=== PATIENT | female | born 1940 | race Caucasian/White ===

== ENCOUNTER 2022-04-27 11:59 | Emergency (ER) | payer MEDICARE, SELFPAY ==
[2022-04-27 12:11] VITALS: BP 216/73; PULSE 58; RESP 16; TEMP 36.3; O2SAT 94
--- NOTE | 2022-04-27 12:15 | XR_ITS ---
WS: [id number] XR chest 1V portable [id number] REASON FOR EXAM: kidney failure FINDINGS: No prior examinations for comparison. Cardiomegaly. Mild tortuosity and ectasia of the thoracic aorta with calcification in the aortic arch . Calcified granulomatous disease in both hemithoraces. Ill-defined hazy opacity in the right lower lung field laterally. Obscuration of the right hemidiaphr agm indicates consolidation/atelectasis in the right lower lung. Blunting of the right costophrenic angle. XR/XR chest 1V portable [id number] IMPRESSION: Atelectasis/consolidation in the right lower chest. Possible small right pleura l effusion.
--- NOTE | 2022-04-27 12:19 | ED_ITS ---
HPI - General Adult General: Chief complaint: General Medical Stated complaint: Kidney failure/N/V Time Seen by Provider: 04/27/22 12:10 History of Present Illness: Patient is an 82-year-old female with a history of CKD, hypertension who presents emergency room for concerns of worsening kidney function, nausea vomiting, chills and generalized weakness. She tells me 3 weeks ago she was diagnosed with chronic kidney injury and is trying to establish care with Dr. Toro in [facility]. Patient tells me that she has an ultrasound that is due but has not been obtained yet. In addition, patient tells me that she is still able to make urine. Since a week ago, patient has reports chills and generalized weakness. 3 days ago, patient reports ongoing cough and shortness of breath. Patient reports symptoms of nausea vomiting today. Denies chest pain, abdominal pain, dy suria/hematuria/polyuria, diarrhea/melena/hematochezia. Onset: 3 weeks ago of diagnosed kidney failure, 1 week of chill/generalized weakness, 3 days of nausea/vomiting Duration:ongoing Location:home Severity:moderate Associated symptoms: Reports dyspnea and vomiting; Deny chest pain, nausea, rash or palpitations Review of Systems Const: Reports: chills, fatigue and other (+generalized weakness); Denies: fever(s) Eyes: Denies: change in vision ENMT: Denies: mouth pain Card: Denies: chest pain or palpitations Resp: Reports: dyspnea and non-productive cough GI: Reports: vomiting; Denies: abdominal pain, nausea or diarrhea : Denies: dysuria Musc: Denies: extremity pain Skin/Breast: Denies: rash or new lesions Neuro: Denies: weakness in extremities Psych: Reports: other (Normal mood) Jimbo/Lymph: Denies: easy bruising PFSH ED PFSH: Medical History CKD (chronic kidney disease) Social History Smoking and tobacco status: never smoked Alcohol intake: never Substance/Drug Use: never Physical Exam Const: COMMON NORMALS: alert HENMT: COMMON NORMALS: atraumatic HEAD & SCALP: atraumatic MOUTH: moist mucous membranes not abnormal Eye: COMMON NORMALS: EOMs intact bilaterally and conjunctivae normal CONJUNCTIVA: Yes conjunctivae normal Neck/C-Spine: COMMON NORMALS: full ROM and supple Resp: COMMON NORMALS: normal respiratory effort and clear to auscultation bilaterally AUSCULTATION: clear to auscultation bilaterally Cardio: COMMON NORMALS: regular rate RATE: regular rate GI: COMMON NORMALS: Soft to palpation and non-tender PALPATION: Yes Soft to palpation OTHER: No focal TTP. NO guarding rebound, guarding, rigidity. No CVA tenderness to percussion. Neg Romano/Neg McBurney's point tenderness, no suprabupic tenderness to palpation. Extremity: COMMON NORMALS: full ROM OTHER: No lower extremity edema b/l Neuro: SENSORIUM/ORIENTATION: Yes alert MOTOR EXAM: No Abnormal motor strength present and Other motor observations present (no focal motor deficits) Psych: COMMON NORMALS: speech normal SPEECH: Yes normal speech MOOD & AFFECT: Yes euthymic mood Course Vital Signs: Vital signs: Vital Signs Temperature 97.3 F L 04/27/22 12:11 Pulse Rate 67 04/27/22 17:00 Respiratory Rate 16 04/27/22 12:11 Blood Pressure 210/70 04/27/22 18:33 Pulse Oximetry 92 04/27/22 17:00 Oxygen Delivery Me thod 04/27/22 12:11 MDM - General Adult Medical Decision Making Patient is an 82-year-old female with a history of CKD, hypertension who presents emergency room for concerns of worsening kidney function, nausea vomiting, chills and generalized weakness. On physical exam, patient is hemodynamically stable without any focal findings. Patient is noted to have white count 10.4. Creatinine of 2.9. Hemoglobin 10.6. 1x2 with delta less than 5. Patient EKGs did not show any signs of ischemia or ST elevation. I explained to patient that she needs additional blood pressure control to lower her creatinine of 2.8. Patient verbalized understanding. Patient received hydralazine and amlodipine in the emergency room today. Family did request for a copy of renal ultrasound. Renal ultrasound is negative for any acute finding. Have included a copy of the result for patient. Rx amlodipine 5mg for HTN Disposition: Discharge. Patient counseled regarding diagnostic impression, treatment plan. Patient given ED strict return precautions to return for continuation, worsening, or development of new symptoms. Instructed to f/u w/ PCP regarding symptoms today. Patient verbalized understanding. Lab Data : 04/27/22 12:50 04/27/22 12:50 Radiology Impressions Chest X-Ray 04/27/22 12:15 IMPRESSION: Atelectasis/consolidation in the right lower chest. Possible small right pleural effusion. Renal Ultrasound 04/27/22 16:40 IMPRESSION: 1. Negative for renal obstruction. 2. Atrophic kidneys. Suspect chronic medical renal disease. Laboratory Results WBC 10.4 10^3/uL (4.0-10.0) H 04/27/22 12:50 RBC 3.72 10^6/uL (4.1-5.3) L 04/27/22 12:50 Hgb 10.6 g/dL (11.5-15.3) L 04/27/22 12:50 Hct 31.8 % (37.0-47.0) L 04/27/22 12:50 MCV 85.5 fl (81-99) 04/27/22 12:50 MCH 28.5 pg (28.0-34.0) 04/27/22 12:50 MCHC 33.3 g/dL (30.0-36.0) 04/27/22 12:50 RDW 12.7 % (12.1-15.1) 04/27/22 12:50 Plt Count 370 10^3/cmm (130-400) 04/27/22 12:50 MPV 8.9 fL (7.4-10.4) 04/27/22 12:50 Neut % (Auto) 75.2 % 04/27/22 12:50 Lymph % (Auto) 16.6 % 04/27/22 12:50 Bulloch % (Auto) 6.0 % 04/27/22 12:50 Eos % (Auto) 1.1 % 04/27/22 12:50 Baso % (Auto) 0.6 % 04/27/22 12:50 Neut # (Auto) 7.83 10^3/uL (1.8-7.7) H 04/27/22 12:50 Lymph # (Auto) 1.7 10^3/uL (0.8-4.8) 04/27/22 12:50 Bulloch # (Auto) 0.6 10^3/uL (0.2-0.9) 04/27/22 12:50 Eos # (Auto) 0.1 10^3/uL (0.0-0.8) 04/27/22 12:50 Baso # (Auto) 0.1 10^3/uL (0.0-0.1) 04/27/22 12:50 Nucleated RBC % (auto) 0 % 04/27/22 12:50 Nucleated RBCs # 0.0 /100WBC 04/27/22 12:50 Sodium 137 mmol/L (136-145) 04/27/22 12:50 Potassium 4.7 mmol/L (3.5-5.1) 04/27/22 12:50 Chloride 103 mmol/L (98-107) 04/27/22 12:50 Carbon Dioxide 22 mmol/L (22-29) 04/27/22 12:50 Anion Gap 16.7 (5-19) 04/27/22 12:50 BUN 46 mg/dL (8-23) H 04/27/22 12:50 Creatinine 2.8 mg/dL (0.5-0.9) H 04/27/22 12:50 GFR Calculation Not Reportable 04/27/22 12:50 Glucose 165 mg/dL (65-115) H 04/27/22 12:50 Calculated Osmolality 300 mOsm/kg (285-295) H 04/27/22 12:50 Calcium 9.5 mg/dL (8.5-10.5) 04/27/22 12:50 Total Bilirubin 0.3 mg/dL (0.15-1.2) 04/27/22 12:50 AST 16 U/L (0-32) 04/27/22 12:50 ALT 14 U/L (0-33) 04/27/22 12:50 Alkaline Phosphatase 79 U/L (35-105) 04/27/22 12:50 Troponin T Baseline 22 ng/L (0-10) H 04/27/22 12:50 Troponin T 120 Minute 20.99 ng/L (0-10) H 04/27/22 14:32 Delta Troponin T -1.01 ABS# (0-10) L 04/27/22 14:32 Total Protein 6.2 g/dL (6.6-8.7) L 04/27/22 12:50 Albumin 3.5 g/dL (3.5-5.2) 04/27/22 12:50 Globulin 2.7 g/dL (1.3-4.6) 04/27/22 12:50 Lipase 128 U/L (13-60) H 04/27/22 12:50 Imaging Data Other Imaging: Radiologist's impression: [facility] [address] [address] XRay Report Signed Patient: Bianka Kirby Unit #: [id number] : 1940 Age/Sex: 82 / F ADM Date: 04/27/22 Loc: ER Room/Bed: Attending Dr: Ordering Provider/Ordering MD: Deborah Mills MD Date of Service: 04/27/22 Procedure(s): XR chest 1V portable [id number] Accession Number(s): [id number] Report Number: [id number] WS: [id number] XR chest 1V portable [id number] REASON FOR EXAM: kidney failure FINDINGS: No prior examinations for comparison. Cardiomegaly. Mild tortuosity and ectasia of the thoracic aorta with calcification in the aortic arch. Calcified granulomatous disease in both hemithoraces. Ill-defined hazy opacity in the right lower lung field laterally. Obscuration of the right hemidiaphragm indicates consolidation/atelectasis in the right lower lung. Blunting of the right costophrenic angle. XR/XR chest 1V portable [id number] IMPRESSION: Atelectasis/consolidation in the right lower chest. Possible small right pleural effusion. ? ? Dictated By: Surya Cabello Jr, MD Signed By: Surya Cabello Jr, MD Signed Date/Time: 04/27/22 1242 DD/ [address] [address] Ultrasound Report Signed Patient: Bianka Kirby Unit #: [id number] : 1940 Age/Sex: 82 / F ADM Date: 04/27/22 Loc: ER Room/Bed: Attending Dr: Ordering Provider/Ordering MD: Deborah Mills MD Date of Service: 04/27/22 Procedure(s): US renal BI* [id number] Accession Number(s): [id number] Report Number: [id number] PROCEDURE INFORMATION: Exam: US Retroperitoneal; Complete; Kidneys and Bladder Exam date and time: 04/27/2022 5:41 PM Age: 82 years old Clinical indication: Other: Order says eval for kidney injury; Additional info: Eval for kidney injuries TECHNIQUE: Imaging protocol: Real-time ultrasound of the retroperitoneum with image documentation. Complete exam focused on the kidneys and bladder. COMPARISON: No relevant prior studies available. FINDINGS: Right kidney: Right renal parenchyma is diffusely atrophic. Renal length 7.7 cm. Increased echotexture of the cortex. Simple upper pole cyst 1.8 cm diameter. No echogenic stones visible. No perinephric fluid. Left kidney: Left renal cortical thinning. Mildly increased cortical echotexture. Negative for hydronephrosis. Renal length 10.3 cm. Simple interpolar cortical cyst 1.2 cm diameter. No echogenic stones. No perinephric fluid. Urinary bladder: Sonographically unremarkable bladder. No significant finding. US/US renal BI* [id number] IMPRESSION: 1. Negative for renal obstruction. 2. Atrophic kidneys. Suspect chronic medical renal disease. ? Dictated By: Casey Verma Signed By: Casey Verma Signed Date/Time: 04/27/221835 DD/ 40 Discharge Plan Discharge Patient Disposition: Home Clinical Impression: CKD (chronic kidney disease), Hypertension Condition: Stable Prescriptions: New amlodipine 5 mg tablet 5 mg PO DAILY 20 Days Qty: 20 0RF Discharge Orders: Discharge ED (Routine); Ordered 04/27/22 Ordered By: Deborah Mills Referrals: Fernando Fish DO [Primary Care Provider] - Discharge Diet: Advance as tolerated Discharge Activity: Increase activity as tolerated Patient Instructions: Chronic Kidney Disease (ED) Activity Restrictions/Additional Instructions: Your primary care provider to adjust her blood pressure. Please follow-up with your [facility] care provider as well as Dr. Toro for adjustment of your chronic kidney injury. Coding Level of Care Code ED Substance Addiction Coordinator for Pauletteg Fwd Exam Comprehensive
--- NOTE | 2022-04-27 12:36 | ECG_ITS ---
[facility] Test Date: 2022-04-27 Pat Name: Bianka Kirby Department: Room: Gender: Female Broadcast Program Director: : 1940 Requested By: Deborah Mills Order Number: [id number] [place] MD: Olu Hernandez M.D. Measurements Intervals [place] Rate: 57 P: 84 CT: 248 QRS: 44 QRSD: 94 T: 0 QT: 400 QTc: 392 Interpretive Statements SINUS BRADYCARDIA WITH FIRST DEGREE AV BLOCK SEPTAL MYOCARDIAL INFARCTION , PROBABLY OLD [40+ ms Q WAVE IN V1/V2] No previous ECG available for comparison Electronically Signed On 04-27-2022 17:36:27 CDT by Olu Hernandez M.D. [id number]
[2022-04-27 13:02] LABS: Basophils # 0.1 10^3/uL (0.0-0.1); Basophils % 0.6 %; Eosinophils # 0.1 10^3/uL (0.0-0.8); Eosinophils % 1.1 %; Hematocrit 31.8 % (37.0-47.0); Hemoglobin 10.6 g/dL (11.5-15.3); Lymphocytes # 1.7 10^3/uL (0.8-4.8); Lymphocytes % 16.6 %; Mean Corpuscular HGB Conc 33.3 g/dL (30.0-36.0); Mean Corpuscular Hemoglobin 28.5 pg (28.0-34.0); Mean Corpuscular Volume 85.5 fl (81-99); Mean Platelet Volume 8.9 fL (7.4-10.4); Monocytes # 0.6 10^3/uL (0.2-0.9); Neutrophils # 7.83 10^3/uL (1.8-7.7); Neutrophils % 75.2 %; Nucleated Red Blood Cells % 0 %; Platelet Count 370 10^3/cmm (130-400); Red Blood Count 3.72 10^6/uL (4.1-5.3); Red Cell Distribution Width 12.7 % (12.1-15.1); White Blood Count 10.4 10^3/uL (4.0-10.0)
[2022-04-27 13:19] LABS: Troponin(5th) Baseline 22 ng/L (0-10)
[2022-04-27 13:25] LABS: Alanine Aminotransferase 14 U/L (0-33); Albumin Level 3.5 g/dL (3.5-5.2); Alkaline Phosphatase 79 U/L (35-105); Anion Gap 16.7 (5-19); Aspartate Amino Transferase 16 U/L (0-32); Blood Urea Nitrogen 46 mg/dL (8-23); Calcium 9.5 mg/dL (8.5-10.5); Carbon Dioxide 22 mmol/L (22-29); Chloride 103 mmol/L (98-107); Globulin 2.7 g/dL (1.3-4.6); Glucose 165 mg/dL (65-115); Lipase 128 U/L (13-60); Osmolality Calculated 300 mOsm/kg (285-295); Potassium 4.7 mmol/L (3.5-5.1); Sodium 137 mmol/L (136-145); Total Bilirubin 0.3 mg/dL (0.15-1.2); Total Protein 6.2 g/dL (6.6-8.7)
--- NOTE | 2022-04-27 14:16 | ECG_ITS ---
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 Measurements Intervals [place] Rate: 65 P: 268 NJ: 316 QRS: 62 QRSD: 98 T: 31 QT: 385 QTc: 400 Interpretive Statements SINUS RHYTHM SEPTAL MYOCARDIAL INFARCTION , PROBABLY OLD [40+ ms Q WAVE IN V1/V2] Compared to ECG 04/27/2022 12:36:35 Indeterminate axis now present Sinus bradycardia no longer present Myocardial infarct finding still present Electronically Signed On 04-27-2022 17:42:05 CDT by Olu Hernandez M.D. [id number]
[2022-04-27 16:22] LABS: Troponin 5 2HR 20.99 ng/L (0-10); Troponin 5 2HR Delta -1.01 ABS# (0-10)
--- NOTE | 2022-04-27 16:40 | USR_ITS ---
PROCEDURE INFORMATION: Exam: US Retroperitoneal; Complete; Kidneys and Bladder Exam date and time: 04/27/2022 5:41 PM Age: 82 years old Clinical indication: Other: Order says eval for kidney injury; Additional info: Eval for kidney injuries TECHNIQUE: Imaging protocol: Real-time ultrasound of the retroperitoneum with image documentation. Complete exam focused on the kidneys and bladder. COMPARISON: No relevant prior studies available. FINDINGS: Right kidney: Right renal parenchyma is diffusely atrophic. Renal length 7.7 cm. Increased echotexture of the cortex. Simple upper pole cyst 1.8 cm diameter. No echogenic stones visible. No perinephric fluid. Left kidney: Left renal cortical thinning. Mildly increased cortical echotexture. Negative for hydronephrosis. Renal length 10.3 cm. Simple interpolar cortical cyst 1.2 cm diameter. No echogenic stones. No perinephric fluid. Urinary bladder: Sonographically unremarkable bladder. No significant finding. US/US renal BI* [id number] IMPRESSION: 1. Negative for renal obstruction. 2. Atrophic kidneys. Suspect chronic medical renal disease.
[2022-04-27 17:00] VITALS: BP 231/84; PULSE 67; O2SAT 92
[2022-04-27] MEDS: amlodipine 10 mg Tablet PO (17:13)
--- NOTE | 2022-04-27 18:16 | ECG_ITS ---
[facility] Test Date: 2022-04-27 Pat Name: Bianka Kirby Department: Room: Gender: Female Oncology Specialist: : 1940 Requested By: Deborah Mills Order Number: [id number] [place] MD: Olu Hernandez M.D. Measurements Intervals [place] Rate: 59 P: 89 PA: 258 QRS: 39 QRSD: 94 T: 51 QT: 410 QTc: 408 Interpretive Statements SINUS BRADYCARDIA WITH FIRST DEGREE AV BLOCK SEPTAL MYOCARDIAL INFARCTION , PROBABLY OLD [40+ ms Q WAVE IN V1/V2] Compared to ECG 04/27/2022 14:34:08 First degree AV block now present Sinus rhythm no longer present Myocardial infarct finding still present Electronically Signed On 04-27-2022 22:44:22 CDT by Olu Hernandez M.D. [id number]
[2022-04-27 18:33] VITALS: BP 210/70
[2022-04-27] MEDS: hyDRALAzine 20 mg/mL INJ 1 mL IVP (19:04)
[2022-04-27 19:15] LABS: Adenovirus Not Detected (NOT DETECT); Chlamydia Pneumoniae Not Detected (NOT DETECT); Coronavirus 229E,HKU1,NL63,OC4 Not Detected (NOT DETECT); Human Metapneumovirus Not Detected (NOT DETECT); Human Rhinovirus/Enterovirus Not Detected (NOT DETECT); Influenza A Not Detected (NOT DETECT); Influenza A H1 Not Detected (NOT DETECT); Influenza A H1-2009 Not Detected (NOT DETECT); Influenza A H3 Not Detected (NOT DETECT); Influenza B Not Detected (NOT DETECT); Mycoplasma Pneumoniae Not Detected (NOT DETECT); Parainfluenza Virus Type 1 Not Detected (NOT DETECT); Parainfluenza Virus Type 2 Not Detected (NOT DETECT); Parainfluenza Virus Type 3 Not Detected (NOT DETECT); Parainfluenza Virus Type 4 Not Detected (NOT DETECT); Respiratory Syncytial Virus A Not Detected (NOT DETECT); Respiratory Syncytial Virus B Not Detected (NOT DETECT); SARS-COV-2 Not Detected (NOT DETECT)
[2022-04-27 19:28] VITALS: BP 193/60; PULSE 67; RESP 17; O2SAT 95
[2022-04-27 19:36] VITALS: BP 150/61; PULSE 67; RESP 17; TEMP 36.3; O2SAT 95
== END 2022-04-27 19:52 | disposition home or self-care (01) ==
PROVIDERS: Emergency Provider Emergency Medicine; PCP Electrodiagnostic Medicine
DX: I12.9 Hypertensive chronic kidney disease with stage 1 through stage 4 chronic kidney disease, or unspecified chronic kidney disease (principal); N18.9 Chronic kidney disease, unspecified
CPT/HCPCS: 36415; 71045; 76770; 80053; 83690; 84484; 85025; 87635; 93005; 96374; 99285; J0360

== ENCOUNTER 2022-06-19 10:55 | Inpatient (IN) | payer MEDICARE, SELFPAY ==
[2022-06-19] VITALS (95 sets, daily range): BP systolic 162–223; BP diastolic 60–141; PULSE 37–68; RESP 9–26; TEMP 36.4–36.7; O2SAT 86–96
[2022-06-19 12:47] LABS: Basophils # 0.1 10^3/uL (0.0-0.1); Basophils % 0.5 %; Eosinophils # 0.1 10^3/uL (0.0-0.8); Hematocrit 37.5 % (37.0-47.0); Hemoglobin 12.5 g/dL (11.5-15.3); Lymphocytes # 1.3 10^3/uL (0.8-4.8); Lymphocytes % 13.3 %; Mean Corpuscular HGB Conc 33.3 g/dL (30.0-36.0); Mean Corpuscular Hemoglobin 27.6 pg (28.0-34.0); Mean Corpuscular Volume 82.8 fl (81-99); Mean Platelet Volume 9.7 fL (7.4-10.4); Monocytes # 0.5 10^3/uL (0.2-0.9); Monocytes % 5.6 %; Neutrophils # 7.63 10^3/uL (1.8-7.7); Neutrophils % 79.1 %; Nucleated Red Blood Cells % 0 %; Platelet Count 347 10^3/cmm (130-400); Red Blood Count 4.53 10^6/uL (4.1-5.3); Red Cell Distribution Width 14.1 % (12.1-15.1); White Blood Count 9.7 10^3/uL (4.0-10.0)
--- NOTE | 2022-06-19 12:55 | XRR_ITS ---
PROCEDURE INFORMATION: Exam: XR Chest Exam date and time: 06/19/2022 2:00 PM Age: 82 years old Clinical indication: Shortness of breath; Additional info: SOB TECHNIQUE: Imaging protocol: Radiologic exam of the chest. Views: 1 view. COMPARISON: CR XR chest 1V portable [id number] 04/27/2022 12:23 PM FINDINGS: Lungs: Low lung volumes seen. The left lung and right upper lobe are clear. Pleural spaces: Right lower lobe of moderate volume pleural effusion. No pneumothorax. Heart/Mediastinum: Unremarkable. No cardiomegaly. Bones/joints: Unremarkable. XR/XR chest 1V portable [id number] IMPRESSION: 1. Moderate volume right lower lobe pleural effusion 2. Otherwise No acute findings.
--- NOTE | 2022-06-19 12:57 | W.ED.GENADLT ---
Documented by User: Clarisa Burton PA-C 06/19/22 14:10 HPI - General Adult General: Chief complaint: General Medical Stated complaint: High BP Time Seen by Provider: 06/19/22 12:44 Source: patient and family Mode of arrival: wheelchair Limitations: no limitations History of Present Illness: 82-year-old female presents to the ER today for high blood pressure. Patient reports this is been an ongoing issue. Patient reports she has kidney issues and is seeing a inpatient auditor. They tried to do a biopsy about 2 weeks ago and her blood pressure is too high. They were referred back to her primary care. Patient reports patient was on losartan but was removed due to kidney issues. Patient currently takes metoprolol and amlodipine and that is all. She reports at home the blood pressures been running over 200 on top and 70-90 on bottom. Patient denies any symptoms associated with the elevated blood pressure. Denies headaches, dizziness. She does report shortness of breath which is been going on for 1 to 2 months. Patient reports she has a history of smoking but denies any known history of COPD. Denies that it is worth's with lying flat. Patient reports walking or any type of exertion makes it worse. Patient reports she is scheduled for an echo 25 June. Review of Systems General: Reports: 10 or more systems reviewed and unremarkable except in HPI and below PFSH ED PFSH: Medical History CKD (chronic kidney disease) History of hyperlipidemia History of hypertension History of hypothyroidism Surgical History History of cholecystectomy Family History Mother CAD (coronary artery disease) Father CAD (coronary artery disease) Social History Smoking and tobacco status: never smoked Alcohol intake: never Substance/Drug Use: never Physical Exam Const: COMMON NORMALS: no acute distress, patient oriented x3, no limitations, alert and well nourished Resp: COMMON NORMALS: normal respiratory effort, No retractions and clear to auscultation bilaterally AUSCULTATION: clear to auscultation bilaterally Cardio: COMMON NORMALS: regular rate, regular rhythm and No murmurs present (Cardio) RATE: regular rate RHYTHM: regular rhythm OTHER: pt has borderline bradycardia GI: COMMON NORMALS: Normal to inspection, nondistended, normoactive bowel sounds present, Soft to palpation and non-tender PALPATION: Yes Soft to palpation Extremity: NARRATIVE EXTREMITY EXAM: +1 pitting edema bilaterally Neuro: COMMON NORMALS: patient oriented x3 SENSORIUM/ORIENTATION: Yes alert Psych: COMMON NORMALS: mental status grossly normal, Normal thought process present and cooperative THOUGHT PROCESS: Normal thought process present Skin: COMMON NORMALS: no rashes or lesions noted and no wounds GENERAL SKIN EXAM: no rashes or lesions noted Course ED course: Patient has ongoing hypertension. It is running over 200 for the last several days. Patient denies any symptoms associated with this. She does have some shortness of breath however that is been going on 1 to 2 months. We will get lab work and a chest x-ray at this time. Consultations: Consultation #1: Spoke with Dr. Swenson who agrees to admission. Will consult nephrology. Start pt on nitro drip at a low dose. Also wants a troponin series run. Time: 13:46 Consultation #2: Spoke with nephrology. Will consult with patient. Time: 14:07 Vital Signs: Vital signs: Vital Signs Temperature 97.6 F 06/19/22 15:57 Pulse Rate 54 L 06/19/22 15:57 Respiratory Rate 17 06/19/22 15:57 Blood Pressure 207/64 06/19/22 15:57 Pulse Oximetry 91 06/19/22 15:57 Oxygen Delivery Me thod 06/19/22 15:57 MDM - General Adult Medical Decision Making Patient's chest x-ray indicates a pleural effusion on the right side, this is moderate in size. Patient's blood pressure is remaining 210/80 while in the ER. Patient's creatinine is elevated at 3.3. Patient's BNP is greater than 8300. Her heart rate is running anywhere from 45-60 while in the ER. Given this, we are unable to give any oral medications that will not affect the heart rate. I did discuss this patient with Dr. Swenson who accepts patient and would like a nitro drip started. I also spoke with nephrology who will consult and see patient. Lab Data 06/19/22 12:23 06/19/22 12:23 Radiology Impressions Chest X-Ray 06/19/22 12:55 IMPRESSION: 1. Moderate volume right lower lobe pleural effusion 2. Otherwise No acute findings. Head CT 06/19/22 15:48 IMPRESSION: 1. No acute intracranial abnormality. 2. Chronic white matter ischemic disease Laboratory Results WBC 9.7 10^3/uL (4.0-10.0) 06/19/22 12: RBC 4.53 10^6/uL (4.1-5.3) 06/19/22 12:23 Hgb 12.5 g/dL (11.5-15.3) 06/19/22 12:23 Hct 37.5 % (37.0-47.0) 06/19/22 12: MCV 82.8 fl (81-99) 06/19/22 12: MCH 27.6 pg (28.0-34.0) L 06/19/22 12: MCHC 33.3 g/dL (30.0-36.0) 06/19/22 12: RDW 14.1 % (12.1-15.1) 06/19/22 12:23 Plt Count 347 10^3/cmm (130-400) 06/19/22 12: MPV 9.7 fL (7.4-10.4) 06/19/22 12: Neut % (Auto) 79.1 % 06/19/22 12:23 Lymph % (Auto) 13.3 % 06/19/22 12:23 [place] % (Auto) 5.6 % 06/19/22 12: Eos % (Auto) 1.0 % 06/19/22 12:23 Baso % (Auto) 0.5 % 06/19/22 12:23 Neut # (Auto) 7.63 10^3/uL (1.8-7.7) 06/19/22 12:23 Lymph # (Auto) 1.3 10^3/uL (0.8-4.8) 06/19/22 12:23 [place] # (Auto) 0.5 10^3/uL (0.2-0.9) 06/19/22 12:23 Eos # (Auto) 0.1 10^3/uL (0.0-0.8) 06/19/22 12:23 Baso # (Auto) 0.1 10^3/uL (0.0-0.1) 06/19/22 12:23 Nucleated RBC % (auto) 0 % 06/19/22 12:23 Nucleated RBCs # 0.0 /100WBC 06/19/22 12:23 Sodium 139 mmol/L (136-145) 06/19/22 12:23 Potassium 4.0 mmol/L (3.5-5.1) 06/19/22 12: Chloride 104 mmol/L (98-107) 06/19/22 12:23 Carbon Dioxide 25 mmol/L (22-29) 06/19/22 12:23 Anion Gap 14.0 (5-19) 06/19/22 12:23 BUN 46 mg/dL (8-23) H 06/19/22 12:23 Creatinine 3.3 mg/dL (0.5-0.9) H 06/19/22 12:23 GFR Calculation Not Reportable 06/19/22 12:23 Glucose 164 mg/dL (65-115) H 06/19/22 12:23 Estimat Average Glucose 111 06/19/22 12:23 Hemoglobin A1c 5.5 % (4.0-6.0) 06/19/22 12:23 Calculated Osmolality 304 mOsm/kg (285-295) H 06/19/22 12:23 Calcium 9.5 mg/dL (8.5-10.5) 06/19/22 12:23 Total Bilirubin 0.5 mg/dL (0.15-1.2) 06/19/22 12: AST 21 U/L (0-32) 06/19/22 12:23 ALT 13 U/L (0-33) 06/19/22 12:23 Alkaline Phosphatase 75 U/L (35-105) 06/19/22 12:23 Troponin T Baseline 43 ng/L (0-10) H 06/19/22 12:23 NT-Pro-B Natriuret Pep 8388 pg/mL (0-450) H 06/19/22 12:23 Total Protein 6.4 g/dL (6.6-8.7) L 06/19/22 12:23 Albumin 3.4 g/dL (3.5-5.2) L 06/19/22 12:23 Globulin 3.0 g/dL (1.3-4.6) 06/19/22 12:23 Triglycerides 224 mg/dL (0-150) H 06/19/22 12:23 Cholesterol 211 mg/dL (0-200) H 06/19/22 12:23 LDL Cholesterol, Calc 112 mg/dL (50-129) 06/19/22 12:23 HDL Cholesterol 54 mg/dL (60-100) L 06/19/22 12:23 LDL/HDL Ratio 2.07 RATIO (0.00-3.22) 06/19/22 12:23 Cholesterol/HDL Ratio 3.91 mg/dL (0.0-4.40) 06/19/22 12:23 TSH 6.71 uIU/mL (0.27-4.20) H 06/19/22 12:23 Critical Care Time Critical Care Time: Critical Care Time: No Discharge Plan Discharge Patient Disposition: Admitted As Inpatient Admit Provider: Roland Swenson Clinical Impression: Pleural effusion, right Hypertension Qualifiers: Hypertension type: renovascular hypertension Qualified Code(s): 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 - Renovascular hypertension Condition: Stable Coding Level of Care Code ED Director Of Event Sales for Chg Fwd Exam Detailed Documented by User: Donny Vicente DO 06/19/22 17:59 HPI - General Adult General: Chief complaint: General Medical Stated complaint: High BP Time Seen by Provider: 06/19/22 12:44 PFSH ED PFSH: Medical History CKD (chronic kidney disease) History of hyperlipidemia History of hypertension History of hypothyroidism Surgical History History of cholecystectomy Family History Mother CAD (coronary artery disease) Father CAD (coronary artery disease) Social History Smoking and tobacco status: never smoked Alcohol intake: never Substance/Drug Use: never Course Vital Signs: Vital signs: Vital Signs Temperature 97.6 F 06/19/22 15:57 Pulse Rate 54 L 06/19/22 15:57 Respiratory Rate 17 06/19/22 15:57 Blood Pressure 207/64 06/19/22 15:57 Pulse Oximetry 91 06/19/22 15:57 Oxygen Delivery Me thod 06/19/22 15:57 MDM - General Adult Medical Decision Making Patient's chest x-ray indicates a pleural effusion on the right side, this is moderate in size. Patient's blood pressure is remaining 210/80 while in the ER. Patient's creatinine is elevated at 3.3. Patient's BNP is greater than 8300. Her heart rate is running anywhere from 45-60 while in the ER. Given this, we are unable to give any oral medications that will not affect the heart rate. I did discuss this patient with Dr. Swenson who accepts patient and would like a nitro drip started. I also spoke with nephrology who will consult and see patient. Chart reviewed and patient discussed with midlevel. Agree with assessment and plan. Lab Data 06/19/22 12:23 06/19/22 12:23 Radiology Impressions Chest X-Ray 06/19/22 12:55 IMPRESSION: 1. Moderate volume right lower lobe pleural effusion 2. Otherwise No acute findings. Head CT 06/19/22 15:48 IMPRESSION: 1. No acute intracranial abnormality. 2. Chronic white matter ischemic disease Laboratory Results WBC 9.7 10^3/uL (4.0-10.0) 06/19/22 12: RBC 4.53 10^6/uL (4.1-5.3) 06/19/22 12:23 Hgb 12.5 g/dL (11.5-15.3) 06/19/22 12:23 Hct 37.5 % (37.0-47.0) 06/19/22 12: MCV 82.8 fl (81-99) 06/19/22 12:23 MCH 27.6 pg (28.0-34.0) L 06/19/22 12: MCHC 33.3 g/dL (30.0-36.0) 06/19/22 12: RDW 14.1 % (12.1-15.1) 06/19/22 12:23 Plt Count 347 10^3/cmm (130-400) 06/19/22 12: MPV 9.7 fL (7.4-10.4) 06/19/22 12:23 Neut % (Auto) 79.1 % 06/19/22 12:23 Lymph % (Auto) 13.3 % 06/19/22 12:23 [place] % (Auto) 5.6 % 06/19/22 12:23 Eos % (Auto) 1.0 % 06/19/22 12:23 Baso % (Auto) 0.5 % 06/19/22 12:23 Neut # (Auto) 7.63 10^3/uL (1.8-7.7) 06/19/22 12:23 Lymph # (Auto) 1.3 10^3/uL (0.8-4.8) 06/19/22 12:23 [place] # (Auto) 0.5 10^3/uL (0.2-0.9) 06/19/22 12:23 Eos # (Auto) 0.1 10^3/uL (0.0-0.8) 06/19/22 12:23 Baso # (Auto) 0.1 10^3/uL (0.0-0.1) 06/19/22 12: Nucleated RBC % (auto) 0 % 06/19/22 12: Nucleated RBCs # 0.0 /100WBC 06/19/22 12:23 Sodium 139 mmol/L (136-145) 06/19/22 12:23 Potassium 4.0 mmol/L (3.5-5.1) 06/19/22 12: Chloride 104 mmol/L (98-107) 06/19/22 12:23 Carbon Dioxide 25 mmol/L (22-29) 06/19/22 12: Anion Gap 14.0 (5-19) 06/19/22 12:23 BUN 46 mg/dL (8-23) H 06/19/22 12:23 Creatinine 3.3 mg/dL (0.5-0.9) H 06/19/22 12:23 GFR Calculation Not Reportable 06/19/22 12:23 Glucose 164 mg/dL (65-115) H 06/19/22 12:23 Estimat Average Glucose 111 11/25/22 12:23 Hemoglobin A1c 5.5 % (4.0-6.0) 06/19/22 12:23 Calculated Osmolality 304 mOsm/kg (285-295) H 06/19/22 12:23 Calcium 9.5 mg/dL (8.5-10.5) 06/19/22 12:23 Total Bilirubin 0.5 mg/dL (0.15-1.2) 06/19/22 12:23 AST 21 U/L (0-32) 06/19/22 12:23 ALT 13 U/L (0-33) 06/19/22 12:23 Alkaline Phosphatase 75 U/L (35-105) 06/19/22 12:23 Troponin T Baseline 43 ng/L (0-10) H 06/19/22 12:23 NT-Pro-B Natriuret Pep 8388 pg/mL (0-450) H 06/19/22 12:23 Total Protein 6.4 g/dL (6.6-8.7) L 06/19/22 12:23 Albumin 3.4 g/dL (3.5-5.2) L 06/19/22 12:23 Globulin 3.0 g/dL (1.3-4.6) 06/19/22 12:23 Triglycerides 224 mg/dL (0-150) H 06/19/22 12:23 Cholesterol 211 mg/dL (0-200) H 06/19/22 12:23 LDL Cholesterol, Calc 112 mg/dL (50-129) 06/19/22 12:23 HDL Cholesterol 54 mg/dL (60-100) L 06/19/22 12:23 LDL/HDL Ratio 2.07 RATIO (0.00-3.22) 06/19/22 12:23 Cholesterol/HDL Ratio 3.91 mg/dL (0.0-4.40) 06/19/22 12:23 TSH 6.71 uIU/mL (0.27-4.20) H 06/19/22 12:23 Discharge Plan Discharge Patient Disposition: Admitted As Inpatient Admit Provider: oRland Swenson Clinical Impression: Pleural effusion, right Hypertension Qualifiers: Hypertension type: renovascular hypertension Qualified Code(s): I15.0 - Renovascular hypertension Condition: Stable Coding Level of Care Code ED Director Of Event Sales for Chg Fwd Exam Detailed
[2022-06-19 13:06] LABS: Alanine Aminotransferase 13 U/L (0-33); Albumin Level 3.4 g/dL (3.5-5.2); Alkaline Phosphatase 75 U/L (35-105); Aspartate Amino Transferase 21 U/L (0-32); Blood Urea Nitrogen 46 mg/dL (8-23); Calcium 9.5 mg/dL (8.5-10.5); Carbon Dioxide 25 mmol/L (22-29); Chloride 104 mmol/L (98-107); Glucose 164 mg/dL (65-115); Osmolality Calculated 304 mOsm/kg (285-295); Sodium 139 mmol/L (136-145); Total Bilirubin 0.5 mg/dL (0.15-1.2); Total Protein 6.4 g/dL (6.6-8.7)
[2022-06-19 13:27] LABS: NT Pro B Type Natriuretic Pept 8388 pg/mL (0-450)
--- NOTE | 2022-06-19 14:22 | PM.HP ---
Providers/Chief Complaint Admitting Physician: Roland Swenson MD Primary Care Provider: Fernando Fish DO Chief Complaint: High BP History of Present Illness Bianka Kirby is a 82 year old female with a past medical history of hypertension, history of chronic kidney disease, managed by nephrology, hyperlipidemia, hypothyroidism,, anxiety, who presents [facility] due to shortness of breath, weakness, fatigue, and elevated blood pressure and elevated kidney function. According to patient, she is from [place], she is living here in [place] with her daughter. She has been developing increasing shortness of breath, increased lower extremity edema, with elevated blood pressure. Her outpatient engraving supervisor has been titrating her medication however given her elevated kidney function she has been taken off of a lot of her blood pressure medications. Her blood pressure she tells me is very resistant, they have tried multiple medications without improvement. Given her chronic kidney disease and worsening kidney function, week ago she was up at [facility] and was supposed to have a kidney biopsy however it had to be rescheduled due to her elevated blood pressures. She denies any chest pain, no palpitations. No headache, blurry vision. No focal weakness, no paresthesias, she does report shortness of breath, increased lower extremity edema. In the emergency room her blood pressure is 210/98, BNP 8388, she has a right pleural effusion, has evidence of pulm vascular congestion, she has not been given any blood pressure medications hospitalist team was called for evaluation Review of Systems Const: Reports: fatigue; Denies: fever(s) Card: Denies: chest pain Resp: Reports: dyspnea GI: Denies: abdominal pain Musc: Denies: back pain Medications/Allergies Home Medications Medication Instructions Recorded Confirmed Last Taken Type amlodipine 5 mg tablet 10 mg PO DAILY 06/19/22 06/19/22 06/19/22 History atorvastatin 40 mg tablet 40 mg PO BEDTIME 06/19/22 06/19/22 06/18/22 History budesonide-formoterol HFA 160 2 puff inhalation BID PRN 06/19/22 06/19/22 06/19/22 History mcg-4.5 mcg/actuation aerosol Shortness Of Breath Or Wheezing inhaler (Symbicort) fluticasone fur. 200 mcg-umeclid 1 inh inhalation DAILY 06/19/22 06/19/22 06/19/22 History 62.5 mcg-vilant 25 mcg inhalat.powder (Trelegy Ellipta) levothyroxine 50 mcg tablet 50 mcg PO QAM 06/19/22 06/19/22 06/19/22 History metoprolol succinate 50 mg 50 mg PO DAILY 06/19/22 06/19/22 06/19/22 History tablet,extended release 24 hr Allergies Allergy/AdvReac Type Severity Reaction Status Date / Time No Known Allergies Allergy Verified 06/19/22 14:05 PFSH Acute PFSH: Medical History (Updated 06/19/22 @ 14:28 by Roland Swenson MD) CKD (chronic kidney disease) History of hyperlipidemia History of hypertension History of hypothyroidism Surgical History (Updated 06/19/22 @ 14:26 by Roland Swenson MD) History of cholecystectomy Family History (Updated 06/19/22 @ 14:26 by Roland Swenson MD) Mother CAD (coronary artery disease) Father CAD (coronary artery disease) Social History (Updated 06/19/22 @ 14:26 by Roland Swenson MD) Smoking and tobacco status: never smoked Alcohol intake: never Substance/Drug Use: never Vitals/I&O/Wt Last Vital Signs Temp 98.0 F 06/19/22 11:25 Pulse 62 06/19/22 12:54 Resp 14 06/19/22 12:54 BP 210/80 06/19/22 12:54 Pulse Ox 96 06/19/22 12:54 O2 Del Method 06/19/22 12:54 Weight last 48 hrs Weight 69.853 kg Physical Exam Const: COMMON NORMALS: no acute distress and patient oriented x3 HENMT: COMMON NORMALS: normocephalic HEAD & SCALP: normocephalic Eye: COMMON NORMALS: Equal, round and reactive pupils present and EOMs intact bilaterally Neck/C-Spine: COMMON NORMALS: no JVD Resp: COMMON NORMALS: normal respiratory effort, No retractions, No use of accessory muscles and clear to auscultation bilaterally AUSCULTATION: clear to auscultation bilaterally Cardio: COMMON NORMALS: no JVD, regular rate, regular rhythm, S1 normal heart sound present and S2 normal heart sound present RATE: regular rate RHYTHM: regular rhythm HEART SOUNDS: S1 normal heart sound present and S2 normal heart sound present GI: COMMON NORMALS: Normal to inspection, nondistended, normoactive bowel sounds present, Soft to palpation, non-tender, no masses and no bruits PALPATION: Yes Soft to palpation Extremity: COMMON NORMALS: no calf tenderness OTHER: 1+ pitting bilateral extremity Neuro: COMMON NORMALS: patient oriented x3, CN's II-XII intact bilaterally and moves all extremities Psych: COMMON NORMALS: mental status grossly normal Data 06/19/22 12:23 06/19/22 12:23 A&P Assessment and plan (1) Hypertensive urgency: (2) Acute kidney injury superimposed on CKD: (3) Pleural effusion, right: (4) CHF (congestive heart failure): Plan Hypertensive urgency -Start on nitroglycerin drip -Serial EKGs serial troponins telemetry monitoring -CT head, cardiac echo -Avoid drops in her blood pressure due to risk of stroke, -Decrease MAP 25% the next hour, or systolic less than 160 or diastolic less than 80 -We will start on hydralazine -DNR/DNI -Heparin for DVT prophylaxis Diastolic CHF exacerbation elevated BNP -We will do 1 trial Lasix -Fluid restrictions -Cardiac echo ADOLFO on CKD -Is supposed to have a kidney biopsy at [facility] however he had to be canceled due to elevated blood pressures -Renal ultrasound -Consult nephrology Hypothyroidism continue home meds Hypertension as above Hyperlipidemia as above Attestations Medical Necessity Statement*: Patient requires hospitalization, inpatient, greater than 2 minutes, for hypertensive urgency, diastolic CHF exacerbation, fluid overload, Coding Level of Care Code Acute Manufacturing Technology Professor for [facility] Fwd Diagnoses Hypertensive urgency I16.0 Acute kidney injury superimposed on CKD N17.9; N18.9 Pleural effusion, right J90 CHF (congestive heart failure) I50.9
[2022-06-19 14:50] LABS: Troponin 5 2HR 42.65 ng/L (0-10)
[2022-06-19 15:09] LABS: Troponin(5th) Baseline 43 ng/L (0-10)
[2022-06-19 15:11] LABS: Troponin 5 2HR Delta -0.35 ABS# (0-10)
--- NOTE | 2022-06-19 15:48 | CTR_ITS ---
PROCEDURE INFORMATION: Exam: CT Head Without Contrast Exam date and time: 06/19/2022 5:09 PM Age: 82 years old Clinical indication: Other: HTN; Additional info: HTN emergency TECHNIQUE: Imaging protocol: Computed tomography of the head without contrast. Radiation optimization: All CT scans at this facility use at least one of these dose optimization techniques: automated exposure control; mA and/or kV adjustment per patient size (includes targeted exams where dose is matched to clinical indication); or iterative reconstruction. COMPARISON: [place] thyroid [id number] 02/10/2022 2:16 PM RADIATION DOSE METRICS: Total DLP (mGy-cm): 1138.18 FINDINGS: Brain: Periventricular lucencies seen these changes are consistent with microangiopathic white matter ischemic disease. Cerebral ventricles: There is ventriculomegaly less than expected for age. Paranasal sinuses: Visualized sinuses are unremarkable. No fluid levels. Mastoid air cells: Visualized mastoid air cells are well aerated. Bones/joints: Unremarkable. No acute fracture. Soft tissues: Unremarkable. CT/CT head wo con* [id number] IMPRESSION: 1. No acute intracranial abnormality. 2. Chronic white matter ischemic disease
--- NOTE | 2022-06-19 15:48 | USR_ITS ---
PROCEDURE INFORMATION: Exam: US Retroperitoneal Complete, Kidneys Aorta IVC. Exam date and time: 06/19/2022 8:55 PM Age: 82 years old Clinical indication: Condition or disease; Kidney or ureter condition; Chronic kidney disease or failure; Ckd stage 3 (moderate); Additional info: Ckd, PT unavailable @2912 TECHNIQUE: Imaging protocol: Real-time ultrasound of the retroperitoneum with image documentation. Complete exam. COMPARISON: US renal BI* [id number] 04/27/2022 5:41 PM FINDINGS: The right kidney measures 8.8 cm in length. The left kidney measures 10.7 cm in length. There is no hydronephrosis or perinephric fluid. Neither ureter is visible or dilated. There may be some renal parenchymal thinning bilaterally. This appearance is similar to the prior exam. Couple of left renal cysts, measuring up to 14 and 12 mm in diameter. Couple of right renal cysts, both measuring up to 17 mm in diameter. There is no sonographically visible renal calculus, or solid mass. The included images of the urinary bladder appear unremarkable. The urinary bladder was not completely evaluated/imaged at this time. US/US renal BI* [id number] IMPRESSION: 1. No hydronephrosis of either kidney. 2. There may be some renal parenchymal thinning bilaterally. This appearance is similar to the prior exam. 3. Bilateral renal cysts, details above. 4. Other findings discussed above.
--- NOTE | 2022-06-19 15:52 | P.CONIM_ITS ---
Providers/Reason For Consult Consulting Physician/Specialty*: Stefany Kasper DO, telenephrology Reason for Consult*: ADOLFO, CKD, hypertension Requesting Physician: Roland Swenson MD Attending Physician: Roland Swenson MD Primary Care Provider: Fernando Fish DO History of Present Illness History of Present Illness Bianka Kirby is a 82 year old female presenting to ER for evaluation of shortness of breath and leg swelling. History obtained from family member at bedside. Bianka was scheduled for renal biopsy on June 10. It was canceled due to elevated blood pressure. No medication changes were made. Nephrology instructed her to come to ER. At time of visit, she denies dyspnea. Medications/Allergies Home Medications Medication Instructions Recorded Confirmed Last Taken Type amlodipine 5 mg tablet 10 mg PO DAILY 06/19/22 06/19/22 06/19/22 History atorvastatin 40 mg tablet 40 mg PO BEDTIME 06/19/22 06/19/22 06/18/22 History budesonide-formoterol HFA 160 2 puff inhalation BID PRN 06/19/22 06/19/22 06/19/22 History mcg-4.5 mcg/actuation aerosol Shortness Of Breath Or Wheezing inhaler (Symbicort) fluticasone fur. 200 mcg-umeclid 1 inh inhalation DAILY 06/19/22 06/19/22 06/19/22 History 62.5 mcg-vilant 25 mcg inhalat.powder (Trelegy Ellipta) levothyroxine 50 mcg tablet 50 mcg PO QAM 06/19/22 06/19/22 06/19/22 History metoprolol succinate 50 mg 50 mg PO DAILY 06/19/22 06/19/22 06/19/22 History tablet,extended release 24 hr Allergies Allergy/AdvReac Type Severity Reaction Status Date / Time No Known Allergies Allergy Verified 06/19/22 14:05 PFSH Acute PFSH: Medical History CKD (chronic kidney disease) History of hyperlipidemia History of hypertension History of hypothyroidism Surgical History History of cholecystectomy Family History Mother CAD (coronary artery disease) Father CAD (coronary artery disease) Social History Smoking and tobacco status: never smoked Alcohol intake: never Substance/Drug Use: never Vitals/I&O/Wt Last Vital Signs Temp 98.0 F 06/19/22 11:25 Pulse 53 L 06/19/22 14:27 Resp 14 06/19/22 14:27 BP 215/73 06/19/22 14:27 Pulse Ox 91 06/19/22 14:27 O2 Del Method 06/19/22 14:27 Weight last 48 hrs Weight 69.853 kg Physical Exam Const: GENERAL APPEARANCE: cooperative and comfortable Extremity: NARRATIVE EXTREMITY EXAM: edema 1+ above sock line Data 06/19/22 12:23 06/19/22 12:23 Other Labs: albumin 3.4, pro BNP 8388 CXR: Radiologist's impression: 1. Moderate volume right lower lobe pleural effusion 2. Otherwise No acute findings. A&P Assessment and plan (1) Acute kidney injury superimposed on CKD: sen via telemedicine with assistance of RN at bedside Plan 1. Acute kidney injury/worsening CKD. There was outpatient plan for kidney biopsy 2 weeks ago. 2. Severe hypertension 3. Volume overload Rec: Avoiding ACEi/ARB due to declining renal function. Cannot increase betablocker due to bradycardia. Add hydralazine and furosemide. Consider thoracentesis Consult Attestations Medical Necessity Statement: see above Time Spent in Patient Care: 16 - 35 minutes Coding Level of Care Code Acute Theoretical Physicist for [facility] Diagnoses Acute kidney injury superimposed on CKD N17.9; N18.9
[2022-06-19 16:26] LABS: Chol HDL Ratio 3.91 mg/dL (0.0-4.40); Cholesterol 211 mg/dL (0-200); HDL Cholesterol 54 mg/dL (60-100); LDL Cholesterol Calculated 112 mg/dL (50-129); LDL HDL Ratio 2.07 RATIO (0.00-3.22); Thyroid Stimulating Hormone 6.71 uIU/mL (0.27-4.20); Triglycerides 224 mg/dL (0-150)
[2022-06-19 16:30] LABS: Estmated Average Glucose 111; Hemoglobin A1C 5.5 % (4.0-6.0)
[2022-06-19] MEDS: heparin 5,000 unit/mL INJ 1 mL 5000 UNIT SUBCUT (16:48)
[2022-06-19] MEDS: FUROsemide 10 mg/mL SDV 4mL 40 MG IVP (16:48)
[2022-06-19] MEDS: pantoprazole 40 mg SDV IVP (16:48)
[2022-06-19] MEDS: hyDRALAzine 10 mg Tablet PO ×2 (16:48→20:02)
[2022-06-19] MEDS: nitroglycerin drip 50 MG/250 ML PREMIX IV (17:30)
[2022-06-19 19:30] LABS: Troponin 5 6HR 37.06 ng/L (0-10)
[2022-06-19 19:34] LABS: Protein Urine 3+ (Negative); Urine Appearance Clear (CLEAR); Urine Color Yellow (Yellow); pH Urine 6 (5-7)
[2022-06-19 19:35] LABS: Add Urine Microscopic? YES; Bilirubin Urine Neg (Negative); Blood Urine 2+ (Negative); Glucose Urine UA 1+ (Normal); Ketones Urine Negative (Negative); Leukocyte Esterase Urine Negative (Negative); Nitrate Urine Negative (Negative); Urobilinogen Urine Norm (Negative)
[2022-06-19 19:35] LABS: Troponin 5 6HR Delta -5.94 ng/L (0-12)
[2022-06-19 19:38] LABS: Add Urine Culture? Yes; Bacteria Urine TRACE /hpf; RBC Urine 0-4 /hpf (0-2); Squamous Epithelial Cell Urine 0-4 /hpf (0-5)
[2022-06-19 19:57] LABS: Creatinine Urine, Random 81 mg/dL (28-217); Potassium, Radom Urine 30 mmol/L; Urine Creatinine 77 mg/dL (28-217); Urine Random Chloride 61 mmol/L; Urine Random Sodium 60 mmol/L
[2022-06-19 20:00] LABS: Eosinophil Urine No Eosinophils Seen
[2022-06-19] MEDS: atorvastatin 40 mg Tablet PO (20:02)
[2022-06-19 21:00] LABS: Urine Protein Random 1445 mg/dL
[2022-06-19 21:22] LABS: Microalbum Creatinine Ratio Ur 11346 mg/dL (0-20); Microalbumin Random Urine 919 ug/dL (0-20)
[2022-06-19 21:32] LABS: Urine Eosinophil Count 0 (0-0)
--- NOTE | 2022-06-19 22:43 | ECG_ITS ---
[facility] Test Date: 2022-06-19 Pat Name: Bianka Kirby Department: Room: ICU06 Gender: Female Vamp Maker: : 1940 Requested By: Roland Swenson Order Number: [id number] [place] MD: Olu Hernandez M.D. Measurements Intervals [place] Rate: 52 P: 0 CO: 0 QRS: 31 QRSD: 98 T: 87 QT: 412 QTc: 385 Interpretive Statements SINUS BRADYCARDIA WITH 2ND DEGREE AV BLOCK, 2:1 OR MOBITZ TYPE II ANTEROSEPTAL MYOCARDIAL INFARCTION , OF INDETERMINATE AGE [40+ ms Q WAVE IN V1-V4] Compared to ECG 04/27/2022 18:47:18 First degree AV block no longer present Myocardial infarct finding still present Electronically Signed On 06-20-2022 11:00:37 FOREST SCIENTIST by Olu Hernandez M.D. [id number]
[2022-06-19] MEDS: cloNIDine 0.1 mg Tablet PO (23:33)
[2022-06-20] VITALS (274 sets, daily range): BP systolic 149–214; BP diastolic 34–132; PULSE 34–84; RESP 15–29; TEMP 36.1–36.6; O2SAT 81–97
[2022-06-20] MEDS: heparin 5,000 unit/mL INJ 1 mL 5000 UNIT SUBCUT ×2 (02:55→17:03)
[2022-06-20] MEDS: levothyroxine 50 mcg Tablet PO (05:13)
[2022-06-20] MEDS: hyDRALAzine 10 mg Tablet 25 MG PO ×2 (05:14→09:30)
[2022-06-20 05:18] LABS: Basophils % 0.5 %; Eosinophils # 0.1 10^3/uL (0.0-0.8); Eosinophils % 1.9 %; Hematocrit 31.1 % (37.0-47.0); Lymphocytes # 1.1 10^3/uL (0.8-4.8); Lymphocytes % 14.5 %; Mean Corpuscular HGB Conc 32.2 g/dL (30.0-36.0); Mean Corpuscular Hemoglobin 28.2 pg (28.0-34.0); Mean Corpuscular Volume 87.6 fl (81-99); Mean Platelet Volume 10.3 fL (7.4-10.4); Monocytes # 0.5 10^3/uL (0.2-0.9); Neutrophils # 5.66 10^3/uL (1.8-7.7); Neutrophils % 75.8 %; Nucleated Red Blood Cells % 0 %; Platelet Count 265 10^3/cmm (130-400); Red Blood Count 3.55 10^6/uL (4.1-5.3); White Blood Count 7.5 10^3/uL (4.0-10.0)
[2022-06-20 05:48] LABS: Blood Urea Nitrogen 51 mg/dL (8-23); Calcium 8.4 mg/dL (8.5-10.5); Carbon Dioxide 21 mmol/L (22-29); Chloride 111 mmol/L (98-107); Glucose 184 mg/dL (65-115); Magnesium 1.9 mg/dL (1.7-2.3); NT Pro B Type Natriuretic Pept 7499 pg/mL (0-450); Osmolality Calculated 312 mOsm/kg (285-295); Phosphorus 4.6 mg/dL (2.5-4.5); Sodium 142 mmol/L (136-145)
[2022-06-20 05:49] LABS: Anion Gap 13.8 (5-19); Potassium 3.8 mmol/L (3.5-5.1)
--- NOTE | 2022-06-20 06:00 | USCV_ITS ---
Mirta Bianka Age: 82 Gender: F : 1940 Exam Date: 06/20/2022 11:16 Ordering Phys: Roland Swenson MD Technologist: Edgar Whitaker [place] [facility] [place] SOB BP: 207 / 64 HR: 58 Rhythm: Sinus Technical Quality: Adequate MEASUREMENTS (Male / Female) Normal Values 2D ECHO LV Diastolic Diameter PLAX 3.9 cm 4.2 - 5.9 / 3.9 - 5.3 cm LV Systolic Diameter PLAX 2.4 cm IVS Diastolic Thickness 1.3 cm 0.6 - 1.0 / 0.6 - 0.9 cm IVS Systolic Thickness 1.4 cm LVPW Diastolic Thickness 0.9 cm 0.6 - 1.0 / 0.6 - 0.9 cm LVPW Systolic Thickness 0.9 cm LVOT Diameter 2.0 cm LV Ejection Fraction 2D Teich 68.8 % LV Ejection Fraction MOD 2C 76.2 % LV Ejection Fraction 2C AL 77.7 % LA Diameter 3.6 cm LA Width 2.9 cm LA Height 5.2 cm RA Width 2.4 cm RA Height 4.8 cm Aorta at Sinotubular Diameter 1.9 cm IVC Diameter 1.1 cm M-MODE Aortic Annulus Diameter 2.8 cm LA Ao Ratio MM 1.4 MV E Point Septal Separation 0.3 cm DOPPLER AV Peak Velocity 163.3 cm/s LVOT Peak Velocity 98.0 cm/s AV Area Cont Eq vti 1.9 cm squared AV Area Cont Eq pk 1.9 cm squared MV Peak Velocity 139.0 cm/s MV Area PHT 3.5 cm squared Mitral E to A Ratio 1.0 MV E' Velocity 58.0 cm/s Mitral E to MV E' Ratio 14.1 Mitral E to LV E' Lateral Ratio 13.8 Mitral E to LV E' Septal Ratio 14.7 TR Peak Velocity 333.4 cm/s TR Peak Gradient 44.5 mmHg TR Mean Velocity 260.9 cm/s TR Mean Gradient 28.7 mmHg TR Velocity Time Integral 106.8 cm Right Atrial Pressure 3.0 mmHg Pulmonary Artery Systolic Pressu 47.5 mmHg PV Peak Velocity 115.7 cm/s RV Acceleration Time 0.1 s RV Ejection Time 0.3 s RV AcT/ET 0.3 FINDINGS Left Ventricle Normal left ventricular size and systolic function, EF 75 %. No regional wall motion abnormalities. Right Ventricle The right ventricle is normal in size and function. Right Atrium The right atrium is normal in size. Left Atrium Mildly increased left atrial size. Mitral Valve Thickened mitral valve. Aortic Valve Thickened aortic valve. Tricuspid Valve No gross abnormalities noted Pulmonic Valve Pulmonic valve not well visualized. Pericardium Normal pericardium without effusion. Aorta Normal ascending aorta dimension. IVC The inferior vena cava appears normal. CONCLUSIONS Normal left ventricular size and systolic function, EF 75 %. No regional wall motion normalities Mildly increased left atrial size. Normal cardiac valves. No significant chamber abnormalities. Dr Myles Haines MD FACC (Electronically Signed) Final Date: 20 June 2022 15:20 S
--- NOTE | 2022-06-20 08:00 | PM.PN ---
Subjective Subjective: no complaints Vitals/I&O/Wt Last Vital Signs Temp 97.6 F 06/20/22 05:00 Pulse 35 L 06/20/22 06:50 Resp 18 06/20/22 06:50 BP 163/58 06/20/22 06:50 Pulse Ox 95 06/20/22 06:50 O2 Del Method 06/19/22 18:05 06/19/22 06/20/22 06/20/22 22:59 06:59 14:59 Intake Total 64.525 / 64.525 Output Total 200 / 200 350 / 550 Balance -135.475 / -135.475 -350 / -485.475 Weight last 48 hrs Weight 69.853 kg Physical Exam Const: COMMON NORMALS: no acute distress and alert Resp: COMMON NORMALS: clear to auscultation bilaterally AUSCULTATION: clear to auscultation bilaterally Cardio: COMMON NORMALS: regular rhythm RATE: bradycardic RHYTHM: regular rhythm Extremity: GENERAL: Yes edema Neuro: SENSORIUM/ORIENTATION: Yes alert Data 06/20/22 04:02 06/20/22 04:02 Other Labs: alb 3.4, Ca 8.4, phos 4.6 BNP 7499, urine albumin/Cr ratio 11,346 A&P Assessment and plan (1) Acute kidney injury superimposed on CKD: sen via telemedicine with assistance of RN at bedside Plan 1. Acute kidney injury/worsening CKD. nephrotic syndrome. There was outpatient plan for kidney biopsy 2 weeks ago. 2. Severe hypertension, improved. Bradycardia may have worsened due to addition of clonidine 3. Volume overload. ? urine output. Continue furosemide. Place guadarrama Rec: Avoiding ACEi/ARB due to declining renal function. Discontinue betablocker and clonidine due to bradycardia. increase hydralazine if needed. Cautious Kcl replacement if given. Consider thoracentesis Attestations Medical Necessity Statement*: see above Time Spent in Patient Care: 16 - 35 minutes Coding Level of Care Code Acute Sanitation Worker Hosing Machinery for Donna Amezcua Diagnoses Acute kidney injury superimposed on CKD N17.9; N18.9
--- NOTE | 2022-06-20 08:38 | PC.NURSE ---
NIGHT NURSE REPORTS PT BEING BRADYCARDIC MOST OF THE NIGHT. HEART RATE LOW 37 REPORTED TO THIS NURSE. PT HAS BEEN PRETTY SUZETTE ALL MORNING THUS FAR. HEART RATE STAYING AROUND 35-40. PT A/O BUT LETHARGIC. PT IS ABLE TO ANSWER ORIENTATION QUESTIONS APPROPRIATELY BUT IS ONLY WAKING UP TO NAME CALLING AND TOUCH TOGETHER. DR MCKEON CALLED AND NOTIFIED OF THESE FINDINGS. AN ORDER TO OBTAIN EKG AND TROP SERIES WERE GIVEN. AN ORDER FOR ATROPINE AND K-RIDER WAS ALSO GIVEN. EKG OBTAINED. DR MCKEON NOTIFIED. SEE REPORT FOR RESULTS. SEE MAR FOR MEDICATION ADMINISTRATION.
--- NOTE | 2022-06-20 09:01 | PC.NURSE ---
DR MCKEON REVIEWED EKG. ORDERS TO HOLD ATROPINE. NO NEW ORDERS AT THIS TIME.
[2022-06-20 09:08] LABS: Troponin(5th) Baseline 38 ng/L (0-10)
[2022-06-20] MEDS: FUROsemide 40 mg Tablet PO (09:30)
[2022-06-20] MEDS: amlodipine 5 mg Tablet 10 MG PO (09:30)
--- NOTE | 2022-06-20 10:14 | ECG_ITS ---
[facility] Test Date: 2022-06-20 Pat Name: Bianka Kirby Department: Room: [facility]06 Gender: Female Publicity Agent: : 1940 Requested By: Emilia Chapa Order Number: [id number] [place] MD: Olu Hernandez M.D. Measurements Intervals [place] Rate: 61 P: -37 NM: 297 QRS: 33 QRSD: 95 T: 22 QT: 395 QTc: 400 Interpretive Statements SINUS RHYTHM WITH FIRST DEGREE AV BLOCK SEPTAL MYOCARDIAL INFARCTION , PROBABLY OLD [40+ ms Q WAVE IN V1/V2] Compared to ECG 06/19/2022 22:43:20 First degree AV block now present Sinus bradycardia no longer present Myocardial infarct finding still present Electronically Signed On 06-20-2022 11:06:42 SENIOR INVESTIGATOR by Olu Hernandez M.D. [id number]
[2022-06-20] MEDS: potassium chloride premix 100 ML 25 MEQ IV (10:15)
[2022-06-20 11:11] LABS: Troponin 5 2HR 40.54 ng/L (0-10)
[2022-06-20 11:16] LABS: Troponin 5 2HR Delta 2.54 ABS# (0-10)
--- NOTE | 2022-06-20 11:47 | P.PN_ITS ---
Subjective Subjective: Systolic BP still elevated at 200 mmhg. Currently on nitro drip @ 20mcg this morning. Overnigth and this morning noted to be bradycardic (slow A fib) with HR as low as 35. Patient asymptomatic. Denies chest pain, dyspnea, palpitations, LOC. Though she is overall deconditioned. Medications: Reviewed: Yes Vitals/I&O/Wt Last Vital Signs Temp 97.0 F L 06/20/22 11:30 Pulse 59 L 06/20/22 11:30 Resp 20 H 06/20/22 11:30 BP 201/64 06/20/22 11:15 Pulse Ox 94 06/20/22 11:30 O2 Del Method 06/20/22 11:30 O2 Flow Rate 2 06/20/22 11:30 06/19/22 06/20/22 06/20/22 22:59 06:59 14:59 Intake Total 64.525 / 64.525 213.7 / 213.7 Output Total 200 / 200 350 / 550 Balance -135.475 / -135.475 -350 / -485.475 213.7 / 213.7 Weight last 48 hrs Weight 69.853 kg Physical Exam Narrative: General: No acute distress, AO x3, overall frail and deconditioned. HEENT: PERRLA, pupils bilaterally equal and reactive, pallors not present Chest: Reduced air entry B/L lung bases CVS: S1-S2 regular, no murmurs, no tachycardia, no gallops, no rubs Abdomen: Soft, nontender, no organomegaly, bowel sounds present Neuro: No focal deficits, no facial deformity, AO x3, power 5/5 in all limbs Ext: 2+ pitting edema Data 06/20/22 04:02 06/20/22 04:02 Other Labs: Radiology Impressions Chest X-Ray 06/19/22 12:55 IMPRESSION: 1. Moderate volume right lower lobe pleural effusion 2. Otherwise No acute findings. Head CT 06/19/22 15:48 IMPRESSION: 1. No acute intracranial abnormality. 2. Chronic white matter ischemic disease Renal Ultrasound 06/19/22 15:48 IMPRESSION: 1. No hydronephrosis of either kidney. 2. There may be some renal parenchymal thinning bilaterally. This appearance is similar to the prior exam. 3. Bilateral renal cysts, details above. 4. Other findings discussed above. Laboratory Results WBC 7.5 10^3/uL (4.0-10.0) 06/20/22 04:02 RBC 3.55 10^6/uL (4.1-5.3) L 06/20/22 04:02 Hgb 10.0 g/dL (11.5-15.3) L 06/20/22 04:02 Hct 31.1 % (37.0-47.0) L 06/20/22 04:02 MCV 87.6 fl (81-99) D 06/20/22 04:02 MCH 28.2 pg (28.0-34.0) 06/20/22 04:02 MCHC 32.2 g/dL (30.0-36.0) 06/20/22 04:02 RDW 14.0 % (12.1-15.1) 06/20/22 04:02 Plt Count 265 10^3/cmm (130-400) 06/20/22 04:02 MPV 10.3 fL (7.4-10.4) 06/20/22 04:02 Neut % (Auto) 75.8 % 06/20/22 04:02 Lymph % (Auto) 14.5 % 06/20/22 04:02 [place] % (Auto) 7.0 % 06/20/22 04:02 Eos % (Auto) 1.9 % 06/20/22 04:02 Baso % (Auto) 0.5 % 06/20/22 04:02 Neut # (Auto) 5.66 10^3/uL (1.8-7.7) 06/20/22 04:02 Lymph # (Auto) 1.1 10^3/uL (0.8-4.8) 06/20/22 04:02 [place] # (Auto) 0.5 10^3/uL (0.2-0.9) 06/20/22 04:02 Eos # (Auto) 0.1 10^3/uL (0.0-0.8) 06/20/22 04:02 Baso # (Auto) 0.0 10^3/uL (0.0-0.1) 06/20/22 04:02 Nucleated RBC % (auto) 0 % 06/20/22 04:02 Nucleated RBCs # 0.0 /100WBC 06/20/22 04:02 Sodium 142 mmol/L (136-145) 06/20/22 04:02 Potassium 3.8 mmol/L (3.5-5.1) 06/20/22 04:02 Chloride 111 mmol/L (98-107) H 06/20/22 04:02 Carbon Dioxide 21 mmol/L (22-29) L 06/20/22 04:02 Anion Gap 13.8 (5-19) 06/20/22 04:02 BUN 51 mg/dL (8-23) H 06/20/22 04:02 Creatinine 3.7 mg/dL (0.5-0.9) H 06/20/22 04:02 GFR Calculation Not Reportable 06/20/22 04:02 Glucose 184 mg/dL (65-115) H 06/20/22 04:02 Estimat Average Glucose 111 06/19/22 12:23 Hemoglobin A1c 5.5 % (4.0-6.0) 06/19/22 12:23 Calculated Osmolality 312 mOsm/kg (285-295) H 06/20/22 04:02 Calcium 8.4 mg/dL (8.5-10.5) L 06/20/22 04:02 Phosphorus 4.6 mg/dL (2.5-4.5) H 06/20/22 04:02 Magnesium 1.9 mg/dL (1.7-2.3) 06/20/22 04:02 Total Bilirubin 0.5 mg/dL (0.15-1.2) 06/19/22 12:23 AST 21 U/L (0-32) 06/19/22 12:23 ALT 13 U/L (0-33) 06/19/22 12:23 Alkaline Phosphatase 75 U/L (35-105) 06/19/22 12:23 Troponin T Baseline 38 ng/L (0-10) H 06/20/22 08:35 Troponin T 120 Minute 40.54 ng/L (0-10) H 06/20/22 10:43 Delta Troponin T 2.54 ABS# (0-10) 06/20/22 10:43 Troponin T Hi Sens 6Hr 37.06 ng/L (0-10) H 06/19/22 18:50 Troponin T Hi Sens 6Hr Delta -5.94 ng/L (0-12) L 06/19/22 18:50 NT-Pro-B Natriuret Pep 7499 pg/mL (0-450) H 06/20/22 04:02 Total Protein 6.4 g/dL (6.6-8.7) L 06/19/22 12:23 Albumin 3.4 g/dL (3.5-5.2) L 06/19/22 12:23 Globulin 3.0 g/dL (1.3-4.6) 06/19/22 12:23 Triglycerides 224 mg/dL (0-150) H 06/19/22 12:23 Cholesterol 211 mg/dL (0-200) H 06/19/22 12:23 LDL Cholesterol, Calc 112 mg/dL (50-129) 06/19/22 12: HDL Cholesterol 54 mg/dL (60-100) L 06/19/22 12:23 LDL/HDL Ratio 2.07 RATIO (0.00-3.22) 06/19/22 12: Cholesterol/HDL Ratio 3.91 mg/dL (0.0-4.40) 06/19/22 12:23 TSH 6.71 uIU/mL (0.27-4.20) H 06/19/22 12:23 Urine Color Yellow (Yellow) 06/19/22 19:07 Urine Appearance Clear (CLEAR) 06/19/22 19:07 Urine pH 6 (5-7) 06/19/22 19:07 Ur Specific [place] 1.010 (1.005-1.030) 06/19/22 19:07 Urine Protein 3+ (Negative) H 06/19/22 19:07 Urine Glucose (UA) 1+ (Normal) H 06/19/22 19:07 Urine Ketones Negative (Negative) 06/19/22 19:07 Urine Blood 2+ (Negative) H 06/19/22 19:07 Urine Nitrate Negative (Negative) 06/19/22 19:07 Urine Bilirubin Neg (Negative) 06/19/22 19:07 Urine Urobilinogen Norm mg/dL (Negative) 06/19/22 19:07 Ur Leukocyte Esterase Negative (Negative) 06/19/22 19:07 Urine RBC 0-4 /hpf (0-2) H 06/19/22 19:07 Urine WBC 10-15 /hpf (0-5) H 06/19/22 19:07 Ur Eosinophil Smear 0 (0-0) 06/19/22 19:07 Ur Squamous Epith Cells 0-4 /hpf (0-5) H 06/19/22 19:07 Amorphous Sediment Not Reportable 06/19/22 19:07 Urine Bacteria Trace /hpf (NONE) 06/19/22 19:07 Urine Eosinophils No eosinophils seen 06/19/22 19:07 Ur Random Microalbumin 919 ug/dL (0-20) H 06/19/22 19:07 U Random Total Protein 1445 mg/dL 06/19/22 19:07 Ur Random Sodium 60 mmol/L 06/19/22 19:07 Ur Random Potassium 30 mmol/L 06/19/22 19:07 Ur Random Chloride 61 mmol/L 06/19/22 19:07 Urine Creatinine 77 mg/dL (28-217) 06/19/22 19:07 Urine Creatinine 81 mg/dL (28-217) 06/19/22 19:07 Microalb/Creat Ratio 71618 mg/dL (0-20) H 06/19/22 19:07 A&P Assessment and plan (1) Hypertensive urgency: (2) Acute kidney injury superimposed on CKD: (3) Pleural effusion, right: (4) CHF (congestive heart failure): Plan # Hypertensive urgency -Continue on nitroglycerin drip - increase hydralazine to 50mg q6h and add imdur 30mg po daily. -Serial EKGs serial troponins telemetry monitoring without significant troponin delta. -CT head with chronic microvascular disease, cardiac echo taken, results pending # Diastolic CHF exacerbation As evidenced by elevated elevated BNP, Right sided pleural effusion Started on Lasix 40mg po daily -Fluid restrictions -Cardiac echo pending # Slow A fib on Ekg Currently asymptomatic Being monitored for now with holding metoprolol In case persistent will need cardiology evaluation in case contributing to heart failure ADOLFO on CKD -Renal ultrasound without obstrcution -Appreciate nephrology recommendations - avoiding Jorje/ARB for BP control Hypothyroidism continue home meds, elavted TSH, check FT3 and FT4 Dispo: Home with Code status: DNR/ DNI dvt ppx: heparin s/c Attestations Medical Necessity Statement*: continued hospitalization for HTN, Nitroglycerin infusion, CHF exacerbation Coding Level of Care Code Acute Professional Services Manager for Chg Fwd Diagnoses Hypertensive urgency I16.0 Acute kidney injury superimposed on CKD N17.9; N18.9 Pleural effusion, right J90 CHF (congestive heart failure) I50.9
[2022-06-20] MEDS: isosorbide mononitrate ER 30 mg Tablet PO (13:34)
[2022-06-20] MEDS: hyDRALAzine 50 mg Tablet PO ×3 (13:35→23:36)
--- NOTE | 2022-06-20 14:39 | ECG_ITS ---
[facility] Test Date: 2022-06-20 Pat Name: Bianka Kirby Department: Room: [facility]06 Gender: Female Clinical Care Coordinator: : 1940 Requested By: Emilia Chapa Order Number: [id number] [place] MD: Myles Haines M.D. Measurements Intervals [place] Rate: 62 P: 91 ND: 287 QRS: 47 QRSD: 90 T: 0 QT: 397 QTc: 404 Interpretive Statements SINUS RHYTHM WITH FIRST DEGREE AV BLOCK Diffuse nonspecific ST changes SEPTAL MYOCARDIAL INFARCTION , PROBABLY OLD [40+ ms Q WAVE IN V1/V2] Compared to ECG 06/20/2022 10:14:43 No significant changes Electronically Signed On 06-20-2022 16:00:32 COMMUNITY CASE MANAGER by Myles Haines M.D. [id number]
[2022-06-20 15:42] LABS: Troponin 5 6HR 38.36 ng/L (0-10); Troponin 5 6HR Delta 0.36 ng/L (0-12)
[2022-06-20] MEDS: pantoprazole 40 mg SDV IVP (17:03)
[2022-06-20] MEDS: atorvastatin 40 mg Tablet PO (20:03)
[2022-06-21] VITALS (273 sets, daily range): BP systolic 152–217; BP diastolic 46–85; PULSE 60–110; RESP 14–30; TEMP 36.6–37; O2SAT 72–96
[2022-06-21] MEDS: hyDRALAzine 25 mg Tablet PO (01:18)
[2022-06-21] MEDS: nitroglycerin drip 50 MG/250 ML PREMIX 45 MG IV (03:00)
[2022-06-21] MEDS: ondansetron 2 mg/ML SDV 2 mL 4 MG IVP ×2 (04:30→18:15)
[2022-06-21] MEDS: heparin 5,000 unit/mL INJ 1 mL 5000 UNIT SUBCUT ×2 (04:30→16:36)
--- NOTE | 2022-06-21 04:44 | CTR_ITS ---
PROCEDURE INFORMATION: Exam: CT Abdomen And Pelvis Without Contrast Exam date and time: 06/21/2022 5:26 AM Age: 82 years old Clinical indication: Abdominal pain; Localized; Right upper quadrant (ruq); Additional info: Abd pain ruq TECHNIQUE: Imaging protocol: Computed tomography of the abdomen and pelvis without contrast. Radiation optimization: All CT scans at this facility use at least one of these dose optimization techniques: automated exposure control; mA and/or kV adjustment per patient size (includes targeted exams where dose is matched to clinical indication); or iterative reconstruction. COMPARISON: US renal BI* [id number] 06/19/2022 8:55 PM RADIATION DOSE METRICS: Total DLP (mGy-cm): 637.51 FINDINGS: Pleural spaces: There is a moderate right and small left pleural effusions with adjacent atelectasis. Pneumonia should be excluded clinically. Heart: Mildly enlarged heart. Coronary atherosclerotic calcifications seen. No pericardial effusion. Diaphragm: A small hiatal hernia is present. Liver: Normal. No mass. Gallbladder and bile ducts: Normal. No calcified stones. No ductal dilation. Pancreas: Normal. No ductal dilation. Spleen: Splenic calcifications noted. No splenomegaly. Adrenal glands: There is a 2.1 cm mass in the left adrenal gland. The right adrenal gland is unremarkable. Kidneys and ureters: Small cysts noted in the right kidney, the largest measuring 1.7 cm. No hydronephrosis or nephrolithiasis. Stomach and bowel: There is diffuse thickening of the gastric wall in association with stranding of the surrounding fat. There is a small colon containing left inguinal hernia. No associated inflammatory changes or obstruction identified. The patient is status post right partial colectomy. Patent ileocolic anastomosis. There is diverticulosis without evidence of diverticulitis. Appendix: The appendix is absent. Intraperitoneal space: Unremarkable. No free air. No significant fluid collection. Vasculature: Moderate diffuse atherosclerotic disease is present. Lymph nodes: Unremarkable. No enlarged lymph nodes. Urinary bladder: Unremarkable as visualized. Reproductive: Unremarkable as visualized. Bones/joints: Degenerative changes of the spine seen. Soft tissues: Surgical changes of the right upper quadrant abdominal wall seen. CT/CT abdomen pelvis wo con [id number] IMPRESSION: 1. Imaging findings of gastritis. 2. Moderate right and small left pleural effusion with adjacent atelectasis. Pneumonia should be excluded clinically. 3. Nonspecific left adrenal mass. Further characterization with contrast enhanced abdomen MRI should be considered in the adequate clinical setting. COMMENTS: 1. Consistent with the [employer]'s Incidental Findings Committee white paper (J Am Jean Marie Radiol 2017): For any incidental adrenal lesion greater than or equal to 1 cm but less than or equal to 4 cm classified in this report as benign, likely benign, or containing fat (including classification as an adenoma or myelolipoma), no follow-up imaging is recommended per consensus recommendations based on imaging criteria. Further lab evaluation could be pursued if warranted based on clinical findings. 2. Consistent with the [employer]'s Incidental Findings Committee white paper (J Am Jean Marie Radiol 2018): Any incidental renal lesion less than 1 cm or classified as too small to characterize, or any incidental cystic renal lesion characterized as simple-appearing, is likely benign. No follow-up imaging is recommended for these lesions per consensus recommendations based on imaging criteria.
[2022-06-21 05:47] LABS: Basophils # 0.1 10^3/uL (0.0-0.1); Basophils % 0.5 %; Eosinophils # 0.2 10^3/uL (0.0-0.8); Eosinophils % 1.9 %; Hematocrit 32.4 % (37.0-47.0); Hemoglobin 10.2 g/dL (11.5-15.3); Lymphocytes # 1.2 10^3/uL (0.8-4.8); Lymphocytes % 11.5 %; Mean Corpuscular HGB Conc 31.5 g/dL (30.0-36.0); Mean Corpuscular Hemoglobin 28.2 pg (28.0-34.0); Mean Corpuscular Volume 89.5 fl (81-99); Mean Platelet Volume 9.9 fL (7.4-10.4); Monocytes # 0.7 10^3/uL (0.2-0.9); Monocytes % 6.7 %; Neutrophils # 7.91 10^3/uL (1.8-7.7); Neutrophils % 78.7 %; Nucleated Red Blood Cells % 0 %; Platelet Count 291 10^3/cmm (130-400); Red Blood Count 3.62 10^6/uL (4.1-5.3); Red Cell Distribution Width 14.1 % (12.1-15.1)
[2022-06-21] MEDS: morphine 4 mg/mL SDV 1 mL 2 MG IVP (05:55)
[2022-06-21] MEDS: levothyroxine 50 mcg Tablet PO (05:56)
[2022-06-21 06:14] LABS: Alanine Aminotransferase 9 U/L (0-33); Albumin Level 2.4 g/dL (3.5-5.2); Alkaline Phosphatase 60 U/L (35-105); Anion Gap 14.2 (5-19); Aspartate Amino Transferase 13 U/L (0-32); Blood Urea Nitrogen 53 mg/dL (8-23); Calcium 8.5 mg/dL (8.5-10.5); Carbon Dioxide 20 mmol/L (22-29); Chloride 106 mmol/L (98-107); Globulin 2.9 g/dL (1.3-4.6); Glucose 150 mg/dL (65-115); Osmolality Calculated 299 mOsm/kg (285-295); Potassium 4.2 mmol/L (3.5-5.1); Sodium 136 mmol/L (136-145); Total Bilirubin 0.3 mg/dL (0.15-1.2); Total Protein 5.3 g/dL (6.6-8.7)
[2022-06-21 06:21] LABS: Free T4 Free Thyroxine 1.19 ng/dL (0.82-1.77)
--- NOTE | 2022-06-21 07:03 | PC.NURSE ---
Overnight summary. Pt's Bp went uncontrolled most of the night. Systolic increased from 160's during the day to 180-190's. Nitro gtt slowly increased from 50mcg to 100mcg with little to no improvement. Attending notified of hypertension with out improvement from gtt titration around 2300. Orders received for PO meds. Around 0400 Pt started complaining of abd pain. On inspection Pt's abdomen appeared distended and felt firm. Pt states 8/10 pain. Attending notified. Orders for CT and pain meds received.
[2022-06-21] MEDS: amlodipine 5 mg Tablet 10 MG PO (08:15)
[2022-06-21] MEDS: FUROsemide 40 mg Tablet PO (08:15)
[2022-06-21] MEDS: hyDRALAzine 50 mg Tablet 75 MG PO ×3 (08:15→22:30)
[2022-06-21] MEDS: isosorbide mononitrate ER 30 mg Tablet PO (08:15)
--- NOTE | 2022-06-21 10:10 | PM.PN ---
Subjective Subjective: Continues to be hypertensive. Blood pressure currently 183/60, she is on 30 mics of nitroglycerin infusion. Titrated up through the night. Coleman catheter was unable to be placed last night in spite of multiple attempts. Patient is refusing placement of a Coleman today. Saturating 90 to 92% on supplemental 2 L/min nasal cannula. No more episodes of bradycardia. Telemetry with sinus rhythm heart rate ranging between 75 to 86 bpm. Medications: Reviewed: Yes Vitals/I&O/Wt Last Vital Signs Temp 97.8 F 06/21/22 08:00 Pulse 85 06/21/22 08:00 Resp 20 H 06/21/22 08:00 BP 183/60 06/21/22 08:00 Pulse Ox 92 06/21/22 08:00 O2 Del Method 06/21/22 08:00 O2 Flow Rate 2 06/21/22 08:00 06/20/22 06/21/22 06/21/22 22:59 06:59 14:59 Intake Total 7.975 / 575.475 127.5 / 702.975 Output Total 300 / 600 150 / 750 Balance -292.025 / -24.525 -22.5 / -47.025 Weight last 48 hrs Weight 69.853 kg Physical Exam Narrative: General: No acute distress, AO x3 HEENT: PERRLA, pupils bilaterally equal and reactive, pallors not present Chest: Reduced air entry right infra axillary and infrascapular area CVS: S1-S2 regular, no murmurs, no tachycardia, no gallops, no rubs Abdomen: Soft, nontender, no organomegaly, bowel sounds present Neuro: No focal deficits, no facial deformity, AO x3, power 5/5 in all limbs Extremities: Bilateral lower extremity bilateral lower extremity pitting edema Data 06/21/22 04:30 06/21/22 04:30 Micro: Microbiology 06/19/22 19:07 Urine Culture - Final Urine,Clean Catch A&P Assessment and plan (1) Hypertensive urgency: (2) Acute kidney injury superimposed on CKD: (3) Pleural effusion, right: (4) CHF (congestive heart failure): Plan # Hypertensive urgency -Blood pressure has not been under good control in spite of being on nitroglycerin infusion for over 48 hours. Discontinue nitroglycerin infusion. Changed to nicardipine infusion today. - increased hydralazine to 70mg q6h overnight, increase Imdur to 60 mg p.o. daily -Serial EKGs serial troponins telemetry monitoring without significant troponin delta. -CT head with chronic microvascular disease, cardiac echo with LVEF 75%, no regional wall motion abnormalities, normal valvular function. # ADOLFO on CKD -Renal ultrasound without obstrcution. CT of the abdomen and pelvis was performed overnight due to concern for possibly incarcerated hernia. Study was negative for the same. Bilateral renal cysts, unchanged as seen on recent ultrasound. Otherwise no new findings. Patient is currently fluid overloaded secondary to CKD, ADOLFO on CKD. Cardiac echo is normal. She was being considered for outpatient dialysis per her. She was also planned to undergo kidney biopsy at [facility], however this was deferred in view of accelerated hypertension. Change lasix from 40mg po daily to 40mg iv, depending on urine output will likely uptitrate. Patient is refusing placement of a Coleman catheter. Counseled her regarding the importance of accurate output measurement since she is on diuretics and deteriorating kidney function. She is refusing placement today. She will consider placement by urology but would like some more time to think about this. -Appreciate nephrology recommendations - avoiding Jorje/ARB for BP control #Hypoxic respiratory failure secondary to pulmonary edema and large right pleural effusion. Plan for ultrasound-guided thoracentesis tomorrow morning. # Hypothyroidism, currently with low TSH and high free T3 and T4. Her dose of levothyroxine has been reduced from 50 mcg p.o. daily as outpatient to 25 mg p.o. daily currently. #Note made of significant gastritis on CT abdomen performed last night. Increase Protonix to 40 mg p.o. twice daily. Code status: DNR/ DNI dvt ppx: heparin s/c Attestations Medical Necessity Statement*: Needs continuous admit blood pressure control, currently on nicardipine infusion, IV diuresis, plan thoracentesis. Critical Care Time: The high probability of a clinically significant, sudden or life threatening deterioration of the patient's [renal, respiratory ] system(s) required my full and direct attention, intervention and personal management. The critical care time is as shown. This time is in addition to time spent performing any reported procedures but includes the following: [x] Data and vital sign review and interpretation [x] Patient assessment, examination and intervention [x] Documentation [x] Medication orders and management Coding Level of Care Code Acute Instant Potato Processing Supervisor for Chg Fwd Diagnoses Hypertensive urgency I16.0 Acute kidney injury superimposed on CKD N17.9; N18.9 Pleural effusion, right J90 CHF (congestive heart failure) I50.9
[2022-06-21] MEDS: FUROsemide 10 mg/mL SDV 4mL 40 MG IVP (11:26)
[2022-06-21] MEDS: nicardipine 20 MG/200 ML PREMIX 50 MG IV ×2 (11:40→15:08)
[2022-06-21] MEDS: polyethylene glycol 3350 Pkt 17 gm PO (12:41)
[2022-06-21] MEDS: pantoprazole DR 40 mg Tablet PO (17:45)
[2022-06-21] MEDS: sennosides-docusate Tablet 1 TAB PO (17:46)
[2022-06-21] MEDS: nicardipine 20 MG/200 ML PREMIX 10 MG IV ×2 (17:48→21:00)
--- NOTE | 2022-06-21 21:04 | P.PN_ITS ---
Subjective Subjective: on nitro drip , Medications: Reviewed: Yes Vitals/I&O/Wt Last Vital Signs Temp 98.2 F 06/21/22 17:20 Pulse 72 06/21/22 19:29 Resp 16 06/21/22 19:29 BP 153/51 06/21/22 19:20 Pulse Ox 93 06/21/22 19:29 O2 Del Method 06/21/22 19:29 O2 Flow Rate 1 06/21/22 19:29 06/21/22 06/21/22 06/21/22 06:59 14:59 22:59 Intake Total 127.5 / 702.975 222.5 / 222.5 379.166 / 601.666 Output Total 150 / 750 200 / 200 100 / 300 Balance -22.5 / -47.025 22.5 / 22.5 279.166 / 301.666 Physical Exam Narrative: General: No acute distress, HEENT: PERRLA, pupils bilaterally equal and reactive, pallors not present Chest: Reduced air entry right infra axillary and infrascapular area- per report CVS: S1-S2 regular, no murmurs, no tachycardia, no gallops, no rubs- per report Abdomen: Soft, nontender, no organomegaly, bowel sounds present Extremities: bilateral lower extremity pitting edema Data 06/21/22 04:30 06/21/22 04:30 Micro: Microbiology 06/19/22 19:07 Urine Culture - Final Urine,Clean Catch A&P Assessment and plan (1) Acute kidney injury superimposed on CKD: 1. Acute kidney injury/worsening CKD. nephrotic syndrome. There was outpatient plan for kidney biopsy 2 weeks ago. Cr 3.8 today 2. Severe hypertension, improved. weaning nitro drip 3. Volume overload.. Continue furosemide. P Rec: Avoiding ACEi/ARB due to declining renal function. Discontinued betablocker and clonidine due to bradycardia. increase hydralazine if needed. Cautious Kcl replacement if given. Attestations Medical Necessity Statement*: Needs continuous admit blood pressure control, currently on nicardipine infusion, IV diuresis, plan thoracentesis. Critical Care Time: The high probability of a clinically significant, sudden or life threatening deterioration of the patient's [renal, respiratory ] system(s) required my full and direct attention, intervention and personal management. The critical care time is as shown. This time is in addition to time spent performing any reported procedures but includes the following: [x] Data and vital sign review and interpretation [x] Patient assessment, examination and intervention [x] Documentation [x] Medication orders and management Coding Level of Care Code Acute Warehouse Consultant for g Fwd Diagnoses Acute kidney injury superimposed on CKD N17.9; N18.9
[2022-06-21] MEDS: atorvastatin 40 mg Tablet PO (22:19)
[2022-06-22] VITALS (199 sets, daily range): BP systolic 105–220; BP diastolic 43–113; PULSE 61–104; RESP 12–26; O2SAT 83–96
[2022-06-22] MEDS: morphine 4 mg/mL SDV 1 mL 1 MG IVP (00:23)
[2022-06-22] MEDS: ondansetron 2 mg/ML SDV 2 mL 4 MG IVP ×2 (00:27→12:40)
[2022-06-22 03:54] LABS: Basophils % 0.4 %; Eosinophils % 0.3 %; Hematocrit 33.3 % (37.0-47.0); Hemoglobin 10.4 g/dL (11.5-15.3); Lymphocytes # 0.6 10^3/uL (0.8-4.8); Lymphocytes % 5.5 %; Mean Corpuscular HGB Conc 31.2 g/dL (30.0-36.0); Mean Corpuscular Hemoglobin 28.1 pg (28.0-34.0); Mean Platelet Volume 9.6 fL (7.4-10.4); Monocytes # 0.5 10^3/uL (0.2-0.9); Monocytes % 4.6 %; Neutrophils # 9.84 10^3/uL (1.8-7.7); Neutrophils % 88.2 %; Nucleated Red Blood Cells % 0 %; Platelet Count 308 10^3/cmm (130-400); Red Cell Distribution Width 14.6 % (12.1-15.1); White Blood Count 11.1 10^3/uL (4.0-10.0)
--- NOTE | 2022-06-22 04:00 | XRR_ITS ---
PROCEDURE INFORMATION: Exam: XR Chest Exam date and time: 06/22/2022 5:14 AM Age: 82 years old Clinical indication: Other: Pleural effusion; Additional info: Follow up pleural effusion TECHNIQUE: Imaging protocol: Radiologic exam of the chest. Views: 1 view. COMPARISON: CR (CHEST, ) 06/19/2022 2:00 PM FINDINGS: Lungs: There is mild bronchial wall thickening seen and indistinctness of the pulmonary vasculature, findings that could represent pulmonary edema. Some linear opacities are seen in the lower hemithoraces bilaterally likely represents atelectasis although bilateral basilar infiltrates cannot be entirely excluded. Pleural spaces: There is a decreased volume of the right pleural effusion. Hazy opacities are seen in lower hemithoraces likely representing layering posterior pleural effusions. Heart/Mediastinum: Unremarkable. No cardiomegaly. Bones/joints: Unremarkable. XR/XR chest 1V portable [id number] IMPRESSION: 1. There is mild prominence and indistinctness of the pulmonary vasculature and peribronchial cuffing present, findings that could represent pulmonary edema. 2. Probable bilateral layering posterior pleural effusions 3. Linear opacities in the lower hemithoraces bilaterally likely represents atelectasis or parenchymal scarring although basilar infiltrates cannot be entirely excluded.
[2022-06-22 04:27] LABS: Alanine Aminotransferase 11 U/L (0-33); Albumin Level 2.8 g/dL (3.5-5.2); Alkaline Phosphatase 67 U/L (35-105); Anion Gap 16.4 (5-19); Aspartate Amino Transferase 16 U/L (0-32); Blood Urea Nitrogen 56 mg/dL (8-23); Calcium 8.6 mg/dL (8.5-10.5); Carbon Dioxide 21 mmol/L (22-29); Chloride 106 mmol/L (98-107); Globulin 3.1 g/dL (1.3-4.6); Glucose 175 mg/dL (65-115); Osmolality Calculated 308 mOsm/kg (285-295); Potassium 4.4 mmol/L (3.5-5.1); Sodium 139 mmol/L (136-145); Total Bilirubin 0.3 mg/dL (0.15-1.2); Total Protein 5.9 g/dL (6.6-8.7)
[2022-06-22] MEDS: heparin 5,000 unit/mL INJ 1 mL 5000 UNIT SUBCUT ×2 (05:16→17:06)
[2022-06-22] MEDS: levothyroxine 50 mcg Tablet PO (05:19)
[2022-06-22] MEDS: sennosides-docusate Tablet 1 TAB PO ×2 (08:39→17:05)
[2022-06-22] MEDS: polyethylene glycol 3350 Pkt 17 gm PO (08:39)
[2022-06-22] MEDS: pantoprazole DR 40 mg Tablet PO ×2 (08:39→17:05)
[2022-06-22] MEDS: nicardipine 20 MG/200 ML PREMIX 50 MG IV (08:39)
[2022-06-22] MEDS: hyDRALAzine 50 mg Tablet 75 MG PO ×3 (08:39→21:55)
[2022-06-22] MEDS: amlodipine 5 mg Tablet 10 MG PO (08:39)
[2022-06-22] MEDS: isosorbide mononitrate ER 60 mg Tablet PO (08:39)
[2022-06-22 08:45] LABS: Lactate Dehydrogenase 374 U/L (135-214)
--- NOTE | 2022-06-22 09:55 | P.PN_ITS ---
Subjective Subjective: Ms. Kirby is confused this morning. She is able to correctly tell me her name and date of , however she does not know where she is. On asking her any other questions in conversation she keeps repeating her name as Bianka Kirby. Her oxygen requirements have escalated today at 3 L/min, she is currently saturating 90%. Currently on a nicardipine drip at 7.5, systolic blood pressure ranging between 1 80-1 90. Creatinine has trended up to 4. Coleman was finally able to be placed by urology this morning. Urine output 100 cc after insertion of Coleman. Medications: Reviewed: Yes Vitals/I&O/Wt Last Vital Signs Temp 98.6 F 06/21/22 20:00 Pulse 82 06/22/22 06:15 Resp 15 06/22/22 06:15 BP 194/70 06/22/22 06:15 Pulse Ox 96 06/22/22 06:15 O2 Del Method 06/21/22 19:29 O2 Flow Rate 1 06/21/22 19:29 06/21/22 06/22/22 06/22/22 22:59 06:59 14:59 Intake Total 411.166 / 633.666 116.5 / 116.5 Output Total 100 / 300 250 / 550 Balance 311.166 / 333.666 -250 / 83.666 116.5 / 116.5 Physical Exam Narrative: General: tachypneic in conversation, AO x1-2 HEENT: PERRLA, pupils bilaterally equal and reactive, pallors not present Chest: Reduced air entry right infrascapular area, diffuse crackles to auscultation bilaterally CVS: S1-S2 regular, no murmurs, no tachycardia, no gallops, no rubs Abdomen: Soft, nontender, no organomegaly, bowel sounds present Neuro: No focal motor deficits, no facial deformity, AO x1-2, power 5/5 in all limbs Extremities: Pitting edema bilateral upper and lower extremities Data 06/22/22 02:56 06/22/22 02:56 Micro: Microbiology 06/19/22 19:07 Urine Culture - Final Urine,Clean Catch A&P Assessment and plan (1) Hypertensive urgency: (2) Acute kidney injury superimposed on CKD: (3) Pleural effusion, right: (4) CHF (congestive heart failure): Plan # Hypertensive urgency -Blood pressure did not respond to nitroglycerin infusion, switched to nicardipine infusion on June 21, 2022. Currently at 7.5 mg/h, systolic blood pressure ranging between 1 80-1 90 -Continue hydralazine at 75 mg 4 times daily, increase Imdur to 90 mg daily -Serial EKGs serial troponins telemetry monitoring without significant troponin delta. -CT head with chronic microvascular disease, cardiac echo with LVEF 75%, no regional wall motion abnormalities, normal valvular function. #Acute encephalopathy Likely to be multifactorial related to uremia, hospital delirium, hypoxia CT head upon admission had showed chronic microvascular changes Less likely to be a stroke as there are no other focal deficits. No facial asymmetry. # ADOLFO on CKD -Renal ultrasound without obstrcution. CT of the abdomen and pelvis negative for incarcerated hernia or other intra-abdominal issues. . Bilateral renal cysts, unchanged as seen on recent ultrasound. Otherwise no new findings. Patient is currently fluid overloaded secondary to CKD, ADOLFO on CKD. Cardiac echo is normal. She was being considered for outpatient dialysis per her. She was also planned to undergo kidney biopsy at [facility], however this was deferred in view of accelerated hypertension. No significant change in urine output with increasing IV Lasix A Coleman catheter was finally be able to place today by urology for accurate output assessment. Given her worsening mentation, increasing hypoxia, overall increased fluid overload and clinical deterioration, plan for temporary dialysis. Will consult general surgery for placement of temporary HD line. Discussed with nephrology. -Appreciate nephrology recommendations - avoiding Jorje/ARB for BP control #Hypoxic respiratory failure secondary to pulmonary edema and large right pleural effusion. Plan for ultrasound-guided thoracentesis today. Starting hemodialysis today, anticipate improvement with these interventions y. #Note made of significant gastritis on CT abdomen Increase Protonix to 40 mg p.o. twice daily. Patient had given her verbal consent for hemodialysis and thoracentesis on June 21, 2022 when she was awake or alert and oriented x3. Her care and clinical deterioration also discussed with her Sister Evangelina Avelar. Her sister is agreeable to proceed with hemodialysis and thoracentesis. Patient's 17 years ago. Her daughter recently within the last month. Next of kin is currently patient's Sister Evangelina with whom she resides. Code status: DNR/ DNI dvt ppx: heparin s/c Attestations Medical Necessity Statement*: Continued hospitalization for hemodialysis, thoracentesis, worsening clinical status, continued ICU stay Critical Care Time: The high probability of a clinically significant, sudden or life threatening deterioration of the patient's [renal, respiratory,neurology] system(s) required my full and direct attention, intervention and personal management. The critical care time is as shown. This time is in addition to time spent performing any reported procedures but includes the following: [x] Data and vital sign review and interpretation [x] Patient assessment, examination and intervention [x] Documentation [x] Medication orders and management Coding Level of Care Code Acute Tool Room Gear Machine Operator for Chg Fwd Diagnoses Hypertensive urgency I16.0 Acute kidney injury superimposed on CKD N17.9; N18.9 Pleural effusion, right J90 CHF (congestive heart failure) I50.9
--- NOTE | 2022-06-22 09:56 | US_ITS ---
WS: [id number] ULTRASOUND-GUIDED RIGHT THORACENTESIS HISTORY: right sided pleural effusion Procedure, risks, and complications were explained to the patient. With the patient in an upright pos ition, the skin over the RIGHT posterior thorax was cleansed with ChloraPrep and anesthetized with 1% buffered lidocaine. A 5 Faroese Yueh needle is inserted into the pleural fluid without complication. Approximately 800 cc of yellow pleural fluid is removed without difficulty. Chest radiograph to follow. / thoracentesis [id number] IMPRESSION: 1. RIGHT thoracentesis yielding 800 cc of fluid. 2. Chest radiograph to follow to evaluate for pneumothorax.
--- NOTE | 2022-06-22 10:02 | PC.CHAP ---
Pastoral Care Encounter/Spiritual Assessment Type of Contact [] Declined [employer] visit [] Patient/Family/Request visit [] Outpatient visit [] Follow-up visit [] Physician referral [] Code/Alert [x] Routine visit [] Staff referral [] Actively dying [] Patient sleeping [] Family support [] [] Out of room [] Palliative care [] [x] Receiving care in room [] Pre-surgical visit [] Trauma [] Long length of stay [x] ICU visit [] Other: Relational/Emotional Strength [] Patient feels connected with others/family/visitors/staff [] Distress [] Loneliness/isolation [] Abandonment Spirituality of Patient [] Person of Beth [] Attends Yazidism of their Beth [] Believes in Prayer [] Reads Bible or Sabianist materials [] There are Spiritual issues to be addressed Self Contained Behavior Unit Teacher Interventions [x] Prayer [] Active listening [] Non-anxious presence [] Spiritual/emotional support [] Crisis/trauma care [] Spiritual counseling [] Bereavement support [] Provided bereavement packet [] Provided Bible/devotional materials [] Provided toy/stuffed animal, coloring book to patient or family member [] Provided Communion [] Anointing/[place] [] Salvation [x] Completed spiritual assessment [] Other: Impact on Illness or Injury [] Angry [] Fearful [] Anxious [] Often cries [] Exhaustion [] Unable to work [] Unable to attend evangelical [] Unable to walk/stand [] Unable to read [] Unable to drive [] Unable to eat/drink [] Unable to sleep [] Unable to be with family [] Patient intubated [] Other: Summary Time spent with patient
--- NOTE | 2022-06-22 10:23 | P.CONIM_ITS ---
Providers/Reason For Consult Consulting Physician/Specialty*: Nathan Posadas MD Reason for Consult*: Dialysis access Requesting Physician: Dr. Chapa Attending Physician: Emilia Chapa MD Primary Care Provider: Fernando Fish DO History of Present Illness History of Present Illness Ms. Bianka Kirby is a pleasant 82 year old female with multiple medical comorbidities in the form of hypertension, history of chronic kidney disease, managed by nephrology, hyperlipidemia, hypothyroidism, what appears that the patient has nephrotic syndrome and she was supposed to have a kidney biopsy as an outpatient. Per patient's sister patient was offered dialysis before in [place] but patient denied it. Patient was admitted to the hospitalist service because of shortness of breath that is getting worse with increased lower extremity edema and uncontrolled high blood pressure. Patient was further evaluated by nephrology service while hospitalized and I was approached today by the hospitalist service for consultation for temporary dialysis access placement. Review of Systems General: Reports: 10 or more systems reviewed and unremarkable except in HPI and below Medications/Allergies Home Medications Medication Instructions Recorded Confirmed Last Taken Type amlodipine 5 mg tablet 10 mg PO DAILY 06/19/22 06/19/22 06/19/22 History atorvastatin 40 mg tablet 40 mg PO BEDTIME 06/19/22 06/19/22 06/18/22 History budesonide-formoterol HFA 160 2 puff inhalation BID PRN 06/19/22 06/19/22 06/19/22 History mcg-4.5 mcg/actuation aerosol Shortness Of Breath Or Wheezing inhaler (Symbicort) fluticasone fur. 200 mcg-umeclid 1 inh inhalation DAILY 06/19/22 06/19/22 06/19/22 History 62.5 mcg-vilant 25 mcg inhalat.powder (Trelegy Ellipta) levothyroxine 50 mcg tablet 50 mcg PO QAM 06/19/22 06/19/22 06/19/22 History metoprolol succinate 50 mg 50 mg PO DAILY 06/19/22 06/19/22 06/19/22 History tablet,extended release 24 hr Allergies Allergy/AdvReac Type Severity Reaction Status Date / Time No Known Allergies Allergy Verified 06/22/22 13:44 Current Medications Generic Name Dose Route Start Last Admin Trade Name Freq PRN Reason Stop Dose Admin Albuterol/Ipratropium 3 ml 06/21/22 14:00 06/22/22 09:10 Ipratropium-Albuterol 3 Ml Neb INHALATION Not Given Q6H AUBRIE Amlodipine Besylate 10 mg 06/20/22 09:00 06/22/22 08:39 Amlodipine 5 Mg Tablet PO 10 mg DAILY AUBRIE Administration Atorvastatin Calcium 40 mg 06/19/22 21:00 06/21/22 22:19 Atorvastatin 40 Mg Tablet PO 40 mg BEDTIME AUBRIE Administration Budesonide 0.5 mg 06/21/22 20:00 06/22/22 09:10 Budesonide 0.5 Mg/2 Ml Neb INHALATION Not Given BID.RESPIRATORY AUBRIE Heparin Sodium (Porcine) 5,000 unit 06/19/22 15:48 06/22/22 05:16 Heparin 5,000 Unit/Ml Inj 1 Ml SUBCUT 5,000 unit Q12H AUBRIE Administration Hydralazine HCl 75 mg 06/21/22 07:30 06/22/22 08:39 Hydralazine 50 Mg Tablet PO 75 mg Q8H AUBRIE Administration Nicardipine/Sodium Chloride 20 mg in 200 mls @ 0 mls/hr 06/21/22 10:15 06/22/22 08:39 Cardene IV 5 mg/hr .Q0M AUBRIE 50 mls/hr Administration Protocol Per Protocol Levothyroxine Sodium 50 mcg 06/22/22 06:00 06/22/22 05:19 Levothyroxine 50 Mcg Tablet PO 50 mcg QAM AUBRIE Administration Morphine Sulfate 1 mg 06/19/22 15:48 06/22/22 00:23 Morphine 4 Mg/Ml Sdv 1 Ml IVP 1 mg Q4H PRN Administration SEVERE PAIN Ondansetron HCl 4 mg 06/19/22 15:48 06/22/22 00:27 Ondansetron 2 Mg/Ml Sdv 2 Ml IVP 4 mg Q8H PRN Administration vomiting, or N/V if npo Pantoprazole Sodium 40 mg 06/21/22 18:00 06/22/22 08:[address] 40 Mg Tablet PO 40 mg BID AUBRIE Administration Polyethylene Glycol 17 gm 06/21/22 12:15 06/22/22 08:39 Polyethylene Glycol 3350 Pkt 17 Gm PO 17 gm DAILY AUBRIE Administration Senna/Docusate Sodium 1 tab 06/21/22 18:00 06/22/22 08:39 Sennosides-Docusate Tablet PO 1 tab BID AUBRIE Administration PFSH Acute PFSH: Medical History CKD (chronic kidney disease) History of hyperlipidemia History of hypertension History of hypothyroidism Surgical History History of cholecystectomy Family History Mother CAD (coronary artery disease) Father CAD (coronary artery disease) Social History Smoking and tobacco status: never smoked Alcohol intake: never Substance/Drug Use: never Vitals/I&O/Wt Last Vital Signs Temp 98.6 F 06/21/22 20:00 Pulse 82 06/22/22 06:15 Resp 15 06/22/22 06:15 BP 194/70 06/22/22 06:15 Pulse Ox 96 06/22/22 06:15 O2 Del Method 06/21/22 19:29 O2 Flow Rate 1 06/21/22 19:29 06/21/22 06/22/22 06/22/22 22:59 06:59 14:59 Intake Total 411.166 / 633.666 116.5 / 116.5 Output Total 100 / 300 250 / 550 Balance 311.166 / 333.666 -250 / 83.666 116.5 / 116.5 Physical Exam Narrative: Patient is conscious alert oriented X3 No apparent distress BMI 28.2 Head and neck examination PERRLA no masses no cervical lymphadenopathy no j aundice Cardiac examination audible S1-S2 no murmurs no gallops no arrhythmias Chest is clear bilateral,abscence of Rhonchi or wheezes,no surgical emphysema Abdomen nontender nondistended soft no organomegaly guarding or rigidity/no signs of peritonitis Bilateral groin scars with unknown etiology Data 06/22/22 02:56 06/22/22 02:56 Micro: Microbiology 06/19/22 19:07 Urine Culture - Final Urine,Clean Catch A&P Assessment and plan (1) Acute kidney injury superimposed on CKD: After history taking physical examination and reviewing the chart. I Did further counseled the patient for temporary hemodialysis access that the patient refused to have the procedure done in the presence of her nursing staff Digna. I did talk with patient's sister over the phone and she said that she will try to come over and convince her sister by proceeding. I respected patient's wishes and made sure she understands the potential risks benefits alternatives and indications. Thank you for consulting general surgery to participate taking care Ms. Kirby Consult Attestations Medical Necessity Statement: Per admitting service Coding Level of Care Code Acute Craps Manager for Pauletteg Goldie Diagnoses Acute kidney injury superimposed on CKD N17.9; N18.9
--- NOTE | 2022-06-22 11:03 | PM.CONSULT ---
Providers/Reason For Consult Consulting Physician/Specialty*: Urology/Bill Reason for Consult*: Inability to place Coleman catheter Requesting Physician: Dr. Chapa Attending Physician: Emilia Chapa MD Primary Care Provider: Fernando Fish DO History of Present Illness History of Present Illness Bianka Kriby is a 82 year old female admitted on 06/19/2022 with hypertensive urgency, acute kidney injury superimposed on chronic kidney disease, pleural effusion, CHF. She was in the ICU and attempts at placing a catheter were unsuccessful and I was consulted Procedure: Difficult catheter placement due to anatomy On physical exam she was found to have urogenital atrophy. The urethral meatus was not readily identified. Prepped and draped sterilely. The anterior vaginal wall was palpated and the urethra meatus could be palpated just retracted slightly anteriorly. With some lateral vulvar spreading as well as posterior pressure to expose the anterior bladder wall and with 2 pillows underneath her buttocks to elevate the urethral meatus was just barely visualized and a 14 Angolan coud? catheter was passed with good function. 10 cc was placed in the balloon. She tolerated procedure well and was turned over the nursing staff. Recommendations: Maintain catheter as per usual protocols. Can remove whenever you are comfortable regarding need for catheter for volume management etc. Review of Systems Const: Denies: fever(s) or chills Eyes: Denies: change in vision Card: Denies: chest pain Resp: Reports: dyspnea GI: Denies: abdominal pain : Denies: flank pain or urinary frequency Musc: Denies: neck pain Neuro: Reports: confusion Psych: Reports: memory loss Jimbo/Lymph: Denies: enlarged lymph nodes All/Imm: Denies: acute wheezing Medications/Allergies Home Medications Medication Instructions Recorded Confirmed Last Taken Type amlodipine 5 mg tablet 10 mg PO DAILY 06/19/22 06/19/22 06/19/22 History atorvastatin 40 mg tablet 40 mg PO BEDTIME 06/19/22 06/19/22 06/18/22 History budesonide-formoterol HFA 160 2 puff inhalation BID PRN 06/19/22 06/19/22 06/19/22 History mcg-4.5 mcg/actuation aerosol Shortness Of Breath Or Wheezing inhaler (Symbicort) fluticasone fur. 200 mcg-umeclid 1 inh inhalation DAILY 06/19/22 06/19/22 06/19/22 History 62.5 mcg-vilant 25 mcg inhalat.powder (Trelegy Ellipta) levothyroxine 50 mcg tablet 50 mcg PO QAM 06/19/22 06/19/22 06/19/22 History metoprolol succinate 50 mg 50 mg PO DAILY 06/19/22 06/19/22 06/19/22 History tablet,extended release 24 hr Allergies Allergy/AdvReac Type Severity Reaction Status Date / Time No Known Allergies Allergy Verified 06/19/22 14:05 Current Medications Generic Name Dose Route Start Last Admin Trade Name Freq PRN Reason Stop Dose Admin Albuterol/Ipratropium 3 ml 06/21/22 14:00 06/22/22 09:10 Ipratropium-Albuterol 3 Ml Neb INHALATION Not Given Q6H AUBRIE Amlodipine Besylate 10 mg 06/20/22 09:00 06/22/22 08:39 Amlodipine 5 Mg Tablet PO 10 mg DAILY AUBRIE Administration Atorvastatin Calcium 40 mg 06/19/22 21:00 06/21/22 22:19 Atorvastatin 40 Mg Tablet PO 40 mg BEDTIME AUBRIE Administration Budesonide 0.5 mg 06/21/22 20:00 06/22/22 09:10 Budesonide 0.5 Mg/2 Ml Neb INHALATION Not Given BID.RESPIRATORY AUBRIE Heparin Sodium (Porcine) 5,000 unit 06/19/22 15:48 06/22/22 05:16 Heparin 5,000 Unit/Ml Inj 1 Ml SUBCUT 5,000 unit Q12H AUBRIE Administration Hydralazine HCl 75 mg 06/21/22 07:30 06/22/22 08:39 Hydralazine 50 Mg Tablet PO 75 mg Q8H AUBRIE Administration Nicardipine/Sodium Chloride 20 mg in 200 mls @ 0 mls/hr 06/21/22 10:15 06/22/22 08:39 Cardene IV 5 mg/hr .Q0M AUBRIE 50 mls/hr Administration Protocol Per Protocol Levothyroxine Sodium 50 mcg 06/22/22 06:00 06/22/22 05:19 Levothyroxine 50 Mcg Tablet PO 50 mcg QAM AUBRIE Administration Morphine Sulfate 1 mg 06/19/22 15:48 06/22/22 00:23 Morphine 4 Mg/Ml Sdv 1 Ml IVP 1 mg Q4H PRN Administration SEVERE PAIN Ondansetron HCl 4 mg 06/19/22 15:48 06/22/22 00:27 Ondansetron 2 Mg/Ml Sdv 2 Ml IVP 4 mg Q8H PRN Administration vomiting, or N/V if npo Pantoprazole Sodium 40 mg 06/21/22 18:00 06/22/22 08:[address] 40 Mg Tablet PO 40 mg BID AUBRIE Administration Polyethylene Glycol 17 gm 06/21/22 12:15 06/22/22 08:39 Polyethylene Glycol 3350 Pkt 17 Gm PO 17 gm DAILY AUBRIE Administration Senna/Docusate Sodium 1 tab 06/21/22 18:00 06/22/22 08:39 Sennosides-Docusate Tablet PO 1 tab BID AUBRIE Administration PFSH Acute PFSH: Medical History CKD (chronic kidney disease) History of hyperlipidemia History of hypertension History of hypothyroidism Surgical History History of cholecystectomy Family History Mother CAD (coronary artery disease) Father CAD (coronary artery disease) Social History Smoking and tobacco status: never smoked Alcohol intake: never Substance/Drug Use: never Vitals/I&O/Wt Last Vital Signs Temp 98.6 F 06/21/22 20:00 Pulse 82 06/22/22 06:15 Resp 15 06/22/22 06:15 BP 194/70 06/22/22 06:15 Pulse Ox 96 06/22/22 06:15 O2 Del Method 06/21/22 19:29 O2 Flow Rate 1 06/21/22 19:29 06/21/22 06/22/22 06/22/22 22:59 06:59 14:59 Intake Total 411.166 / 633.666 116.5 / 116.5 Output Total 100 / 300 250 / 550 Balance 311.166 / 333.666 -250 / 83.666 116.5 / 116.5 Physical Exam Const: COMMON NORMALS: no acute distress, alert and well nourished GENERAL APPEARANCE: well developed HENMT: COMMON NORMALS: normocephalic HEAD & SCALP: normocephalic Eye: COMMON NORMALS: no scleral icterus Lymph: OTHER: Significant peripheral edema. Resp: COMMON NORMALS: normal respiratory effort EFFORT & INSPECTION: No Actively coughing GI: OTHER: Abdomen is soft. Bladder is nondistended. No masses : OTHER: Urogenital atrophy. Some introital stenosis. Urethra meatus is not readily identifiable on initial exam. No vaginal discharge. No prolapse. No external lesions. With 2 pillows under her buttocks the exam did reveal what appeared to be just the edge of the urethral meatus retracted anteriorly. Catheter was placed. 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 (2) CHF (congestive heart failure): Coding Level of Care Code Acute Information Security Specialist for [facility] Fwd Diagnoses Genital atrophy of female N94.9 CHF (congestive heart failure) I50.9
[2022-06-22] MEDS: FUROsemide 10 mg/mL SDV 4mL 40 MG IVP ×2 (11:22→21:55)
--- NOTE | 2022-06-22 11:24 | PM.PN ---
Subjective Subjective: pt confused Medications: Reviewed: Yes Vitals/I&O/Wt Last Vital Signs Temp 98.6 F 06/21/22 20:00 Pulse 78 06/22/22 11:15 Resp 17 06/22/22 11:15 BP 149/44 06/22/22 11:15 Pulse Ox 93 06/22/22 11:15 O2 Del Method 06/21/22 19:29 O2 Flow Rate 1 06/21/22 19:29 06/21/22 06/22/22 06/22/22 22:59 06:59 14:59 Intake Total 411.166 / 633.666 116.5 / 116.5 Output Total 100 / 300 250 / 550 Balance 311.166 / 333.666 -250 / 83.666 116.5 / 116.5 Physical Exam Const: COMMON NORMALS: no acute distress, alert and well nourished GENERAL APPEARANCE: well developed Eye: COMMON NORMALS: no scleral icterus Lymph: OTHER: Significant peripheral edema. Resp: COMMON NORMALS: normal respiratory effort EFFORT & INSPECTION: No Actively coughing Neuro: SENSORIUM/ORIENTATION: Yes alert OTHER: Confusion Psych: APPEARANCE: Yes grossly normal ATTITUDE: Yes calm Skin: COMMON NORMALS: no jaundice Data 06/22/22 02:56 06/22/22 02:56 Micro: Microbiology 06/19/22 19:07 Urine Culture - Final Urine,Clean Catch A&P Assessment and plan (1) Acute kidney injury superimposed on CKD: Plan 1. Acute kidney injury/worsening CKD with nephrotic syndrome. There was outpatient plan for kidney biopsy 2 weeks ago. Cr 4.0 today with uremia , pulm edema - Will benefit from temporary HD , Request line placement and start HD for few sessions - will need to eval for recovery once pt clinically improved -Also will need kidney biopsy later 2. Severe hypertension, ion cardene drip 3. Volume overload.. Continue furosemide. Rec: Avoiding ACEi/ARB due to declining renal function. Discontinued? betablocker and clonidine due to bradycardia. increase hydralazine if needed. Cautious Kcl replacement if given. Attestations Medical Necessity Statement*: Continued hospitalization for hemodialysis, thoracentesis, worsening clinical status, continued ICU stay Coding Level of Care Code Acute Jewelry Internship for [facility] Fwd Diagnoses Acute kidney injury superimposed on CKD N17.9; N18.9
--- NOTE | 2022-06-22 11:42 | PC.OT ---
OT tx attempted. Nursing requests therapy be withheld at this time secondary to issues with BP and declining renal function. Will reattempt again tomorrow.
--- NOTE | 2022-06-22 13:00 | PC.SOCIAL ---
Pg 2 IMM Explained to pt Pg 2 IMM. No questions voiced. Provided pt a copy. Initialed, dated, & timed a copy & placed in chart.
[2022-06-22] MEDS: ipratropium-albuterol 3 mL Neb INHALATION (13:07)
[2022-06-22 16:01] LABS: Color, Body Fluid PALE YELLOW; Cyto Order Verification Order Verified
[2022-06-22 16:02] LABS: Apprearance, Body Fluid CLEAR
--- NOTE | 2022-06-22 16:05 | XR_ITS ---
WS: [id number] PORTABLE CHEST HISTORY: post thoracentesis, RIGHT COMPARISON: 06/22/2022 No right-sided pneumothorax status post thoracentesis. Small bilateral pleural effusions and mild pulmonary venous congestion. Effusions have improved since the study earlier the same day. Cardiac size: Mildly enlarged cardiac silhouette. Mediastinum/Aorta: Mild atherosclerosis aorta. Osteopenia. XR/XR chest 1V portable [id number] IMPRESSION: 1. No pneumothorax status post RIGHT thoracentesis. 2. Very small bilateral residual pleural effusions.
[2022-06-22 16:11] LABS: Body Fluid Polynuclear #Cells 0.016; Body Fluid WBC 337 /uL; Monocytes # Body Fluid 0.321; RBC, Body Fluid 0 10^3/uL
[2022-06-22 16:21] LABS: Body Fluid Specific Gravity 1.005; PATH Referral YES
[2022-06-22 16:30] LABS: Albumin Body Fluid 0.8 g/dL; Amylase Body Fluid 66 U/L; Cholesterol Body Fluid 23 mg/dL (0-200); Fluid Alkaline Phos. 6 IU/L; LDH Body Fluid 76 U/L; Triglycerides Body Fluid 17 mg/dL (0-150); Uric Acid Body Fluid 9 mg/dL
[2022-06-22 16:52] LABS: Total Protein Pleural Fluid 1.5 g/dL
--- NOTE | 2022-06-22 20:41 | PC.NURSE ---
PT HAS HAD A BUSY SHIFT. PT WAS MUCH MORE LETHARGIC THIS MORNING COMPARED TO PRIOR SHIFTS FOR THIS NURSE. DR MCKEON NOTIFIED AND CAME DOWN TO SEE PT. BY THE TIME DR MCKEON ARRIVED PT WAS MORE ALERT BUT STILL VERY WEAK. PT CONSENTED TO DR ARANGO INSERTING A MARAVILLA. DR ARANGO DOWN TO SEE PT. MARAVILLA SUCCESSFUL INSERTED BY DR ARANGO. PT ALSO HAD A THORACENTESIS DONE THIS AFTERNOON BY DR NICHOLS. PT CONSENTED TO THIS. DR NICHOLS DOWN TO SEE PT. TIMEOUT PERFORMED. PTS VITALS REMAINED STABLE THROUGHOUT PROCEDURE. PT REPORTS THAT SHE DOES NOT FEEL SHORT OF BREATH SHE DID. PT ASSISTED BACK TO BED. PT ALSO IN NEED OF DIALYSIS CATHETER PLACED. PT REQUESTED FOR THIS TO BE DONE TOMORROW. DR MCKEON, DR RAWLS, AND DR GONG ALL NOTIFIED. PT TO BE NPO AT MIDNIGHT FOR SAID PROCEDURE TOMORROW. PT HAS NOT HAD ANY COMPLAINTS OF PAIN. PTS BLOOD PRESSURES HAVE BEEN BETTER. DR MCKEON NOTIFIED OF PRESSURES REMAINING BETWEEN 140-160 SYSTOLIC. ORDERS TO STOP CARDENE DRIP WERE GIVEN. PTS PRESSURES HAVE REMAINED IN THAT RANGE FOR A MAJORITY OF THE SHIFT. PT HAS NO REQUESTS. REPORT GIVEN TO RUTH ANN CHILDRESS. CARE IS BEING TURNED OVER TO SAID NURSE.
[2022-06-22] MEDS: atorvastatin 40 mg Tablet PO (21:55)
[2022-06-23] VITALS (77 sets, daily range): BP systolic 130–208; BP diastolic 47–105; PULSE 66–108; RESP 14–30; TEMP 36.5–37.3; O2SAT 89–96
[2022-06-23] MEDS: ondansetron 2 mg/ML SDV 2 mL 4 MG IVP ×2 (03:51→18:27)
--- NOTE | 2022-06-23 06:48 | PC.NURSE ---
Patient had some mild choking after using a green sponge mouth swab. Patient and daughter state she has increasingly had difficulty with her own secretions. Patient refused oral meds this morning as she is concerned about swallowing difficulty.
--- NOTE | 2022-06-23 07:05 | PM.PN ---
Subjective Subjective: Patient continues to be in the ICU. After further discussing the procedure with the patient and her Sister Evangelina in the presence of the nursing staff night supervisor nurse Chandler. Patient and her sister agreed to proceed with placement of temporary hemodialysis catheter in the OR. As patient was reluctant to proceed yesterday. Medications: Reviewed: Yes Vitals/I&O/Wt Last Vital Signs Temp 98.2 F 06/23/22 02:00 Pulse 82 06/23/22 06:00 Resp 16 06/23/22 06:00 BP 175/91 06/23/22 06:00 Pulse Ox 96 06/23/22 06:00 O2 Del Method 06/22/22 20:00 O2 Flow Rate 2 06/22/22 20:00 06/22/22 06/23/22 06/23/22 22:59 06:59 14:59 Intake Total 120 / 470.5 Output Total 450 / 450 420 / 870 Balance -330 / 20.5 -420 / -399.5 Physical Exam Narrative: Patient is conscious alert confused No apparent distress BMI 28.2 Head and neck examination PERRLA no masses no cervical lymphadenopathy no jaundice Abdomen nontender nondistended soft no organomegaly guarding or rigidity/no signs of peritonitis Data 06/22/22 02:56 06/22/22 02:56 Micro: Microbiology 06/22/22 15:00 Gram Stain - Final Pleural Fluid A&P Assessment and plan (1) Acute kidney injury superimposed on CKD: Plan of care; After thorough history physical examination and reviewing the chart and reviweing the images with my personal intrepretation.I counseled the patient and her sister for a none tunneled temporary hemodialysis catheter placement, indications, risks including possibility of , stroke, heart attack, major bleeding, infection, pneumonia, organ failure, failure to benefit, prolonged hospital stay, pain after the procedure pneumothorax that may require Chest tube(s) placement and potential injury of major vascular structures that may require Thoractomy, benefits,indications and alternatives were all discussed with the patient and her sister, patient and her sister understand and are interested to proceed. Rationale was carefully and clearly discussed with the patient and her sister.Appropriate informed consent have been reviewed and signed. Thank you for consulting general surgery to participate taking care Ms. Kirby Attestations Medical Necessity Statement*: Per admitting service Coding Level of Care Code Acute Potato Peeling Machine Operator for g Fwd Diagnoses Acute kidney injury superimposed on CKD N17.9; N18.9
[2022-06-23] MEDS: nicardipine 20 MG/200 ML PREMIX 75 MG IV (09:37)
--- NOTE | 2022-06-23 09:56 | ANES.PREANE2 ---
Pre-Anesthetic Assessment Height/Weight: Height 1.57 m Weight 69.853 kg Temp Pulse Resp BP Pulse Ox O2 Del Method O2 Flow Rate 97.7 F 92 18 180/56 91 3 06/23/22 07:45 06/23/22 09:45 06/23/22 09:45 06/23/22 09:45 06/23/22 09:45 06/23/22 08:54 06/23/22 08:54 Operation Date: 06/23/22 14:10 Proposed Procedures p temporary Dialysis Catheter Insertion(Not Applicable) - Nathan Posadas MD Familial anesthetic complications: None Last intake: > 8 hrs Social No alcohol and No tobacco Exam alert, oriented x 3, clear to auscultation bilaterally (coarse breath sounds b/l) and regular rate & rhythm Airway Mallampati: Class II Dentition: chipped Pulmonary R pleural effusion CV/HEM Congestive Heart Failure and Hypertension 06/16 echo CONCLUSIONS ?Normal left ventricular size and systolic function, EF 75 %. ?No regional wall motion normalities ?Mildly increased left atrial size. ?Normal cardiac valves. ?No significant chamber abnormalities. Chronic Renal Insufficiency (nephrotic syndrome) ADOLFO Metabolic Hyperlipidemia and Thyroid Disease Anesthetic Plan ASA status: 4 Anesthesia: MAC Risk of > 500 ml blood loss (7ml/kg in children): No Medications/Allergies Home Medications Medication Instructions Recorded Confirmed Last Taken Type amlodipine 5 mg tablet 10 mg PO DAILY 06/19/22 06/19/22 06/19/22 History atorvastatin 40 mg tablet 40 mg PO BEDTIME 06/19/22 06/19/22 06/18/22 History budesonide-formoterol HFA 160 2 puff inhalation BID PRN 06/19/22 06/19/22 06/19/22 History mcg-4.5 mcg/actuation aerosol Shortness Of Breath Or Wheezing inhaler (Symbicort) fluticasone fur. 200 mcg-umeclid 1 inh inhalation DAILY 06/19/22 06/19/22 06/19/22 History 62.5 mcg-vilant 25 mcg inhalat.powder (Trelegy Ellipta) levothyroxine 50 mcg tablet 50 mcg PO QAM 06/19/22 06/19/22 06/19/22 History metoprolol succinate 50 mg 50 mg PO DAILY 06/19/22 06/19/22 06/19/22 History tablet,extended release 24 hr Allergies Allergy/AdvReac Type Severity Reaction Status Date / Time No Known Allergies Allergy Verified 06/22/22 13:44 Current Medications Generic Name Dose Route Start Last Admin Trade Name Sancho PRN Reason Stop Dose Admin Albuterol/Ipratropium 3 ml 06/21/22 14:00 06/23/22 08:55 Ipratropium-Albuterol 3 Ml Neb INHALATION Not Given Q6H AUBRIE Amlodipine Besylate 10 mg 06/20/22 09:00 06/22/22 08:39 Amlodipine 5 Mg Tablet PO 10 mg DAILY AUBRIE Administration Atorvastatin Calcium 40 mg 06/19/22 21:00 06/22/22 21:55 Atorvastatin 40 Mg Tablet PO 40 mg BEDTIME AUBRIE Administration Budesonide 0.5 mg 06/21/22 20:00 06/23/22 08:55 Budesonide 0.5 Mg/2 Ml Neb INHALATION Not Given BID.RESPIRATORY AUBRIE Furosemide 40 mg 06/22/22 10:30 06/22/22 21:55 Furosemide 10 Mg/Ml Sdv 4ml IVP 40 mg Q12H AUBRIE Administration Heparin Sodium (Porcine) 5,000 unit 06/19/22 15:48 06/23/22 05:08 Heparin 5,000 Unit/Ml Inj 1 Ml SUBCUT Not Given Q12H AUBRIE Hydralazine HCl 75 mg 06/21/22 07:30 06/23/22 06:48 Hydralazine 50 Mg Tablet PO Not Given Q8H AUBRIE Nicardipine/Sodium Chloride 20 mg in 200 mls @ 0 mls/hr 06/21/22 10:15 06/23/22 09:37 Cardene IV 7.5 mg/hr .Q0M AUBRIE 75 mls/hr Administration Protocol Per Protocol Isosorbide Mononitrate 90 mg 06/22/22 10:20 06/22/22 11:48 Isosorbide Mononitrate Er 60 Mg Tablet PO Not Given DAILY AUBRIE Levothyroxine Sodium 50 mcg 06/22/22 06:00 06/23/22 06:48 Levothyroxine 50 Mcg Tablet PO Not Given QAM AUBRIE Morphine Sulfate 1 mg 06/19/22 15:48 06/22/22 00:23 Morphine 4 Mg/Ml Sdv 1 Ml IVP 1 mg Q4H PRN Administration SEVERE PAIN Ondansetron HCl 4 mg 06/19/22 15:48 06/23/22 03:51 Ondansetron 2 Mg/Ml Sdv 2 Ml IVP 4 mg Q8H PRN Administration vomiting, or N/V if npo Pantoprazole Sodium 40 mg 06/21/22 18:00 06/22/22 17:[address] 40 Mg Tablet PO 40 mg BID AUBRIE Administration Polyethylene Glycol 17 gm 06/21/22 12:15 06/22/22 08:39 Polyethylene Glycol 3350 Pkt 17 Gm PO 17 gm DAILY AUBRIE Administration Senna/Docusate Sodium 1 tab 06/21/22 18:00 06/22/22 17:05 Sennosides-Docusate Tablet PO 1 tab BID AUBRIE Administration PFSH Anesthesia Medical History CKD (chronic kidney disease) History of hyperlipidemia History of hypertension History of hypothyroidism Surgical History History of cholecystectomy Family History Mother CAD (coronary artery disease) Father CAD (coronary artery disease) Social History Smoking and tobacco status: never smoked Alcohol intake: never Substance/Drug Use: never Data Anesthesia 06/22/22 02:56 06/22/22 02:56 Short CBC 06/22/22 Range/Units 02:56 WBC 11.1 H (4.0-10.0) 10^3/uL Hgb 10.4 L (11.5-15.3) g/dL Hct 33.3 L (37.0-47.0) % MCV 90.0 (81-99) fl Plt Count 308 (130-400) 10^3/cmm Neut % (Auto) 88.2 % Neut # (Auto) 9.84 H (1.8-7.7) 10^3/uL BMP 06/22/22 02:56 Sodium 139 Potassium 4.4 Chloride 106 Carbon Dioxide 21 L BUN 56 H Creatinine 4.0 H Glucose 175 H Calcium 8.6 Liver Function 06/22/22 Range/Units 02:56 Total Bilirubin 0.3 (0.15-1.2) mg/dL AST 16 (0-32) U/L ALT 11 (0-33) U/L Alkaline Phosphatase 67 (35-105) U/L Albumin 2.8 L (3.5-5.2) g/dL Microbiology 06/22/22 15:00 Gram Stain - Final Pleural Fluid Cardiac Studies: Echocardiogram 06/20/22
[2022-06-23] MEDS: isosorbide mononitrate ER 60 mg Tablet 90 MG PO (09:59)
[2022-06-23] MEDS: amlodipine 5 mg Tablet 10 MG PO (09:59)
[2022-06-23] MEDS: pantoprazole DR 40 mg Tablet PO ×2 (10:02→17:03)
[2022-06-23] MEDS: FUROsemide 10 mg/mL SDV 4mL 40 MG IVP ×2 (10:03→22:05)
--- NOTE | 2022-06-23 10:07 | SC_ITS ---
WS: [id number] INTRAOPERATIVE TECHNIQUE: 2 Spot fluoroscopic images for intraoperative purposes. FLUOROSCOPY TIME: 11.3 seconds CLINICAL INFORMATION: dialysis catheter placement COMPARISON: None. FINDINGS: RIGHT central venous catheter with tip in the RIGHT atrium. No visualized pneumothorax. IMPRESSION: Images obtained for intraoperative purposes.
[2022-06-23 10:35] LABS: Basophils % 0.2 %; Hematocrit 32.3 % (37.0-47.0); Hemoglobin 10.3 g/dL (11.5-15.3); Lymphocytes # 0.6 10^3/uL (0.8-4.8); Lymphocytes % 5.8 %; Mean Corpuscular HGB Conc 31.9 g/dL (30.0-36.0); Mean Corpuscular Volume 87.8 fl (81-99); Mean Platelet Volume 9.9 fL (7.4-10.4); Monocytes # 0.4 10^3/uL (0.2-0.9); Monocytes % 3.7 %; Neutrophils # 9.58 10^3/uL (1.8-7.7); Neutrophils % 89.8 %; Nucleated Red Blood Cells % 0 %; Platelet Count 336 10^3/cmm (130-400); Red Blood Count 3.68 10^6/uL (4.1-5.3); Red Cell Distribution Width 14.6 % (12.1-15.1); White Blood Count 10.7 10^3/uL (4.0-10.0)
[2022-06-23 10:47] LABS: Anion Gap 16.5 (5-19); Blood Urea Nitrogen 58 mg/dL (8-23); Calcium 8.3 mg/dL (8.5-10.5); Carbon Dioxide 22 mmol/L (22-29); Chloride 102 mmol/L (98-107); Glucose 167 mg/dL (65-115); Osmolality Calculated 302 mOsm/kg (285-295); Potassium 4.5 mmol/L (3.5-5.1); Sodium 136 mmol/L (136-145)
[2022-06-23] MEDS: lidocaine 1% INJ 20 mL MDV (mL) SUBCUT (11:50)
[2022-06-23] MEDS: heparin, porcine 1,000 unit/mL INJ 10 mL 10000 UNIT INJECTION (11:55)
--- NOTE | 2022-06-23 12:07 | PM.OP ---
Operative Report Date of procedure: June 23, 2022 Pre-op diagnosis: Preop Diagnosis Acute on top of chronic kidney failure Procedure done: 1. Placement of 12 Indonesian nontunneled hemodialysis catheter right internal jugular vein 2. Fluoroscopic guidance and interpretation for placement of catheter 3. Ultrasound guidance to access the right internal jugular vein Surgeon: Nathan Posadas MD Medication Aide: ophthalmic tech Alvera Circulating nurse Bertha Anesthesia: MAC (er nurse Talon Lucia) Estimated blood loss (mL): 5 Procedure: After identifying the patient in holding area , patient was transferred to the OR and was placed in supine position . Both arms were tucked and all pressure points were padded Medications were reviewed to assess for anticoagulant usage. Risks and benefits and prevention of central line associated blood stream infection (CLABSI) were discussed with the patient/CPOA, and a consent was obtained. Monitors were in place and monitored throughout the procedure. A time out was performed with the nurse present. All necessary supplies were available prior to start. Hand hygiene was completed prior to starting. Maximum barrier technique was utilized including a sterile gown, sterile gloves with a hat and mask. Site was was prepped with [chlorhexidine] and a full body drape was placed. 5 mL of 1% lidocaine was injected into the skin with a 25 gauge needle. PLANT ASSIGNER started infusing IV propofol . Started by Right internal jugular vein Under ultrasound guidance.There was no evidence of intraluminal thrombosis.Venous blood was retrieved.A wire was then advanced without difficulty. There were no ectopy noted. A small incision was then made to facilitate the dilators over which the catheter was placed. The wire was then removed. The catheter was threaded to hub of the catheter. All ports were then aspirated showing venous return and were each then flushed with Heparin. The catheter was then sutured in place Biopatch was placed and a Dry dressing was then applied. Type of catheter placement of 12 Indonesian temporary dialysis catheter 16 cm Count of instruments needles and sponges were completed The entire procedure was done under direct fluoroscopy with my personal interpretation Patient was transferred today recovery area in stable condition And went straight back to the ICU Patient tolerated the procedure without difficulty or complication. A portable chest x-ray was performed which illustrated no pneumothorax and proper placement of the catheter with the tip resting just above the right atrium. Patients vital signs remained stable throughout the procedure. I was present for the whole entire procedure
--- NOTE | 2022-06-23 12:10 | XRR_ITS ---
PROCEDURE INFORMATION: Exam: XR Chest Exam date and time: 06/23/2022 12:16 PM Age: 82 years old Clinical indication: Device placement; Other: Status postplacement of hd catheter via right internal jugul; Prior surgery; Surgery date: Post-operative (0-2 days); Additional info: Status postplacement of hd catheter via right internal jugul, vein. TECHNIQUE: Imaging protocol: Radiologic exam of the chest. Views: 1 view. Total images: 830 COMPARISON: CR XR chest 1V portable [id number] 06/22/2022 4:10 PM FINDINGS: Tubes, catheters and devices: A right internal jugular central venous catheter is present, with its tip overlying the region of the right atrium. Lungs: Stable bilateral pleuroparenchymal disease. Pleural spaces: No pneumothorax. Heart/Mediastinum: Heart is enlarged but stable when compared to the prior exam. Bones/joints: Osseous structures are unchanged from the prior exam. XR/XR chest 1V portable [id number] IMPRESSION: 1. A right internal jugular central venous catheter is present, with its tip overlying the region of the right atrium. 2. Heart is enlarged but stable when compared to the prior exam. 3. Stable bilateral pleuroparenchymal disease.
--- NOTE | 2022-06-23 12:17 | PC.CHAP ---
Pastoral Care Encounter/Spiritual Assessment Type of Contact [] Declined contact finger assembler visit [] Patient/Family/Request visit [] Outpatient visit [] Follow-up visit [] Physician referral [] Code/Alert [x] Routine visit [] Staff referral [] Actively dying [] Patient sleeping [] Family support [] [] Out of room [] Palliative care [] [x] Receiving care in room [] Pre-surgical visit [] Trauma [] Long length of stay [x] ICU visit [x] Other: staff present Relational/Emotional Strength [] Patient feels connected with others/family/visitors/staff [] Distress [] Loneliness/isolation [] Abandonment Spirituality of Patient [] Person of Beth [] Attends Anglican of their Beth [] Believes in Prayer [] Reads Bible or Baptist materials [] There are Spiritual issues to be addressed Fruit Picker Machine Operator Interventions [x] Prayer [] Active listening [] Non-anxious presence [] Spiritual/emotional support [] Crisis/trauma care [] Spiritual counseling [] Bereavement support [] Provided bereavement packet [] Provided Bible/devotional materials [] Provided toy/stuffed animal, coloring book to patient or family member [] Provided Communion [] Anointing/Toney [] Salvation [x] Completed spiritual assessment [] Other: Impact on Illness or Injury [] Angry [] Fearful [] Anxious [] Often cries [] Exhaustion [] Unable to work [] Unable to attend episcopal [] Unable to walk/stand [] Unable to read [] Unable to drive [] Unable to eat/drink [] Unable to sleep [] Unable to be with family [] Patient intubated [] Other: Summary Time spent with patient
--- NOTE | 2022-06-23 12:20 | PM.PN ---
Subjective Subjective: c/o SOB Medications: Reviewed: Yes Vitals/I&O/Wt Last Vital Signs Temp 97.7 F 06/23/22 07:45 Pulse 86 06/23/22 10:15 Resp 17 06/23/22 10:15 BP 172/80 06/23/22 10:15 Pulse Ox 92 06/23/22 10:15 O2 Del Method 06/23/22 08:54 O2 Flow Rate 3 06/23/22 08:54 06/22/22 06/23/22 06/23/22 22:59 06:59 14:59 Intake Total 120 / 470.5 136 / 136 Output Total 450 / 450 420 / 870 125 / 125 Balance -330 / 20.5 -420 / -399.5 Physical Exam Narrative: Patient is conscious alert confused No apparent distress BMI 28.2 Head and neck examination PERRLA no masses no cervical lymphadenopathy no jaundice Abdomen nontender nondistended soft no organomegaly guarding or rigidity/no signs of peritonitis Data 06/23/22 10:00 06/23/22 10:00 Micro: Microbiology 06/22/22 15:00 Gram Stain - Final Pleural Fluid A&P Assessment and plan (1) Acute kidney injury superimposed on CKD: [facility] Subjective Subjective:?? pt confused ? Medications:?? Reviewed: Yes Vitals/I&O/Wt Last Vital Signs Temp ?98.6 F ?06/21/22 20:00 Pulse ?78 ?06/22/22 11:15 Resp ?17 ?06/22/22 11:15 BP ?149/44 ?06/22/22 11:15 Pulse Ox ?93 ?06/22/22 11:15 O2 Del Method ? ?06/21/22 19:29 O2 Flow Rate ?1 ?06/21/22 19:29 ? 06/21/22 06/22/22 06/22/22 ? 22:59 06:59 14:59 Intake Total 411.166 / 633.666 ? 116.5 / 116.5 Output Total 100 / 300 250 / 550 ? Balance 311.166 / 333.666 -250 / 83.666 116.5 / 116.5 Physical Exam Const:?? COMMON NORMALS: no acute distress, alert and well nourished? GENERAL APPEARANCE: well developed Eye:?? COMMON NORMALS: no scleral icterus Lymph:?? OTHER: Significant peripheral edema. Resp:?? COMMON NORMALS: normal respiratory effort? EFFORT & INSPECTION: No Actively coughing Neuro:?? SENSORIUM/ORIENTATION: Yes alert? OTHER: Confusion Psych:?? APPEARANCE: Yes grossly normal? ATTITUDE: Yes calm Skin:?? COMMON NORMALS: no jaundice Data 06/22/22 02:56? 06/22/22 02:56? Micro: Microbiology ?06/19/22 19:07 Urine Culture - Final ?Urine,Clean Catch ? A&P Assessment and plan (1) Acute kidney injury superimposed on CKD: Plan 1. Acute kidney injury/worsening CKD with nephrotic syndrome. There was outpatient plan for kidney biopsy 2 weeks ago. Cr 4.0? today with uremia , pulm edema - Will benefit from temporary HD , plan for line placement and start HD for few sessions - will need to eval for recovery once pt clinically improved -Also will need kidney biopsy at a later date 2. Severe hypertension, on cardene drip 3. Volume overload.. Continue furosemide. Rec: Avoiding ACEi/ARB due to declining renal function. Discontinued? betablocker and clonidine due to bradycardia. increase hydralazine if needed. Cautious Kcl replacement if given. Attestations Medical Necessity Statement*: Per admitting service Coding Level of Care Code Acute Pharmacy Technician Program Director for [facility] Diagnoses Acute kidney injury superimposed on CKD N17.9; N18.9
[2022-06-23] MEDS: ipratropium-albuterol 3 mL Neb INHALATION ×2 (14:32→20:23)
[2022-06-23] MEDS: hyDRALAzine 50 mg Tablet 75 MG PO ×2 (14:41→22:33)
[2022-06-23] MEDS: nicardipine 20 MG/200 ML PREMIX 25 MG IV (14:42)
[2022-06-23] MEDS: heparin 5,000 unit/mL INJ 1 mL 5000 UNIT SUBCUT (14:50)
--- NOTE | 2022-06-23 14:59 | PC.NURSE ---
Patient returned form SUrgery at 1245. Patient is responsive to verbal stimulus, but lethargic but slowly becoming more awake. BP: 158/61, HR: 81, RR: 20, SPO2: 92, Temp: 97.1. Dialysis catheter dressing is dry, intact, unremarkable. Per Dr alves, cefazolin given in surgery, no additional dose needed while in ICU.
[2022-06-23 15:01] LABS: Add Urine Microscopic? YES; Bilirubin Urine Neg (Negative); Blood Urine 2+ (Negative); Glucose Urine UA 2+ (Normal); Ketones Urine Negative (Negative); Leukocyte Esterase Urine Negative (Negative); Nitrate Urine Negative (Negative); Protein Urine 3+ (Negative); Specific Gravity, Urine 1.015 (1.005-1.030); Urine Appearance Cloudy (CLEAR); Urine Color Yellow (Yellow); Urobilinogen Urine Neg (Negative); pH Urine 5 (5-7)
--- NOTE | 2022-06-23 15:15 | P.PN_ITS ---
Subjective Subjective: Status postplacement of hemodialysis catheter this morning. Planned HD this evening. Tolerated procedure well. Slightly less confused than yesterday however still not completely oriented. Medications: Reviewed: Yes Vitals/I&O/Wt Last Vital Signs Temp 97.8 F 06/23/22 13:45 Pulse 86 06/23/22 15:00 Resp 18 06/23/22 15:00 BP 176/56 06/23/22 15:00 Pulse Ox 92 06/23/22 15:00 O2 Del Method 06/23/22 14:33 O2 Flow Rate 6 06/23/22 14:33 06/23/22 06/23/22 06/23/22 06:59 14:59 22:59 Intake Total 486 / 486 Output Total 420 / 870 225 / 225 Balance -420 / -399.5 261 / 261 Physical Exam Narrative: General: No acute distress, AO x2 HEENT: PERRLA, pupils bilaterally equal and reactive, pallors not present Chest: Normal vesicular breath sounds, no added sounds, equal good air entry bilaterally CVS: S1-S2 regular, no murmurs, no tachycardia, no gallops, no rubs Abdomen: Soft, nontender, no organomegaly, bowel sounds present Neuro: No focal deficits, no facial deformity, AO x2, power 5/5 in all limbs ext: anasarca+ Data 06/23/22 10:00 06/23/22 10:00 Micro: Microbiology 06/22/22 15:00 Gram Stain - Final Pleural Fluid Anaerobic Culture - Preliminary Body Fluid Culture - Preliminary A&P Assessment and plan (1) Hypertensive urgency: (2) Acute kidney injury superimposed on CKD: (3) Pleural effusion, right: (4) CHF (congestive heart failure): Plan # Hypertensive urgency -Blood pressure is better controlled after switching to nicardipine infusion. Currently running at 2.5, systolic ranging between 1 40-1 150 -Continue hydralazine at 75 mg 3 times daily, increase Imdur to 120 mg daily -Serial EKGs serial troponins telemetry monitoring without significant troponin delta. -CT head with chronic microvascular disease, cardiac echo with LVEF 75%, no regional wall motion abnormalities, normal valvular function. #Acute encephalopathy Likely to be multifactorial related to uremia, hospital delirium, hypoxia CT head upon admission had showed chronic microvascular changes Less likely to be a stroke as there are no other focal deficits. No facial asymmetry. Starting hemodialysis today # ADOLFO on CKD -Renal ultrasound without obstrcution. CT of the abdomen and pelvis negative for incarcerated hernia or other intra-abdominal issues. . Bilateral renal cysts, unchanged as seen on recent ultrasound. Otherwise no new findings. Patient is currently fluid overloaded secondary to CKD, ADOLFO on CKD. Cardiac echo is normal. She was being considered for outpatient dialysis per her. She was also planned to undergo kidney biopsy at [facility], however this was deferred in view of accelerated hypertension. No significant change in urine output with increasing IV Lasix A Coleman catheter was finally be able to place today by urology for accurate output assessment. Given her worsening mentation, increasing hypoxia, overall increased fluid overload and clinical deterioration, plan for temporary dialysis. This is going to be started today. #Hypoxic respiratory failure secondary to pulmonary edema and large right ple ural effusion. Oxygen requirements have increased to 6 L/min supplemental O2. Plan for ultrasound-guided thoracentesis today. She underwent right-sided thoracentesis yesterday with 800 cc fluid removed at the time. No organisms on gram stain thus far. Pleural fluid analysis consistent with transudative effusion. Starting hemodialysis today, anticipate improvement with these interventions . #Note made of significant gastritis on CT abdomen Protonix to 40 mg p.o. twice daily. Code status: DNR/ DNI dvt ppx: heparin s/c Attestations Medical Necessity Statement*: Starting hemodialysis today, hypoxic respiratory failure, on nicardipine infusion, titrating blood pressure medications. Critical Care Time: The high probability of a clinically significant, sudden or life threatening deterioration of the patient's [renal, respiratory, cardio] system(s) required my full and direct attention, intervention and personal management. The critical care time is as shown. This time is in addition to time spent performing any reported procedures but includes the following: [x] Data and vital sign review and interpretation [x] Patient assessment, examination and intervention [x] Documentation [x] Medication orders and management Coding Level of Care Code Acute Career Services Assistant for Donna Amezcua Diagnoses Hypertensive urgency I16.0 Acute kidney injury superimposed on CKD N17.9; N18.9 Pleural effusion, right J90 CHF (congestive heart failure) I50.9
[2022-06-23 15:18] LABS: Bacteria Urine 4+ /hpf; Fine Granular Casts Urine 0-4 /lpf; Hyaline Casts Urine 0-4 /lpf; RBC Urine 0-4 /hpf (0-2); Squamous Epithelial Cell Urine 0-4 /hpf (0-5); WBC Urine 0-4 /hpf (0-5)
[2022-06-23 15:19] LABS: Add Urine Culture? Yes
--- NOTE | 2022-06-23 16:23 | ANE.PACU2 ---
Inpatient post-anesthesia follow up: Airway intact: Yes Vital signs: Temperature 97.8 F Pulse Rate 86 Respiratory Rate 18 Blood Pressure 176/56 Pulse Oximetry 92 Oxygen Delivery Me thod Nasal Cannula Oxygen Flow Rate 6 Fraction of Inspir ed Oxygen Hydration adequate: Yes Nausea and vomiting: No Pain level: 1 Mental status: Baseline
[2022-06-23] MEDS: sennosides-docusate Tablet 1 TAB PO (17:03)
[2022-06-23] MEDS: heparin, porcine 1,000 unit/mL INJ 10 mL HE (18:28)
[2022-06-23 20:11] LABS: Hepatitis B Core AB, Total Non-Reactive (Nonreactive); Hepatitis B Surface AB 3.5 (11.5-1000); Hepatitis B Surface Antigen Non-Reactive (Nonreactive)
[2022-06-23] MEDS: budesonide 0.5 mg/2 mL Neb INHALATION (20:23)
[2022-06-23] MEDS: atorvastatin 40 mg Tablet PO (22:06)
[2022-06-24] VITALS (78 sets, daily range): BP systolic 128–187; BP diastolic 44–122; PULSE 63–115; RESP 15–28; TEMP 36.6–37.5; O2SAT 85–96
[2022-06-24 02:53] LABS: Basophils % 0.3 %; Eosinophils % 0.1 %; Hematocrit 32.6 % (37.0-47.0); Lymphocytes # 0.7 10^3/uL (0.8-4.8); Lymphocytes % 7.4 %; Mean Corpuscular HGB Conc 30.7 g/dL (30.0-36.0); Mean Corpuscular Hemoglobin 27.6 pg (28.0-34.0); Mean Corpuscular Volume 90.1 fl (81-99); Mean Platelet Volume 9.5 fL (7.4-10.4); Monocytes # 0.7 10^3/uL (0.2-0.9); Monocytes % 7.1 %; Neutrophils # 8.46 10^3/uL (1.8-7.7); Neutrophils % 84.5 %; Nucleated Red Blood Cells % 0 %; Platelet Count 287 10^3/cmm (130-400); Red Blood Count 3.62 10^6/uL (4.1-5.3); Red Cell Distribution Width 14.5 % (12.1-15.1)
[2022-06-24] MEDS: acetaminophen 325 mg Tablet 650 MG PO (03:11)
[2022-06-24 03:13] LABS: Alanine Aminotransferase 19 U/L (0-33); Albumin Level 2.6 g/dL (3.5-5.2); Alkaline Phosphatase 88 U/L (35-105); Anion Gap 14.8 (5-19); Aspartate Amino Transferase 26 U/L (0-32); Blood Urea Nitrogen 36 mg/dL (8-23); Calcium 8.3 mg/dL (8.5-10.5); Carbon Dioxide 23 mmol/L (22-29); Chloride 102 mmol/L (98-107); Glucose 102 mg/dL (65-115); Osmolality Calculated 291 mOsm/kg (285-295); Potassium 3.8 mmol/L (3.5-5.1); Sodium 136 mmol/L (136-145); Total Bilirubin 0.5 mg/dL (0.15-1.2); Total Protein 5.6 g/dL (6.6-8.7)
[2022-06-24] MEDS: ipratropium-albuterol 3 mL Neb INHALATION ×4 (03:19→20:39)
--- NOTE | 2022-06-24 06:55 | PC.NURSE ---
Bedside report completed with Yanira Ha RN.
[2022-06-24] MEDS: levothyroxine 50 mcg Tablet PO (06:58)
[2022-06-24] MEDS: hyDRALAzine 50 mg Tablet 75 MG PO (06:58)
--- NOTE | 2022-06-24 08:35 | PM.PN ---
Subjective Subjective: Started hemodialysis yesterday. Creatinine improving at 3.5 today. Urine output 690 cc. On Cardene drip 2.5 mg this morning. Blood pressure ranging between 1 50-1 70 systolic. T-max 99.5. Patient is awake alert oriented x3 this morning. Anasarca is improving.Intermittent tachycardia with HR 120s. Medications: Reviewed: Yes Vitals/I&O/Wt Last Vital Signs Temp 99.5 F 06/24/22 06:15 Pulse 82 06/24/22 07:00 Resp 19 H 06/24/22 07:00 BP 170/78 06/24/22 07:00 Pulse Ox 90 06/24/22 07:00 O2 Del Method 06/24/22 06:15 O2 Flow Rate 4 06/24/22 06:15 06/23/22 06/24/22 06/24/22 22:59 06:59 14:59 Intake Total 726.25 / 1212.25 300 / 1512.25 0 / 0 Output Total 15 / 240 450 / 690 Balance 711.25 / 972.25 -150 / 822.25 0 / 0 Physical Exam Narrative: General: No acute distress, AO x3 HEENT: PERRLA, pupils bilaterally equal and reactive, pallors not present Chest: Normal vesicular breath sounds, no added sounds, equal good air entry bilaterally CVS: S1-S2 regular, no murmurs, no tachycardia, no gallops, no rubs Abdomen: Soft, nontender, no organomegaly, bowel sounds present Neuro: No focal deficits, no facial deformity, AO x2, power 5/5 in all limbs ext: anasarca+, improving Data 06/24/22 02:34 06/24/22 02:34 Micro: Microbiology 06/22/22 15:00 Gram Stain - Final Pleural Fluid Anaerobic Culture - Preliminary Body Fluid Culture - Preliminary A&P Assessment and plan (1) Hypertensive urgency: (2) Acute kidney injury superimposed on CKD: (3) Pleural effusion, right: (4) CHF (congestive heart failure): Plan # Hypertensive urgency -Blood pressure is better controlled after switching to nicardipine infusion. Currently running at 2.5, systolic ranging between 1 40-1 170 -increase hydralazine at 100 mg 3 times daily, increased Imdur to 120 mg daily. monitor with these interventions. -Serial EKGs serial troponins telemetry monitoring without significant troponin delta. -CT head with chronic microvascular disease, cardiac echo with LVEF 75%, no regional wall motion abnormalities, normal valvular function. #Acute encephalopathy Likely to be multifactorial related to uremia, hospital delirium, hypoxia CT head upon admission had showed chronic microvascular changes Less likely to be a stroke as there are no other focal deficits. No facial asymmetry. started HD 06/23, mentation now back at baseline, she is awake, alert and oriented x 3 # ADOLFO on CKD -Renal ultrasound without obstrcution. CT of the abdomen and pelvis negative for incarcerated hernia or other intra-abdominal issues. . Bilateral renal cysts, unchanged as seen on recent ultrasound. Otherwise no new findings. Patient is currently fluid overloaded secondary to CKD, ADOLFO on CKD. Cardiac echo is normal. She was being considered for outpatient dialysis per her. She was also planned to undergo kidney biopsy at [facility], however this was deferred in view of accelerated hypertension. No significant change in urine output with increasing IV Lasix A Coleman catheter was finally be able to place today by urology for accurate output assessment. Started HD on 06/23 appreciate renal recommendations Cr down to 3.5 today #Hypoxic respiratory failure secondary to pulmonary edema and large right pleural effusion. Oxygen requirementsdown to 4lpm today after starting HD. s/p ultrasound-guided thoracentesis 06/22 with removal of 150cc fluid. Pleural fluid analysis consistent with transudative effusion. #Note made of significant gastritis on CT abdomen Protonix to 40 mg p.o. twice daily. Code status: DNR/ DNI dvt ppx: heparin s/c resume diet Attestations Medical Necessity Statement*: started hemodialysis, mentation back at baseline, still needs to be closely monitored, anasarca and cr improving after HD , cardene drip for BP control Critical Care Time: The high probability of a clinically significant, sudden or life threatening deterioration of the patient's [renal, cardiac, respiratory] system(s) required my full and direct attention, intervention and personal management. The critical care time is as shown. This time is in addition to time spent performing any reported procedures but includes the following: [x] Data and vital sign review and interpretation [x] Patient assessment, examination and intervention [x] Documentation [x] Medication orders and management Critical Care Time (min): 45 Coding Level of Care Code Acute Human Relations Manager for g Fwd Diagnoses Hypertensive urgency I16.0 Acute kidney injury superimposed on CKD N17.9; N18.9 Pleural effusion, right J90 CHF (congestive heart failure) I50.9
--- NOTE | 2022-06-24 09:05 | P.PN_ITS ---
Subjective Subjective: s/p HD yesterday Vitals/I&O/Wt Last Vital Signs Temp 99.5 F 06/24/22 06:15 Pulse 82 06/24/22 07:00 Resp 19 H 06/24/22 07:00 BP 170/78 06/24/22 07:00 Pulse Ox 90 06/24/22 07:00 O2 Del Method 06/24/22 06:15 O2 Flow Rate 4 06/24/22 06:15 06/23/22 06/24/22 06/24/22 22:59 06:59 14:59 Intake Total 726.25 / 1212.25 300 / 1512.25 0 / 0 Output Total 15 / 240 450 / 690 Balance 711.25 / 972.25 -150 / 822.25 0 / 0 Physical Exam Narrative: Patient is conscious alert confused No apparent distress BMI 28.2 Head and neck examination PERRLA no masses no cervical lymphadenopathy no jaundice Abdomen nontender nondistended soft no organomegaly guarding or rigidity/no signs of peritonitis Data 06/24/22 02:34 06/24/22 02:34 Micro: Microbiology 06/22/22 15:00 Gram Stain - Final Pleural Fluid Anaerobic Culture - Preliminary Body Fluid Culture - Preliminary A&P Assessment and plan (1) Acute kidney injury superimposed on CKD: [facility] Subjective Subjective:?? pt confused ? Medications:?? Reviewed: Yes Vitals/I&O/Wt Last Vital Signs Temp ?98.6 F ?06/21/22 20:00 Pulse ?78 ?06/22/22 11:15 Resp ?17 ?06/22/22 11:15 BP ?149/44 ?06/22/22 11:15 Pulse Ox ?93 ?06/22/22 11:15 O2 Del Method ? ?06/21/22 19:29 O2 Flow Rate ?1 ?06/21/22 19:29 ? 06/21/22 06/22/22 06/22/22 ? 22:59 06:59 14:59 Intake Total 411.166 / 633.666 ? 116.5 / 116.5 Output Total 100 / 300 250 / 550 ? Balance 311.166 / 333.666 -250 / 83.666 116.5 / 116.5 Physical Exam Const:?? COMMON NORMALS: no acute distress, alert and well nourished? GENERAL APPEARANCE: well developed Eye:?? COMMON NORMALS: no scleral icterus Lymph:??M OTHER: Significant peripheral edema. Resp:?? COMMON NORMALS: normal respiratory effort? EFFORT & INSPECTION: No Actively coughing Neuro:?? SENSORIUM/ORIENTATION: Yes alert? OTHER: Confusion Psych:?? APPEARANCE: Yes grossly normal? ATTITUDE: Yes calm Skin:?? COMMON NORMALS: no jaundice Data 06/22/22 02:56? 06/22/22 02:56? Micro: Microbiology ?06/19/22 19:07 Urine Culture - Final ?Urine,Clean Catch ? A&P Assessment and plan (1) Acute kidney injury superimposed on CKD: Plan 1. Acute kidney injury/worsening CKD with nephrotic syndrome. There was outpatient plan for kidney biopsy 2 weeks ago. Cr 4.0? today with uremia , pulm edema - Will benefit from temporary HD , s/p line placement and s/p HD yesterday and plan for HD again today - will need to eval for recovery once pt clinically improved -Also will need kidney biopsy at a later date 2. Severe hypertension, s/p cardene drip 3. Volume overload.. Continue furosemide. Rec: Avoiding ACEi/ARB due to declining renal function. Discontinued? betablocker and clonidine due to bradycardia. increase hydralazine if needed. Cautious Kcl replacement if given. Attestations Medical Necessity Statement*: started hemodialysis, mentation back at baseline, still needs to be closely monitored, anasarca and cr improving after HD , cardene drip for BP control Critical Care Time: The high probability of a clinically significant, sudden or life threatening deterioration of the patient's [renal, cardiac, respiratory] system(s) required my full and direct attention, intervention and personal management. The critical care time is as shown. This time is in addition to time spent performing any reported procedures but includes the following: [x] Data and vital sign review and interpretation [x] Patient assessment, examination and intervention [x] Documentation [x] Medication orders and management Critical Care Time (min): 45 Coding Level of Care Code Acute Baked Goods Stock Clerk for [facility] Fwd Diagnoses Acute kidney injury superimposed on CKD N17.9; N18.9
[2022-06-24] MEDS: sennosides-docusate Tablet 1 TAB PO (09:07)
[2022-06-24] MEDS: pantoprazole DR 40 mg Tablet PO ×2 (09:07→17:55)
[2022-06-24] MEDS: isosorbide mononitrate ER 60 mg Tablet 120 MG PO (09:07)
[2022-06-24] MEDS: polyethylene glycol 3350 Pkt 17 gm PO (09:07)
[2022-06-24] MEDS: amlodipine 5 mg Tablet 10 MG PO (09:07)
[2022-06-24] MEDS: budesonide 0.5 mg/2 mL Neb INHALATION ×2 (09:14→20:39)
[2022-06-24] MEDS: FUROsemide 10 mg/mL SDV 4mL 40 MG IVP ×2 (09:54→21:42)
--- NOTE | 2022-06-24 11:39 | PC.CHAP ---
Pastoral Care Encounter/Spiritual Assessment Type of Contact [] Declined fax machine operator visit [] Patient/Family/Request visit [] Outpatient visit [] Follow-up visit [] Physician referral [] Code/Alert [x] Routine visit [] Staff referral [] Actively dying [x] Patient sleeping [] Family support [] [] Out of room [] Palliative care [] [] Receiving care in room [] Pre-surgical visit [] Trauma [] Long length of stay [x ] ICU visit [] Other: Relational/Emotional Strength [] Patient feels connected with others/family/visitors/staff [] Distress [] Loneliness/isolation [] Abandonment Spirituality of Patient [] Person of Beth [] Attends Oriental Orthodox of their Beth [] Believes in Prayer [] Reads Bible or Mu-Ism materials [] There are Spiritual issues to be addressed Time Clock Mechanic Interventions [x] Prayer [] Active listening [] Non-anxious presence [] Spiritual/emotional support [] Crisis/trauma care [] Spiritual counseling [] Bereavement support [] Provided bereavement packet [] Provided Bible/devotional materials [] Provided toy/stuffed animal, coloring book to patient or family member [] Provided Communion [] Anointing/[place] [] Salvation [x] Completed spiritual assessment [] Other: Impact on Illness or Injury [] Angry [] Fearful [] Anxious [] Often cries [] Exhaustion [] Unable to work [] Unable to attend hinduism [] Unable to walk/stand [] Unable to read [] Unable to drive [] Unable to eat/drink [] Unable to sleep [] Unable to be with family [] Patient intubated [] Other: Summary Time spent with patient
--- NOTE | 2022-06-24 13:32 | PC.SOCIAL ---
IMM Updated Updated pt on IMM. No questions voiced. Provided pt a copy. Initialed, dated, & timed copy in chart.
[2022-06-24] MEDS: ondansetron 2 mg/ML SDV 2 mL 4 MG IVP (14:21)
[2022-06-24] MEDS: heparin, porcine 1,000 unit/mL INJ 10 mL 10000 UNIT HE (14:30)
[2022-06-24] MEDS: hyDRALAzine 50 mg Tablet 100 MG PO ×2 (15:21→20:48)
--- NOTE | 2022-06-24 19:15 | PC.NURSE ---
Bedside report completed with RUTH ANN Cervantes.
--- NOTE | 2022-06-24 19:25 | PC.NURSE ---
Shift Note: Pt rested in bed throughout this shift. Hemodialysis completed this afternoon, another 2 litewers removed today. pt has some nausea during even after Zofran administration. Cool cloths provided, it seemed to help some. She has been off Cardene since this am. Her SBP has averaged 150. he begged for breakfast this am, picked at it and has subsequently picked at all her meals today. Urine output has only been 250ml. She was incontinent of a large loose yellow stool this evening. Her sister has been at bedside for most of the shift. Frequent safety and comfort rounds continue. Orders and/or nursing care completed as indicated. Patient monitored for response to intervention and treatment(s). Education provided includes hydralazine, amlopdipine, miralax and senna. Patient and/or payroll representative verbalized understanding of plan of care and medications discussed.. Will continue to monitor.
[2022-06-24 20:01] LABS: Glucose Point of Care 199 mg/dL (70-110)
[2022-06-24] MEDS: atorvastatin 40 mg Tablet PO (20:48)
[2022-06-25] VITALS (53 sets, daily range): BP systolic 99–192; BP diastolic 32–100; PULSE 40–96; RESP 1–26; TEMP 36.6–37.1; O2SAT 89–97
[2022-06-25] MEDS: hyDRALAzine 20 mg/mL INJ 1 mL 10 MG IVP (00:52)
[2022-06-25 03:19] LABS: Basophils % 0.1 %; Eosinophils # 0.1 10^3/uL (0.0-0.8); Eosinophils % 0.6 %; Hematocrit 30.3 % (37.0-47.0); Hemoglobin 9.8 g/dL (11.5-15.3); Lymphocytes # 0.5 10^3/uL (0.8-4.8); Lymphocytes % 5.7 %; Mean Corpuscular HGB Conc 32.3 g/dL (30.0-36.0); Mean Corpuscular Hemoglobin 28.2 pg (28.0-34.0); Mean Corpuscular Volume 87.3 fl (81-99); Mean Platelet Volume 9.8 fL (7.4-10.4); Monocytes # 0.8 10^3/uL (0.2-0.9); Monocytes % 8.9 %; Neutrophils # 7.09 10^3/uL (1.8-7.7); Nucleated Red Blood Cells % 0 %; Platelet Count 252 10^3/cmm (130-400); Red Blood Count 3.47 10^6/uL (4.1-5.3); Red Cell Distribution Width 14.4 % (12.1-15.1); White Blood Count 8.4 10^3/uL (4.0-10.0)
[2022-06-25] MEDS: ipratropium-albuterol 3 mL Neb INHALATION ×3 (03:28→20:11)
[2022-06-25 03:45] LABS: Alanine Aminotransferase 17 U/L (0-33); Albumin Level 2.6 g/dL (3.5-5.2); Alkaline Phosphatase 92 U/L (35-105); Anion Gap 12.6 (5-19); Aspartate Amino Transferase 29 U/L (0-32); Blood Urea Nitrogen 23 mg/dL (8-23); Calcium 8.1 mg/dL (8.5-10.5); Carbon Dioxide 27 mmol/L (22-29); Chloride 100 mmol/L (98-107); Globulin 2.8 g/dL (1.3-4.6); Glucose 134 mg/dL (65-115); Osmolality Calculated 288 mOsm/kg (285-295); Potassium 3.6 mmol/L (3.5-5.1); Sodium 136 mmol/L (136-145); Total Bilirubin 0.4 mg/dL (0.15-1.2); Total Protein 5.4 g/dL (6.6-8.7)
[2022-06-25] MEDS: levothyroxine 50 mcg Tablet PO (05:24)
--- NOTE | 2022-06-25 07:46 | PC.NURSE ---
Blood Pressure Throughout night, patient's blood pressure remaining mainly in the 170s-180s systolic, Dr. Severino contacted and order received for a one time dose of hydralazine 10 mg IVP. Medication administered per SEP. This AM, patient's blood pressure still elevated, Dr. Severino on unit, verbal order received to continue cardene drip at a low rate. Cardene drip started per SEP.
[2022-06-25] MEDS: pantoprazole DR 40 mg Tablet PO ×2 (08:25→18:00)
[2022-06-25] MEDS: isosorbide mononitrate ER 60 mg Tablet 120 MG PO (08:26)
[2022-06-25] MEDS: sennosides-docusate Tablet 1 TAB PO ×2 (08:26→18:00)
[2022-06-25] MEDS: amlodipine 5 mg Tablet 10 MG PO (08:26)
[2022-06-25] MEDS: hyDRALAzine 50 mg Tablet 100 MG PO ×2 (08:26→14:18)
[2022-06-25] MEDS: polyethylene glycol 3350 Pkt 17 gm PO (08:27)
[2022-06-25] MEDS: budesonide 0.5 mg/2 mL Neb INHALATION ×2 (09:14→20:11)
[2022-06-25] MEDS: nicardipine 20 MG/200 ML PREMIX 50 MG IV (09:20)
[2022-06-25] MEDS: FUROsemide 10 mg/mL SDV 4mL 40 MG IVP ×2 (10:58→22:22)
--- NOTE | 2022-06-25 12:44 | PC.CHAP ---
Pastoral Care Encounter/Spiritual Assessment Type of Contact [] Declined statement services representative visit [] Patient/Family/Request visit [] Outpatient visit [] Follow-up visit [] Physician referral [] Code/Alert [x] Routine visit [] Staff referral [] Actively dying [] Patient sleeping [x] Family support [] [] Out of room [] Palliative care [] [x] Receiving care in room [] Pre-surgical visit [] Trauma [] Long length of stay [x] ICU visit [x] Other: PT's daughter Nov. having issues connecting with family- Relational/Emotional Strength [] Patient feels connected with others/family/visitors/staff [] Distress [] Loneliness/isolation [] Abandonment Spirituality of Patient [] Person of Beth [] Attends Denominational of their Beth [] Believes in Prayer [] Reads Bible or Worship materials [] There are Spiritual issues to be addressed Property Portfolio Officer Interventions [x] Prayer [] Active listening [] Non-anxious presence [] Spiritual/emotional support [] Crisis/trauma care [] Spiritual counseling [] Bereavement support [] Provided bereavement packet [] Provided Bible/devotional materials [] Provided toy/stuffed animal, coloring book to patient or family member [] Provided Communion [] Anointing/[place] [] Salvation [x] Completed spiritual assessment [] Other: Impact on Illness or Injury [] Angry [] Fearful [] Anxious [] Often cries [] Exhaustion [] Unable to work [] Unable to attend christian [] Unable to walk/stand [] Unable to read [] Unable to drive [] Unable to eat/drink [] Unable to sleep [] Unable to be with family [] Patient intubated [] Other: Summary Time spent with patient
[2022-06-25] MEDS: heparin, porcine 1,000 unit/mL INJ 10 mL HE (13:11)
--- NOTE | 2022-06-25 13:53 | P.PN_ITS ---
Subjective Subjective: Creatinine continues to improve at 2.7 today. Urine output 160 cc. Plan for hemodialysis today. Was on Cardene infusion until this morning. Medications: Reviewed: Yes Vitals/I&O/Wt Last Vital Signs Temp 98.1 F 06/25/22 04:00 Pulse 87 06/25/22 13:00 Resp 20 H 06/25/22 13:00 BP 163/68 06/25/22 13:00 Pulse Ox 92 06/25/22 13:00 O2 Del Method 06/25/22 09:15 O2 Flow Rate 5 06/25/22 09:15 06/24/22 06/25/22 06/25/22 22:59 06:59 14:59 Intake Total 480 / 1003.75 663.333 / 663.333 Output Total 100 / 250 160 / 410 Balance -100 / 273.75 320 / 593.75 663.333 / 663.333 Physical Exam Narrative: General: No acute distress, AO x3 HEENT: PERRLA, pupils bilaterally equal and reactive, pallors not present Chest: Normal vesicular breath sounds, no added sounds, equal good air entry bilaterally CVS: S1-S2 regular, no murmurs, no tachycardia, no gallops, no rubs Abdomen: Soft, nontender, no organomegaly, bowel sounds present Neuro: No focal deficits, no facial deformity, AO x3, power 5/5 in all limbs Urinary Catheter Management: Coleman: Cath Placed During This Visit: no Reason for Continuing Indwelling Catheter: Accurate Measurement of Urinary Output in Critically Ill Patients Data 06/25/22 02:53 06/25/22 02:53 Micro: Microbiology 06/22/22 15:00 Gram Stain - Final Pleural Fluid Anaerobic Culture - Preliminary Body Fluid Culture - Final 06/23/22 13:30 Urine Culture - Final Urine Catheterized A&P Assessment and plan (1) Hypertensive urgency: (2) Acute kidney injury superimposed on CKD: (3) Pleural effusion, right: (4) CHF (congestive heart failure): Plan # Hypertensive urgency -Blood pressure is better controlled after switching to nicardipine infusion. Discontinue nicardipine infusion today. Will resume p.o. metoprolol. Was previously trying to avoid due to bradycardia, however now patient's heart rate has been ranging between 67 to 93 bpm without any witnessed bradycardia over the last 4 days. We will start at a lower dose of 25 mg p.o. daily. We will continue to avoid clonidine as the latter may have precipitated bradycardia last time. -Continue hydralazine at 100 mg 3 times daily, increased Imdur to 120 mg daily. -Serial EKGs serial troponins telemetry monitoring without significant troponin delta. -CT head with chronic microvascular disease, cardiac echo with LVEF 75%, no regional wall motion abnormalities, normal valvular function. #Acute encephalopathy Likely to be multifactorial related to uremia, hospital delirium, hypoxia CT head upon admission had showed chronic microvascular changes Less likely to be a stroke as there are no other focal deficits. No facial asymmetry. started HD 06/23, mentation now back at baseline, she is awake, alert and oriented x 3 # ADOLFO on CKD -Renal ultrasound without obstrcution. CT of the abdomen and pelvis negative for incarcerated hernia or other intra-abdominal issues. . Bilateral renal cysts, unchanged as seen on recent ultrasound. Otherwise no new findings. Patient is currently fluid overloaded secondary to CKD, ADOLFO on CKD. Cardiac echo is normal. She was being considered for outpatient dialysis per her. She was also planned to undergo kidney biopsy at [facility], however this was deferred in view of accelerated hypertension. No significant change in urine output with increasing IV Lasix A Coleman catheter was finally be able to place today by urology for accurate output assessment. Started HD on 06/23, getting HD again today. appreciate renal recommendations Cr down to 2.7 today #Hypoxic respiratory failure secondary to pulmonary edema and large right pleural effusion. Oxygen requirementsdown to 4lpm today after starting HD. s/p ultrasound-guided thoracentesis 06/22 with removal of 150cc fluid. Pleural fluid analysis consistent with transudative effusion. #Note made of significant gastritis on CT abdomen Protonix to 40 mg p.o. twice daily. Code status: DNR/ DNI dvt ppx: heparin s/c resume diet If patient is able to maintain her blood pressure off of nicardipine infusion, will plan to transfer her from ICU to CSU. Attestations Medical Necessity Statement*: Continued admission for hemodialysis ongoing, blood pressure control, titrating medication. Critical Care Time: The high probability of a clinically significant, sudden or life threatening deterioration of the patient's [renal,respiratory,cardiac] system(s) required my full and direct attention, intervention and personal m anagement. The critical care time is as shown. This time is in addition to time spent performing any reported procedures but includes the following: [x] Data and vital sign review and interpretation [x] Patient assessment, examination and intervention [x] Documentation [x] Medication orders and management 35 Coding Level of Care Code Acute Hand Laminator for g Fwd Diagnoses Hypertensive urgency I16.0 Acute kidney injury superimposed on CKD N17.9; N18.9 Pleural effusion, right J90 CHF (congestive heart failure) I50.9
[2022-06-25] MEDS: ondansetron 2 mg/ML SDV 2 mL 4 MG IVP (14:18)
[2022-06-25] MEDS: metoprolol tartrate 25 mg Tablet PO (14:38)
--- NOTE | 2022-06-25 18:14 | PC.NURSE ---
Patient dialyzed 2.6L off per [facility] Dialysis nurse
--- NOTE | 2022-06-25 20:06 | P.PN_ITS ---
Subjective Subjective: s/p HD yesterday and again today Medications: Reviewed: Yes Vitals/I&O/Wt Last Vital Signs Temp 98.6 F 06/25/22 16:35 Pulse 57 L 06/25/22 18:00 Resp 23 H 06/25/22 18:00 BP 152/55 06/25/22 18:00 Pulse Ox 95 06/25/22 18:00 O2 Del Method 06/25/22 09:15 O2 Flow Rate 5 06/25/22 09:15 06/25/22 06/25/22 06/25/22 06:59 14:59 22:59 Intake Total 480 / 1003.75 663.333 / 663.333 460 / 1123.333 Output Total 160 / 410 3100 / 3100 Balance 320 / 593.75 663.333 / 663.333 -2640 / -1976.667 Weight last 48 hrs Weight 67.6 kg Physical Exam Narrative: Patient is conscious alert confused No apparent distress Urinary Catheter Management: Coleman: Cath Placed During This Visit: no Reason for Continuing Indwelling Catheter: Accurate Measurement of Urinary Output in Critically Ill Patients Data 06/25/22 02:53 06/25/22 02:53 Micro: Microbiology 06/22/22 15:00 Gram Stain - Final Pleural Fluid Anaerobic Culture - Preliminary Body Fluid Culture - Final 06/23/22 13:30 Urine Culture - Final Urine Catheterized A&P Assessment and plan (1) Acute kidney injury superimposed on CKD: [facility] Subjective Subjective:?? pt confused ? Medications:?? Reviewed: Yes Vitals/I&O/Wt Last Vital Signs Temp ?98.6 F ?06/21/22 20:00 Pulse ?78 ?06/22/22 11:15 Resp ?17 ?06/22/22 11:15 BP ?149/44 ?06/22/22 11:15 Pulse Ox ?93 ?06/22/22 11:15 O2 Del Method ? ?06/21/22 19:29 O2 Flow Rate ?1 ?06/21/22 19:29 ? 06/21/22 06/22/22 06/22/22 ? 22:59 06:59 14:59 Intake Total 411.166 / 633.666 ? 116.5 / 116.5 Output Total 100 / 300 250 / 550 ? Balance 311.166 / 333.666 -250 / 83.666 116.5 / 116.5 Physical Exam Const:?? COMMON NORMALS: no acute distress, alert and well nourished? GENERAL APPEARANCE: well developed Eye:?? COMMON NORMALS: no scleral icterus Lymph:?? OTHER: Significant peripheral edema. Resp:?? COMMON NORMALS: normal respiratory effort? EFFORT & INSPECTION: No Actively coughing Neuro:?? SENSORIUM/ORIENTATION: Yes alert? OTHER: Confusion Psych:?? APPEARANCE: Yes grossly normal? ATTITUDE: Yes calm Skin:?? COMMON NORMALS: no jaundice Data 06/22/22 02:56? 06/22/22 02:56? Micro: Microbiology ?06/19/22 19:07 Urine Culture - Final ?Urine,Clean Catch ? A&P Assessment and plan (1) Acute kidney injury superimposed on CKD: Plan 1. Acute kidney injury/worsening CKD with nephrotic syndrome. There was outpatient plan for kidney biopsy 2 weeks ago. Cr peak was 4.3 with uremia , pulm edema - Will benefit from temporary HD , s/p line placement and HD x3 sessions - hold off on HD tomorrow , watch for recovery - will need to eval for recovery once pt clinically improved -Also will need kidney biopsy at a later date 2. Severe hypertension, s/p cardene drip 3. Volume overload.. improved Rec: Avoiding ACEi/ARB due to declining renal function. Attestations Medical Necessity Statement*: Continued admission for hemodialysis ongoing, blood pressure control, titrating medication. Coding Level of Care Code Acute Cloth Cutting Inspector for Donna Amezcua Diagnoses Acute kidney injury superimposed on CKD N17.9; N18.9
[2022-06-25] MEDS: atorvastatin 40 mg Tablet PO (20:48)
--- NOTE | 2022-06-25 22:15 | PC.NURSE ---
HR Patient's HR maintaining in the high 30s-low 50s, patient very tired but denies any nausea or dizziness, pulses +3 palpable in bilateral wrists, blood pressure adequate. Dr. Severino notified; order received to hold next morning dose of metoprolol in addition to holding this evening's dose of 100 mg hydralazine due at 2100.
[2022-06-26] VITALS (52 sets, daily range): BP systolic 140–196; BP diastolic 44–95; PULSE 43–114; RESP 14–25; TEMP 36.4–36.8; O2SAT 83–97
[2022-06-26] MEDS: ipratropium-albuterol 3 mL Neb INHALATION ×4 (02:09→20:43)
--- NOTE | 2022-06-26 04:24 | PC.NURSE ---
Vtach Patient had a 12 beat run of vtach which patient came out of on her own. Patient asymptomatic. Dr. Severino notified; order received for a magnesium and phosphorous level to be added to morning labs.
[2022-06-26 05:17] LABS: Basophils % 0.2 %; Eosinophils # 0.1 10^3/uL (0.0-0.8); Eosinophils % 1.1 %; Hematocrit 31.9 % (37.0-47.0); Hemoglobin 10.1 g/dL (11.5-15.3); Lymphocytes # 0.8 10^3/uL (0.8-4.8); Lymphocytes % 7.8 %; Mean Corpuscular HGB Conc 31.7 g/dL (30.0-36.0); Mean Corpuscular Hemoglobin 27.7 pg (28.0-34.0); Mean Corpuscular Volume 87.4 fl (81-99); Mean Platelet Volume 10.2 fL (7.4-10.4); Monocytes # 0.8 10^3/uL (0.2-0.9); Monocytes % 8.6 %; Neutrophils # 7.87 10^3/uL (1.8-7.7); Neutrophils % 81.6 %; Nucleated Red Blood Cells % 0 %; Platelet Count 302 10^3/cmm (130-400); Red Blood Count 3.65 10^6/uL (4.1-5.3); Red Cell Distribution Width 14.6 % (12.1-15.1); White Blood Count 9.7 10^3/uL (4.0-10.0)
[2022-06-26 05:39] LABS: Magnesium 1.9 mg/dL (1.7-2.3)
[2022-06-26 05:47] LABS: Alanine Aminotransferase 27 U/L (0-33); Albumin Level 2.5 g/dL (3.5-5.2); Alkaline Phosphatase 110 U/L (35-105); Anion Gap 14.5 (5-19); Aspartate Amino Transferase 40 U/L (0-32); Blood Urea Nitrogen 19 mg/dL (8-23); Calcium 8.1 mg/dL (8.5-10.5); Carbon Dioxide 26 mmol/L (22-29); Chloride 98 mmol/L (98-107); Glucose 191 mg/dL (65-115); Osmolality Calculated 287 mOsm/kg (285-295); Potassium 3.5 mmol/L (3.5-5.1); Sodium 135 mmol/L (136-145); Total Bilirubin 0.3 mg/dL (0.15-1.2); Total Protein 5.5 g/dL (6.6-8.7)
[2022-06-26] MEDS: levothyroxine 50 mcg Tablet PO (06:06)
--- NOTE | 2022-06-26 07:05 | PC.NURSE ---
Bedside report completed with [facility] ANN Cervantes.
[2022-06-26] MEDS: budesonide 0.5 mg/2 mL Neb INHALATION ×2 (08:28→20:43)
[2022-06-26] MEDS: polyethylene glycol 3350 Pkt 17 gm PO (08:37)
[2022-06-26] MEDS: isosorbide mononitrate ER 60 mg Tablet 120 MG PO (08:37)
[2022-06-26] MEDS: amlodipine 5 mg Tablet 10 MG PO (08:37)
[2022-06-26] MEDS: pantoprazole DR 40 mg Tablet PO ×2 (08:38→18:10)
[2022-06-26] MEDS: sennosides-docusate Tablet 1 TAB PO ×2 (08:38→18:10)
[2022-06-26] MEDS: hyDRALAzine 50 mg Tablet 100 MG PO ×3 (08:38→20:14)
--- NOTE | 2022-06-26 09:35 | PC.SOCIAL ---
IMM Updated Updated pt & pt's sister on the IMM. No questions voiced. Provided family a copy. Initialed, dated, & timed copy in chart.
--- NOTE | 2022-06-26 09:48 | P.PN_ITS ---
Subjective Subjective: on 3 L O2 S/P HD yesterday Medications: Reviewed: Yes Vitals/I&O/Wt Last Vital Signs Temp 97.5 F L 06/26/22 04:00 Pulse 76 06/26/22 08:43 Resp 18 06/26/22 08:29 BP 163/86 06/26/22 06:00 Pulse Ox 93 06/26/22 08:29 O2 Del Method 06/26/22 08:29 O2 Flow Rate 3 06/26/22 08:29 06/25/22 06/26/22 06/26/22 22:59 06:59 14:59 Intake Total 460 / 1123.333 600 / 1723.333 Output Total 3100 / 3100 45 / 3145 Balance -2640 / -1976.667 555 / -1421.667 Weight last 48 hrs Weight 67.6 kg Physical Exam Narrative: Patient is conscious alert confused No apparent distress Urinary Catheter Management: Coleman: Cath Placed During This Visit: no Reason for Continuing Indwelling Catheter: Accurate Measurement of Urinary Output in Critically Ill Patients Data 06/26/22 04:05 06/26/22 04:05 Micro: Microbiology 06/22/22 15:00 Gram Stain - Final Pleural Fluid Anaerobic Culture - Preliminary Body Fluid Culture - Final 06/23/22 13:30 Urine Culture - Final Urine Catheterized A&P Assessment and plan (1) Acute kidney injury superimposed on CKD: [facility] Subjective Subjective:?? pt confused ? Medications:?? Reviewed: Yes Vitals/I&O/Wt Last Vital Signs Temp ?98.6 F ?06/21/22 20:00 Pulse ?78 ?06/22/22 11:15 Resp ?17 ?06/22/22 11:15 BP ?149/44 ?06/22/22 11:15 Pulse Ox ?93 ?06/22/22 11:15 O2 Del Method ? ?06/21/22 19:29 O2 Flow Rate ?1 ?06/21/22 19:29 ? 06/21/22 06/22/22 06/22/22 ? 22:59 06:59 14:59 Intake Total 411.166 / 633.666 ? 116.5 / 116.5 Output Total 100 / 300 250 / 550 ? Balance 311.166 / 333.666 -250 / 83.666 116.5 / 116.5 Physical Exam Const:?? COMMON NORMALS: no acute distress, alert and well nourished? GENERAL AP PEARANCE: well developed Eye:?? COMMON NORMALS: no scleral icterus Lymph:?? OTHER: Significant peripheral edema. Resp:?? COMMON NORMALS: normal respiratory effort? EFFORT & INSPECTION: No Actively coughing Neuro:?? SENSORIUM/ORIENTATION: Yes alert? OTHER: Confusion Psych:?? APPEARANCE: Yes grossly normal? ATTITUDE: Yes calm Skin:?? COMMON NORMALS: no jaundice Data 06/22/22 02:56? 06/22/22 02:56? Micro: Microbiology ?06/19/22 19:07 Urine Culture - Final ?Urine,Clean Catch ? A&P Assessment and plan (1) Acute kidney injury superimposed on CKD: Plan 1. Acute kidney injury/worsening CKD with nephrotic syndrome. There was outpatient plan for kidney biopsy 2 weeks ago. Cr peak was 4.3 with uremia , pulm edema - Will benefit from temporary HD , s/p line placement and HD x3 sessions - hold off on HD today , watch for recovery -Also will need kidney biopsy at a later date 2. Severe hypertension, s/p cardene drip 3. Volume overload.. improved Rec: Avoiding ACEi/ARB due to declining renal function. Attestations Medical Necessity Statement*: Continued admission for hemodialysis ongoing, blood pressure control, titrating medication. Coding Level of Care Code Acute Director Funeral for Donna Amezcua Diagnoses Acute kidney injury superimposed on CKD N17.9; N18.9
[2022-06-26] MEDS: FUROsemide 10 mg/mL SDV 4mL 40 MG IVP ×2 (11:08→22:55)
--- NOTE | 2022-06-26 18:23 | PC.NURSE ---
Shift Note: Pt had a relatively good day. NO hemodialysis jones today, she had a beak. Her BP has still been elevated but the decision was to not restart the metoprolol due to bradycardia. Lungs sound clear, Oxygen reduced to 3lpm. She is still picking at her meals. She is very compliant with the fluid restrictions. She was out of bed with PT today, to chair. She tolerated that well. NO Bowel movement noted this shift. Urine output remains dismal at 85ml this shift. Frequent safety and comfort rounds continue. Orders and/or nursing care completed as indicated. Patient monitored for response to intervention and treatment(s). Education provided includes. metoprolol, hydralazine, amlodipine , activity and plan of care. Patient and/or ambulatory service representative verbalized understanding of plan of care and education. Patient needs reinforcement. Will continue to monitor.
--- NOTE | 2022-06-26 19:04 | PC.NURSE ---
Bedside report completed with RUTH ANN Cervantes.
--- NOTE | 2022-06-26 19:56 | PM.PN ---
Subjective Subjective: Feels improved today. Breathing is better. Working with physical therapy this morning. Creatinine stable at 2.6. However urine output continues to be poor. With resuming p.o. metoprolol yesterday patient became bradycardic. Metoprolol has now been discontinued. She was asymptomatic. Medications: Reviewed: Yes Vitals/I&O/Wt Last Vital Signs Temp 97.8 F 06/26/22 17:00 Pulse 72 06/26/22 18:00 Resp 16 06/26/22 18:00 BP 175/44 06/26/22 18:00 Pulse Ox 94 06/26/22 18:00 O2 Del Method 06/26/22 18:00 O2 Flow Rate 3 06/26/22 18:00 06/26/22 06/26/22 06/26/22 06:59 14:59 22:59 Intake Total 600 / 1723.333 450 / 450 50 / 500 Output Total 45 / 3145 80 / 80 Balance 555 / -1421.667 450 / 450 -30 / 420 Weight last 48 hrs Weight 67.6 kg Physical Exam Narrative: General: No acute distress, AO x3 HEENT: PERRLA, pupils bilaterally equal and reactive, pallors not present Chest: Normal vesicular breath sounds, no added sounds, equal good air entry bilaterally CVS: S1-S2 regular, no murmurs, no tachycardia, no gallops, no rubs Abdomen: Soft, nontender, no organomegaly, bowel sounds present Neuro: No focal deficits, no facial deformity, AO x3, power 5/5 in all limbs Urinary Catheter Management: Coleman: Cath Placed During This Visit: no Reason for Continuing Indwelling Catheter: Accurate Measurement of Urinary Output in Critically Ill Patients Data 06/26/22 04:05 06/26/22 04:05 Micro: Microbiology 06/22/22 15:00 Gram Stain - Final Pleural Fluid Anaerobic Culture - Preliminary Body Fluid Culture - Final A&P Assessment and plan (1) Hypertensive urgency: (2) Acute kidney injury superimposed on CKD: (3) Pleural effusion, right: (4) CHF (congestive heart failure): Plan # Hypertensive urgency -Continue hydralazine at 100 mg 3 times daily, increased Imdur to 120 mg daily. Attempted to add metoprolol but resulted in bradycardia. Currently off nicardipine infusion, blood pressure systolic is ranging between 140 to 165 bpm. We will hold off on starting nicardipine infusion. This may be patient's normal baseline. -Serial EKGs serial troponins telemetry monitoring without significant troponin delta. -CT head with chronic microvascular disease, cardiac echo with LVEF 75%, no regional wall motion abnormalities, normal valvular function. #Acute encephalopathy Likely to be multifactorial related to uremia, hospital delirium, hypoxia CT head upon admission had showed chronic microvascular changes Less likely to be a stroke as there are no other focal deficits. No facial asymmetry. started HD 06/23, mentation now back at baseline, she is awake, alert and oriented x 3 # ADOLFO on CKD -Renal ultrasound without obstrcution. CT of the abdomen and pelvis negative for incarcerated hernia or other intra-abdominal issues. . Bilateral renal cysts, unchanged as seen on recent ultrasound. Otherwise no new findings. Patient is currently fluid overloaded secondary to CKD, ADOLFO on CKD. Cardiac echo is normal. She was being considered for outpatient dialysis per her. She was also planned to undergo kidney biopsy at [facility], however this was deferred in view of accelerated hypertension. No significant change in urine output with increasing IV Lasix A Coleman catheter was finally be able to place today by urology for accurate output assessment. Started HD on 06/23,s/p 3 sessions appreciate renal recommendations Cr down to 2.7 today #Hypoxic respiratory failure secondary to pulmonary edema and large right pleural effusion. Oxygen requirementsdown to 4lpm today after starting HD. s/p ultrasound-guided thoracentesis 06/22 with removal of 150cc fluid. Pleural fluid analysis consistent with transudative effusion. #Note made of significant gastritis on CT abdomen Protonix to 40 mg p.o. twice daily. Code status: DNR/ DNI dvt ppx: heparin s/c resume diet Plan for today. Plan to hold dialysis over the weekend. If creatinine worsens and urine output does not last picker, likely that patient will need transition to long-term hemodialysis for which her current temporary port would need to be changed to a tunneled catheter. If her creatinine remains plateaued and urine output picks up, will likely DC temporary HD access. Attestations Medical Necessity Statement*: As stated above. Coding Level of Care Code Acute Employment Instructional Associate for Donna Amezcua Diagnoses Hypertensive urgency I16.0 Acute kidney injury superimposed on CKD N17.9; N18.9 Pleural effusion, right J90 CHF (congestive heart failure) I50.9
[2022-06-26] MEDS: atorvastatin 40 mg Tablet PO (20:14)
[2022-06-26 20:25] LABS: Glucose Point of Care 124 mg/dL (70-110)
[2022-06-27] VITALS (51 sets, daily range): BP systolic 107–184; BP diastolic 45–93; PULSE 55–100; RESP 16–27; TEMP 36.4–36.9; O2SAT 87–100
--- NOTE | 2022-06-27 01:20 | PC.NURSE ---
Addendum entered by Amanda Gamboa RN 06/27/22 01:22: One time dose 10 mg hydralazine IVP order received. See MAR for administration. Original Note: Blood Pressure Dr. Severino notified of patient's systolic blood pressure running 170-180s this shift. No new orders received at this time.
[2022-06-27] MEDS: hyDRALAzine 20 mg/mL INJ 1 mL 10 MG IVP (01:33)
[2022-06-27] MEDS: acetaminophen 325 mg Tablet 650 MG PO (04:39)
[2022-06-27 05:11] LABS: Basophils % 0.3 %; Eosinophils # 0.1 10^3/uL (0.0-0.8); Eosinophils % 1.3 %; Hematocrit 31.4 % (37.0-47.0); Lymphocytes % 10.3 %; Mean Corpuscular HGB Conc 31.8 g/dL (30.0-36.0); Mean Corpuscular Hemoglobin 27.8 pg (28.0-34.0); Mean Corpuscular Volume 87.2 fl (81-99); Mean Platelet Volume 9.9 fL (7.4-10.4); Monocytes # 0.7 10^3/uL (0.2-0.9); Monocytes % 7.8 %; Neutrophils # 7.35 10^3/uL (1.8-7.7); Neutrophils % 79.3 %; Nucleated Red Blood Cells % 0 %; Platelet Count 293 10^3/cmm (130-400); Red Cell Distribution Width 14.5 % (12.1-15.1); White Blood Count 9.3 10^3/uL (4.0-10.0)
[2022-06-27 05:27] LABS: Alanine Aminotransferase 39 U/L (0-33); Albumin Level 2.6 g/dL (3.5-5.2); Alkaline Phosphatase 108 U/L (35-105); Aspartate Amino Transferase 59 U/L (0-32); Blood Urea Nitrogen 27 mg/dL (8-23); Calcium 8.2 mg/dL (8.5-10.5); Carbon Dioxide 26 mmol/L (22-29); Chloride 97 mmol/L (98-107); Globulin 2.7 g/dL (1.3-4.6); Glucose 122 mg/dL (65-115); Osmolality Calculated 280 mOsm/kg (285-295); Sodium 132 mmol/L (136-145); Total Bilirubin 0.3 mg/dL (0.15-1.2); Total Protein 5.3 g/dL (6.6-8.7)
[2022-06-27] MEDS: levothyroxine 50 mcg Tablet PO (06:16)
--- NOTE | 2022-06-27 06:55 | PC.NURSE ---
Bedside report completed with RUTH ANN Cervantes.
--- NOTE | 2022-06-27 07:43 | P.PN_ITS ---
Subjective Subjective: OOB to chair, no complaints Vitals/I&O/Wt Last Vital Signs Temp 98.4 F 06/27/22 04:00 Pulse 83 06/27/22 06:30 Resp 24 H 06/27/22 06:30 BP 174/74 06/27/22 06:30 Pulse Ox 92 06/27/22 06:30 O2 Del Method 06/27/22 06:00 O2 Flow Rate 3 06/27/22 06:00 06/26/22 06/27/22 06/27/22 22:59 06:59 14:59 Intake Total 50 / 500 480 / 980 Output Total 80 / 80 300 / 380 Balance -30 / 420 180 / 600 Weight last 48 hrs Weight 67.6 kg Physical Exam Const: COMMON NORMALS: no acute distress and alert Neck/C-Spine: OTHER: right IJ temporary dialysis catheter Resp: COMMON NORMALS: normal respiratory effort Cardio: COMMON NORMALS: regular rhythm RHYTHM: regular rhythm Extremity: NARRATIVE EXTREMITY EXAM: no edema Neuro: SENSORIUM/ORIENTATION: Yes alert Urinary Catheter Management: Coleman: Cath Placed During This Visit: no Reason for Continuing Indwelling Catheter: Accurate Measurement of Urinary Output in Critically Ill Patients Data 06/27/22 04:32 06/27/22 04:37 Micro: Microbiology 06/22/22 15:00 Gram Stain - Final Pleural Fluid Anaerobic Culture - Preliminary Body Fluid Culture - Final Other data: seen via telemedicine with assistance of RN at bedside A&P Assessment and plan (1) Acute kidney injury superimposed on CKD: Plan 1. Acute kidney injury, 3 HD sessions via temporary catheter since 06/23, last one 06/25/22. Poor urine output, receiving IV lasix 2. Chronic kidney disease, nephrotic syndrome 3. Severe hypertension 4. Anemia Will likely need to continue dialysis and tunneled HD catheter Wednesday. One decision is made to continue HD, ARB should be added Attestations Medical Necessity Statement*: see above Time Spent in Patient Care: 16 - 35 minutes Coding Level of Care Code Acute Planing Machine Operator for Pauletteg Fwd Diagnoses Acute kidney injury superimposed on CKD N17.9; N18.9
[2022-06-27] MEDS: ipratropium-albuterol 3 mL Neb INHALATION ×2 (08:59→19:52)
[2022-06-27] MEDS: budesonide 0.5 mg/2 mL Neb INHALATION ×2 (08:59→19:52)
[2022-06-27] MEDS: pantoprazole DR 40 mg Tablet PO ×2 (09:54→17:41)
[2022-06-27] MEDS: sennosides-docusate Tablet 1 TAB PO ×2 (09:54→17:41)
[2022-06-27] MEDS: polyethylene glycol 3350 Pkt 17 gm PO ×2 (09:54→18:22)
[2022-06-27] MEDS: hyDRALAzine 50 mg Tablet 100 MG PO ×2 (09:54→20:25)
[2022-06-27] MEDS: isosorbide mononitrate ER 60 mg Tablet 120 MG PO (09:54)
[2022-06-27] MEDS: amlodipine 5 mg Tablet 10 MG PO (09:54)
[2022-06-27] MEDS: FUROsemide 10 mg/mL SDV 4mL 40 MG IVP ×2 (09:55→21:49)
--- NOTE | 2022-06-27 13:45 | PM.PN ---
Subjective Subjective: Patient was seen this morning, she sitting up at side of bed alert to person, to place, she knows the year, she spilled her coffee on her tray, which she is helping the nurse clean up, denies any shortness of breath, no headache, blurry vision Vitals/I&O/Wt Last Vital Signs Temp 98.4 F 06/27/22 07:30 Pulse 87 06/27/22 08:59 Resp 17 06/27/22 08:59 BP 174/74 06/27/22 07:49 Pulse Ox 96 06/27/22 08:59 O2 Del Method 06/27/22 08:59 O2 Flow Rate 3 06/27/22 08:59 06/26/22 06/27/22 06/27/22 22:59 06:59 14:59 Intake Total 50 / 500 480 / 980 Output Total 80 / 80 300 / 380 Balance -30 / 420 180 / 600 Weight last 48 hrs Weight 67.6 kg Physical Exam Const: COMMON NORMALS: no acute distress ORIENTATION/CONSCIOUSNESS: Yes awake, Yes oriented to person and Yes oriented to place; not oriented to time Resp: COMMON NORMALS: normal respiratory effort, No retractions, No use of accessory muscles and clear to auscultation bilaterally AUSCULTATION: clear to auscultation bilaterally Cardio: COMMON NORMALS: regular rate, regular rhythm, S1 normal heart sound present and S2 normal heart sound present RATE: regular rate RHYTHM: regular rhythm HEART SOUNDS: S1 normal heart sound present and S2 normal heart sound present GI: COMMON NORMALS: Normal to inspection, nondistended, normoactive bowel sounds present and non-tender Extremity: COMMON NORMALS: no pedal edema Neuro: SENSORIUM/ORIENTATION: Yes oriented to person, Yes oriented to place and No oriented to time Psych: COMMON NORMALS: mental status grossly normal Urinary Catheter Management: Coleman: Cath Placed During This Visit: no Reason for Continuing Indwelling Catheter: Accurate Measurement of Urinary Output in Critically Ill Patients Data 06/27/22 04:32 06/27/22 04:37 Micro: Microbiology 06/22/22 15:00 Gram Stain - Final Pleural Fluid Anaerobic Culture - Preliminary Body Fluid Culture - Final A&P Assessment and plan (1) Hypertensive urgency: (2) Acute kidney injury superimposed on CKD: (3) Pleural effusion, right: (4) CHF (congestive heart failure): Plan # Hypertensive urgency -Continue hydralazine at 100 mg 3 times daily, increased Imdur to 120 mg daily. Attempted to add metoprolol but resulted in bradycardia. Currently off nicardipine infusion, blood pressure systolic is ranging between 140 to 165 bpm. We will hold off on starting nicardipine infusion. This may be patient's normal baseline. -Serial EKGs serial troponins telemetry monitoring without significant troponin delta. -CT head with chronic microvascular disease, cardiac echo with LVEF 75%, no regional wall motion abnormalities, normal valvular function. #Acute encephalopathy Likely to be multifactorial related to uremia, hospital delirium, hypoxia CT head upon admission had showed chronic microvascular changes Less likely to be a stroke as there are no other focal deficits. No facial asymmetry. started HD 06/23, mentation now back at baseline, she is awake, alert and oriented x 3 # ADOLFO on CKD -Renal ultrasound without obstrcution. CT of the abdomen and pelvis negative for incarcerated hernia or other intra-abdominal issues. . Bilateral renal cysts, unchanged as seen on recent ultrasound. Otherwise no new findings. Patient is currently fluid overloaded secondary to CKD, ADOLFO on CKD. Cardiac echo is normal. She was being considered for outpatient dialysis per her. She was also planned to undergo kidney biopsy at [facility], however this was deferred in view of accelerated hypertension. A Coleman catheter was finally be able to place today by urology for accurate output assessment. Started HD on 06/23,s/p 3 sessions, currently dialysis on hold appreciate renal recommendations Cr up to 3.5 today If her creatinine continues to rise, continues have evidence of fluid overload, will need to have a tunneled dialysis catheter placed #Hypoxic respiratory failure secondary to pulmonary edema and large right pleural effusion. Oxygen requirementsdown to 4lpm today after starting HD. s/p ultrasound-guided thoracentesis 06/22 with removal of 150cc fluid. Pleural fluid analysis consistent with transudative effusion. Currently on 3 L, receiving Lasix #Note made of significant gastritis on CT abdomen Protonix to 40 mg p.o. twice daily. Transaminitis, continue to monitor Code status: DNR/ DNI dvt ppx: heparin s/c resume diet Plan for today. Plan to hold dialysis over the weekend. If creatinine worsens and urine output does not milk pickup driver, likely that patient will need transition to long-term hemodialysis for which her current temporary port would need to be changed to a tunneled catheter. If her creatinine remains plateaued and urine output picks up, will likely DC temporary HD access. Needs Lasix, blood pressure management Attestations Medical Necessity Statement*: Patient requires hospitalization for fluid overload, on 3 L, hypertensive, end-stage renal disease Coding Level of Care Code Acute Screen Vent Binder for Chg Fwd Diagnoses Hypertensive urgency I16.0 Acute kidney injury superimposed on CKD N17.9; N18.9 Pleural effusion, right J90 CHF (congestive heart failure) I50.9
[2022-06-27] MEDS: hyDRALAzine 25 mg Tablet 100 MG PO (15:26)
--- NOTE | 2022-06-27 18:20 | PC.NURSE ---
Dr Swenson notified that pt is full of stool, she just had a BM that was hardened and difficult to expel.She received Miralax in am, but she only consumed less than half this am. Received ordered for an additional dose of Miralax . Pt's sister,at bedside encouraged pt. Pt finished this Miralxz completely
--- NOTE | 2022-06-27 19:15 | PC.NURSE ---
Bedside report completed with RUTH ANN Bowie
[2022-06-27] MEDS: atorvastatin 40 mg Tablet PO (20:25)
--- NOTE | 2022-06-27 21:01 | PC.NURSE ---
Shift Note: Pt has not felt well today. She has denied not feeling well or pain and discomforts when this nurses has asked but she has told her sister this evening. She has been slightly irritable and less cooperative today. She has had a scowl for most of the shift. VSS. Edema improved, just around her elbows today. She did get out of bed this am for breakfast and sat until after lunch. At first she refused PT, but was ok with PT assisting her back to bed. Upon getting her out of bed for dinner, noted linens had BM smeared. Assisted pt to [facility] [place], where she struggled to have a bowel movement, she kept saying she could not go or push it out while stool hanging out of her. . She had a large light brown very firm BM. Dr Notified of issue. Her urine output was only 150ml this sift, but yellow in color She has picked at her meals today Frequent safety and comfort rounds continue. Orders and/or nursing care completed as indicated. Patient monitored for response to intervention and treatment(s). Education provided includes Miralax, Constipation, activity and plan of care. Patient s sales representative supervisor verbalized understanding of plan of care and topics discussed. However, pt had a tendency today to do her best to ignore said education. Will continue to monitor.
[2022-06-28] VITALS (28 sets, daily range): BP systolic 110–193; BP diastolic 39–90; PULSE 56–90; RESP 16–25; TEMP 36.6–36.9; O2SAT 91–96
[2022-06-28] MEDS: ipratropium-albuterol 3 mL Neb INHALATION ×2 (03:05→08:52)
[2022-06-28 04:54] LABS: Basophils % 0.3 %; Eosinophils # 0.2 10^3/uL (0.0-0.8); Eosinophils % 1.9 %; Hematocrit 32.3 % (37.0-47.0); Hemoglobin 10.5 g/dL (11.5-15.3); Lymphocytes # 0.8 10^3/uL (0.8-4.8); Lymphocytes % 8.3 %; Mean Corpuscular HGB Conc 32.5 g/dL (30.0-36.0); Mean Corpuscular Hemoglobin 28.5 pg (28.0-34.0); Mean Corpuscular Volume 87.8 fl (81-99); Monocytes # 0.7 10^3/uL (0.2-0.9); Monocytes % 7.5 %; Neutrophils # 8.02 10^3/uL (1.8-7.7); Neutrophils % 81.1 %; Nucleated Red Blood Cells % 0 %; Platelet Count 294 10^3/cmm (130-400); Red Blood Count 3.68 10^6/uL (4.1-5.3); Red Cell Distribution Width 14.9 % (12.1-15.1); White Blood Count 9.9 10^3/uL (4.0-10.0)
[2022-06-28] MEDS: levothyroxine 50 mcg Tablet PO (05:19)
[2022-06-28] MEDS: acetaminophen 325 mg Tablet 650 MG PO (05:20)
[2022-06-28 05:32] LABS: Alanine Aminotransferase 49 U/L (0-33); Albumin Level 2.6 g/dL (3.5-5.2); Alkaline Phosphatase 106 U/L (35-105); Anion Gap 13.6 (5-19); Aspartate Amino Transferase 60 U/L (0-32); Blood Urea Nitrogen 35 mg/dL (8-23); Calcium 8.5 mg/dL (8.5-10.5); Carbon Dioxide 25 mmol/L (22-29); Chloride 93 mmol/L (98-107); Globulin 3.1 g/dL (1.3-4.6); Glucose 118 mg/dL (65-115); Magnesium 1.9 mg/dL (1.7-2.3); NT Pro B Type Natriuretic Pept 7534 pg/mL (0-450); Osmolality Calculated 275 mOsm/kg (285-295); Phosphorus 3.5 mg/dL (2.5-4.5); Potassium 3.6 mmol/L (3.5-5.1); Sodium 128 mmol/L (136-145); Total Bilirubin 0.3 mg/dL (0.15-1.2); Total Protein 5.7 g/dL (6.6-8.7)
[2022-06-28] MEDS: hyDRALAzine 50 mg Tablet 100 MG PO ×3 (06:13→20:43)
[2022-06-28] MEDS: isosorbide mononitrate ER 60 mg Tablet 120 MG PO (06:13)
[2022-06-28] MEDS: amlodipine 5 mg Tablet 10 MG PO (06:13)
--- NOTE | 2022-06-28 06:18 | PC.NURSE ---
06- dr saenz notified sbp trending up to 180s, ordered to give 0900 blood pressure medicines early.
--- NOTE | 2022-06-28 07:13 | PC.NURSE ---
bedside report received from leonardo VALLECILLO
--- NOTE | 2022-06-28 08:09 | P.PN_ITS ---
Subjective Subjective: weak, confused, sob, edema. poor appetite. Medications: Reviewed: Yes Medication Review Details: Current Medications Acetaminophen (Acetaminophen 325 Mg Tablet) 650 mg PO Q6H PRN PRN Reason: Mild/Mod Pain Or Temp >/= 101 Last Admin: 06/28/22 05:20 Dose: 650 mg Albuterol/Ipratropium (Ipratropium-Albuterol 3 Ml Neb) 3 ml INHALATION Q6H [facility] Last Admin: 06/28/22 03:05 Dose: 3 ml Amlodipine Besylate (Amlodipine 5 Mg Tablet) 10 mg PO DAILY [facility] Last Admin: 06/28/22 06:13 Dose: 10 mg Atorvastatin Calcium (Atorvastatin 40 Mg Tablet) 40 mg PO BEDTIME [facility] Last Admin: 06/27/22 20:25 Dose: 40 mg Atropine Sulfate (Atropine 0.1 Mg/Ml Syr 10 Ml) 0.5 mg IVP ONCE PRN PRN Reason: HR >30 Atropine Sulfate (Atropine 0.1 Mg/Ml Syr 10 Ml) 0.5 mg IVP ONCE PRN PRN Reason: HEART RATE-LOW Budesonide (Budesonide 0.5 Mg/2 Ml Neb) 0.5 mg INHALATION BID.RESPIRATORY [facility] Last Admin: 06/27/22 19:52 Dose: 0.5 mg Furosemide (Furosemide 10 Mg/Ml Sdv 4ml) 40 mg IVP Q12H [facility] Last Admin: 06/27/22 21:49 Dose: 40 mg Hydralazine HCl (Hydralazine 50 Mg Tablet) 100 mg PO TID [facility] Last Admin: 06/28/22 06:13 Dose: 100 mg Isosorbide Mononitrate (Isosorbide Mononitrate Er 60 Mg Tablet) 120 mg PO DAILY [facility] Last Admin: 06/28/22 06:13 Dose: 120 mg Levothyroxine Sodium (Levothyroxine 50 Mcg Tablet) 50 mcg PO QAM [facility] Last Admin: 06/28/22 05:19 Dose: 50 mcg Ondansetron HCl (Ondansetron 2 Mg/Ml Sdv 2 Ml) 4 mg IVP Q8H PRN PRN Reason: vomiting, or N/V if npo Last Admin: 06/25/22 14:18 Dose: 4 mg Pantoprazole Sodium (Pantoprazole Dr 40 Mg Tablet) 40 mg PO BID [facility] Last Admin: 06/27/22 17:41 Dose: 40 mg Polyethylene Glycol (Polyethylene Glycol 3350 Pkt 17 Gm) 17 gm PO DAILY [facility] Last Admin: 06/27/22 09:54 Dose: 17 gm Senna/Docusate Sodium (Sennosides-Docusate Tablet) 1 tab PO BID [facility] Last Admin: 06/27/22 17:41 Dose: 1 tab Vitals/I&O/Wt Last Vital Signs Temp 98.4 F 06/28/22 05:31 Pulse 76 06/28/22 05:31 Resp 18 06/28/22 03:06 BP 160/46 06/27/22 20:30 Pulse Ox 94 06/28/22 03:06 O2 Del Method 06/28/22 03:06 O2 Flow Rate 4 06/28/22 03:06 06/27/22 06/28/22 06/28/22 22:59 06:59 14:59 Intake Total 250 / 550 200 / 750 Output Total 150 / 150 300 / 450 Balance 100 / 400 -100 / 300 Physical Exam Narrative: confused, sob in bed, nc 02 heent- nc/at,eomi neck supple lungs diminished bases and crackles heart reg, +СЕРГЕЙ abd soft, nt, nd, + bs ext + edema access+ Rt IJ temp catheter neuro- a,a, o x 1-2 Urinary Catheter Management: Coleman: Cath Placed During This Visit: no Reason for Continuing Indwelling Catheter: Accurate Measurement of Urinary Output in Critically Ill Patients Data 06/28/22 04:22 06/28/22 04:22 Micro: Microbiology 06/22/22 15:00 Gram Stain - Final Pleural Fluid Anaerobic Culture - Preliminary Body Fluid Culture - Final A&P Assessment and plan (1) Acute kidney injury superimposed on CKD: see below. pt seen ands examined w/ RN- telehealth visit time spent 320 min Plan 82 yr old female nephrotic range proteinuria, tanisha on ckd. was supposed to get a renal bx- sent in for htn urgency/ emergency. Pt is now s/p 3 HD sessions via temporary catheter since 06/23, last one 06/25/22. Poor urine output. will continue lasix and plan for dialysis in am -on discharge, will need to consider renal biopsy - send serologies meds reviewed hgb okay check pth renal okay with transfer to medical floor Attestations Medical Necessity Statement*: tanisha, htn urgency Time Spent in Patient Care: 16 - 35 minutes (>than 50% of time spent in counselling and/or direct pt care on unit) . Coding Level of Care Code Acute Industrial Controller for Donna Amezcua Diagnoses Acute kidney injury superimposed on CKD N17.9; N18.9
[2022-06-28 08:50] LABS: Uric Acid 5.7 mg/dL (2.4-5.7)
[2022-06-28] MEDS: budesonide 0.5 mg/2 mL Neb INHALATION (08:52)
[2022-06-28] MEDS: pantoprazole DR 40 mg Tablet PO ×2 (09:24→17:07)
[2022-06-28] MEDS: b-complex-vitamin c Tablet 1 EACH PO (09:24)
[2022-06-28] MEDS: sennosides-docusate Tablet 1 TAB PO ×2 (09:24→17:07)
[2022-06-28] MEDS: amlodipine 5 mg Tablet PO ×2 (09:25→13:03)
[2022-06-28] MEDS: polyethylene glycol 3350 Pkt 17 gm PO (09:25)
[2022-06-28] MEDS: FUROsemide 10 mg/mL SDV 4mL 40 MG IVP ×2 (09:30→22:20)
--- NOTE | 2022-06-28 14:45 | P.PN_ITS ---
Subjective Subjective: Patient was seen this morning, she sitting up to the side of bed, she is hypertensive, on 3 L, denies any fevers, no chills, no nausea, no vomiting Vitals/I&O/Wt Last Vital Signs Temp 97.9 F 06/28/22 12:00 Pulse 61 06/28/22 13:26 Resp 18 06/28/22 13:26 BP 168/48 06/28/22 12:00 Pulse Ox 92 06/28/22 13:26 O2 Del Method 06/28/22 13:26 O2 Flow Rate 3 06/28/22 13:26 06/27/22 06/28/22 06/28/22 22:59 06:59 14:59 Intake Total 250 / 550 200 / 750 360 / 360 Output Total 150 / 150 300 / 450 Balance 100 / 400 -100 / 300 360 / 360 Physical Exam Const: COMMON NORMALS: no acute distress and patient oriented x3 Neck/C-Spine: COMMON NORMALS: no JVD Resp: COMMON NORMALS: normal respiratory effort, No retractions, No use of accessory muscles and clear to auscultation bilaterally AUSCULTATION: clear to auscultation bilaterally Cardio: COMMON NORMALS: no JVD, regular rate, regular rhythm, S1 normal heart sound present and S2 normal heart sound present RATE: regular rate RHYTHM: regular rhythm HEART SOUNDS: S1 normal heart sound present and S2 normal heart sound present GI: COMMON NORMALS: Normal to inspection, nondistended, normoactive bowel sounds present and non-tender Extremity: COMMON NORMALS: no pedal edema Neuro: COMMON NORMALS: patient oriented x3 Psych: COMMON NORMALS: mental status grossly normal Urinary Catheter Management: Coleman: Cath Placed During This Visit: no Reason for Continuing Indwelling Catheter: Accurate Measurement of Urinary Output in Critically Ill Patients Data 06/28/22 04:22 06/28/22 04:22 Micro: Microbiology 06/22/22 15:00 Gram Stain - Final Pleural Fluid Anaerobic Culture - Preliminary Body Fluid Culture - Final A&P Assessment and plan (1) Hypertensive urgency: (2) Acute kidney injury superimposed on CKD: (3) Pleural effusion, right: (4) CHF (congestive heart failure): Plan # Hypertensive urgency -Continue hydralazine at 100 mg 3 times daily, increased Imdur to 120 mg daily. Attempted to add metoprolol but resulted in bradycardia. -Increase Norvasc to 10 mg once daily Currently off nicardipine infusion, blood pressure systolic is ranging between 140 to 165 bpm. We will hold off on starting nicardipine infusion. This may be patient's normal baseline. -Serial EKGs serial troponins telemetry monitoring without significant troponin delta. -CT head with chronic microvascular disease, cardiac echo with LVEF 75%, no regional wall motion abnormalities, normal valvular function. #Acute encephalopathy -Resolved Likely to be multifactorial related to uremia, hospital delirium, hypoxia CT head upon admission had showed chronic microvascular changes Less likely to be a stroke as there are no other focal deficits. No facial asymmetry. started HD 06/23, mentation now back at baseline, she is awake, alert and oriented x 3 # ADOLFO on CKD -Renal ultrasound without obstrcution. CT of the abdomen and pelvis negative for incarcerated hernia or other intra-abdominal issues. . Bilateral renal cysts, unchanged as seen on recent ultrasound. Otherwise no new findings. Patient is currently fluid overloaded secondary to CKD, ADOLFO on CKD. Cardiac echo is normal. She was being considered for outpatient dialysis per her. She was also planned to undergo kidney biopsy at [facility], however this was deferred in view of accelerated hypertension. A Coleman catheter was finally be able to place today by urology for accurate output assessment. Started HD on 06/23,s/p 3 sessions, currently dialysis on hold appreciate renal recommendations Cr up to 4.3 with evidence of fluid overload As her creatinine continues to rise, plan on dialysis in the next 24 hours, will have to discuss with general surgery service tomorrow about tunneling her dialysis catheter #Hypoxic respiratory failure secondary to pulmonary edema and large right pleur al effusion. Oxygen requirementsdown to 4lpm today after starting HD. s/p ultrasound-guided thoracentesis 06/22 with removal of 150cc fluid. Pleural fluid analysis consistent with transudative effusion. Currently on 3 L, receiving Lasix #Note made of significant gastritis on CT abdomen Protonix to 40 mg p.o. twice daily. Transaminitis, continue to monitor Code status: DNR/ DNI dvt ppx: heparin s/c resume diet Plan for today. Plan to hold dialysis over the weekend. 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 If her creatinine remains plateaued and urine output picks up, will likely DC temporary HD access. Needs Lasix, blood pressure management Attestations Medical Necessity Statement*: Patient requires exertion for hypertensive urgency, fluid overload Coding Level of Care Code Acute History Teacher for Chg Fwd Diagnoses Hypertensive urgency I16.0 Acute kidney injury superimposed on CKD N17.9; N18.9 Pleural effusion, right J90 CHF (congestive heart failure) I50.9
[2022-06-28] MEDS: cloNIDine 0.1 mg Tablet PO (18:33)
[2022-06-28] MEDS: atorvastatin 40 mg Tablet PO (20:44)
--- NOTE | 2022-06-28 22:53 | PC.NURSE ---
Bedside report received from Kaylan Lima RN.
[2022-06-29] VITALS (32 sets, daily range): BP systolic 90–203; BP diastolic 45–147; PULSE 56–85; RESP 16–26; TEMP 36.4–37.5; O2SAT 82–94
[2022-06-29 03:04] LABS: Basophils % 0.4 %; Eosinophils # 0.2 10^3/uL (0.0-0.8); Eosinophils % 2.8 %; Hematocrit 31.7 % (37.0-47.0); Hemoglobin 10.3 g/dL (11.5-15.3); Lymphocytes # 0.7 10^3/uL (0.8-4.8); Lymphocytes % 8.8 %; Mean Corpuscular HGB Conc 32.5 g/dL (30.0-36.0); Mean Corpuscular Hemoglobin 28.5 pg (28.0-34.0); Mean Corpuscular Volume 87.8 fl (81-99); Mean Platelet Volume 9.5 fL (7.4-10.4); Monocytes # 0.5 10^3/uL (0.2-0.9); Monocytes % 6.4 %; Neutrophils # 6.52 10^3/uL (1.8-7.7); Neutrophils % 80.6 %; Nucleated Red Blood Cells % 0 %; Platelet Count 294 10^3/cmm (130-400); Red Blood Count 3.61 10^6/uL (4.1-5.3); Red Cell Distribution Width 14.6 % (12.1-15.1); White Blood Count 8.1 10^3/uL (4.0-10.0)
[2022-06-29 03:43] LABS: Calcium 8.3 mg/dL (8.5-10.5); Parathyroid Hormone 74.6 pg/mL (15-65)
[2022-06-29 03:52] LABS: 25 Hydroxy Vitamin D 19 ng/mL (30-100); Alanine Aminotransferase 41 U/L (0-33); Albumin Level 2.6 g/dL (3.5-5.2); Alkaline Phosphatase 94 U/L (35-105); Anion Gap 13.3 (5-19); Aspartate Amino Transferase 42 U/L (0-32); Blood Urea Nitrogen 39 mg/dL (8-23); Calcium 8.3 mg/dL (8.5-10.5); Carbon Dioxide 25 mmol/L (22-29); Chloride 95 mmol/L (98-107); Ferritin 292 ng/mL (15-150); Globulin 2.8 g/dL (1.3-4.6); Glucose 123 mg/dL (65-115); Iron 39 ug/dL (37-145); Magnesium 1.9 mg/dL (1.7-2.3); NT Pro B Type Natriuretic Pept 8407 pg/mL (0-450); Osmolality Calculated 281 mOsm/kg (285-295); Percent Saturation 20.7 % (20-50); Phosphorus 4.3 mg/dL (2.5-4.5); Potassium 3.3 mmol/L (3.5-5.1); Sodium 130 mmol/L (136-145); Total Bilirubin 0.3 mg/dL (0.15-1.2); Total Iron Binding Capacity 188 mcg/dl; Total Protein 5.4 g/dL (6.6-8.7); Unsaturated Iron Binding 149 ug/dL (112-347)
[2022-06-29] MEDS: levothyroxine 50 mcg Tablet PO (05:49)
--- NOTE | 2022-06-29 06:33 | PC.NURSE ---
Patient rested comfortably through the night. Did complain of some leg pain upon movement or touch. Legs felt hot and Hospitalist notified but no new orders received. Patient had 500ml out of urine. Patient has been NPO since midnight as day shift reported that they were planning to place permanent dialysis line 06/29. Vitals remain within limits other than Blood pressure which has remained in the 170s systolic through the shift. [facility]
--- NOTE | 2022-06-29 07:03 | USCV_ITS ---
Bianka Kirby Age: 82 Gender: F : 1940 Exam Date: 06/29/2022 13:49 Ordering Phys: Massimo Jones MD Technologist: [place] [facility] [place] Indication: swelling PROCEDURES: Venous duplex imaging was performed in bilateral lower extremities. The venous duplex Doppler examination of both lower extremities was performed in the standard fashion. In addition, the posterior tibial and peroneal trunk were evaluated. Serial compression, augmentation maneuvers, and spectral Doppler flow evaluation were performed. FINDINGS: Normal 2-D Doppler and augmentation and compressibility throughout the lower extremity venous structures. Additional imaging through the proximal calf veins also reveals no thrombus. Limited evaluation of the greater saphenous vein is patent with no thrombus. CONCLUSIONS No DVT bilateral lower extremities. Dr. Adrienne Lyles DO (Electronically Signed) Final Date: 29 June 2022 15:17 S
[2022-06-29] MEDS: ipratropium-albuterol 3 mL Neb INHALATION ×3 (07:34→20:47)
[2022-06-29] MEDS: budesonide 0.5 mg/2 mL Neb INHALATION ×2 (07:34→20:47)
--- NOTE | 2022-06-29 07:55 | P.PN_ITS ---
Subjective Subjective: feels better. more awake, is urinating. no n/v/f/c/lemus/d. denies sob- but is hypoxic on 3 l nc 02 Medications: Reviewed: Yes Medication Review Details: Current Medications Acetaminophen (Acetaminophen 325 Mg Tablet) 650 mg PO Q6H PRN PRN Reason: Mild/Mod Pain Or Temp >/= 101 Last Admin: 06/28/22 05:20 Dose: 650 mg Albuterol/Ipratropium (Ipratropium-Albuterol 3 Ml Neb) 3 ml INHALATION Q6H [facility] Last Admin: 06/29/22 07:34 Dose: 3 ml Amlodipine Besylate (Amlodipine 5 Mg Tablet) 5 mg PO DAILY [facility] Last Admin: 06/28/22 09:25 Dose: 5 mg Atorvastatin Calcium (Atorvastatin 40 Mg Tablet) 40 mg PO BEDTIME [facility] Last Admin: 06/28/22 20:44 Dose: 40 mg Atropine Sulfate (Atropine 0.1 Mg/Ml Syr 10 Ml) 0.5 mg IVP ONCE PRN PRN Reason: HR >30 Atropine Sulfate (Atropine 0.1 Mg/Ml Syr 10 Ml) 0.5 mg IVP ONCE PRN PRN Reason: HEART RATE-LOW Budesonide (Budesonide 0.5 Mg/2 Ml Neb) 0.5 mg INHALATION BID.RESPIRATORY [facility] Last Admin: 06/29/22 07:34 Dose: 0.5 mg Clonidine HCl (Clonidine 0.1 Mg Tablet) 0.1 mg PO BID [facility] Last Admin: 06/28/22 18:33 Dose: 0.1 mg Furosemide (Furosemide 10 Mg/Ml Sdv 4ml) 40 mg IVP Q12H [facility] Last Admin: 06/28/22 22:20 Dose: 40 mg Hydralazine HCl (Hydralazine 50 Mg Tablet) 100 mg PO TID [facility] Last Admin: 06/28/22 20:43 Dose: 100 mg Isosorbide Mononitrate (Isosorbide Mononitrate Er 60 Mg Tablet) 120 mg PO DAILY [facility] Last Admin: 06/28/22 06:13 Dose: 120 mg Levothyroxine Sodium (Levothyroxine 50 Mcg Tablet) 50 mcg PO QAM [facility] Last Admin: 06/29/22 05:49 Dose: 50 mcg Multivitamins (C-Jrcczev-Rgxsmqx C Tablet) 1 each PO DAILY [facility] Last Admin: 06/28/22 09:24 Dose: 1 each Ondansetron HCl (Ondansetron 2 Mg/Ml Sdv 2 Ml) 4 mg IVP Q8H PRN PRN Reason: vomiting, or N/V if npo Last Admin: 06/25/22 14:18 Dose: 4 mg Pantoprazole Sodium (Pantoprazole Dr 40 Mg Tablet) 40 mg PO BID [facility] Last Admin: 06/28/22 17:07 Dose: 40 mg Polyethylene Glycol (Polyethylene Glycol 3350 Pkt 17 Gm) 17 gm PO DAILY [facility] Last Admin: 06/28/22 09:25 Dose: 17 gm Senna/Docusate Sodium (Sennosides-Docusate Tablet) 1 tab PO BID [facility] Last Admin: 06/28/22 17:07 Dose: 1 tab Vitals/I&O/Wt Last Vital Signs Temp 98 F 06/29/22 00:00 Pulse 60 06/29/22 07:40 Resp 17 06/29/22 07:20 BP 163/67 06/29/22 06:00 Pulse Ox 90 06/29/22 07:20 O2 Del Method 06/29/22 07:20 O2 Flow Rate 3 06/29/22 07:20 06/28/22 06/29/22 06/29/22 22:59 06:59 14:59 Intake Total 120 / 480 Output Total 225 / 225 500 / 725 Balance -105 / 255 -500 / -245 Physical Exam Narrative: more alert and comfortable in bed, nc 02 heent- nc/at,eomi neck supple lungs diminished bases and crackles heart reg, +СЕРГЕЙ abd soft, nt, nd, + bs ext + edema access+ Rt IJ temp catheter neuro- a,a, o x 2 Urinary Catheter Management: Coleman: Cath Placed During This Visit: no Reason for Continuing Indwelling Catheter: Accurate Measurement of Urinary Output in Critically Ill Patients Data 06/29/22 02:50 06/29/22 02:50 Micro: Microbiology 06/22/22 15:00 Gram Stain - Final Pleural Fluid Anaerobic Culture - Preliminary Body Fluid Culture - Final A&P Assessment and plan (1) Acute kidney injury superimposed on CKD: see below. pt seen ands examined w/ RN- telehealth visit time spent 30 min Plan 82 yr old female nephrotic range proteinuria, tanisha on ckd. was supposed to get a renal bx- sent in for htn urgency/ emergency. Pt is now s/p 3 HD sessions via temporary catheter since 06/23, last one 06/25/22. Poor urine output. -uop starting to improve. however, still sob, edema, and htn- will continue lasix and plan for dialysis today - 3 k bath, remove 2l as tolerated -on discharge, will need to consider renal biopsy - send serologies meds reviewed hgb okay acceptable pth of 74 -replace vit d monitor bp Attestations Medical Necessity Statement*: tanisha, sob, htn Time Spent in Patient Care: 16 - 35 minutes (>than 50% of time spent in counselling and/or direct pt care on unit) . Coding Level of Care Code Acute Motion Picture Director for Chg Fwd Diagnoses Acute kidney injury superimposed on CKD N17.9; N18.9
--- NOTE | 2022-06-29 07:58 | PC.NURSE ---
Patient taken with deirdre dialysis nurse to [facility] room 108 at 0750 for dialysis. Then will be transferred to [facility] [id number] report called already.
--- NOTE | 2022-06-29 11:25 | PC.HD ---
Treatment terminated 15 min early due to imminent clotting of circuit with near-constant AP and RECEPTION SPECIALIST pressure alarms.
[2022-06-29 12:00] LABS: Anti-streptolysin O <50 IU/mL (<200)
--- NOTE | 2022-06-29 12:08 | PC.NURSE ---
pt arrived to med surg floor at 1150.
[2022-06-29] MEDS: isosorbide mononitrate ER 60 mg Tablet 120 MG PO (13:11)
[2022-06-29] MEDS: amlodipine 5 mg Tablet PO (13:11)
[2022-06-29] MEDS: hyDRALAzine 50 mg Tablet 100 MG PO ×2 (13:11→21:05)
[2022-06-29] MEDS: potassium chloride ER 20 mEq Tablet PO (13:12)
--- NOTE | 2022-06-29 13:13 | PM.PN ---
Subjective Subjective: Patient denies fevers, chills, chest pain, nausea or emesis. She reports she would be OK with outpatient dialysis. Called her sister and she agreed to proceed with outpatient dialysis and line placement if that is what nephrology recommends. Left message on telenephrology line to confirm recommendation. Medications: Reviewed: Yes Vitals/I&O/Wt Last Vital Signs Temp 97.8 F 06/29/22 12:00 Pulse 65 06/29/22 12:00 Resp 16 06/29/22 12:00 BP 184/62 06/29/22 12:00 Pulse Ox 91 06/29/22 12:00 O2 Del Method 06/29/22 12:00 O2 Flow Rate 3 06/29/22 07:20 06/28/22 06/29/22 06/29/22 22:59 06:59 14:59 Intake Total 120 / 480 300 / 300 Output Total 225 / 225 500 / 725 2576 / 2576 Balance -105 / 255 -500 / -245 -2276 / -2276 Weight last 48 hrs Weight 65.1 kg Physical Exam Narrative: General: Patient is awake. Frail appearing. Head: Normocephalic. Atraumatic. EOM intact. Neck: No JVD. Cardiovascular: RRR. No gallops. No murmurs. Lower extremity edema is present. Lungs: Breath sounds are diminished at bilateral bases., no use of accessory muscles, no crackles or wheezes. Skin: No jaundice. No rashes. Abdomen: Normal bowel sounds, abdomen soft and nontender. Genito Urinary: Genital exam not performed since complaints not related. Rectal: Rectal exam not performed since no symptoms indicated blood loss. Extremities: No cyanosis or clubbing. Musculoskeletal: 5/5 strength, normal range of motion, no swollen or erythematous joints. Neurological: Moves all 4 extremities. No myoclonus. Urinary Catheter Management: Coleman: Cath Placed During This Visit: no Reason for Continuing Indwelling Catheter: Accurate Measurement of Urinary Output in Critically Ill Patients Data 06/29/22 02:50 06/29/22 02:50 Micro: Microbiology 06/22/22 15:00 Gram Stain - Final Pleural Fluid Anaerobic Culture - Preliminary Body Fluid Culture - Final A&P Assessment and plan (1) Acute kidney injury superimposed on CKD: Underwent HD this morning via temporary dialysis line Discussed with patient and sister, agreeable to outpatient HD Plan to follow up with nephrology to confirm that is the recommendation Discussed with general surgery, anticipate she will need a line NPO after midnight Strict I&Os Daily weights Continue Lasix Avoid nephrotoxins Renally dose medications Will need renal biopsy at some point (2) Hypertensive urgency: Blood pressure remains uncontrolled Continue Norvasc Continue Catapres Continue Lasix Continue hydralazine Continue Imdur (3) CHF (congestive heart failure): Acute on chronic diastolic heart failure with preserved ejection fraction Volume control with Lasix and dialysis (4) Pleural effusion, right: Continue to monitor (5) Hypothyroidism: Continue Synthroid Plan DVT ppx: Heparin Code Status: DNR Attestations Medical Necessity Statement*: Patient requires ongoing hospitalization for dialysis, electrolyte monitoring, tunneled dialysis line placement, and arrangement of outpatient HD. Coding Level of Care Code Acute Door Repairman for Pauletteg Fwd Diagnoses Acute kidney injury superimposed on CKD N17.9; N18.9 Hypertensive urgency I16.0 CHF (congestive heart failure) I50.9 Pleural effusion, right J90 Hypothyroidism E03.9
[2022-06-29 14:34] LABS: Anti-Double Strand DNA AB <1 IU/mL
[2022-06-29] MEDS: pantoprazole DR 40 mg Tablet PO (18:24)
[2022-06-29] MEDS: heparin 5,000 unit/mL INJ 1 mL 5000 UNIT SUBCUT (18:24)
[2022-06-29] MEDS: sennosides-docusate Tablet 1 TAB PO (18:24)
[2022-06-29] MEDS: cloNIDine 0.1 mg Tablet PO (18:28)
[2022-06-29] MEDS: atorvastatin 40 mg Tablet PO (21:06)
[2022-06-30] VITALS (14 sets, daily range): BP systolic 154–187; BP diastolic 51–65; PULSE 56–88; RESP 14–20; TEMP 36.5–37; O2SAT 88–96
[2022-06-30] MEDS: heparin 5,000 unit/mL INJ 1 mL 5000 UNIT SUBCUT ×2 (01:52→14:15)
[2022-06-30] MEDS: ipratropium-albuterol 3 mL Neb INHALATION ×3 (02:36→14:29)
[2022-06-30] MEDS: levothyroxine 50 mcg Tablet PO (05:25)
[2022-06-30 05:51] LABS: Basophils # 0.1 10^3/uL (0.0-0.1); Basophils % 0.6 %; Eosinophils # 0.2 10^3/uL (0.0-0.8); Eosinophils % 1.9 %; Hematocrit 32.8 % (37.0-47.0); Hemoglobin 10.3 g/dL (11.5-15.3); Lymphocytes # 1.1 10^3/uL (0.8-4.8); Lymphocytes % 14.1 %; Mean Corpuscular HGB Conc 31.4 g/dL (30.0-36.0); Mean Corpuscular Hemoglobin 27.8 pg (28.0-34.0); Mean Corpuscular Volume 88.6 fl (81-99); Mean Platelet Volume 9.6 fL (7.4-10.4); Monocytes # 0.6 10^3/uL (0.2-0.9); Monocytes % 7.9 %; Neutrophils # 6.06 10^3/uL (1.8-7.7); Nucleated Red Blood Cells % 0 %; Platelet Count 295 10^3/cmm (130-400); Red Cell Distribution Width 14.7 % (12.1-15.1); White Blood Count 8.1 10^3/uL (4.0-10.0)
[2022-06-30 06:15] LABS: Alanine Aminotransferase 47 U/L (0-33); Albumin Level 2.6 g/dL (3.5-5.2); Alkaline Phosphatase 100 U/L (35-105); Aspartate Amino Transferase 53 U/L (0-32); Blood Urea Nitrogen 23 mg/dL (8-23); Calcium 8.6 mg/dL (8.5-10.5); Carbon Dioxide 26 mmol/L (22-29); Chloride 98 mmol/L (98-107); Globulin 3.1 g/dL (1.3-4.6); Glucose 88 mg/dL (65-115); Magnesium 1.9 mg/dL (1.7-2.3); Osmolality Calculated 281 mOsm/kg (285-295); Phosphorus 3.5 mg/dL (2.5-4.5); Sodium 134 mmol/L (136-145); Total Bilirubin 0.3 mg/dL (0.15-1.2); Total Protein 5.7 g/dL (6.6-8.7)
[2022-06-30] MEDS: budesonide 0.5 mg/2 mL Neb INHALATION (09:08)
--- NOTE | 2022-06-30 10:01 | PM.PN ---
Subjective Subjective: s/p dialysis yesterday. feels better. no n/v/f/c/lemus. has 3l nc02 Medications: Reviewed: Yes Medication Review Details: Current Medications Acetaminophen (Acetaminophen 325 Mg Tablet) 650 mg PO Q6H PRN PRN Reason: Mild/Mod Pain Or Temp >/= 101 Last Admin: 06/28/22 05:20 Dose: 650 mg Albuterol/Ipratropium (Ipratropium-Albuterol 3 Ml Neb) 3 ml INHALATION Q6H [facility] Last Admin: 06/30/22 09:08 Dose: 3 ml Amlodipine Besylate (Amlodipine 5 Mg Tablet) 5 mg PO DAILY [facility] Last Admin: 06/29/22 13:11 Dose: 5 mg Atorvastatin Calcium (Atorvastatin 40 Mg Tablet) 40 mg PO BEDTIME [facility] Last Admin: 06/29/22 21:06 Dose: 40 mg Budesonide (Budesonide 0.5 Mg/2 Ml Neb) 0.5 mg INHALATION BID.RESPIRATORY [facility] Last Admin: 06/30/22 09:08 Dose: 0.5 mg Clonidine HCl (Clonidine 0.1 Mg Tablet) 0.1 mg PO BID [facility] Last Admin: 06/29/22 18:28 Dose: 0.1 mg Furosemide (Furosemide 10 Mg/Ml Sdv 4ml) 40 mg IVP Q12H [facility] Last Admin: 06/29/22 22:32 Dose: Not Given Heparin Sodium (Porcine) (Heparin 5,000 Unit/Ml Inj 1 Ml) 5,000 unit SUBCUT Q12H [facility] Last Admin: 06/30/22 01:52 Dose: 5,000 unit Hydralazine HCl (Hydralazine 50 Mg Tablet) 100 mg PO TID [facility] Last Admin: 06/29/22 21:05 Dose: 100 mg Isosorbide Mononitrate (Isosorbide Mononitrate Er 60 Mg Tablet) 120 mg PO DAILY [facility] Last Admin: 06/29/22 13:11 Dose: 120 mg Levothyroxine Sodium (Levothyroxine 50 Mcg Tablet) 50 mcg PO QAM [facility] Last Admin: 06/30/22 05:25 Dose: 50 mcg Multivitamins (G-Tfohljq-Mngazsl C Tablet) 1 each PO DAILY [facility] Last Admin: 06/29/22 12:29 Dose: Not Given Ondansetron HCl (Ondansetron 2 Mg/Ml Sdv 2 Ml) 4 mg IVP Q8H PRN PRN Reason: vomiting, or N/V if npo Last Admin: 06/25/22 14:18 Dose: 4 mg Pantoprazole Sodium (Pantoprazole Dr 40 Mg Tablet) 40 mg PO BID [facility] Last Admin: 06/29/22 18:24 Dose: 40 mg Polyethylene Glycol (Polyethylene Glycol 3350 Pkt 17 Gm) 17 gm PO DAILY [facility] Last Admin: 06/29/22 12:28 Dose: Not Given Senna/Docusate Sodium (Sennosides-Docusate Tablet) 1 tab PO BID [facility] Last Admin: 06/29/22 18:24 Dose: 1 tab Vitals/I&O/Wt Last Vital Signs Temp 97.8 F 06/30/22 08:00 Pulse 81 06/30/22 09:10 Resp 20 H 06/30/22 09:10 BP 168/60 06/30/22 08:00 Pulse Ox 93 06/30/22 09:10 O2 Del Method 06/30/22 09:10 O2 Flow Rate 3 06/30/22 09:10 06/29/22 06/30/22 06/30/22 22:59 06:59 14:59 Intake Total 250 / 790 Output Total 200 / 2776 Balance 250 / -1786 -200 / -1985 Weight last 48 hrs Weight 65.1 kg Physical Exam Narrative: alert and comfortable in bed, nc 02 heent- nc/at,eomi neck supple lungs diminished bases, dec b/l crackles heart reg, +СЕРГЕЙ abd soft, nt, nd, + bs ext + edema dec b/l legs access+ Rt IJ temp catheter neuro- a,a, o x 2 Urinary Catheter Management: Coleman: Cath Placed During This Visit: no Reason for Continuing Indwelling Catheter: Acute Urinary Retention or Obstruction Data 06/30/22 05:42 06/30/22 05:42 Micro: Microbiology 06/22/22 15:00 Gram Stain - Final Pleural Fluid Anaerobic Culture - Final Body Fluid Culture - Final A&P Assessment and plan (1) Acute kidney injury superimposed on CKD: see below. pt seen ands examined w/ RN- telehealth visit time spent 30 min Plan 82 yr old female nephrotic range proteinuria, tanisha on ckd. was supposed to get a renal bx- sent in for htn urgency/ emergency. Pt is now s/p 4 HD sessions via temporary catheter since 06/23, last one 06/25/22. Poor urine output. -monitor renal fxn overnight- if cr still rising, then place permacath and dialysis -on discharge, will need to consider renal biopsy - f/u serologies meds reviewed hgb okay acceptable pth of 74 -replace vit d monitor bp - remains elevated- inc clonidine to tid Attestations Medical Necessity Statement*: tanisha, htn Time Spent in Patient Care: 16 - 35 minutes (>than 50% of time spent in counselling and/or direct pt care on unit). Coding Level of Care Code Acute Wood Machine Carver for Chg Fwd Diagnoses Acute kidney injury superimposed on CKD N17.9; N18.9
--- NOTE | 2022-06-30 10:14 | PC.CHAP ---
Pastoral Care Encounter/Spiritual Assessment Type of Contact [] Declined linux consultant visit [] Patient/Family/Request visit [] Outpatient visit [] Follow-up visit [] Physician referral [] Code/Alert [x] Routine visit [] Staff referral [] Actively dying [] Patient sleeping [] Family support [] [] Out of room [] Palliative care [] [] Receiving care in room [] Pre-surgical visit [] Trauma [] Long length of stay [] ICU visit [] Other: Relational/Emotional Strength [x] Patient feels connected with others/family/visitors/staff [] Distress [] Loneliness/isolation [] Abandonment Spirituality of Patient x [] Person of Beth [] Attends Sikh of their Beth [x] Believes in Prayer [] Reads Bible or Congregational materials [] There are Spiritual issues to be addressed Plumbing Designer Interventions [x] Prayer [] Active listening [] Non-anxious presence [] Spiritual/emotional support [] Crisis/trauma care [] Spiritual counseling [] Bereavement support [] Provided bereavement packet [] Provided Bible/devotional materials [] Provided toy/stuffed animal, coloring book to patient or family member [] Provided Communion [] Anointing/Holden [] Salvation [x] Completed spiritual assessment [] Other: Impact on Illness or Injury [] Angry [] Fearful [] Anxious [] Often cries [] Exhaustion [] Unable to work [] Unable to attend muslim [] Unable to walk/stand [] Unable to read [] Unable to drive [] Unable to eat/drink [] Unable to sleep [] Unable to be with family [] Patient intubated [] Other: Summary Time spent with patient 10 min
--- NOTE | 2022-06-30 10:21 | P.PN_ITS ---
Subjective Subjective: Patient denies fevers, chills, chest pain or shortness of breath. Endorses mild lower extremity edema. Tolerating dialysis well. She denies other new complaints. Medications: Reviewed: Yes Medication Review Details: Current Medications Acetaminophen (Acetaminophen 325 Mg Tablet) 650 mg PO Q6H PRN PRN Reason: Mild/Mod Pain Or Temp >/= 101 Last Admin: 06/28/22 05:20 Dose: 650 mg Albuterol/Ipratropium (Ipratropium-Albuterol 3 Ml Neb) 3 ml INHALATION Q6H [facility] Last Admin: 06/30/22 09:08 Dose: 3 ml Amlodipine Besylate (Amlodipine 5 Mg Tablet) 5 mg PO DAILY [facility] Last Admin: 06/29/22 13:11 Dose: 5 mg Atorvastatin Calcium (Atorvastatin 40 Mg Tablet) 40 mg PO BEDTIME [facility] Last Admin: 06/29/22 21:06 Dose: 40 mg Budesonide (Budesonide 0.5 Mg/2 Ml Neb) 0.5 mg INHALATION BID.RESPIRATORY [facility] Last Admin: 06/30/22 09:08 Dose: 0.5 mg Clonidine HCl (Clonidine 0.1 Mg Tablet) 0.1 mg PO BID [facility] Last Admin: 06/29/22 18:28 Dose: 0.1 mg Furosemide (Furosemide 10 Mg/Ml Sdv 4ml) 40 mg IVP Q12H [facility] Last Admin: 06/29/22 22:32 Dose: Not Given Heparin Sodium (Porcine) (Heparin 5,000 Unit/Ml Inj 1 Ml) 5,000 unit SUBCUT Q12H [facility] Last Admin: 06/30/22 01:52 Dose: 5,000 unit Hydralazine HCl (Hydralazine 50 Mg Tablet) 100 mg PO TID [facility] Last Admin: 06/29/22 21:05 Dose: 100 mg Isosorbide Mononitrate (Isosorbide Mononitrate Er 60 Mg Tablet) 120 mg PO DAILY [facility] Last Admin: 06/29/22 13:11 Dose: 120 mg Levothyroxine Sodium (Levothyroxine 50 Mcg Tablet) 50 mcg PO QAM [facility] Last Admin: 06/30/22 05:25 Dose: 50 mcg Multivitamins (V-Vaakzuo-Jtyiegt C Tablet) 1 each PO DAILY [facility] Last Admin: 06/29/22 12:29 Dose: Not Given Ondansetron HCl (Ondansetron 2 Mg/Ml Sdv 2 Ml) 4 mg IVP Q8H PRN PRN Reason: vomiting, or N/V if npo Last Admin: 06/25/22 14:18 Dose: 4 mg Pantoprazole Sodium (Pantoprazole Dr 40 Mg Tablet) 40 mg PO BID [facility] Last Admin: 06/29/22 18:24 Dose: 40 mg Polyethylene Glycol (Polyethylene Glycol 3350 Pkt 17 Gm) 17 gm PO DAILY [facility] Last Admin: 06/29/22 12:28 Dose: Not Given Senna/Docusate Sodium (Sennosides-Docusate Tablet) 1 tab PO BID [facility] Last Admin: 06/29/22 18:24 Dose: 1 tab Vitals/I&O/Wt Last Vital Signs Temp 97.8 F 06/30/22 08:00 Pulse 81 06/30/22 09:10 Resp 20 H 06/30/22 09:10 BP 168/60 06/30/22 08:00 Pulse Ox 93 06/30/22 09:10 O2 Del Method 06/30/22 09:10 O2 Flow Rate 3 06/30/22 09:10 06/29/22 06/30/22 06/30/22 22:59 06:59 14:59 Intake Total 250 / 790 Output Total 200 / 2776 Balance 250 / -1786 -200 / -1985 Weight last 48 hrs Weight 65.1 kg Physical Exam Narrative: General: Patient is awake. Alert. Frail appearing. Head: Normocephalic. Atraumatic. EOM intact. Neck: No JVD. Cardiovascular: RRR. No gallops. No murmurs. Trace lower extremity edema. Lungs: Breath sounds are diminished at bilateral bases., no use of accessory muscles, no crackles or wheezes. On nasal cannula support. Skin: No jaundice. No rashes. Abdomen: Normal bowel sounds, abdomen soft and nontender. Genito Urinary: Genital exam not performed since complaints not related. Rectal: Rectal exam not performed since no symptoms indicated blood loss. Extremities: No cyanosis or clubbing. Musculoskeletal: 5/5 strength, normal range of motion, no swollen or erythematous joints. Neurological: Moves all 4 extremities. No myoclonus. Urinary Catheter Management: Coleman: Cath Placed During This Visit: no Reason for Continuing Indwelling Catheter: Acute Urinary Retention or Obstruction Data 06/30/22 05:42 06/30/22 05:42 Micro: Microbiology 06/22/22 15:00 Gram Stain - Final Pleural Fluid Anaerobic Culture - Final Body Fluid Culture - Final A&P Assessment and plan (1) Acute kidney injury superimposed on CKD: Nephrology following, appreciate recommendations Strict I&Os Daily weights Continue Lasix Avoid nephrotoxins Renally dose medications Will need renal biopsy at some point (2) Hypertensive urgency: Blood pressure remains uncontrolled Continue Norvasc Continue Catapres, dose adjusted by nephrology this morning Continue Lasix Continue hydralazine Continue Imdur (3) CHF (congestive heart failure): Acute on chronic diastolic heart failure with preserved ejection fraction Volume control with Lasix and dialysis (4) Pleural effusion, right: Continue to monitor (5) Hypothyroidism: Continue Synthroid Plan DVT ppx: Heparin Code Status: DNR Attestations Medical Necessity Statement*: Patient requires ongoing hospitalization for dialysis, electrolyte monitoring, and arrangement of outpatient HD. Coding Level of Care Code Acute Heat Treat Operator for [facility] Diagnoses Acute kidney injury superimposed on CKD N17.9; N18.9 Hypertensive urgency I16.0 CHF (congestive heart failure) I50.9 Pleural effusion, right J90 Hypothyroidism E03.9
[2022-06-30] MEDS: pantoprazole DR 40 mg Tablet PO ×2 (10:59→18:32)
[2022-06-30] MEDS: sennosides-docusate Tablet 1 TAB PO ×2 (11:00→18:32)
[2022-06-30] MEDS: FUROsemide 10 mg/mL SDV 4mL 40 MG IVP ×2 (11:00→22:54)
[2022-06-30] MEDS: b-complex-vitamin c Tablet 1 EACH PO (11:00)
[2022-06-30] MEDS: polyethylene glycol 3350 Pkt 17 gm PO (11:01)
[2022-06-30] MEDS: isosorbide mononitrate ER 60 mg Tablet 120 MG PO (11:01)
[2022-06-30] MEDS: hyDRALAzine 50 mg Tablet 100 MG PO ×3 (11:01→21:50)
--- NOTE | 2022-06-30 13:42 | PC.SOCIAL ---
IMM update IMM updated with patient. Verbalized an understanding. Copy Pg 2 provided. Initialled, dated, timed, and placed in chart.
[2022-06-30 16:34] LABS: Anti-Nuclear Antibody Screen NEGATIVE (NEGATIVE)
[2022-06-30] MEDS: atorvastatin 40 mg Tablet PO (21:50)
[2022-07-01] VITALS (21 sets, daily range): BP systolic 119–190; BP diastolic 54–80; PULSE 62–82; RESP 14–20; TEMP 36.1–37; O2SAT 90–96
[2022-07-01] MEDS: heparin 5,000 unit/mL INJ 1 mL 5000 UNIT SUBCUT (01:28)
[2022-07-01 02:02] LABS: Basophils % 0.5 %; Eosinophils # 0.2 10^3/uL (0.0-0.8); Eosinophils % 2.1 %; Hematocrit 30.6 % (37.0-47.0); Hemoglobin 9.9 g/dL (11.5-15.3); Lymphocytes # 0.8 10^3/uL (0.8-4.8); Mean Corpuscular HGB Conc 32.4 g/dL (30.0-36.0); Mean Corpuscular Hemoglobin 28.4 pg (28.0-34.0); Mean Corpuscular Volume 87.9 fl (81-99); Mean Platelet Volume 9.9 fL (7.4-10.4); Monocytes # 0.7 10^3/uL (0.2-0.9); Monocytes % 9.4 %; Neutrophils # 5.86 10^3/uL (1.8-7.7); Neutrophils % 77.2 %; Nucleated Red Blood Cells % 0 %; Platelet Count 291 10^3/cmm (130-400); Red Blood Count 3.48 10^6/uL (4.1-5.3); Red Cell Distribution Width 14.6 % (12.1-15.1); White Blood Count 7.6 10^3/uL (4.0-10.0)
[2022-07-01 02:27] LABS: Alanine Aminotransferase 37 U/L (0-33); Albumin Level 2.5 g/dL (3.5-5.2); Alkaline Phosphatase 88 U/L (35-105); Anion Gap 13.6 (5-19); Aspartate Amino Transferase 35 U/L (0-32); Blood Urea Nitrogen 29 mg/dL (8-23); Calcium 8.1 mg/dL (8.5-10.5); Carbon Dioxide 25 mmol/L (22-29); Chloride 98 mmol/L (98-107); Globulin 2.7 g/dL (1.3-4.6); Glucose 131 mg/dL (65-115); Osmolality Calculated 284 mOsm/kg (285-295); Phosphorus 3.6 mg/dL (2.5-4.5); Potassium 3.6 mmol/L (3.5-5.1); Sodium 133 mmol/L (136-145); Total Bilirubin 0.2 mg/dL (0.15-1.2); Total Protein 5.2 g/dL (6.6-8.7)
[2022-07-01] MEDS: ipratropium-albuterol 3 mL Neb INHALATION ×4 (02:45→21:12)
[2022-07-01] MEDS: levothyroxine 50 mcg Tablet PO (05:47)
[2022-07-01 06:42] LABS: Glucose Point of Care 126 mg/dL (70-110)
--- NOTE | 2022-07-01 07:26 | PM.PN ---
Subjective Subjective: remains oliguric and htn. no n/v/f/c/lemus/d Medications: Reviewed: Yes Medication Review Details: Current Medications Acetaminophen (Acetaminophen 325 Mg Tablet) 650 mg PO Q6H PRN PRN Reason: Mild/Mod Pain Or Temp >/= 101 Last Admin: 06/28/22 05:20 Dose: 650 mg Albuterol/Ipratropium (Ipratropium-Albuterol 3 Ml Neb) 3 ml INHALATION Q6H [facility] Last Admin: 07/01/22 02:45 Dose: 3 ml Amlodipine Besylate (Amlodipine 5 Mg Tablet) 10 mg PO DAILY [facility] Atorvastatin Calcium (Atorvastatin 40 Mg Tablet) 40 mg PO BEDTIME [facility] Last Admin: 06/30/22 21:50 Dose: 40 mg Budesonide (Budesonide 0.5 Mg/2 Ml Neb) 0.5 mg INHALATION BID.RESPIRATORY [facility] Last Admin: 06/30/22 21:33 Dose: Not Given Clonidine HCl (Clonidine 0.1 Mg Tablet) 0.1 mg PO TID [facility] [place] Last Admin: 06/30/22 21:38 Dose: Not Given Furosemide (Furosemide 10 Mg/Ml Sdv 4ml) 40 mg IVP Q12H [facility] Last Admin: 06/30/22 22:54 Dose: 40 mg Heparin Sodium (Porcine) (Heparin 5,000 Unit/Ml Inj 1 Ml) 5,000 unit SUBCUT Q12H [facility] [place] Last Admin: 07/01/22 01:28 Dose: 5,000 unit Hydralazine HCl (Hydralazine 50 Mg Tablet) 100 mg PO TID [facility] [place] Last Admin: 06/30/22 21:50 Dose: 100 mg Isosorbide Mononitrate (Isosorbide Mononitrate Er 60 Mg Tablet) 120 mg PO DAILY [facility] [place] Last Admin: 06/30/22 11:01 Dose: 120 mg Levothyroxine Sodium (Levothyroxine 50 Mcg Tablet) 50 mcg PO QAM [facility] [place] Last Admin: 07/01/22 05:47 Dose: 50 mcg Multivitamins (W-Yxqjabj-Dpnbzlh C Tablet) 1 each PO DAILY [facility] [place] Last Admin: 06/30/22 11:00 Dose: 1 each Ondansetron HCl (Ondansetron 2 Mg/Ml Sdv 2 Ml) 4 mg IVP Q8H PRN PRN Reason: vomiting, or N/V if npo Last Admin: 06/25/22 14:18 Dose: 4 mg Pantoprazole Sodium (Pantoprazole Dr 40 Mg Tablet) 40 mg PO BID [facility] [place] Last Admin: 06/30/22 18:32 Dose: 40 mg Polyethylene Glycol (Polyethylene Glycol 3350 Pkt 17 Gm) 17 gm PO DAILY [facility] [place] Last Admin: 06/30/22 11:01 Dose: 17 gm Senna/Docusate Sodium (Sennosides-Docusate Tablet) 1 tab PO BID [facility] [place] Last Admin: 06/30/22 18:32 Dose: 1 tab Vitals/I&O/Wt Last Vital Signs Temp 98.2 F 07/01/22 04:00 Pulse 68 07/01/22 04:00 Resp 18 07/01/22 04:00 BP 172/54 07/01/22 04:00 Pulse Ox 91 07/01/22 04:00 O2 Del Method 07/01/22 04:00 O2 Flow Rate 2 07/01/22 04:00 06/30/22 07/01/22 07/01/22 22:59 06:59 14:59 Intake Total 480 / 1160 Output Total 150 / 150 275 / 425 Balance 330 / 1010 -275 / 735 Weight last 48 hrs Weight 65.1 kg Physical Exam Narrative: alert and comfortable in bed, nc 02 heent- nc/at,eomi neck supple lungs diminished bases, b/l crackles heart reg, +СЕРГЕЙ abd soft, nt, nd, + bs ext + edema dec b/l legs access+ Rt IJ temp catheter neuro- a,a, o x 2 Urinary Catheter Management: Coleman: Cath Placed During This Visit: no Reason for Continuing Indwelling Catheter: Other Data 07/01/22 01:20 07/01/22 01:20 A&P Assessment and plan (1) Acute kidney injury superimposed on CKD: see below. pt seen ands examined w/ RN- telehealth visit time spent 30 min Plan 82 yr old female nephrotic range proteinuria, tanisha on ckd. was supposed to get a renal bx- sent in for htn urgency/ emergency. Pt is now s/p 4 HD sessions via temporary catheter since 06/23, last one 06/25/22. Poor urine output. -cr rising and oliguric w/ htn- this is Likely ESRD- will dilayze today -please place a permacath and she needs an outpt dialysis slot - f/u serologies, mary neg. await anca and anti-gbm meds reviewed hgb 9.9- iv iron, and may need epo acceptable pth of 74 -replace vit d monitor bp w/ dialysis. hopefully can titrate down meds Attestations Medical Necessity Statement*: needs dialysis Time Spent in Patient Care: 16 - 35 minutes (>than 50% of time spent in counselling and/or direct pt care on unit). Coding Level of Care Code Acute Dental Chairside Assistant for Donna [facility]me[facility] Diagnoses Acute kidney injury superimposed on CKD N17.9; N18.9
--- NOTE | 2022-07-01 07:33 | PC.NURSE ---
notified Notified Nurse Marques of blood pressure.
[2022-07-01] MEDS: hyDRALAzine 50 mg Tablet 100 MG PO ×2 (08:04→20:29)
[2022-07-01] MEDS: cloNIDine 0.1 mg Tablet PO (08:05)
[2022-07-01] MEDS: b-complex-vitamin c Tablet 1 EACH PO (08:06)
[2022-07-01] MEDS: pantoprazole DR 40 mg Tablet PO ×2 (08:07→17:37)
[2022-07-01] MEDS: sennosides-docusate Tablet 1 TAB PO ×2 (08:07→17:37)
[2022-07-01] MEDS: amlodipine 5 mg Tablet 10 MG PO (08:08)
[2022-07-01] MEDS: isosorbide mononitrate ER 60 mg Tablet 120 MG PO (08:09)
--- NOTE | 2022-07-01 08:22 | PM.PN ---
Subjective Subjective: Patient reports her edema is about the same. She denies fevers, chills, nausea, chest pain or emesis. Medications: Reviewed: Yes Vitals/I&O/Wt Last Vital Signs Temp 98.1 F 07/01/22 07:27 Pulse 75 07/01/22 07:27 Resp 19 H 07/01/22 07:27 BP 190/66 07/01/22 08:05 Pulse Ox 91 07/01/22 07:27 O2 Del Method 07/01/22 07:27 O2 Flow Rate 2.5 07/01/22 07:27 06/30/22 07/01/22 07/01/22 22:59 06:59 14:59 Intake Total 480 / 1160 Output Total 150 / 150 275 / 425 Balance 330 / 1010 -275 / 735 Weight last 48 hrs Weight 65.1 kg Physical Exam Narrative: General: Patient is awake. Alert. Frail appearing. Head: Normocephalic. Atraumatic. EOM intact. Neck: No JVD. Cardiovascular: RRR. No gallops. No murmurs. Trace lower extremity edema, similar to prior exam. Lungs: Breath sounds are diminished at bilateral bases., no use of accessory muscles, no crackles or wheezes. On nasal cannula Skin: No jaundice. No rashes. Abdomen: Normal bowel sounds, abdomen soft and nontender. Genito Urinary: Genital exam not performed since complaints not related. Rectal: Rectal exam not performed since no symptoms indicated blood loss. Extremities: No cyanosis or clubbing. Musculoskeletal: 5/5 strength, normal range of motion, no swollen or erythematous joints. Neurological: Moves all 4 extremities. No myoclonus. Urinary Catheter Management: Coleman: Cath Placed During This Visit: no Reason for Continuing Indwelling Catheter: Other Data 07/01/22 01:20 07/01/22 01:20 A&P Assessment and plan (1) Acute kidney injury superimposed on CKD: Nephrology following, appreciate recommendations Strict I&Os Daily weights Continue Lasix Avoid nephrotoxins Renally dose medications Will require outpatient dialysis Consult general surgery for tunneled dialysis line Will need renal biopsy at some point (2) Hypertensive urgency: Blood pressure remains uncontrolled Continue Norvasc Increase Catapres Continue Lasix Continue hydralazine Continue Imdur (3) CHF (congestive heart failure): Acute on chronic diastolic heart failure with preserved ejection fraction Volume control with Lasix and dialysis (4) Pleural effusion, right: Continue to monitor (5) Hypothyroidism: Continue Synthroid Plan DVT ppx: Heparin Code Status: DNR Attestations Medical Necessity Statement*: Patient requires ongoing hospitalization for dialysis, electrolyte monitoring, tunneled dialysis line placement and arrangement of outpatient HD. Coding Level of Care Code Acute Healthcare Business Analyst for [facility] Diagnoses Acute kidney injury superimposed on CKD N17.9; N18.9 Hypertensive urgency I16.0 CHF (congestive heart failure) I50.9 Pleural effusion, right J90 Hypothyroidism E03.9
[2022-07-01] MEDS: budesonide 0.5 mg/2 mL Neb INHALATION ×2 (08:50→21:13)
--- NOTE | 2022-07-01 09:16 | PM.CONSULT ---
Providers/Reason For Consult Consulting Physician/Specialty*: Olena Garcia MD General Surgery Reason for Consult*: Tunneled hemodialysis catheter Attending Physician: Massimo Jones MD Primary Care Provider: Fernando Fish DO History of Present Illness History of Present Illness Bianka Kirby is a 82 year old female known to our service from placement of a temporary hemodialysis catheter last week. She has been receiving dialysis through this, without sufficient recovery of renal function to discontinue dialysis. Therefore a permanent dialysis catheter is requested. She is on no anticoagulants except for heparin at VTE prophylaxis dose. She does not have a pacemaker or other implanted vascular devices. Review of Systems Card: Denies: chest pain Resp: Denies: dyspnea Jimbo/Lymph: Denies: easy bleeding Medications/Allergies Home Medications Medication Instructions Recorded Confirmed Last Taken Type amlodipine 5 mg tablet 10 mg PO DAILY 06/19/22 06/19/22 06/19/22 History atorvastatin 40 mg tablet 40 mg PO BEDTIME 06/19/22 06/19/22 06/18/22 History budesonide-formoterol HFA 160 2 puff inhalation BID PRN 06/19/22 06/19/22 06/19/22 History mcg-4.5 mcg/actuation aerosol Shortness Of Breath Or Wheezing inhaler (Symbicort) fluticasone fur. 200 mcg-umeclid 1 inh inhalation DAILY 06/19/22 06/19/22 06/19/22 History 62.5 mcg-vilant 25 mcg inhalat.powder (Trelegy Ellipta) levothyroxine 50 mcg tablet 50 mcg PO QAM 06/19/22 06/19/22 06/19/22 History metoprolol succinate 50 mg 50 mg PO DAILY 06/19/22 06/19/22 06/19/22 History tablet,extended release 24 hr Allergies Allergy/AdvReac Type Severity Reaction Status Date / Time No Known Allergies Allergy Verified 06/22/22 13:44 Current Medications Generic Name Dose Route Start Last Admin Trade Name Freq PRN Reason Stop Dose Admin Acetaminophen 650 mg 06/19/22 15:48 06/28/22 05:20 Acetaminophen 325 Mg Tablet PO 650 mg Q6H PRN Administration Mild/Mod Pain Or Temp >/= 101 Albuterol/Ipratropium 3 ml 06/21/22 14:00 07/01/22 08:50 Ipratropium-Albuterol 3 Ml Neb INHALATION 3 ml Q6H [facility] Administration Amlodipine Besylate 10 mg 07/01/22 09:00 07/01/22 08:08 Amlodipine 5 Mg Tablet PO 10 mg DAILY [facility] Administration Atorvastatin Calcium 40 mg 06/19/22 21:00 06/30/22 21:50 Atorvastatin 40 Mg Tablet PO 40 mg BEDTIME [facility] Administration Budesonide 0.5 mg 06/21/22 20:00 07/01/22 08:50 Budesonide 0.5 Mg/2 Ml Neb INHALATION 0.5 mg BID.RESPIRATORY [facility] Administration Heparin Sodium (Porcine) 5,000 unit 06/29/22 13:30 07/01/22 01:28 Heparin 5,000 Unit/Ml Inj 1 Ml SUBCUT 5,000 unit Q12H [facility] Administration Hydralazine HCl 100 mg 06/27/22 21:00 07/01/22 08:04 Hydralazine 50 Mg Tablet PO 100 mg TID [facility] Administration Isosorbide Mononitrate 120 mg 06/24/22 09:00 07/01/22 08:09 Isosorbide Mononitrate Er 60 Mg Tablet PO 120 mg DAILY [facility] Administration Levothyroxine Sodium 50 mcg 06/22/22 06:00 07/01/22 05:47 Levothyroxine 50 Mcg Tablet PO 50 mcg QAM [facility] Administration Multivitamins 1 each 06/28/22 09:00 07/01/22 08:06 A-Nydphws-Tlhlett C Tablet PO 1 each DAILY [facility] Administration Ondansetron HCl 4 mg 06/19/22 15:48 06/25/22 14:18 Ondansetron 2 Mg/Ml Sdv 2 Ml IVP 4 mg Q8H PRN Administration vomiting, or N/V if npo Pantoprazole Sodium 40 mg 06/21/22 18:00 07/01/22 08:[address] 40 Mg Tablet PO 40 mg BID [facility] Administration Polyethylene Glycol 17 gm 06/21/22 12:15 06/30/22 11:01 Polyethylene Glycol 3350 Pkt 17 Gm PO 17 gm DAILY [facility] Administration Senna/Docusate Sodium 1 tab 06/21/22 18:00 07/01/22 08:07 Sennosides-Docusate Tablet PO 1 tab BID [facility] Administration PFSH Acute PFSH: Medical History CKD (chronic kidney disease) History of hyperlipidemia History of hypertension History of hypothyroidism Surgical History History of cholecystectomy Family History Mother CAD (coronary artery disease) Father CAD (coronary artery disease) Social History Smoking and tobacco status: never smoked Alcohol intake: never Substance/Drug Use: never Vitals/I&O/Wt Last Vital Signs Temp 98.1 F 07/01/22 07:27 Pulse 80 07/01/22 08:50 Resp 18 07/01/22 08:50 BP 190/66 07/01/22 08:05 Pulse Ox 95 07/01/22 08:50 O2 Del Method 07/01/22 08:50 O2 Flow Rate 2 07/01/22 08:50 06/30/22 07/01/22 07/01/22 22:59 06:59 14:59 Intake Total 480 / 1160 Output Total 150 / 150 275 / 425 Balance 330 / 1010 -275 / 735 Weight last 48 hrs Weight 143 lb 8.335 oz Physical Exam Const: COMMON NORMALS: no acute distress and alert Chest: COMMONS NORMALS: normal inspection of the chest (No rashes, wounds, or skin breakdown) Resp: COMMON NORMALS: normal respiratory effort and clear to auscultation bilaterally AUSCULTATION: clear to auscultation bilaterally Cardio: COMMON NORMALS: regular rate, regular rhythm, S1 normal heart sound present and S2 normal heart sound present RATE: regular rate RHYTHM: regular rhythm HEART SOUNDS: S1 normal heart sound present and S2 normal heart sound present Neuro: SENSORIUM/ORIENTATION: Yes alert Urinary Catheter Management: Coleman: Cath Placed During This Visit: no Reason for Continuing Indwelling Catheter: Other Data 07/01/22 01:20 07/01/22 01:20 A&P Assessment and plan (1) Acute kidney injury superimposed on CKD: Patient in need of ongoing dialysis. I discussed with her the need for a different type of catheter. I reviewed the risks of infection, bleeding, malpositioning, and pneumothorax. Her sister is also present at bedside, but does not yet have formal POA. All questions were answered to their satisfaction. They would like to proceed with placement of hemodialysis catheter. Coding Level of Care Code Acute Clinical Dietetic Technician for [facility] Diagnoses Acute kidney injury superimposed on CKD N17.9; N18.9
[2022-07-01] MEDS: ceFAZolin 2,000 MG in sodium chloride 0.9% (plus) 50 ML 100 MG IV (13:17)
--- NOTE | 2022-07-01 13:43 | SC_ITS ---
WS: [id number] EXAMINATION: C-arm [place] for CVA [id number] REASON FOR EXAM: dialysis cath COMPARISON: 07/01/2022 ORDER DATE: 07/01/2022 1:43 PM FINDINGS: A nontunneled dialysis catheter has been exchanged for a tunneled dialysis catheter in the right jugu lar approach SC/C-arm [place] for CVA [id number] IMPRESSION: Replacement of a nontunneled dialysis catheter was tunneled dialysis split cath eter in the right atrium.
[2022-07-01] MEDS: heparin, porcine 1,000 unit/mL INJ 10 mL 6000 UNIT HE (13:50)
--- NOTE | 2022-07-01 13:53 | ANES.PREANE2 ---
Pre-Anesthetic Assessment Height/Weight: Height 1.57 m Weight 65.1 kg Temp Pulse Resp BP Pulse Ox O2 Del Method O2 Flow Rate 97.7 F 76 16 159/68 95 2 07/01/22 12:59 07/01/22 12:59 07/01/22 12:59 07/01/22 12:59 07/01/22 08:50 07/01/22 08:50 07/01/22 08:50 Preop Diagnosis: Acute on top of chronic kidney failure Operation Date: 06/23/22 14:10 Proposed Procedures p temporary Dialysis Catheter Insertion(Not Applicable) - Nathan Posadas MD Operation Date: 07/01/22 11:45 Proposed Procedures p Dialysis Catheter Insertion(Left) - Olena Garcia MD Familial anesthetic complications: None Was Beta Giovanni taken within 24 hours: Yes Was Clonidine taken within 24 hours: N/A Social No alcohol and No tobacco Exam alert, oriented x 3, clear to auscultation bilaterally and regular rate & rhythm Airway Submandibular: within normal limits Cervical ROM: within normal limits Mallampati: Class II Dentition: chipped CV/HEM Congestive Heart Failure (EF nl) and Hypertension Chronic Renal Failure Metabolic Hyperlipidemia and Thyroid Disease Anesthetic Plan ASA status: 3 Anesthesia: MAC Medications/Allergies Home Medications Medication Instructions Recorded Confirmed Last Taken Type amlodipine 5 mg tablet 10 mg PO DAILY 06/19/22 06/19/22 06/19/22 History atorvastatin 40 mg tablet 40 mg PO BEDTIME 06/19/22 06/19/22 06/18/22 History budesonide-formoterol HFA 160 2 puff inhalation BID PRN 06/19/22 06/19/22 06/19/22 History mcg-4.5 mcg/actuation aerosol Shortness Of Breath Or Wheezing inhaler (Symbicort) fluticasone fur. 200 mcg-umeclid 1 inh inhalation DAILY 06/19/22 06/19/22 06/19/22 History 62.5 mcg-vilant 25 mcg inhalat.powder (Trelegy Ellipta) levothyroxine 50 mcg tablet 50 mcg PO QAM 06/19/22 06/19/22 06/19/22 History metoprolol succinate 50 mg 50 mg PO DAILY 06/19/22 06/19/22 06/19/22 History tablet,extended release 24 hr Allergies Allergy/AdvReac Type Severity Reaction Status Date / Time No Known Allergies Allergy Verified 06/22/22 13:44 Current Medications Generic Name Dose Route Start Last Admin Trade Name Freq PRN Reason Stop Dose Admin Acetaminophen 650 mg 06/19/22 15:48 06/28/22 05:20 Acetaminophen 325 Mg Tablet PO 650 mg Q6H PRN Administration Mild/Mod Pain Or Temp >/= 101 Albuterol/Ipratropium 3 ml 06/21/22 14:00 07/01/22 08:50 Ipratropium-Albuterol 3 Ml Neb INHALATION 3 ml Q6H AUBRIE Administration Amlodipine Besylate 10 mg 07/01/22 09:00 07/01/22 08:08 Amlodipine 5 Mg Tablet PO 10 mg DAILY AUBRIE Administration Atorvastatin Calcium 40 mg 06/19/22 21:00 06/30/22 21:50 Atorvastatin 40 Mg Tablet PO 40 mg BEDTIME AUBRIE Administration Budesonide 0.5 mg 06/21/22 20:00 07/01/22 08:50 Budesonide 0.5 Mg/2 Ml Neb INHALATION 0.5 mg BID.RESPIRATORY AUBRIE Administration Heparin Sodium (Porcine) 5,000 unit 06/29/22 13:30 07/01/22 01:28 Heparin 5,000 Unit/Ml Inj 1 Ml SUBCUT 5,000 unit Q12H AUBRIE Administration Hydralazine HCl 100 mg 06/27/22 21:00 07/01/22 08:04 Hydralazine 50 Mg Tablet PO 100 mg TID AUBRIE Administration Isosorbide Mononitrate 120 mg 06/24/22 09:00 07/01/22 08:09 Isosorbide Mononitrate Er 60 Mg Tablet PO 120 mg DAILY AUBRIE Administration Levothyroxine Sodium 50 mcg 06/22/22 06:00 07/01/22 05:47 Levothyroxine 50 Mcg Tablet PO 50 mcg QAM AUBRIE Administration Multivitamins 1 each 06/28/22 09:00 07/01/22 08:06 C-Hhvqjrp-Dnrgqmg C Tablet PO 1 each DAILY AUBRIE Administration Ondansetron HCl 4 mg 06/19/22 15:48 06/25/22 14:18 Ondansetron 2 Mg/Ml Sdv 2 Ml IVP 4 mg Q8H PRN Administration vomiting, or N/V if npo Pantoprazole Sodium 40 mg 06/21/22 18:00 07/01/22 08:[address] 40 Mg Tablet PO 40 mg BID AUBRIE Administration Polyethylene Glycol 17 gm 06/21/22 12:15 07/01/22 09:32 Polyethylene Glycol 3350 Pkt 17 Gm PO Not Given DAILY AUBRIE Senna/Docusate Sodium 1 tab 06/21/22 18:00 07/01/22 08:07 Sennosides-Docusate Tablet PO 1 tab BID AUBRIE Administration PFSH Anesthesia Medical History CKD (chronic kidney disease) History of hyperlipidemia History of hypertension History of hypothyroidism Surgical History History of cholecystectomy Family History Mother CAD (coronary artery disease) Father CAD (coronary artery disease) Social History Smoking and tobacco status: never smoked Alcohol intake: never Substance/Drug Use: never Data Anesthesia 07/01/22 01:20 07/01/22 01:20 Short CBC 06/30/22 07/01/22 Range/Units 05:42 01:20 WBC 8.1 7.6 (4.0-10.0) 10^3/uL Hgb 10.3 L 9.9 L (11.5-15.3) g/dL Hct 32.8 L 30.6 L (37.0-47.0) % MCV 88.6 87.9 (81-99) fl Plt Count 295 291 (130-400) 10^3/cmm Neut % (Auto) 75.0 77.2 % Neut # (Auto) 6.06 5.86 (1.8-7.7) 10^3/uL BMP 06/30/22 07/01/22 05:42 01:20 Sodium 134 L 133 L Potassium 4.0 3.6 Chloride 98 98 Carbon Dioxide 26 25 BUN 23 29 H Creatinine 3.2 H 4.0 H Glucose 88 131 H Calcium 8.6 8.1 L Liver Function 06/30/22 07/01/22 Range/Units 05:42 01:20 Total Bilirubin 0.3 0.2 (0.15-1.2) mg/dL AST 53 H 35 H (0-32) U/L ALT 47 H 37 H (0-33) U/L Alkaline Phosphatase 100 88 (35-105) U/L Albumin 2.6 L 2.5 L (3.5-5.2) g/dL Cardiac Studies: Echocardiogram 06/20/22
[2022-07-01 14:26] LABS: Glomerular Bsmt Membrane IGG <1.0 AI
--- NOTE | 2022-07-01 14:35 | PM.OP ---
Operative Report Date of procedure: July 01, 2022 Pre-op diagnosis: Preop Diagnosis Acute on top of chronic kidney failure Preop Diagnosis Acute on top of chronic kidney failure Post-op diagnosis: Same Procedure done: Insertion of tunneled dialysis catheter Specimens removed/disposition: None Surgeon: Olena Garcia MD Estimated blood loss: 5 mL Complications: None Findings: Non-tunneled right internal jugular catheter exchanged for tunneled dialysis catheter. Both ports aspirated and flushed freely. Each port instilled with full-strength heparin after final flush. Brief History: Bianka Kirby is an 82-year-old patient who has been receiving dialysis via non-tunneled catheter for acute on chronic renal failure who is anticipated to need ongoing hemodialysis. A tunneled catheter was requested for this purpose. Procedure: The patient was brought to the operating room and placed on table in the supine position. The chest and neck were prepped with ChloraPrep and sterilely draped. The existing catheter was prepped into the field. Skin at the proposed catheter exit site as well as subcutaneous tissue along the tract were infiltrated with 0.5% Marcaine and 1% lidocaine with epinephrine mixed 1:1. The catheter was tunneled from the chest to the catheter site at the neck. Heparin was then aspirated from the distal port on the existing catheter and a guidewire was threaded under fluoroscopic guidance. The temporary catheter was removed leaving the guidewire in place. Dilators were sequentially passed in Seldinger fashion. The sheath was then passed and the guidewire and dilator were removed. Catheter was passed down the sheath and the peel-away sheath was removed. Fluoroscopy was used to ensure no acute angulation in the catheter tract and adequate tip position. Catheter was secured to the skin with 2-0 silk. Skin was closed at the neck with subcuticular 4-0 Vicryl and Dermabond. Sterile occlusive dressing was applied. The patient tolerated the procedure well and was transferred to recovery in satisfactory condition. At the end of the case, sharps and sponge counts were reported to be correct.
--- NOTE | 2022-07-01 14:40 | XR_ITS ---
WS: [id number] EXAMINATION: XR chest 1V portable [id number] REASON FOR EXAM: catheter placement COMPARISON: None available. ORDER DATE: 07/01/2022 2:40 PM TECHNIQUE: A single, portable frontal chest x-ray was obtained. X-RAY FINDINGS: A right internal jugular tunneled dialysis catheter is present, with its tip overlying the region of the right atrium. There may be mild pulmonary vascular congestion Lungs: Stable bilateral pleuroparenchymal disease which include small bilateral effusions. Pleural spaces: No pneumothorax. Heart/Mediastinum: Heart is enlarged but stable when compared to the prior exam. Bones/joints: Osseous structures are unchanged from the prior exam. XR/XR chest 1V portable [id number] IMPRESSION: 1. Satisfactory positioning of a tunneled dialysis catheter, with its tip overlying the region of the right atrium. 2. Mild pulmonary vascular congestion 3. Stable bilateral pleuroparenchymal disease including small bilateral effusio ns.
--- NOTE | 2022-07-01 15:54 | PC.OT ---
OT TREATMENT HELD TODAY DUE TO DIALYSIS AND OPERATION. WILL ATTEMPT AGAIN TOMORROW.
[2022-07-01] MEDS: atorvastatin 40 mg Tablet PO (20:29)
[2022-07-01] MEDS: cloNIDine 0.1 mg Tablet 0.2 MG PO (22:27)
[2022-07-02] VITALS (13 sets, daily range): BP systolic 123–144; BP diastolic 60–75; PULSE 45–71; RESP 13–18; TEMP 36.4–36.7; O2SAT 93–99
[2022-07-02] MEDS: heparin 5,000 unit/mL INJ 1 mL 5000 UNIT SUBCUT ×2 (00:52→12:51)
[2022-07-02] MEDS: ipratropium-albuterol 3 mL Neb INHALATION ×3 (02:00→20:24)
[2022-07-02 04:52] LABS: Basophils % 0.4 %; Eosinophils # 0.1 10^3/uL (0.0-0.8); Eosinophils % 1.5 %; Hematocrit 30.8 % (37.0-47.0); Hemoglobin 9.9 g/dL (11.5-15.3); Lymphocytes # 0.7 10^3/uL (0.8-4.8); Lymphocytes % 10.3 %; Mean Corpuscular HGB Conc 32.1 g/dL (30.0-36.0); Mean Corpuscular Hemoglobin 28.5 pg (28.0-34.0); Mean Corpuscular Volume 88.8 fl (81-99); Mean Platelet Volume 9.5 fL (7.4-10.4); Monocytes # 0.7 10^3/uL (0.2-0.9); Neutrophils % 77.2 %; Nucleated Red Blood Cells % 0 %; Platelet Count 275 10^3/cmm (130-400); Red Blood Count 3.47 10^6/uL (4.1-5.3); Red Cell Distribution Width 14.7 % (12.1-15.1); White Blood Count 7.1 10^3/uL (4.0-10.0)
[2022-07-02 05:06] LABS: Alanine Aminotransferase 13 U/L (0-33); Albumin Level 2.5 g/dL (3.5-5.2); Alkaline Phosphatase 79 U/L (35-105); Anion Gap 11.9 (5-19); Aspartate Amino Transferase 24 U/L (0-32); Blood Urea Nitrogen 18 mg/dL (8-23); Calcium 8.2 mg/dL (8.5-10.5); Carbon Dioxide 27 mmol/L (22-29); Chloride 100 mmol/L (98-107); Globulin 2.6 g/dL (1.3-4.6); Glucose 122 mg/dL (65-115); Osmolality Calculated 283 mOsm/kg (285-295); Phosphorus 3.3 mg/dL (2.5-4.5); Potassium 3.9 mmol/L (3.5-5.1); Sodium 135 mmol/L (136-145); Total Bilirubin 0.2 mg/dL (0.15-1.2); Total Protein 5.1 g/dL (6.6-8.7)
[2022-07-02] MEDS: levothyroxine 50 mcg Tablet PO (06:27)
--- NOTE | 2022-07-02 07:08 | PM.PN ---
Subjective Subjective: Patient denies any new complaints. She denies nausea, emesis, fevers or chills. She is tolerating dialysis well. Medications: Reviewed: Yes Vitals/I&O/Wt Last Vital Signs Temp 97.9 F 07/02/22 03:42 Pulse 51 L 07/02/22 03:42 Resp 14 07/02/22 03:42 BP 138/63 07/02/22 03:42 Pulse Ox 98 07/02/22 03:42 O2 Del Method 07/02/22 03:42 O2 Flow Rate 4 07/02/22 03:42 07/01/22 07/02/22 07/02/22 22:59 06:59 14:59 Intake Total 480 / 1090 0 / 1090 Output Total 350 / 3155 25 / 3180 Balance 130 / -2064 - -2089 Physical Exam Narrative: General: Patient is awake. Alert. Frail appearing. Head: Normocephalic. Atraumatic. Neck: No JVD. Cardiovascular: RRR. No gallops. No murmurs. No discernible edema. Lungs: Breath sounds are diminished at bilateral bases., no use of accessory muscles, no crackles or wheezes. Skin: No jaundice. No rashes. Abdomen: Normal bowel sounds, abdomen soft and nontender. Genito Urinary: Genital exam not performed since complaints not related. Rectal: Rectal exam not performed since no symptoms indicated blood loss. Extremities: No cyanosis or clubbing. Musculoskeletal: 5/5 strength, normal range of motion, no swollen or erythematous joints. Neurological: Moves all 4 extremities. No myoclonus. Urinary Catheter Management: Coleman: Cath Placed During This Visit: no Reason for Continuing Indwelling Catheter: Acute Urinary Retention or Obstruction Data 07/02/22 04:44 07/02/22 04:44 A&P Assessment and plan (1) Acute kidney injury superimposed on CKD: Nephrology following, appreciate recommendations Strict I&Os Daily weights Continue Lasix Avoid nephrotoxins Renally dose medications Case management has set up outpatient dialysis Status post tunneled dialysis line placement on 07/01 Will need renal biopsy at some point (2) Hypertensive urgency: Blood pressure has shown some improvement Continue Norvasc Continue Catapres Continue Lasix Continue hydralazine Continue Imdur (3) CHF (congestive heart failure): Acute on chronic diastolic heart failure with preserved ejection fraction Volume control with Lasix and dialysis (4) Pleural effusion, right: Continue to monitor (5) Hypothyroidism: Continue Synthroid Plan DVT ppx: Heparin Code Status: DNR Attestations Medical Necessity Statement*: Patient requires ongoing hospitalization for IV diuresis, dialysis, and supportive care. Coding Level of Care Code Acute Medical Accounts Receivable Specialist for Chg Fwd Diagnoses Acute kidney injury superimposed on CKD N17.9; N18.9 Hypertensive urgency I16.0 CHF (congestive heart failure) I50.9 Pleural effusion, right J90 Hypothyroidism E03.9
[2022-07-02] MEDS: sennosides-docusate Tablet 1 TAB PO ×2 (08:31→16:45)
[2022-07-02] MEDS: amlodipine 5 mg Tablet 10 MG PO (08:31)
[2022-07-02] MEDS: b-complex-vitamin c Tablet 1 EACH PO (08:31)
[2022-07-02] MEDS: pantoprazole DR 40 mg Tablet PO ×2 (08:31→16:45)
[2022-07-02] MEDS: polyethylene glycol 3350 Pkt 17 gm PO (08:32)
[2022-07-02] MEDS: budesonide 0.5 mg/2 mL Neb INHALATION ×2 (09:40→20:24)
--- NOTE | 2022-07-02 11:42 | PC.SOCIAL ---
IMM Updated Updated pt & her sister on IMM. No questions voiced. Provided pt a copy. Initialed, dated, & timed copy in chart.
--- NOTE | 2022-07-02 12:14 | P.PN_ITS ---
Subjective Subjective: no new issues Vitals/I&O/Wt Last Vital Signs Temp 98.0 F 07/02/22 11:52 Pulse 51 L 07/02/22 11:52 Resp 16 07/02/22 11:52 BP 134/75 07/02/22 11:52 Pulse Ox 99 07/02/22 11:52 O2 Del Method 07/02/22 11:52 O2 Flow Rate 4 07/02/22 11:52 07/01/22 07/02/22 07/02/22 22:59 06:59 14:59 Intake Total 480 / 1090 0 / 1090 480 / 480 Output Total 350 / 3155 25 / 3180 Balance 130 / -2065 -25 / -2090 480 / 480 Physical Exam Urinary Catheter Management: Coleman: Cath Placed During This Visit: no Reason for Continuing Indwelling Catheter: Acute Urinary Retention or Obstruction Data 07/02/22 04:44 07/02/22 04:44 A&P Assessment and plan (1) Acute kidney injury superimposed on CKD: pt seen ands examined w/ RN- telehealth visit Plan 1. ADOLFO, CKD, nephrotic syndrome, now on dialysis. s/p placement of tunneled HD catheter. Next HD tomorrow. 2. Hypertensiono: recommend change hydralazine to potent ARB once daily 3. Anemia: epogen and iron as needed at HD Next HD tomorrow. 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 Attestations Medical Necessity Statement*: see above Time Spent in Patient Care: less than 15 minutes Coding Level of Care Code Acute Yard General Car Supervisor for g Fwd Diagnoses Acute kidney injury superimposed on CKD N17.9; N18.9
[2022-07-02] MEDS: cloNIDine 0.1 mg Tablet 0.2 MG PO (20:13)
[2022-07-02] MEDS: hyDRALAzine 50 mg Tablet 100 MG PO (20:13)
[2022-07-02] MEDS: atorvastatin 40 mg Tablet PO (20:13)
[2022-07-03] MEDS: heparin 5,000 unit/mL INJ 1 mL 5000 UNIT SUBCUT (00:40)
[2022-07-03 02:00] VITALS: PULSE 41; O2SAT 96
[2022-07-03] MEDS: ipratropium-albuterol 3 mL Neb INHALATION ×2 (02:16→08:02)
[2022-07-03 03:25] LABS: Basophils % 0.3 %; Eosinophils # 0.3 10^3/uL (0.0-0.8); Eosinophils % 3.2 %; Hematocrit 28.9 % (37.0-47.0); Hemoglobin 9.2 g/dL (11.5-15.3); Lymphocytes # 0.9 10^3/uL (0.8-4.8); Lymphocytes % 11.1 %; Mean Corpuscular HGB Conc 31.8 g/dL (30.0-36.0); Mean Corpuscular Hemoglobin 28.4 pg (28.0-34.0); Mean Corpuscular Volume 89.2 fl (81-99); Mean Platelet Volume 9.2 fL (7.4-10.4); Monocytes # 0.8 10^3/uL (0.2-0.9); Monocytes % 9.7 %; Neutrophils # 5.82 10^3/uL (1.8-7.7); Neutrophils % 74.9 %; Nucleated Red Blood Cells % 0 %; Platelet Count 234 10^3/cmm (130-400); Red Blood Count 3.24 10^6/uL (4.1-5.3); Red Cell Distribution Width 14.6 % (12.1-15.1); White Blood Count 7.8 10^3/uL (4.0-10.0)
[2022-07-03 03:46] LABS: Alanine Aminotransferase < 5 U/L (0-33); Albumin Level 2.3 g/dL (3.5-5.2); Alkaline Phosphatase 83 U/L (35-105); Anion Gap 13.8 (5-19); Aspartate Amino Transferase 15 U/L (0-32); Blood Urea Nitrogen 41 mg/dL (8-23); Calcium 8.2 mg/dL (8.5-10.5); Carbon Dioxide 25 mmol/L (22-29); Chloride 100 mmol/L (98-107); Globulin 2.6 g/dL (1.3-4.6); Glucose 148 mg/dL (65-115); Osmolality Calculated 293 mOsm/kg (285-295); Phosphorus 3.4 mg/dL (2.5-4.5); Potassium 3.8 mmol/L (3.5-5.1); Sodium 135 mmol/L (136-145); Total Bilirubin 0.2 mg/dL (0.15-1.2); Total Protein 4.9 g/dL (6.6-8.7)
[2022-07-03 03:51] VITALS: BP 137/43; PULSE 39; RESP 14; TEMP 36.5; O2SAT 97
[2022-07-03] MEDS: levothyroxine 50 mcg Tablet PO (06:05)
[2022-07-03 07:00] VITALS: BP 138/46
[2022-07-03 08:00] VITALS: BP 127/57; PULSE 37; O2SAT 94
[2022-07-03] MEDS: budesonide 0.5 mg/2 mL Neb INHALATION (08:02)
[2022-07-03 08:04] VITALS: PULSE 42; RESP 18; O2SAT 95
[2022-07-03 08:10] VITALS: PULSE 41
[2022-07-03] MEDS: polyethylene glycol 3350 Pkt 17 gm PO (08:40)
[2022-07-03] MEDS: pantoprazole DR 40 mg Tablet PO (08:40)
[2022-07-03] MEDS: sennosides-docusate Tablet 1 TAB PO (08:41)
[2022-07-03] MEDS: b-complex-vitamin c Tablet 1 EACH PO (08:41)
[2022-07-03] MEDS: amlodipine 5 mg Tablet 10 MG PO (08:41)
--- NOTE | 2022-07-03 09:16 | PM.DCS ---
Discharge Providers Date of Admission: 06/19/22 14:05 Date of Discharge: July 03, 2022 Attending Provider at Admission: Roland Swenson MD Attending Provider at Discharge: Massimo Jones MD Consults: Nephrology Primary Care Provider: Fernando Fish DO Diagnoses at Discharge Discharge Diagnosis (1) Acute kidney injury superimposed on CKD: Status: Acute (2) Hypertensive urgency: Status: Acute (3) CHF (congestive heart failure): Status: Acute (4) Pleural effusion, right: Status: Acute (5) Hypertension: Status: Acute Qualifiers: Hypertension type: renovascular hypertension Qualified Code(s): I15.0 - Renovascular hypertension (6) Hypothyroidism: Status: Acute (7) End stage renal disease: Status: Acute Reason for Visit Reason for Visit: High BP Hospital Course Hospital Course Bianka Kirby is a 82-year-old female with past medical history significant for chronic kidney disease, hyperlipidemia, hypothyroidism, anxiety, and hypertension who presented with shortness of breath, found to have hypertensive urgency with acute kidney injury on chronic kidney disease, pleural effusion, and acute on chronic diastolic heart failure with preserved ejection fraction exacerbation. She was started on nitro drip. Nephrology was consulted and followed. Renal function did not improve and she progressed to end-stage renal disease. General surgery was consulted and tunneled dialysis line was placed. Patient tolerated dialysis. Blood pressure improved. She was found to have debility and physical deconditioning for which she is being discharged to correction facility. Physical Exam Narrative: General: Patient is awake.? Alert.? Frail appearing. No acute distress. Head:? Normocephalic. Atraumatic. Neck: No JVD. Cardiovascular: Bradycardic. No gallops. No murmurs.? Lungs: Breath sounds are diminished at bilateral bases., no use of accessory muscles, no crackles or wheezes. Skin: No jaundice. No rashes. Abdomen: Normal bowel sounds, abdomen soft and nontender. Genito Urinary: Genital exam not performed since complaints not related. Rectal: Rectal exam not performed since no symptoms indicated blood loss. Extremities: No cyanosis or clubbing. Musculoskeletal: No visible deformities Neurological: Moves all 4 extremities. No myoclonus. Urinary Catheter Management: Coleman: Cath Placed During This Visit: no Reason for Continuing Indwelling Catheter: Acute Urinary Retention or Obstruction Discharge Data Studies Completed and Pending Completed Studies During Hospitalization Category Date Time Status CT abdomen pelvis wo con [id number] Urgent Cat Scan 06/21/22 04:[address] head wo con* [id number] Routine Cat Scan 06/19/22 15:48 Completed CXRP [XR chest 1V portable [id number]] AM LABS Exams 06/22/22 04:00 Completed CXRP [XR chest 1V portable [id number]] Routine Exams 07/01/22 14:40 Completed CXRP [XR chest 1V portable [id number]] Stat Exams 06/22/22 16:05 Completed CXRP [XR chest 1V portable [id number]] Urgent Exams 06/23/22 12:10 Completed XR chest 1V portable [id number] Stat Exams 06/19/22 12:55 Completed Cytology [PTH] Routine Pth 06/22/22 08:19 Completed CV. echo complete* [id number] Routine Ultrasound 06/20/22 06:00 Completed US renal BI* [id number] Routine Ultrasound 06/19/22 15:48 Completed US thoracentesis [id number] Routine Ultrasound 06/22/22 09:56 Completed US venous duplex lower extremity bilat [CV venous Ultrasound 06/29/22 07:03 [place] [id number]] Routine Pending at discharge Category Date Time Status ANNIE Screen w/ Reflex Routine Lab 06/28/22 04:22 Results Anti-Neutrophil Cytoplasmic AB Routine Lab 06/28/22 04:22 Results Glomerular Basement AB IGG Routine Lab 06/28/22 04:22 Results SARS Covid-2 Antigen Routine Lab 07/03/22 08:17 Uncollected Radiology Impressions Head CT 06/19/22 15:48 IMPRESSION: 1. No acute intracranial abnormality. 2. Chronic white matter ischemic disease Renal Ultrasound 06/19/22 15:48 IMPRESSION: 1. No hydronephrosis of either kidney. 2. There may be some renal parenchymal thinning bilaterally. This appearance is similar to the prior exam. 3. Bilateral renal cysts, details above. 4. Other findings discussed above. Abdomen/Pelvis CT 06/21/22 04:44 IMPRESSION: 1. Imaging findings of gastritis. 2. Moderate right and small left pleural effusion with adjacent atelectasis. Pneumonia should be excluded clinically. 3. Nonspecific left adrenal mass. Further characterization with contrast enhanced abdomen MRI should be considered in the adequate clinical setting. COMMENTS: 1. Consistent with the [employer]'s Incidental Findings Committee white paper (J Am Jean Marie Radiol 2017): For any incidental adrenal lesion greater than or equal to 1 cm but less than or equal to 4 cm classified in this report as benign, likely benign, or containing fat (including classification as an adenoma or myelolipoma), no follow-up imaging is recommended per consensus recommendations based on imaging criteria. Further lab evaluation could be pursued if warranted based on clinical findings. 2. Consistent with the [employer] [place] [employer]'s Incidental Findings Committee white paper (J Am Jean Marie Radiol 2018): Any incidental renal lesion less than 1 cm or classified as too small to characterize, or any incidental cystic renal lesion characterized as simple-appearing, is likely benign. No follow-up imaging is recommended for these lesions per consensus recommendations based on imaging criteria. Thoracentesis Ultrasound 06/22/22 09:56 IMPRESSION: 1. RIGHT thoracentesis yielding 800 cc of fluid. 2. Chest radiograph to follow to evaluate for pneumothorax. C-Arm Fluoroscopy 07/01/22 13:43 IMPRESSION: Replacement of a nontunneled dialysis catheter was tunneled dialysis split catheter in the right atrium. Chest X-Ray 07/01/22 14:40 IMPRESSION: 1. Satisfactory positioning of a tunneled dialysis catheter, with its tip overlying the region of the right atrium. 2. Mild pulmonary vascular congestion 3. Stable bilateral pleuroparenchymal disease including small bilateral effusions. Laboratory Results WBC 7.8 10^3/uL (4.0-10.0) 07/03/22 03:17 RBC 3.24 10^6/uL (4.1-5.3) L 07/03/22 03:17 Hgb 9.2 g/dL (11.5-15.3) L 07/03/22 03:17 Hct 28.9 % (37.0-47.0) L 07/03/22 03:17 MCV 89.2 fl (81-99) 07/03/22 03:17 MCH 28.4 pg (28.0-34.0) 07/03/22 03:17 MCHC 31.8 g/dL (30.0-36.0) 07/03/22 03:17 RDW 14.6 % (12.1-15.1) 07/03/22 03:17 Plt Count 234 10^3/cmm (130-400) 07/03/22 03:17 MPV 9.2 fL (7.4-10.4) 07/03/22 03:17 Neut % (Auto) 74.9 % 07/03/22 03:17 Lymph % (Auto) 11.1 % 07/03/22 03:17 [place] % (Auto) 9.7 % 07/03/22 03:17 Eos % (Auto) 3.2 % 07/03/22 03:17 Baso % (Auto) 0.3 % 07/03/22 03:17 Neut # (Auto) 5.82 10^3/uL (1.8-7.7) 07/03/22 03:17 Lymph # (Auto) 0.9 10^3/uL (0.8-4.8) 07/03/22 03:17 [place] # (Auto) 0.8 10^3/uL (0.2-0.9) 07/03/22 03:17 Eos # (Auto) 0.3 10^3/uL (0.0-0.8) 07/03/22 03:17 Baso # (Auto) 0.0 10^3/uL (0.0-0.1) 07/03/22 03:17 Nucleated RBC % (auto) 0 % 07/03/22 03:17 Nucleated RBCs # 0.0 /100WBC 07/03/22 03:17 Differential Comment Yes 06/22/22 15:00 Sodium 135 mmol/L (136-145) L 07/03/22 03:17 Potassium 3.8 mmol/L (3.5-5.1) 07/03/22 03:17 Chloride 100 mmol/L (98-107) 07/03/22 03:17 Carbon Dioxide 25 mmol/L (22-29) 07/03/22 03:17 Anion Gap 13.8 (5-19) 07/03/22 03:17 BUN 41 mg/dL (8-23) H 07/03/22 03:17 Creatinine 4.4 mg/dL (0.5-0.9) H 07/03/22 03:17 GFR Calculation Not Reportable 07/03/22 03:17 Glucose 148 mg/dL (65-115) H 07/03/22 03:17 POC Glucose 126 mg/dL (70-110) H 07/01/22 06:39 Estimat Average Glucose 111 06/19/22 12:23 Hemoglobin A1c 5.5 % (4.0-6.0) 06/19/22 12:23 Calculated Osmolality 293 mOsm/kg (285-295) 07/03/22 03:17 Uric Acid 5.7 mg/dL (2.4-5.7) 06/28/22 04:22 Calcium 8.2 mg/dL (8.5-10.5) L 07/03/22 03:17 Phosphorus 3.4 mg/dL (2.5-4.5) 07/03/22 03:17 Magnesium 2.0 mg/dL (1.7-2.3) 07/03/22 03:17 Iron 39 ug/dL (37-145) 06/29/22 02:50 TIBC 188 mcg/dl 06/29/22 02:50 % Saturation 20.7 % (20-50) 06/29/22 02:50 Unsat Iron Binding 149 ug/dL (112-347) 06/29/22 02:50 Ferritin 292 ng/mL (15-150) H 06/29/22 02:50 Total Bilirubin 0.2 mg/dL (0.15-1.2) 07/03/22 03:17 AST 15 U/L (0-32) 07/03/22 03:17 ALT < 5 U/L (0-33) 07/03/22 03:17 Alkaline Phosphatase 83 U/L (35-105) 07/03/22 03:17 Lactate Dehydrogenase 374 U/L (135-214) H 06/22/22 02:56 Troponin T Baseline 38 ng/L (0-10) H 06/20/22 08:35 Troponin T 120 Minute 40.54 ng/L (0-10) H 06/20/22 10:43 Delta Troponin T 2.54 ABS# (0-10) 06/20/22 10:43 Troponin T Hi Sens 6Hr 38.36 ng/L (0-10) H 06/20/22 15:15 Troponin T Hi Sens 6Hr Delta 0.36 ng/L (0-12) 06/20/22 15:15 NT-Pro-B Natriuret Pep 8407 pg/mL (0-450) H 06/29/22 02:50 Total Protein 4.9 g/dL (6.6-8.7) L 07/03/22 03:17 Albumin 2.3 g/dL (3.5-5.2) L 07/03/22 03:17 Globulin 2.6 g/dL (1.3-4.6) 07/03/22 03:17 Triglycerides 224 mg/dL (0-150) H 06/19/22 12:23 Cholesterol 211 mg/dL (0-200) H 06/19/22 12:23 LDL Cholesterol, Calc 112 mg/dL (50-129) 06/19/22 12:23 HDL Cholesterol 54 mg/dL (60-100) L 06/19/22 12:23 LDL/HDL Ratio 2.07 RATIO (0.00-3.22) 06/19/22 12: Cholesterol/HDL Ratio 3.91 mg/dL (0.0-4.40) 06/19/22 12:23 25-OH Vitamin D Total 19 ng/mL (30-100) L 06/29/22 02:50 TSH 6.71 uIU/mL (0.27-4.20) H 06/19/22 12:23 Free T4 1.19 ng/dL (0.82-1.77) 06/21/22 04:30 Free T3 2.0 PG/ML (2.0-4.4) 06/21/22 04:30 PTH Intact 74.6 pg/mL (15-65) H 06/29/22 02:50 Calcium (PTH Intact) 8.3 mg/dL (8.5-10.5) L 06/29/22 02:50 Urine Color Yellow (Yellow) 06/23/22 13:30 Urine Appearance Cloudy (CLEAR) A 06/23/22 13:30 Urine pH 5 (5-7) 06/23/22 13:30 Ur Specific [place] 1.015 (1.005-1.030) 06/23/22 13:30 Urine Protein 3+ (Negative) H 06/23/22 13:30 Urine Glucose (UA) 2+ (Normal) H 06/23/22 13:30 Urine Ketones Negative (Negative) 06/23/22 13:30 Urine Blood 2+ (Negative) H 06/23/22 13:30 Urine Nitrate Negative (Negative) 06/23/22 13:30 Urine Bilirubin Neg (Negative) 06/23/22 13:30 Urine Urobilinogen Neg mg/dL (Negative) 06/23/22 13:30 Ur Leukocyte Esterase Negative (Negative) 06/23/22 13:30 Urine RBC 0-4 /hpf (0-2) H 06/23/22 13:30 Urine WBC 0-4 /hpf (0-5) H 06/23/22 13:30 Ur Eosinophil Smear 0 (0-0) 06/19/22 19:07 Ur Squamous Epith Cells 0-4 /hpf (0-5) H 06/23/22 13:30 Amorphous Sediment Not Reportable 06/23/22 13:30 Urine Bacteria 4+ /hpf (NONE) H 06/23/22 13:30 Hyaline Casts 0-4 /lpf H 06/23/22 13:30 Fine Granular Casts 0-4 /lpf H 06/23/22 13:30 Urine Eosinophils No eosinophils seen 06/19/22 19:07 Ur Random Microalbumin 919 ug/dL (0-20) H 06/19/22 19:07 U Random Total Protein 1445 mg/dL 06/19/22 19:07 Ur Random Sodium 60 mmol/L 06/19/22 19:07 Ur Random Potassium 30 mmol/L 06/19/22 19:07 Ur Random Chloride 61 mmol/L 06/19/22 19:07 Urine Creatinine 77 mg/dL (-217) 06/19/22 19:07 Urine Creatinine 81 mg/dL (-217) 06/19/22 19:07 Microalb/Creat Ratio 52815 mg/dL (0-20) H 06/19/22 19:07 Fluid Color Pale yellow 06/22/22 15:00 Fluid Appearance Clear 06/22/22 15:00 Fluid Specific Grav 1.005 06/22/22 15:00 Fluid pH 7.0 06/22/22 15:00 Fluid WBC 337 /uL 06/22/22 15:00 Fluid RBC 0 10^3/uL 06/22/22 15:00 Fld Polynuclear WBCs # 0.016 06/22/22 15:00 Fld Polynuclear WBCs % 4.800 % 06/22/22 15:00 Fl Mononucl WBCs #(Auto) 0.321 06/22/22 15:00 Fl Mononuclear % Auto 95.200 % 06/22/22 15:00 Fluid Glucose 170.0 mg/dL 06/22/22 15:00 Fluid Albumin 0.8 g/dL 06/22/22 15:00 Fluid LDH 76 U/L 06/22/22 15:00 Fluid Amylase 66 U/L 06/22/22 15:00 Fluid Alk Phosphatase 6 IU/L 06/22/22 15:00 Fluid Cholesterol 23 mg/dL (0-200) 06/22/22 15:00 Fluid Triglycerides 17 mg/dL (0-150) 06/22/22 15:00 Fluid Uric Acid 9 mg/dL 06/22/22 15:00 Pleural Total Protein 1.5 g/dL 06/22/22 15:00 ANNIE Screen Negative (NEGATIVE) 06/28/22 04:22 Anti-ds DNA IgG Ab <1 IU/mL 06/27/22 04:37 Glomerular Base Mem IgG <1.0 AI 06/28/22 04:22 Hep Bs Antigen Non-reactive (Nonreactive) 06/23/22 18:09 Hep Bs Antibody 3.5 (11.5-1000) L 06/23/22 18:09 Hep B Core Total Ab Non-reactive (Nonreactive) 06/23/22 18:09 Anti-Streptolysin O Ab <50 IU/mL (<200) 06/27/22 04:37 Procedures Performed Tunneled dialysis line placement Vitals Last Vital Signs Temp 97.7 F 07/03/22 03:51 Pulse 41 L 07/03/22 08:10 Resp 18 07/03/22 08:04 BP 127/57 07/03/22 08:00 Pulse Ox 95 07/03/22 08:04 O2 Del Method 07/03/22 08:04 O2 Flow Rate 4 07/03/22 08:04 Discharge Plan Discharge Patient Disposition: Xfer SNF Condition: Stable Prescriptions: New hydralazine 50 mg Tablet 100 mg PO TID PRN (Reason: BP > 180/120 mmHg) Qty: 90 0RF amlodipine 5 mg Tablet 10 mg PO DAILY Qty: 60 0RF isosorbide mononitrate 60 mg Tablet Extended Release 24 Hr 120 mg PO DAILY Qty: 60 0RF Continued atorvastatin 40 mg tablet 40 mg PO BEDTIME metoprolol succinate 50 mg tablet extended release 24 hr 50 mg PO DAILY levothyroxine 50 mcg tablet 50 mcg PO QAM Symbicort 160-4.5 mcg/actuation HFA aerosol inhaler 2 puff INHALATION BID PRN (Reason: Shortness Of Breath Or Wheezing) Trelegy Ellipta 200-62.5-25 mcg blister with device 1 inh INHALATION DAILY Discontinued amlodipine 5 mg tablet 10 mg PO DAILY Discharge Orders: Discharge Order (Routine); Ordered 07/03/22 Ordered By: Massimo Jones Referrals: [facility] ([facility] [Outside] [facility] [Outside] Fernando Fish DO [Primary Care Provider] - 4-7 days Discharge Diet: Advance as tolerated and Usual diet Discharge Activity: Resume usual activity and Increase activity as tolerated Patient Instructions: Opioid Safety Activity Restrictions/Additional Instructions: Advance activity as tolerated. Plan of Treatment: 1. Take medications as prescribed 2. Attend dialysis 3. Follow-up with PCP Discharge Attestations Time Spent in Discharge Care*: greater than 30 min Status at Discharge: Overall status at discharge: patient is progressing back to baseline Quality Metrics Clinical Quality Measures [ No reported AMI, CVA or VTE this stay] Coding Level of Care Code Acute Chg [facility] note Diagnoses Acute kidney injury superimposed on CKD N17.9; N18.9 Hypertensive urgency I16.0 CHF (congestive heart failure) I50.9 Pleural effusion, right J90 Hypertension I15.0 Hypertension type: renovascular hypertension Hypothyroidism E03.9 End stage renal disease N18.6
[2022-07-03 10:26] LABS: SARS Covid-2 Antigen negative (Negative)
--- NOTE | 2022-07-03 11:46 | PC.NURSE ---
Report called to RUTH ANN Goldstein, at [facility].
[2022-07-04 16:25] LABS: ANCA Screen NEGATIVE (NEGATIVE)
== END 2022-07-03 12:00 | disposition skilled nursing facility (03) | DRG 291 ==
LOC: ER 12:58 → ICU 14:06 → MEDSURG 06-29 08:04
PROVIDERS: Hospitalist; Internal Medicine; Internal Medicine Nephrology; Student in an Organized Health Care Education/Training Program; Surgery; Admitting Provider Family Medicine; Emergency Provider Physician Assistant; PCP Electrodiagnostic Medicine; Visit Provider Internal Medicine
PROC: 02H633Z Insertion of Infusion Device into Right Atrium, Percutaneous Approach (ICD-10-PCS; principal; 2022-06-23 14:10)
PROC: 02PA33Z Removal of Infusion Device from Heart, Percutaneous Approach (ICD-10-PCS; principal; 2022-07-01 11:45)
DX: I13.2 Hypertensive heart and chronic kidney disease with heart failure and with stage 5 chronic kidney disease, or end stage renal disease (principal); I50.33 Acute on chronic diastolic (congestive) heart failure; N18.6 End stage renal disease; J96.01 Acute respiratory failure with hypoxia; N17.9 Acute kidney failure, unspecified; G93.40 Encephalopathy, unspecified; J90 Pleural effusion, not elsewhere classified; N04.9 Nephrotic syndrome with unspecified morphologic changes; I15.0 Renovascular hypertension; I16.0 Hypertensive urgency; E03.9 Hypothyroidism, unspecified; F41.9 Anxiety disorder, unspecified; E78.5 Hyperlipidemia, unspecified; Z66 Do not resuscitate; I48.91 Unspecified atrial fibrillation; K29.70 Gastritis, unspecified, without bleeding; N94.9 Unspecified condition associated with female genital organs and menstrual cycle
CPT/HCPCS: 12345; 32555; 36415; 36416; 70450; 71045; 74176; 76770; 77001; 80048; 80053; 80061; 80069; 80503; 81001; 82042; 82044; 82150; 82306; 82310; 82436; 82465; 82570; 82728; 82945; 82962; 83036; 83520; 83540; 83550; 83615; 83735; 83880; 83970; 83986; 84075; 84100; 84133; 84156; 84157; 84300; 84315; 84439; 84443; 84478; 84481; 84484; 84550; 84560; 85025; 85999; 86036; 86038; 86060; 86225; 86705; 86706; 87070; 87075; 87086; 87205; 87340; 87426; 88108; 88305; 89050; 90935; 93005; 93306; 93970; 94640; 96365; 96366; 96372; 97110; 97116; 97161; 97165; 97530; 97535; 99285; C1750; C1752; C9113; J0171; J0360; J0690; J1644; J1940; J2270; J2405; J2704; J3480; J3490; J7626; Q3014

== ENCOUNTER → 2022-11-17 10:59 | Outpatient (BNVA) | payer MEDICARE, SELFPAY | PROVIDERS: PCP Electrodiagnostic Medicine; Visit Provider Podiatrist Foot & Ankle Surgery | DX: I73.9 Peripheral vascular disease, unspecified (principal); N18.6 End stage renal disease; N18.9 Chronic kidney disease, unspecified; B35.1 Tinea unguium; L84 Corns and callosities | CPT/HCPCS: 11055; 11721; 99203 ==

== ENCOUNTER → 2023-07-13 14:48 | Outpatient (BNVA) | payer MEDICARE, SELFPAY | PROVIDERS: PCP Electrodiagnostic Medicine; Visit Provider Podiatrist Foot & Ankle Surgery | DX: L60.0 Ingrowing nail (principal); N18.6 End stage renal disease; N18.9 Chronic kidney disease, unspecified; B35.1 Tinea unguium; I73.9 Peripheral vascular disease, unspecified; L84 Corns and callosities; E11.22 Type 2 diabetes mellitus with diabetic chronic kidney disease | CPT/HCPCS: 11721 ==

== ENCOUNTER → 2023-09-30 13:34 | Outpatient (BNVA) | payer MEDICARE, SELFPAY | PROVIDERS: PCP Electrodiagnostic Medicine; Visit Provider Podiatrist Foot & Ankle Surgery | DX: B35.1 Tinea unguium (principal); N18.6 End stage renal disease; N18.9 Chronic kidney disease, unspecified; I73.9 Peripheral vascular disease, unspecified; L84 Corns and callosities | CPT/HCPCS: 11055; 11721 ==

== ENCOUNTER → 2023-12-14 15:37 | Outpatient (BNVA) | payer MEDICARE, SELFPAY | PROVIDERS: PCP Electrodiagnostic Medicine; Visit Provider Podiatrist Foot & Ankle Surgery | DX: B35.1 Tinea unguium (principal); N18.6 End stage renal disease; N18.9 Chronic kidney disease, unspecified; I73.9 Peripheral vascular disease, unspecified; L84 Corns and callosities | CPT/HCPCS: 11056; 11721 ==

== ENCOUNTER 2024-02-14 10:33 | Day surgery (SDC) | payer MEDICARE, SELFPAY ==
[2024-02-14 11:05] VITALS: BP 201/65; PULSE 58; RESP 20; TEMP 36.5; O2SAT 92; BMI 27.4
[2024-02-14 11:13] LABS: INR 0.97 (0.8-1.2)
--- NOTE | 2024-02-14 11:13 | US_ITS ---
WS: [id number] ULTRASOUND-GUIDED THORACENTESIS CLINICAL INFORMATION: Pleural Effusion PROCEDURE: Informed consent: The risks, benefits, and alternatives of the procedure were discussed with the florian ent. Verbal and written consent was obtained. Timeout: A timeout was performed to confirm the correct patient, procedure, and site. Site: RIGHT Preparation: A suitable skin site was identified. The patient was prepped and draped in usual sterile fashion. Lidocaine 1% was used for local anesthesia. Catheter: 4 Greek One-Step catheter. Fluid Volume: 900 ml Color: Clear yellow 50 cc sent to the laboratory for further analysis. Patient disposition: Discharged from the department in stable condition. / thoracentesis [id number] IMPRESSION: 1. Ultrasound-guided RIGHT thoracentesis with removal of 900 cc. 2. Labs are pending. 3. Postthoracentesis radiograph demonstrates small RIGHT lateral and subpulmon ic pneumothorax likely due to fibrotic lung and adhesions Patient to follow-up with Dr. Fish this week for evaluation. Patient instru cted to return to the ER if chest pain or progressive shortness of breath. Patient is saturating 93% on room air at discharge Discussed with Fernando Fish DO at 02/14/2024 1:29 PM.
--- NOTE | 2024-02-14 12:36 | XR_ITS ---
WS: [id number] CHEST XRAY TECHNIQUE: Portable chest. CLINICAL INFORMATION: RT LUNG THORACENTESIS COMPARISON: 02/07/2024 FINDINGS: RIGHT dual-lumen central venous catheter. Heart: Cardiomegaly. Lungs: Improved RIGHT pleural effusion status post thoracentesis. Small RIGHT lateral and subpulmonic pneumothorax. Stable pleural opacity RIGHT upper lobe. LEFT lung is well aerated. Bones: Osteopenia. XR/XR chest 1V portable [id number] IMPRESSION: 1. Status post RIGHT thoracentesis with removal of 900 cc. Improved RIGHT pleu ral effusion. 2. Small RIGHT lateral and subpulmonic pneumothorax. 3. Stable RIGHT upper lobe pleural opacity. Recommend further evaluation with chest CT. 4. Cardiomegaly.
[2024-02-14 13:04] LABS: Mononuclear %, Pleural Fluid 98 %; Polynuclear Cells, Pleural % 2 %
[2024-02-14 13:16] LABS: Cyto Order Verification No Order
--- NOTE | 2024-02-14 13:19 | XR_ITS ---
WS: [id number] CHEST XRAY TECHNIQUE: Portable chest. CLINICAL INFORMATION: RE-CHECK POST THORA COMPARISON: None. FINDINGS: Heart: Cardiomegaly. Lungs: Small RIGHT lateral and subpulmonic pneumothorax. Subpulmonic portion appears slightly improve d compared to earlier today. RIGHT lateral pneumothorax component is adjacent to the RIGHT upper lobe pleural opacity and may be due to chronic adhesions or pleural fibrosis in this area. Recommend ches t CT to evaluate the pleural opacity. Neoplasm is not excluded. Bones: Osteopenia. XR/XR chest 1V portable [id number] IMPRESSION: 1. Improved RIGHT pleural effusion status post thoracentesis. No significant r esidual pleural fluid. 2. Small RIGHT upper lobe lateral and subpulmonic pneumothorax. Subpulmonic co mponent appears slightly improved. 3. Stable pleural opacity RIGHT upper lobe measuring 3.7 cm. Recommend chest C T in further evaluation.
[2024-02-14 13:20] LABS: Appearance, Pleural Fluid CLEAR (CLEAR); Color, Pleural Fluid Pale Yellow (Pale Yellow); LDH Pleural Fluid 92 U/L; Other Cells Pleural Fluid 0 %; PATH Referal YES; Total Protein Pleural Fluid 2.5 g/dL
--- NOTE | 2024-02-14 14:14 | PC.NURSE ---
1400-Second CXR done and Dr Damon came over to speak to patient and family. CXR still shows a pocket of air in the rt upper lobe. Dr Damon spoke to Dr Fish and pt will see him on Wed of this week for follow-up. Pt O2 sats remained 94-95 on room air and pt says breathing better since thoracentesis done. Dr Damon said ok for pt to go home.
== END 2024-02-14 14:13 | disposition home or self-care (01) ==
PROVIDERS: Radiology Neuroradiology; PCP Electrodiagnostic Medicine; Visit Provider Electrodiagnostic Medicine
PROC: (CPT 32554; principal; 2024-02-14 12:00)
DX: J90 Pleural effusion, not elsewhere classified (principal)
CPT/HCPCS: 32555; 71045; 80503; 82945; 83615; 84157; 85610; 87070; 87075; 87205; 88112; 88305; 89050

== ENCOUNTER 2024-02-23 07:29 | Outpatient (CLI) | payer MEDICARE, SELFPAY ==
--- NOTE | 2024-02-23 07:32 | CT_ITS ---
WS: [id number] CT CHEST TECHNIQUE: Contrast enhanced CT of the chest with coronal and sagittal reformatted images. CLINICAL INFORMATION: LUNG MASS COMPARISON: None. DLP: 350.[address] scans at [facility] use at least one of these dose optimization techniques: automated e xposure control; mA and/or kV adjustment per patient size (includes targeted exams where dose is matc hed to clinical indication); or iterative reconstruction. FINDINGS: RIGHT hydropneumothorax with pleural air layering anteriorly. RIGHT upper lobe lung mass me asuring 5.5 x 3.5 cm extending from the pleura to the RIGHT hilum. This can be further evaluated with bronchoscopy. Circumferential small mount of pleural fluid extending to the lung apex. Lack of expan sh[place] RIGHT lung likely due to the lung mass with chronic tethering and pleural fibrosis. Small amount of loculated fluid along the RIGHT fissure. Moderate RIGHT pleural effusion. LEFT lung is well aerated. Small LEFT pleural effusion. Aortic calcification. Normal caliber thoracic aorta. Proximal main pulmonary arteries are normal. Brian ateral thyroid nodules largest on the LEFT measuring 2.2 cm. No mediastinal or hilar lymphadenopathy. LEFT adrenal nodule most likely adenoma measuring 2.2 cm. RIGHT adrenal gland is normal. Diffuse fatt y infiltration of the liver. Portal vein and splenic vein are patent. A few small cysts or hemangioma s in the spleen partially visualized. Partially visualized LEFT kidney cortical atrophy. Moderate tho racic kyphosis. Anterior hypertrophic changes. Far LEFT lateral breast nodule measuring 8 mm. Recommend LEFT breast diagnostic mammography and ultra sound in further evaluation. Nodule is in the inferior far LEFT lateral breast posteriorly RIGHT jugular dual-lumen central venous catheter with tip tips in the IVC and RIGHT atrial junction. CT/CT chest w con* [id number] IMPRESSION: 1. RIGHT upper lobe lung mass compatible with neoplasm measuring 3.4 x 5.5 cm extending from the pleura to the RIGHT hilum. This can be further evaluated wit h bronchoscopy. 2. Similar-appearing RIGHT hydropneumothorax with moderate RIGHT pleural effus ion. Lack of lung reexpansion likely due to chronic tethering from the lung mas s with peripheral fibrosis. 3. Tiny LEFT pleural effusion. 4. LEFT adrenal nodule measuring 2.3 cm statistically most likely adenoma. 5. Small esophageal hiatal hernia. 6. Far LEFT lateral breast nodule measuring 8 mm. Recommend LEFT breast diagn ostic mammography and ultrasound in further evaluation. Nodule is in the inferi or far LEFT lateral breast posteriorly. This is partially visualized on the CT abdomen pelvis 2021 and appears similar Notified Fernando Fish DO at 02/24/2024 9:58 AM.
[2024-02-23] MEDS: iohexol 350 mg/mL 500 mL Btl (per mL) IV (08:10)
== END 2024-02-23 07:30 | disposition home or self-care (01) ==
LOC: RAD 07:29
PROVIDERS: PCP Electrodiagnostic Medicine; Visit Provider Electrodiagnostic Medicine
DX: K44.9 Diaphragmatic hernia without obstruction or gangrene (principal); R91.8 Other nonspecific abnormal finding of lung field; J94.2 Hemothorax; E27.8 Other specified disorders of adrenal gland; R92.8 Other abnormal and inconclusive findings on diagnostic imaging of breast; N63.20 Unspecified lump in the left breast, unspecified quadrant
CPT/HCPCS: 71260; Q9967

== ENCOUNTER → 2024-02-24 11:10 | Outpatient (BNVA) | payer MEDICARE, SELFPAY | PROVIDERS: PCP Electrodiagnostic Medicine; Visit Provider Podiatrist Foot & Ankle Surgery | DX: B35.1 Tinea unguium (principal); N18.6 End stage renal disease; N18.9 Chronic kidney disease, unspecified; I73.9 Peripheral vascular disease, unspecified; L84 Corns and callosities | CPT/HCPCS: 11056; 11721 ==

== ENCOUNTER → 2024-03-21 10:40 | Outpatient (BNVA) | payer MEDICARE, SELFPAY | PROVIDERS: PCP Electrodiagnostic Medicine; Visit Provider Internal Medicine Critical Care Medicine | DX: R91.8 Other nonspecific abnormal finding of lung field (principal); N63.0 Unspecified lump in unspecified breast; F17.211 Nicotine dependence, cigarettes, in remission; J94.8 Other specified pleural conditions; J90 Pleural effusion, not elsewhere classified; R06.09 Other forms of dyspnea; I50.42 Chronic combined systolic (congestive) and diastolic (congestive) heart failure; N18.6 End stage renal disease; Z99.2 Dependence on renal dialysis | CPT/HCPCS: 99205 ==

== ENCOUNTER 2024-04-04 09:46 | Outpatient (CLI) | payer MEDICARE, SELFPAY ==
--- NOTE | 2024-04-04 08:53 | PETR_ITS ---
PROCEDURE INFORMATION: Exam: PET/CT Skull Base to Mid-thigh Exam date and time: 04/04/2024 9:55 AM Age: 83 years old Clinical indication: Abnormal findings; Right upper lobe lung mass compatible with neoplasm measuring 3.4 x 5.5 cm extending from the pleura to the right hilum. This can be further evaluated with bronchoscopy; Prior surgery; Surgery date: 6+ months; Surgery type: Dialysis port; Additional info: Rul mass, remote HX tobacco use. Esrd pleural effusion / multiples thoracentesis no. LABS AND CLINICAL REPORTS: Glucose: 126 mg/dl Treatment strategy for malignancy (PET staging): Initial Staging (PI) TECHNIQUE: Imaging protocol: Following at least four-hour fasting and following the injection of radiopharmaceutical, low dose CT images were obtained. Then, PET images were obtained. Attenuation corrected images were constructed using the CT scan. Fused images of PET and CT were reviewed. The standardized uptake values (SUV) reported below are maximum values within a region of interest, expressed in gm/ml. Exam includes orbital meatal line to mid-thigh. Radiopharmaceutical: 10.35 mCi F-18 FDG (Fluorodeoxyglucose), IV. Time of imaging post radiopharmaceutical administration: 1 hour Injection site: Right antecubital COMPARISON: CT chest w con* [id number] 02/23/2024 8:02 AM, CT abdomen and pelvis 06/21/2022 FINDINGS: Tubes, catheters and devices: A right internal jugular central venous catheter terminates the proximal inferior vena cava. Brain: Visualized brain has normal physiologic uptake. Pharynx: No abnormal uptake. Larynx: No abnormal uptake. Lungs, pleura and trachea: A previously noted right-sided pneumothorax is no longer identified. A solid mass in the right upper lobe adjacent to the lateral pleural surface measures 6.4 x 4.0 cm on series 202, image 223 with elevated uptake, SUV max 10.5. Mild uptake throughout the mid to inferior hemithorax involving the pleural surface is noted, for example at the posteroinferior aspect, SUV max 2.8 on series 301, image 119. A moderate to large right pleural effusion is noted. Heart: Normal physiologic uptake. Mediastinal space: No abnormal uptake. Liver: No abnormal uptake. Gallbladder and biliary ducts: No abnormal uptake. Pancreas: No abnormal uptake. Spleen: No abnormal uptake. Adrenal glands: A solid-appearing left adrenal nodule measuring 2.4 x 1.9 cm on series 202, image 167 is radiotracer avid, SUV max 9.4. Unremarkable right adrenal gland. Kidneys and ureters: Normal physiologic uptake. Mild, right greater than left renal atrophy is noted. Stomach and bowel: Scattered colonic diverticula are noted. A focus of curvilinear uptake within the descending colon is noted, SUV max 8.7 on series 301, image 209. Mild wall thickening in this region appears to be present on CT series 202, image 104, however assessment of the wall of the colon in this location is limited by nondistention. A surgical staple line involving the right colon is identified. Vasculature: No abnormal uptake. Diffuse atherosclerotic changes are present. Lymph nodes: No abnormal uptake. No lymphadenopathy in the head, neck, chest, abdomen, pelvis, and extremities. Skeleton: A small focus of elevated uptake in the proximal right femoral shaft is noted, SUV max 3.1 on series 301, image 254, without a well-defined correlating lesion on CT images. Degenerative changes in the spine are noted. Soft tissues: Benign-appearing regions of muscular uptake are noted, for example in the proximal left dorsal paraspinal cervical musculature. Mild uptake in the mid to distal esophagus is noted, SUV max 3.4 on PET image 120, with possible mild diffuse circumferential wall thickening. Assessment is limited by incomplete distension. A left inguinal hernia contains fat and a short segment of descending colon which does not appear obstructed or strangulated. METRICS: Mediastinal blood pool: SUV max 3.1, SUV mean 2.5 PET/PET skull to thigh INIT [id number] IMPRESSION: 1. A solid right upper lobe mass is radiotracer avid (SUV max 10.5), compatible with malignancy. 2. Mild uptake involving the pleural surface of the right hemithorax is noted, which may be related to inflammatory changes. A malignant etiology cannot be entirely excluded. 3. Moderate to large right pleural effusion is noted, with interval resolution of previously noted right-sided pneumothorax. 4. A solid left adrenal mass is present, with elevated uptake (SUV max 9.4) compatible with malignancy, likely metastatic. 5. A focal region of elevated uptake in the descending colon is present with possible thickening. This uptake may be physiologic or inflammatory in etiology. A malignant etiology cannot be excluded. 6. Mild uptake in the mid to distal esophagus is present with possible wall thickening. This appearance can be associated with esophagitis. A malignant etiology is less likely. 7. A small focus of uptake in the right femoral shaft is present, without a well-defined lesion on the CT images. Physiologic uptake may account for this appearance. A metastatic etiology is less likely. Consider dedicated MRI of the right hip with and without contrast for further evaluation. 8. Additional nonurgent findings as detailed above.
== END 2024-04-04 09:47 | disposition home or self-care (01) ==
LOC: RAD 09:47
PROVIDERS: PCP Electrodiagnostic Medicine; Visit Provider Internal Medicine Critical Care Medicine
DX: R91.8 Other nonspecific abnormal finding of lung field (principal); N63.20 Unspecified lump in the left breast, unspecified quadrant; F17.211 Nicotine dependence, cigarettes, in remission; D38.1 Neoplasm of uncertain behavior of trachea, bronchus and lung; J90 Pleural effusion, not elsewhere classified; D35.02 Benign neoplasm of left adrenal gland; K57.90 Diverticulosis of intestine, part unspecified, without perforation or abscess without bleeding; R93.89 Abnormal findings on diagnostic imaging of other specified body structures; R93.3 Abnormal findings on diagnostic imaging of other parts of digestive tract; Z95.9 Presence of cardiac and vascular implant and graft, unspecified
CPT/HCPCS: 78815; A9552

== ENCOUNTER → 2024-04-12 10:38 | Outpatient (BNVA) | payer MEDICARE, SELFPAY | PROVIDERS: PCP Electrodiagnostic Medicine; Visit Provider Internal Medicine Critical Care Medicine | DX: R91.8 Other nonspecific abnormal finding of lung field (principal); E27.9 Disorder of adrenal gland, unspecified; F17.211 Nicotine dependence, cigarettes, in remission; N18.6 End stage renal disease; Z99.2 Dependence on renal dialysis; J90 Pleural effusion, not elsewhere classified; J94.8 Other specified pleural conditions; Z71.89 Other specified counseling | CPT/HCPCS: 99214; 99215 ==

== ENCOUNTER 2024-04-13 14:02 | Outpatient (CLI) | payer MEDICARE, SELFPAY ==
--- NOTE | 2024-04-13 14:03 | MM_ITS ---
WS: [id number] BILATERAL 3D TOMOSYNTHESIS DIGITAL DIAGNOSTIC MAMMOGRAPHY WITH CAD CLINICAL INFORMATION: 8 mm Left breast nodule HISTORY: LEFT breast nodule COMPARISON: CT chest 02/23/2024 and PET/CT 04/04/2024 TECHNIQUE: Bilateral CC, MLO, and ML views. FINDINGS: Scattered fibroglandular densities bilaterally. Ovoid nodule lateral LEFT breast measuring 1.3 cm cor responds to the findings on the recent CTs. Ultrasound of this area is pending. Vascular calcification. Unremarkable RIGHT breast. Biopsy clip outer LEFT breast anteriorly. ULTRASOUND BREAST LEFT TECHNIQUE: Ultrasound left breast focused area of concern. CLINICAL INFORMATION: 8 mm Left breast nodule FINDINGS: Ultrasound LEFT breast laterally near the 3 o'clock position. In the area of concern, there is a mixe d echogenicity ovoid lesion corresponding to the CT findings. This measures approximately 1.6 x 1.2 x 0.8 cm. This was not FDG avid on the prior PET/CT but is technically indeterminate, especially in a patient this age. This may present an enlarged lymph node or fatty lesion but recommend further evalu ation with ultrasound-guided biopsy for definitive evaluation MM/MM diag BI tomosynthesis [id number] IMPRESSION: DENSITY: There are scattered areas of fibroglandular density. BI-RADS: 0 - Incomplete: Need additional imaging evaluation. FOLLOW UP: US Guided Biopsy Recommended Recommend ultrasound-guided biopsy of the indeterminate LEFT breast nodule
--- NOTE | 2024-04-13 14:16 | US_ITS ---
WS: [id number] BILATERAL 3D TOMOSYNTHESIS DIGITAL DIAGNOSTIC MAMMOGRAPHY WITH CAD CLINICAL INFORMATION: 8 mm Left breast nodule HISTORY: LEFT breast nodule COMPARISON: CT chest 02/23/2024 and PET/CT 04/04/2024 TECHNIQUE: Bilateral CC, MLO, and ML views. FINDINGS: Scattered fibroglandular densities bilaterally. Ovoid nodule lateral LEFT breast measuring 1.3 cm cor responds to the findings on the recent CTs. Ultrasound of this area is pending. Vascular calcification. Unremarkable RIGHT breast. Biopsy clip outer LEFT breast anteriorly. ULTRASOUND BREAST LEFT TECHNIQUE: Ultrasound left breast focused area of concern. CLINICAL INFORMATION: 8 mm Left breast nodule FINDINGS: Ultrasound LEFT breast laterally near the 3 o'clock position. In the area of concern, there is a mixe d echogenicity ovoid lesion corresponding to the CT findings. This measures approximately 1.6 x 1.2 x 0.8 cm. This was not FDG avid on the prior PET/CT but is technically indeterminate, especially in a patient this age. This may present an enlarged lymph node or fatty lesion but recommend further evalu ation with ultrasound-guided biopsy for definitive evaluation US/US breast LT limited* [id number] IMPRESSION: DENSITY: There are scattered areas of fibroglandular density. BI-RADS: 0 - Incomplete: Need additional imaging evaluation. FOLLOW UP: US Guided Biopsy Recommended Recommend ultrasound-guided biopsy of the indeterminate LEFT breast nodule
== END 2024-04-13 14:03 | disposition home or self-care (01) ==
LOC: RAD 14:02
PROVIDERS: PCP Electrodiagnostic Medicine; Visit Provider Electrodiagnostic Medicine
DX: N63.21 Unspecified lump in the left breast, upper outer quadrant; N62 Hypertrophy of breast; J90 Pleural effusion, not elsewhere classified; R91.8 Other nonspecific abnormal finding of lung field; R92.323 Mammographic fibroglandular density, bilateral breasts
CPT/HCPCS: 76642; 77062; G0279

== ENCOUNTER → 2024-04-27 14:59 | Outpatient (BNVA) | payer MEDICARE, SELFPAY | PROVIDERS: PCP Electrodiagnostic Medicine; Visit Provider Podiatrist Foot & Ankle Surgery | DX: B35.1 Tinea unguium (principal); N18.6 End stage renal disease; Z99.2 Dependence on renal dialysis; I73.9 Peripheral vascular disease, unspecified; L84 Corns and callosities | CPT/HCPCS: 11721 ==

== ENCOUNTER 2024-05-25 08:36 | Outpatient (CLI) | payer MEDICARE, SELFPAY ==
--- NOTE | 2024-05-25 08:42 | CTR_ITS ---
PROCEDURE INFORMATION: Exam: CT Lumbar Spine Without Contrast Exam date and time: 05/25/2024 8:55 AM Age: 84 years old Clinical indication: Condition or disease; Other: Lumbar spine compression FX; Patient HX: New lung CA dx TECHNIQUE: Imaging protocol: Computed tomography of the lumbar spine without contrast. Radiation optimization: All CT scans at this facility use at least one of these dose optimization techniques: automated exposure control; mA and/or kV adjustment per patient size (includes targeted exams where dose is matched to clinical indication); or iterative reconstruction. COMPARISON: PT PET skull to thigh INIT [id number] 04/04/2024 9:55 AM RADIATION DOSE METRICS: Total DLP (mGy-cm): 447.64 FINDINGS: Bones/joints: No acute fracture. Moderate disc space narrowing L1 through L4 and L5-S1 with vacuum disc and marginal spurring. I see no evidence of fracture. No lytic or sclerotic bone lesion. Normal alignment. No significant disc bulge or herniation. No severe spinal canal stenosis. No significant neural foraminal narrowing. Pleural spaces: Large right pleural effusion, incompletely imaged. Diaphragm: Hiatal hernia. Soft tissues: Unremarkable. CT/CT lumbar spine wo con* [id number] IMPRESSION: 1. Degenerative disc disease. No acute traumatic injury. 2. Right pleural effusion.
== END 2024-05-25 08:37 | disposition home or self-care (01) ==
LOC: RAD 08:37
PROVIDERS: PCP Electrodiagnostic Medicine; Visit Provider Family Medicine
DX: M51.360 Other intervertebral disc degeneration, lumbar region with discogenic back pain only (principal); M99.63 Osseous and subluxation stenosis of intervertebral foramina of lumbar region; M51.86 Other intervertebral disc disorders, lumbar region; M25.78 Osteophyte, vertebrae; J90 Pleural effusion, not elsewhere classified; K44.9 Diaphragmatic hernia without obstruction or gangrene
CPT/HCPCS: 72131

== ENCOUNTER 2024-06-06 12:41 | Outpatient (CLI) | payer MEDICARE, SELFPAY ==
[2024-06-06 12:57] VITALS: PULSE 77; RESP 18; O2SAT 97
[2024-06-06] MEDS: albuterol 2.5 mg/3 mL Neb INHALATION (12:57)
[2024-06-06 13:02] VITALS: PULSE 78
== END 2024-06-06 12:42 | disposition home or self-care (01) ==
LOC: RT 12:41
PROVIDERS: PCP Electrodiagnostic Medicine; Visit Provider Electrodiagnostic Medicine
DX: J44.9 Chronic obstructive pulmonary disease, unspecified (principal); R94.2 Abnormal results of pulmonary function studies
CPT/HCPCS: 94060; 94726; 94729

== ENCOUNTER 2024-06-27 11:54 | Outpatient (CLI) | payer MEDICARE, SELFPAY ==
--- NOTE | 2024-06-27 11:56 | MR_ITS ---
WS: [id number] MRI RIGHT HIP WITHOUT CONTRAST. COMPARISON: PET/CT 04/04/2024, lumbar spine CT 05/25/2024 Multiplanar, multisequence imaging is performed without contrast. Patient refused IV contrast. Moderate narrowing of the RIGHT hip joint. Loss of cartilage. Mild osteophytic ridging around the brittany tabulum. No marrow edema in the femoral head or proximal femur. The cortex is intact. There is a smal l joint effusion at the hip. Mild muscle atrophy. Muscles are diffusely atrophied throughout the pelv is. Visualized urinary bladder is normal. Marked distention of the distal colon from fecal material. MR/MR hip RT wo con* [id number] IMPRESSION: 1. No metastatic disease identified within the RIGHT hip. Patient did decline postcontrast imaging. 2. No signal abnormality. 3. Mild to moderate RIGHT hip joint osteoarthritic changes.
== END 2024-06-27 11:55 | disposition home or self-care (01) ==
PROVIDERS: PCP Electrodiagnostic Medicine; Visit Provider Electrodiagnostic Medicine
DX: M16.11 Unilateral primary osteoarthritis, right hip (principal); C79.51 Secondary malignant neoplasm of bone
CPT/HCPCS: 73721

== ENCOUNTER 2025-01-16 15:26 | Emergency (ER) | payer MEDICARE, SELFPAY ==
--- OUTSIDE RECORDS SUMMARY | 2025-01-10 10:00 | XMS_ITS | Encounter Summary ---
Author Organization [facility] Address [address] [place] [address] Care Team Providers Care [employer] Associate Name Role Phone Fernando Fish Primary Care Provider [phone] Reason for Visit * Reason Comments Follow Up 3 month Encounter Details Date Type Department Care Team (Late st Contact Info) Description 01/10/2025 10:00 AM CDT Office Visit [facility] Pulmonology [address] [place] [id number] DilciaJewels mendes, [employer] ADMINISTRATOR [address] [place] [address] Chronic cough (Primary Dx); Adenocarcinoma of right lung (CMS/HCC); Adrenal mass 1 cm to 4 cm in diameter Social History Tobacco Use Types Packs/Day Years Used Date Smoking Tobacco: Former Cigarettes 0.5 32.3 0 1957 - 07/26/1989 Passive Smoke Exposure: Past Smokeless Tobacco: Never Tobacco Cessation:Counseling Given: Not Answered Alcohol Use Standard Drinks/Week Comments Never 0 (1 standard drink = 0.6 oz pur e alcohol) Feeling Safe Answer Date Recorded Are you in a relationship wi th someone who hurts you emotionally and/or physically? No 08/08/2024 Food Insecurity Answer Date Recorded Patient needs follow up regarding: Not on file 09/22/2023 Transportation Needs Answer Date Record ed Patient needs follow up regarding: Not on file 09/22/2023 Housing Stability Answer Date Recorded Patient needs follow up regarding: Not on file 09/22/2023 Utility Needs Answer Date Recorded Patient needs follow up regarding: Not on file 09/22/2023 Comments No Sex and Gender Information Value Date Recorded Sex Assigned at Not on file Legal Sex Female 3:21 PM DIRECTOR NURSES' REGISTRY Gender Identity Not on file Sexual Orientation Not on file documented as of this encounter Last Filed Vital Signs Vital Sign Reading Time Taken Comments Blood Pressure 132/42 01/10/2025 10:08 AM CDT Patient's family stated her blood pressue is usually low after patient has dialysis. Patient had dialysis yesterday 01/09/25 Pulse 57 01/10/2025 10:08 AM CDT Temperature - - Respiratory Rate - - Oxygen Saturation 95% 01/10/2025 10: 08 AM CDT Inhaled Oxygen Concentration - - Weight 68.1 kg (150 lb 3.2 oz) 01/10/2025 10:08 AM CDT Height 157.5 cm (5' 2 ) 01/10/2025 10:0 8 AM CDT Body Mass Index 27.47 01/10/2025 10:08 AM CDT documented in this encounter Progress Notes * Jewels Ha APRN - 01/10/2025 10:04 AM CDT Images from the original note were not included. Pulmonology Clinic Follow up note: Impression & Plan: ICD-10-CM ICD-9-CM 1. Chronic cough R05.3 786.2 2. Adenocarcinoma of right lung (CMS/HCC) C34.91 162.9 3. Adrenal mass 1 cm to 4 cm in diameter E27.8 255.8 Chronic cough -Chronic cough that keeps her up at night -No PFT on file-suspect she may have COPD- not interested at this time getting one -on trelegy daily -Has tried tessalon pearles and mucinex -Discussed in detail that chronic cough could be due to acid reflux, post nasal drip, allergies -omeprazole 20mg daily is helping -GERD lifestyle modifications talked about -Will also try flonase 2 sprays in each nostril daily -on allergra daily, helping Adenocarcinoma of right lung Adrenal mass -PET scan has a left upper quadrant mass. Biopsy was performed from this mass and pathology was inconclusive . She is scheduled for repeat biopsy. -CT chest abdomen pelvis 12/2024- shows RUL mass that has decreased in size slightly. Metastatic lesion in the left upper quadrant either arising from or immediately adjacent to the adrenal gland is similar in size measuring 2.3 x 2.8 x 2.7 cm, previously 2.4 x 2.5 cm. -Patient has mentioned she does not want chemotherapy. -She was evaluated by radiation Oncology -Last of radiation oncology treatments was end of August or September. -Sees Dr. Corbin in oncology and Dr. Bueno in rad onc -on hospice currently and will decide if she wants to come off of it now-still wants to see us PLAN: continue omeprazole 20mg daily for acid reflux. continue flonase 2 sprays in each nostril at night Continue maximiliano for allergies. Continue mucinex 600-1200mg twice a day for thick mucus. Continue trelegy 1 puff daily, rinse mouth afterwards. Continue albuterol nebulizer, try using it 15 minutes before the trelegy to open up lungs. Do not use the nebulizer within 3 hours of the inhaler. Can use albuterol inhaler 2 puffs every 6 hours as needed for shortness of breath Would recommend the ECHO that is ordered, please call [phone] to schedule. -A typed after visit summary was given to the patient. History of Present Illness: Bianka Kirby is a 84 y.o. female presents for re-evaluation of Her chronic cough. Today: Pt is here with youngest sister. Pt states breathing is good. Still having a cough, had to do 2 rounds of antibiotics and steroids. Using omeprazole daily. Using trelegy daily. Using albuterol nebulizer once weekly. No mucinex or flonase. Using allergra daily and helping with symptoms. Pt is on hospice currently. Shortness of breath: with exertion SOFIA: Fevers: no Cough: yes, clear white mucus Wheezing: sometimes Chest pain: no Hemopytsis: no Antibiotics/prednisone: about a month ago Hospitalizations: no Last visit with me 09/2024 Pt states her breathing is okay, she does get short of breath with exertion. She does have a chronic cough that keeps her up at night, white sputum. Has tried mucinex and tessalon pearles and that doesn't help. She is sneezing a lot. She is on the trelegy daily. Using albuterol twice a day, haven'tused in a while. Pt's daughter states that their nebulizer is broken and pt hasn't been able to usethe albuterol in a while. Would like a new nebulizer sent to [facility] in [place]. Shortness of breath: with exertion SOFIA: 100 feet or more Fever: no Cough, productive: yes, white sputum Wheezing: at night Chest pain: no Weight loss,unintentional: no Hemoptysis, amount: no Recent prednisone or antibiotic use: no Recent hospitalization: no Initial visit with Dr. Fontana 07/2024 Bianka Kirby is an 84 y.o. female referred for evaluation and treatment of abnormal PET scan. Patient has history of well differentiated adenocarcinoma of the lung . Had a recent PET scan which showed large right upper lobe mass measuring 7.5 cm in size , Can walk 50 to 100 feet without getting short of breath. Has occasional cough, more at night . Brings up clear sputum. Denies swelling in legs. Using Oxygen : NO Current Smoker: NO. Quit in 1989. Has 10 pack year history Current Inhalers: Trelegy, Albuterol Occupational exposures: no Candidate for CT screening for lung cancer: Has lung cancer. Complexity of data reviewed: -Tests and documents were reviewed by me-Prior external notes reviewed by me I personally looked at radiographic images on this patient and discussed findings with the patient We discussed the interpretation of the radiographs as well as the management of the abnormality seen on the radiographs and the importance of following up on abnormalities with repeat scans Radiology: Results for orders placed or performed during the hospital encounter of 07/04/24 XR CHEST PA OR AP 1 VW Impression IMPRESSION: Please see below. EXAM: XR CHEST PA OR AP 1 VW DATE/TIME OF EXAM: 07/04/2024 9:00 AM REASON FOR STUDY: Thoracentesis DIAGNOSIS: Adenocarcinoma of right lung COMPARISON: May 09, 2024 TECHNIQUE: A frontal radiograph of the chest was obtained. FINDINGS: The patient is rotated. Right-sided dialysis catheter remains in place. Peripheral right upper lobe mass redemonstrated. Elevated right hemidiaphragm. Small layering right pleural effusion. Trace left pleural effusion. No pneumothorax. Cardiomegaly. Atherosclerotic calcification within the aorta. There may be mild pulmonary vascular congestion. No acute bony abnormality identified. Diffuse bone demineralization. IMPRESSION: No pneumothorax post right-sided thoracentesis. Results for orders placed or performed during the hospital encounter of 06/15/23 XR CHEST PA AND LATERAL 2 VW Impression IMPRESSION: Please see below. Exam: XR CHEST PA AND LATERAL 2 VW Date/Time of Exam: 06/15/2023 1:55 PM Reason For Exam: See Diagnosis. Diagnosis: Angina pectoris; Dyspnea on exertion; Preop cardiovascular exam; Hypertension associated with diabetes; Hypertension associated with diabetes. Findings: There are no comparisons. A right IJ tunneled dialysis catheter is in place with the tip over the right atrium. There is a generator type device over the left chest with no associated leads. The lungs are mildly hyperinflated. There is no pneumothorax. The right lung base is opacified by what appears to be a small to moderate right pleural effusion with presumed adjacent atelectasis or consolidation. There is a 3.4 cm rounded opacity of the right midlung. I suspect this is fluid in the right minor fissure rather than a soft tissue mass. There is a trace left pleural effusion. The left lung is otherwise clear. Heart size is within normal limits. The pulmonary vessels are unremarkable. The bony thorax is grossly intact. IMPRESSION: 1. Small to moderate right pleural effusion. Probable adjacent right basilar atelectasis or consolidation. 2. There is a 3.4 cm rounded opacity over the right mid lung on the PA view. I suspect this is fluid trapped in the minor fissure rather than a soft tissue nodule. However, follow-up is recommended. 3. Trace left pleural effusion. 4. Generator-type device over the left chest. 5. Right IJ tunneled dialysis catheter. Chest Xray: from 07/04/2024- Right upper lobe mass , small right pleural effusion. Chest CT: No CT chest on file PET scan: 07/17/2024-right upper lobe mass measuring 7.5 cm in size which is PET avid, small right pleural effusion, 2.7 cm soft tissue mass in the left upper quadrant. PFTS:none on file Echocardiogram: from 06/15-LVEF of 60%. Current Meds:Reviewed Physical Exam: BP (!) 132/42 Comment: Patient's family stated her blood pressue is usually low after patient has dialysis. Patient had dialysis yesterday 01/09/25 Pulse (!) 57 Ht 5' 2 (1.575 m) Wt 68.1 kg (150 lb 3.2 oz) SpO2 95% BMI 27.47 kg/m?? General appearance alert, cooperative, no distress, appears stated age Lungs clear to auscultation bilaterally, no wheezing or rhonchi. No dullness to percussion. No ergophony. No stridor No crackles Chest wall no tenderness Extremities extremities normal, atraumatic, no cyanosis or edema Skin Skin color, texture, turgor normal. No rashes or lesions LOW DOSE CT LUNG CANCER SCREENING ELIGIBILITY CRITERIA (must meet all) Age between 50-80 years Asymptomatic for signs or symptoms of lung cancer Smoking history of at least 20 pack years Current smoker or one who has quit smoking within the last 15 years Total pack-years of tobacco smoking: No pack years found TOBACCO COUNSELING She is not a tobacco/nicotine user. Follow up visit scheduled for: 6 months Thanks for allowing me to participate in the care of your patient. RAE Hurd- Pulmonary Medicine documented in this encounter Miscellaneous Notes * Patient Instructions - Jewels Ha APRN - 01/10/2025 10:15 AM CDT continue omeprazole 20mg daily for acid reflux. continue flonase 2 sprays in each nostril at night Continue maximiliano for allergies. Continue mucinex 600-1200mg twice a day for thick mucus. Continue trelegy 1 puff daily, rinse mouth afterwards. Continue albuterol nebulizer, try using it 15 minutes before the trelegy to open up lungs. Do not use the nebulizer within 3 hours of the inhaler. Can use albuterol inhaler 2 puffs every 6 hours as needed for shortness of breath Would recommend the ECHO that is ordered, please call [phone] to schedule. documented in this encounter Plan of Treatment Upcoming Encounters Date Type Department Care Team (Late st Contact Info) Description 01/19/2025 11:45 AM CDT Office Visit [facility] [address] [place] [address] Earle Crowe MD [address] [place] [address] 07/04/2025 10:00 AM DIRECTOR NURSES' REGISTRY Office Visit [facility] Pulmonology [address] [place] [address] Jewels Ha APRN [address] [place] [address] documented as of this encounter Visit Diagnoses Diagnosis Chronic cough- Primary Cough Adenocarcinoma of right lung (CMS/HCC) Adrenal mass 1 cm to 4 cm in diameter documented in this encounter Care Teams [employer] Associate Relationship Specialty Start Date End Date Fernando Fish DO [address] [facility] [address] [place] [address] PCP - General Family Practice 06/10/22 documented as of this encounter
--- OUTSIDE RECORDS SUMMARY | 2025-01-10 19:00 | XMS_ITS ---
Author Name Radha Hall Address [address] [place] [address] Phone [phone] Organization [facility], NA DOCUMENT DISCLAIMER Multiple document versions may exist, please be sure you review the latest version. The information in the [facility] Progress Note Document represents a providers documented clinical note containing certain health and medical information. It may not contain the complete medical history for the patient and should be independently verified. The represented time in the document is Eastern Time PROVIDER ROUNDING NOTE COMPREHENSIVE Patient:?Bianka?Mirta,?1940,?84y,?F Dialysis?Location:?[facility] Attending?Pie Baker:?Tamiko Service?Date:?01/11/2025 Service?Provider:?Radha?Rafael,? I?met?face?to?face?with?the?patient?today. 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 She?is?now?on?hospice?for?lung?cancer.?She?is?having?a?decline. Medications?and?labs?reviewed. DIALYSIS?PRESCRIPTION ??IHD?3x?Week?Start?date:?11/28/24 ??Dialyzer:?160NRe?Optiflux ??BFR:?450 ??DFR:?Autoflow?1.5 ??Potassium:?3.0 ??Sodium:?138 ??EDW:?66.8 ??Duration:?2:45 ??Calcium:?2.5 ??Bicarb:?34 ??Rx?updated?on:?11/28/2024 TREATMENT?ASSESSMENT Comments:?BPs?have?been?better?at?goal?range?now. BP?Sit?Pre ??01/11/2025:?124/60 ??01/09/2025:?190/73 ??01/04/2025:?148/55 BP?Sit?Post ??01/11/2025:?149/40 ??01/09/2025:?103/55 ??01/04/2025:?150/63 Tx?Duration ??01/11/2025:?2:38 ??01/09/2025:?2:44 ??01/04/2025:?2:48 Missed?Treatments 2?-?last?30?days 2?-?last?60?days 6/14?-?recent FLUID?ASSESSMENT Comments:?Stable EDW?(kg) ??01/11/2025:?66.8 ??01/09/2025:?66.8 ??01/04/2025:?66.8 Weight?Pre?(kg) ??01/11/2025:?68.7 ??01/09/2025:?70.0 ??01/04/2025:?68.8 Weight?Post?(kg) ??01/11/2025:?67.8 ??01/09/2025:?67.7 ??01/04/2025:?67.5 PWV?(kg) ??01/11/2025:?1.0 ??01/09/2025:?0.9 ??01/04/2025:?0.7 UF?Rate?(mL/kg/hr) ??01/11/2025:?5 ??01/09/2025:?12.4 ??01/04/2025:?6.9 ADEQUACY?ASSESSMENT Comments:?Stable?trend. spKt/V,?URR ??12/30/2024:?1.48,?74.0 ??11/30/2024:?1.78,?81.0 ??10/26/2024:?2.74,?85.0 ACCESS?ASSESSMENT ??Access?Type:?CVCatheter ??Access?SubType:?Tunneled ??Access?Status:?Active?(In?Use)?-?07/06/2022 ??Access?Location:?Chest ??Placed:?06/29/2022 Comments:?She?is?a?permanent?tunneled?HD?catheter. ANEMIA?ASSESSMENT Comments:?On?IV?iron?and?GARCIA?protocol. HGB,?TSAT ??01/04/2025:?11.6,?- ??12/30/2024:?11.4,?24.0 ??12/22/2024:?10.8,?- ?? Ferritin ??12/30/2024:?997.0 ??09/28/2024:?1230.0 ??06/29/2024:?1095.0 Epoetin?Anuel?(Epogen),?IVP?(units) ??01/04/2025:?4600 ??01/03/2025:?4600 ??12/30/2024:?4600 Iron?Sucrose?(Venofer)?(mg) ??01/09/2025:?100 ??01/04/2025:?100 ??10/26/2024:?50 BMM?ASSESSMENT Comments:?PTH?low Ca?and?phos?stable PTH,?Intact ??12/30/2024:?55.0 ??09/28/2024:?65.0 ??06/29/2024:?56.0 ?? Calcium,?Phosphorus ??12/30/2024:?9.2,?4.7 ??11/30/2024:?9.1,?4.5 ??10/26/2024:?9.1,?5.6 NUTRITION?ASSESSMENT Comments:?Stable NPCR?did?increase?some Potassium,?Albumin ??12/30/2024:?4.8,?3.3 ??11/30/2024:?4.5,?3.4 ??10/26/2024:?5.1,?3.2 ?? eNPCR ??12/30/2024:?0.63 ??11/30/2024:?0.59 ??10/26/2024:?2.21 PHYSICAL?EXAM Exam?Performed.?Vital?Signs?Reviewed.?CV?-?Blood?pressure&#1 60;noted.?EXT?-?No?edema.?EXT?-?No?ulcers. DIAGNOSIS Chief?Complaint:?N18.6?End?stage?renal?disease Patient?is?stable. Patient?data?updated?01/11/2025?at?10:47?AM Signed?By:?Rafael,?Radha???on?01/11/2025?10:49:32?AM END OF DOCUMENT
[2025-01-16 15:29] VITALS: BP 149/79; PULSE 69; RESP 18; TEMP 36.7; O2SAT 95
--- NOTE | 2025-01-16 15:40 | CTR_ITS ---
PROCEDURE INFORMATION: Exam: CT Cervical Spine Without Contrast Exam date and time: 01/16/2025 3:55 PM Age: 84 years old Clinical indication: Injury or trauma; Fall; Blunt trauma; Injury details: Fell backwards onto concrete. PT has a hematoma to posterior head; Additional info: Head injury TECHNIQUE: Imaging protocol: Computed tomography of the cervical spine without contrast. Radiation optimization: All CT scans at this facility use at least one of these dose optimization techniques: automated exposure control; mA and/or kV adjustment per patient size (includes targeted exams where dose is matched to clinical indication); or iterative reconstruction. COMPARISON: PET CT dated 04/04/2024 RADIATION DOSE METRICS: Total DLP (mGy-cm): 210.3 FINDINGS: Bones/joints: The cervical vertebral body heights are maintained. Normal alignment. Moderate disc space narrowing at C4-C5, C5-C6, C6-C7 and C7-T1. Nonspecific 0.8 cm lytic lesion within the C5 vertebral body on the left side. C2-C3: No significant disc bulge or herniation. No severe spinal canal stenosis. No significant neuroforaminal narrowing. C3-C4: The spinal canal is patent. Moderate bilateral neuroforaminal narrowing secondary to uncovertebral and facet hypertrophy. C4-C5: Broad-based disc osteophyte complex with mild central canal stenosis. Moderate bilateral neuroforaminal narrowing secondary to uncovertebral and facet hypertrophy. C5-C6: Broad-based disc osteophyte complex with mild central canal stenosis. Moderate bilateral neuroforaminal narrowing secondary to uncovertebral and facet hypertrophy. C6-C7: The spinal canal is patent. Mild bilateral neuroforaminal narrowing secondary to uncovertebral and facet hypertrophy. C7-T1: No significant disc bulge or herniation. No severe spinal canal stenosis. No significant neuroforaminal narrowing. Lungs: Peripheral 2.1 cm right upper lobe lung mass is incompletely imaged on this study and noted to be present on prior PET CT. Recommend clinical correlation and follow-up imaging as clinically warranted. Soft tissues: Bilateral carotid bulb calcifications. 2.2 cm left thyroid nodule. The thyroid gland would be better assessed with thyroid ultrasound if clinically warranted. CT/CT cervical spin wo con* [id number] IMPRESSION: 1. No acute bony abnormality. Degenerative changes of the cervical spine. If symptoms persist, consider further evaluation with MRI, if there are no contraindications to obtaining a MRI scan. 2. Nonspecific C5 lytic lesion unchanged when compared to prior PET CT. Recommend clinical correlation and close attention to this area on follow-up imaging. 3. Peripheral 2.1 cm right upper lobe lung mass is incompletely imaged on this study and noted to be present on prior PET CT. Recommend clinical correlation and follow-up imaging as clinically warranted. COMMENTS: Consistent with the [employer]'s Incidental Findings Committee white paper (J Am Jean Marie Radiol 2015): In patients aged 35 years and older with an incidental thyroid nodule equal to or greater than 1.[address], MRI or extrathyroidal US, further evaluation with dedicated thyroid US is recommended for patients with normal life expectancy and without comorbidities. For smaller nodules without suspicious features, no further evaluation or follow up is recommended.
--- NOTE | 2025-01-16 15:40 | CTR_ITS ---
PROCEDURE INFORMATION: Exam: CT Head Without Contrast Exam date and time: 01/16/2025 3:55 PM Age: 84 years old Clinical indication: Injury or trauma; Fall; Blunt trauma (contusions or hematomas); Consciousness not specified; Injury details: Fell backwards onto concrete. PT has a hematoma to posterior head. ; Additional info: Head injury TECHNIQUE: Imaging protocol: Computed tomography of the head without contrast. Radiation optimization: All CT scans at this facility use at least one of these dose optimization techniques: automated exposure control; mA and/or kV adjustment per patient size (includes targeted exams where dose is matched to clinical indication); or iterative reconstruction. COMPARISON: CT head wo con* [id number] 06/19/2022 5:09 PM RADIATION DOSE METRICS: Total DLP (mGy-cm): 210.3 FINDINGS: Brain: Severe nonspecific white matter low attenuation which may be related to microvascular ischemic changes. Stable left basal ganglia lacune. No acute confluent lobar ischemic infarct. No acute intracranial hemorrhage. Cerebral ventricles: The ventricles and sulci are prominent in size compatible with mild atrophy. Paranasal sinuses: No fluid levels. Mastoid air cells: Visualized mastoid air cells are well aerated. Bones: No acute calvarial fracture. Soft tissues: Right occipital scalp laceration and hematoma. CT/CT head wo con* [id number] IMPRESSION: No acute intracranial abnormality. If symptoms persist, consider further evaluation with MRI, if there are no contraindications to obtaining a MRI scan.
--- NOTE | 2025-01-16 15:44 | W.ED.HEATRA ---
HPI - Head Injury General: Chief complaint: Head Injury Stated complaint: fell- hit back of head right side Time Seen by Provider: 01/16/25 15:39 Source: patient Mode of arrival: ambulatory Limitations: no limitations History of Present Illness: 84-year-old female states that she fell backwards and hit her head on the concrete just prior to arrival. Had some bleeding and hematoma posterior head wounds currently wrapped. She has a headache complains of some slight neck pain denies any loss conscious denies any other injuries from the fall. Associated symptoms: Reports neck pain; Deny nausea or vomiting Related Data Home Medications ?Medication ?Instructions ?Recorded ?Confirmed atorvastatin 40 mg tablet 40 mg PO BEDTIME 06/19/22 04/27/24 fluticasone fur. 200 mcg-umeclid 1 inh inhalation DAILY 06/19/22 04/27/24 62.5 mcg-vilant 25 mcg inhalat.powder (Trelegy Ellipta) levothyroxine 50 mcg tablet 50 mcg PO QAM 06/19/22 04/27/24 amlodipine 10 mg tablet 10 mg PO DAILY 02/09/24 04/27/24 aspirin 81 mg tablet 81 mg PO DAILY 02/09/24 04/27/24 bumetanide 1 mg tablet 1 mg PO DAILY 02/09/24 04/27/24 calcium 600 mg (as 1 tab PO DAILY 02/09/24 04/27/24 carbonate)-vitamin D3 5 mcg (200 unit) tablet carvedilol 3.125 mg tablet (Coreg) 3.125 mg PO BID 02/09/24 04/27/24 clopidogrel 75 mg tablet 75 mg PO DAILY 02/09/24 04/27/24 docusate sodium 100 mg capsule 100 mg PO BID 02/09/24 04/27/24 (Colace) doxazosin 2 mg tablet 2 mg PO DAILY 02/09/24 04/27/24 ergocalciferol (vitamin D2) 1,250 1,250 mcg PO .WKLY 02/09/24 04/27/24 mcg (50,000 unit) capsule hydralazine 50 mg tablet 50 mg PO TID BP > 180/120 mmHg 02/09/24 04/27/24 isosorbide mononitrate 120 mg 120 mg PO DAILY 02/09/24 04/27/24 tablet,extended release 24 hr losartan 100 mg tablet 100 mg PO BEDTIME 02/09/24 04/27/24 vit B,C-folic ac 800 mcg-zinc 12.5 1 tab PO DAILY 02/09/24 04/27/24 mg-selen-D3 2,000 unit-vit E tablet (RenaPlex-D) cholecalciferol (vitamin D3) 10 10 mcg PO DAILY 03/21/24 04/27/24 mcg (400 unit) capsule sevelamer carbonate 800 mg tablet 800 mg PO DAILY 03/21/24 04/27/24 Allergies Allergy/AdvReac Type Severity Reaction Status Date / Time No Known Allergies Allergy Verified 04/27/24 15:31 Review of Systems Const: Denies: fever(s), chills, body aches or change in appetite ENMT: Denies: throat pain or dental pain Card: Denies: chest pain Resp: Denies: dyspnea GI: Denies: abdominal pain, nausea, vomiting or diarrhea Musc: Reports: neck pain; Denies: back pain Skin/Breast: Denies: rash Neuro: Reports: headache(s) PFSH ED PFSH: Medical History End stage renal disease History of hyperlipidemia History of hypertension History of hypothyroidism CKD (chronic kidney disease) Surgical History History of cholecystectomy Family History Mother CAD (coronary artery disease) Father CAD (coronary artery disease) Social History Smoking and tobacco/nicotine status: former use of tobacco/nicotine Quit status (tobacco/nicotine): has quit using Year quit tobacco: 1974 Former quit date comment: 1ppd X 10years Alcohol intake: never Substance/Drug Use: never Physical Exam Const: COMMON NORMALS: no acute distress, patient oriented x3 and healthy appearing HENMT: COMMON NORMALS: normocephalic HEAD & SCALP: normocephalic OTHER: 3cm posterior scalp laceration and hematoma Eye: COMMON NORMALS: Equal, round and reactive pupils present and EOMs intact bilaterally PUPIL: Yes Equal, round and reactive pupils present Neck/C-Spine: OTHER: Slight tenderness along C-spine Chest: COMMONS NORMALS: normal inspection of the chest and normal palpation of entire chest wall Resp: COMMON NORMALS: normal respiratory effort, No retractions, No use of accessory muscles and clear to auscultation bilaterally AUSCULTATION: clear to auscultation bilaterally Cardio: COMMON NORMALS: regular rate RATE: regular rate Extremity: COMMON NORMALS: normal to inspection and full ROM Neuro: COMMON NORMALS: patient oriented x3, moves all extremities and no focal motor deficits Psych: COMMON NORMALS: mental status grossly normal, Normal thought process present and cooperative THOUGHT PROCESS: Normal thought process present Skin: COMMON NORMALS: no rashes or lesions noted and no wounds GENERAL SKIN EXAM: no rashes or lesions noted Procedures Laceration Laceration 1: Site: scalp Size (cm): 3 Description: linear Depth: simple, single layer Local Anesthetic: lidocaine 1% and with epi Amount of anesthesia used (mL): 8 Pre-repair: wound explored and irrigated extensively Size (cm): other (4 cricket) Course Vital Signs: Vital signs: Vital Signs Temperature 98.1 F 01/16/25 15:29 Pulse Rate 69 01/16/25 15:29 Respiratory Rate 18 01/16/25 15:29 Blood Pressure 149/79 01/16/25 15:29 Pulse Oximetry 95 01/16/25 15:29 Oxygen Delivery Me thod Room Air 01/16/25 15:29 MDM - Head Injury Medcial Decision Making Patient presents here after a fall she did have a head laceration that was repaired CT head showed no acute abnormality CT C-spine showed no acute fracture did inform her of the incidental finding on the CT C-spine that she needs follow-up with PCP she is return if worsening she understands agrees to plan. Lab Data Radiology Impressions Cervical Spine CT 01/16/25 15:40 IMPRESSION: 1. No acute bony abnormality. Degenerative changes of the cervical spine. If symptoms persist, consider further evaluation with MRI, if there are no contraindications to obtaining a MRI scan. 2. Nonspecific C5 lytic lesion unchanged when compared to prior PET CT. Recommend clinical correlation and close attention to this area on follow-up imaging. 3. Peripheral 2.1 cm right upper lobe lung mass is incompletely imaged on this study and noted to be present on prior PET CT. Recommend clinical correlation and follow-up imaging as clinically warranted. COMMENTS: Consistent with the [employer]'s Incidental Findings Committee white paper (J Am Jean Marie Radiol 2015): In patients aged 35 years and older with an incidental thyroid nodule equal to or greater than 1.[address], MRI or extrathyroidal US, further evaluation with dedicated thyroid US is recommended for patients with normal life expectancy and without comorbidities. For smaller nodules without suspicious features, no further evaluation or follow up is recommended. Head CT 01/16/25 15:40 IMPRESSION: No acute intracranial abnormality. If symptoms persist, consider further evaluation with MRI, if there are no contraindications to obtaining a MRI scan. All radiology interpretation(s) finalized by discharge Discharge Plan Discharge Patient Disposition: Home Clinical Impression: Fall, Head injury, Laceration of head Condition: Stable Prescriptions: No Action cholecalciferol (vitamin D3) 10 mcg (400 unit) capsule 10 mcg PO DAILY atorvastatin 40 mg tablet 40 mg PO BEDTIME levothyroxine 50 mcg tablet 50 mcg PO QAM Trelegy Ellipta 200-62.5-25 mcg blister with device 1 inh INHALATION DAILY clopidogrel 75 mg tablet 75 mg PO DAILY amlodipine 10 mg tablet 10 mg PO DAILY bumetanide 1 mg tablet 1 mg PO DAILY ergocalciferol (vitamin D2) 1,250 mcg (50,000 unit) capsule 1,250 mcg PO .WKLY losartan 100 mg tablet 100 mg PO BEDTIME calcium carbonate-vitamin D3 [Calcium + D] 600 mg-5 mcg (200 unit) Tablet 1 tab PO DAILY carvedilol [Coreg] 3.125 mg Tablet 3.125 mg PO BID Rx Instructions: must administer with a meal/food isosorbide mononitrate 120 mg Tablet Extended Release 24 Hr 120 mg PO DAILY docusate sodium [Colace] 100 mg Capsule 100 mg PO BID aspirin 81 mg Tablet 81 mg PO DAILY doxazosin 2 mg Tablet 2 mg PO DAILY RenaPlex-D 800 mcg-12.5 mg -2,000 unit Tablet 1 tab PO DAILY hydralazine 50 mg tablet 50 mg PO TID sevelamer carbonate 800 mg tablet 800 mg PO DAILY Rx Instructions: with supper Discharge Orders: Discharge ED (Routine); Ordered 01/16/25 Ordered By: Samia Borden Referrals: Fernando Fish DO [Primary Care Provider, Family Practice] Discharge Diet: Advance as tolerated Discharge Activity: Resume usual activity Patient Instructions: Laceration (ED), Staple Care (ED) Activity Restrictions/Additional Instructions: staple removalin7 days Print Language: Amharic Coding Level of Care Code ED Nail Cutter for Donna Amezcua
[2025-01-16] MEDS: lidocaine-epi 1% 20 mL INJ INJECTION (17:04)
--- OUTSIDE RECORDS SUMMARY | 2025-01-16 17:31 | XMS_ITS | Encounter Summary ---
Author Organization [facility] Address [address] [place] [address] Care Team Providers Care Benzene Still Utility Operator Name Role Phone Fernando Fish Primary Care Provider [phone] Reason for Visit * Reason Comments Med Refill Encounter Details Date Type Department Care Team (Late st Contact Info) Description 01/14/2025 Refill [facility] [address] [place] [phone] [facility] [address] [place] [phone] Social History Tobacco Use Types Packs/Day Years Used Date Smoking Tobacco: Former Cigarettes 0.5 32.3 0 1957 - 07/26/1989 Passive Smoke Exposure: Past Smokeless Tobacco: Never Alcohol Use Standard Drinks/Week Comments Never 0 [...] on file Legal 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 Patient has not been seen in the last year, patient does not have follow up appointment scheduled. 30 day supply of Imdur rx sent to [facility] in [place] with a note to pharmacy that patient needs an appointment for further refills. documented in this encounter Plan of Treatment Upcoming Encounters Date Type Department Care Team (Late st Contact Info) Description 01/19/2025 11:45 AM CDT Office Visit [facility] [address] [place] [phone] Earle Crowe MD [address] [place] [phone] 07/04/2025 10:00 AM NUCLEAR FUELS RESEARCH ENGINEER Office Visit [facility] Pulmonology [address] [place] [phone] Jewels Ha APRN [address] [place] [address] documented as of this encounter Visit Diagnoses Not on filedocumented in this encounter Care Teams Benzene Still Utility Operator Relationship Specialty Start Date End Date Fernando Fish DO [address] [place] [address] PCP - General Family Practice 06/10/22 documented as of this encounter
--- OUTSIDE RECORDS SUMMARY | 2025-01-16 17:31 | XMS_ITS | Encounter Summary ---
Author Organization [facility] Address [address] [place] [address] Care Team Providers Care Hospital Staff Pharmacist Name Role Phone Fernando Fish Primary Care Provider [phone] Reason for Visit * Reason Onset Date Comments Follow Up 01/15/2025 Encounter Details Date Type Department Care Team (Late st Contact Info) Description 01/15/2025 Telephone [facility] [address] [place] [phone] Earle Crowe MD [address] [place] [phone] Follow Up Social History Tobacco Use Types Packs/Day Years [...] on file Legal Sex Female 3:21 PM [employer] Gender Identity Not on file Sexual Orientation Not on file documented as of this encounter Miscellaneous Notes * Telephone Encounter - Saúl Valdez RN - 01/15/2025 11:28 AM CDT Spoke to the patient sister , organised an echo to be done as per the pulmonology and rescheduled an appt for her with DR Crowe at the end of the month documented in this encounter Plan of Treatment Upcoming Encounters Date Type Department Care Team (Late st Contact Info) Description 01/19/2025 11:45 AM CDT Office Visit [facility] [address] [place] [phone] Earle Crowe MD [address] [place] [phone] 07/04/2025 10:00 AM [employer] Office Visit [facility] Pulmonology [address] [place] [address] Jewels Ha, COMMERCIAL MORTGAGE BROKER [address] [place] [address] documented as of this encounter Visit Diagnoses Not on filedocumented in this encounter Care Teams Hospital Staff Pharmacist Relationship Specialty Start Date End Date Fernando Fish DO [address] [address] [place] [address] PCP - General Family Practice 06/10/22 documented as of this encounter
--- OUTSIDE RECORDS SUMMARY | 2025-01-16 17:32 | XMS_ITS ---
Author Organization [facility] Off[facility] Address [address] [place] [phone] Care Team Providers Care Foot Piece Assembler Name Role Phone Fernando Fish Primary Care Provider [phone] Active Problems Problem Noted Date Diagnosed Date Adrenal mass 1 cm to 4 cm in diameter 08/09/2024 Nicotine dependence in remission 08/09/2024 Adenocarcinoma of right lung 07/17/2024 Cancer Staging:Clinical stage from 07/12/2024:Stage APOORVA(cT4, cN0, cM1a) - Signed by Adeline Corbin MD on 07/17/2024 Abnormal cardiovascular stress test 07/09/2023 On statin therapy 07/07/2023 Mobitz II 07/07/2023 ESRD (end stage renal disease) on dialysis 03/24 HTN (hypertension), benign 03/24/2023 DM (diabetes mellitus) 03/24/2023 Hypothyroidism 03/24/2023 Hyperlipidemia 03/24/2023 Current Treatment and Therapy Plans No current plan information found. Past Treatment and Therapy Plans No past plan information found. Lifetime Dose Tracking * Chemical Lifetime Dose Automatic Entry Manual Entr y Effective Dose 155 mSv 155 mSv 0 mSv Total DLP 6,174.94 DLP 6,174.94 DLP 0 DLP CTDIvol Max 67.9 mGy 67.9 mGy 0 mGy CTDIvol Min 37.58 mGy 37.58 mGy 0 mGy Air Kerma 457 mGy 0 mGy 457 mGy Dose Area Product (DAP) 42.2 Gy-cm2 0 Gy-cm2 42.2 Gy-cm2 Resolved Problems Problem Noted Date Diagnosed Date Resolved Date Colon cancer 06/29/2024 07/17/2024
--- OUTSIDE RECORDS SUMMARY | 2025-01-16 17:32 | XMS_ITS | Clinical Summary ---
Author Organization [facility] Administrative Offices Address [address] [place] [id number] Care Team Providers Care Victim Witness Administrator Name Role Phone Fernando Fish Primary Care Provider [phone] Allergies No known active allergies Medications sevelamer carbonate (RENVELA) 800 mg Tablet TAKE 1 TABLET BY MOUTH THREE TIMES A DAY WITH MEALS 2022 Active hydrALAZINE (APRESOLINE) 100 mg Tablet tablet TAKE 1 TABLET BY MOUTH 3 TIMES A DAY ROUTINELY 2022 Active losartan (COZAAR) 100 mg tablet TAKE 1 TABLET BY MOUTH EVERY DAY IN THE EVENING 2022 Active levothyroxine 50 mcg tablet daily in the morning. 11/20 Active amLODIPine (NORVASC) 10 mg tablet Take 10 mg by mouth daily in the morning. 2022 Active atorvastatin (LIPITOR) 40 mg tablet Take 40 mg by mouth daily after lunch. 2022 Active Vitamin D2 1,250 mcg (50,000 unit) capsule TAKE 1 CAPSULE BY MOUTH ONCE PER WEEK (WEEKLY) 2022 Active fluticasone-um eclidinium-sisi anterol (Trelegy Ellipta) 200-62.5-25 mcg Disk with Device Take by inhalation. Active calcium as carbonate (CALTRATE) 1,500 mg (600 mg elemental) Tablet Take 600 mg by mouth daily in the morning. Act ezequiel aspirin (ECOTRIN EC) 81 mg Tablet, Delayed Release (E.C.) Take 81 mg by mouth daily. Active melatonin 10 mg Capsule Take by mouth daily at bedtime. Active docusate sodium (COLACE) 100 mg capsule Take 100 mg by mouth 3 times daily as needed for Constipation. Active OTHER [place] caps- softgel 1 x daily at bed Active bumetanide (BUMEX) 1 mg tablet Take 1 Tablet by mouth daily. Active nitroglycerin (NITROSTAT) 0.4 mg Tablet, Sublingual Place 1 Tablet (0.4 mg) under tongue every 5 minutes as needed for Chest Pain. 30 Tablet 2023 Active albuterol (PROVENTIL,BERHANE TOLIN) 2.5 mg /3 mL (0.083 %) Solution for Nebulization Inhale 3 mL 3 times a day by nebulization route as needed. 2023 Active OTHER Vitamin D3 - daily A ctive Cholecalcifero l, Vitamin D3, 75 mcg (3,000 unit) Tablet Take 1,000 Units by mouth daily. Active nystatin (MYCOSTATIN) 100,000 unit/gram Cream Apply to affected area 2 times daily. 2024 Active nystatin (NYSTOP) 100,000 unit/gram powder Apply to affected area 2 times daily. 2024 Active RenaPlex-D 800 mcg-12.5 mg -2,000 unit Tablet Take 1 Tablet by mouth daily. 2023 Active traMADoL (ULTRAM) 50 mg tablet Take 50 mg by mouth every 6 hours as needed for Pain. Active clopidogreL (PLAVIX) 75 mg TabletIndicati ons:CAD in [place] artery,Presenc e of stent in coronary artery,Angina pectoris TAKE 1 TABLET BY MOUTH EVERY DAY 100 Tablet 2 2024 Active benzonatate (TESSALON) 200 mg capsule Take 1 Capsule (200 mg) by mouth 3 times daily. 90 Capsule 5 2024 Active nebulizer Length of need 99 months Nebulizer with compressor, Kit: Disposable Nebulizer Kit, 2 per month, filters , areosol mask: No. Name of Medicationalbuterol 1 Each 2024 Active Nebulizer Accessories Kit To be used with nebulizer 1 Each 1 2024 Active omeprazole (PriLOSEC) 20 mg Capsule, Delayed Release(E.C.)I ndications:Chr onic cough Take 1 Capsule (20 mg) by mouth daily. 90 Capsule 2 2024 Active doxazosin (CARDURA) 2 mg tabletIndicati ons:Chronic diastolic (congestive) heart failure (CMS/HCC),CAD in [place] artery,Presenc e of stent in coronary artery,Uncontr olled hypertension TAKE 1 TABLET BY MOUTH EVERY DAY 90 Tablet 3 2024 Active carvediloL (COREG) 3.125 mg tabletIndicati ons:Chronic diastolic (congestive) heart failure (CMS/HCC),CAD in [place] artery,Presenc e of stent in coronary artery,Uncontr olled hypertension TAKE 1 TABLET BY MOUTH TWICE A DAY WITH MEALS 180 Tablet 3 2024 Active fexofenadine (BRITTANY) 180 mg tablet Take by mouth daily. Pt is unsure of mg Active traZODone (DESYREL) 50 mg tablet Take 50 mg by mouth daily at bedtime. 2024 Active albuterol sulfate HFA 90 mcg/actuation aerosol inhalerIndicat ions:Chronic cough Take 2 Puffs by inhalation every 6 hours as needed for Shortness of Breath. 8.5 Gram 4 2024 Active isosorbide mononitrate (IMDUR) 30 mg Extended Release 24 hour tablet TAKE 1 TABLET BY MOUTH EVERY MORNING 30 Tablet 2024 Active isosorbide mononitrate (IMDUR) 30 mg Extended Release 24 hour tablet take 1 tablet by mouth every morning 90 Tablet 2 01/15 Discontinued ALPRAZolam (XANAX) 0.25 mg tablet Take 0.25 mg by mouth nightly as needed for Anxiety. Not taking 01/10 Discontinued( Alternate therapy prescribed) fluticasone propionate (FLONASE) 50 mcg/spray Eunice, Suspension nasal inhalerIndicat ions:Chronic cough Administer 2 Sprays in each nostril daily. 48 Gram 3 01/10 Discontinued( Alternate therapy prescribed) Active Problems Problem Noted Date Diagnosed Date [...] (diabetes mellitus) 03/24/2023 Hypothyroidism 03/24/2023 Hyperlipidemia 03/24/2023 Resolved Problems Problem Noted Date Diagnosed Date Resolved Date Colon cancer 06/29/2024 07/17/2024 Encounters Date Type Department Care Team Description 01/15/2025 Telephone [facility] [address] [place] [address] Earle Crowe MD Follow Up 01/14/2025 Refill [facility] [address] [place] [address] Emily Vu, RAE 01/10/2025 10:00 AM CDT Office Visit [facility] [address] [place] [address] Jewels Ha APRN Chronic cough (Primary Dx); Adenocarcinoma of right lung (CMS/HCC); Adrenal mass 1 cm to 4 cm in diameter 01/04/2025 9:35 AM CDT - 01/04/2025 11:59 PM CDT Hospital Encounter [facility] CT Scan [place] [address] [place] [address] Ephraim Bueno MD Discharge Disposition: Home or Self Care 01/04/2025 Orders Only [facility] [address] [place] [address] Alie Hopkins PA-C Adenocarcinoma of right lung (CMS/HCC) (Primary Dx) 12/21/2024 9:40 AM CDT Office Visit [facility] [place] [address] [place] [address] Adeline Corbin MD Adenocarcinoma of right lung (CMS/HCC) (Primary Dx) 12/21/2024 8:35 AM CDT - 12/21/2024 11:59 PM CDT Hospital Encounter [facility] [address] [facility] [address] [place] [id number] Adeline Corbin MD Discharge Disposition: Home or Self Care 12/12/2024 External Device Data STL ABSTRACTION Provider, Abstract 11/28/2024 Orders Only [facility] [place] [address] [place] [phone] Adeline Corbin MD Adenocarcinoma of right lung (CMS/HCC) (Primary Dx); assisted use of drug 11/13/2024 Refill [facility] [address] [place] [address] Earle Crowe MD Chronic diastolic (congestive) heart failure ([facility]/HCC); CAD in [place] artery; Presence of stent in coronary artery; Uncontrolled hypertension 10/31/2024 Orders Only [facility] [address] [place] [address] Geoffrey Nava Chronic cough 10/27/2024 Orders Only [facility] [address] [place] [address] Geoffrey Nava Chronic cough 10/19/2024 Refill [facility] [address] [place] [phone] Jewels Ha APRN Chronic cough from Last 3 Months Immunizations Immunization Administration Dates Next Due INFLUENZA VACCINE QUADRIVALENT ADJ 64 YR UP PF I M 08/11/2022 Social History Tobacco Use Types Packs/Day Years [...] on file 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 Patient had dialysis yesterday 01/09/25 Pulse 57 01/10/2025 10:08 AM CDT Temperature 36.3 C (97.4 F) 12/21/2024 8:38 AM CDT Respiratory Rate 16 09/04/2024 4:10 PM SETTLEMENT TECHNICIAN Oxygen Saturation 95% 01/10/2025 10: 08 AM CDT Inhaled Oxygen Concentration - - Weight 68.1 kg (150 lb 3.2 oz) 01/10/2025 10:08 AM CDT Height 157.5 cm (5' 2 ) 01/10/2025 10:0 8 AM CDT Body Mass Index 27.47 01/10/2025 10:08 AM CDT Plan of Treatment Upcoming Encounters Date Type Department Care Team (Late st Contact Info) Description 01/19/2025 11:45 AM CDT Office Visit [facility] [address] [place] [address] Earle Crowe MD [address] [place] [address] 07/04/2025 10:00 AM SETTLEMENT TECHNICIAN Office Visit [facility] [address] [place] [phone] Jewels Ha, DRY WALL APPLICATOR [address] [place] [address] Health Maintenance Due Date Last Done Comments DIABETES ANNUAL FOOT EXAM 1957 DIABETES ANNUAL RETINAL EXAM 1957 DIABETES MICROALBUMIN ANNUAL SCREEN 1957 LDL CHOLESTEROL ANNUAL 1957 DTAP/TDAP/TD VACCINES (1 - Tdap) 1958 ZOSTER VACCINE (1 of 2) 1958 OSTEOPOROSIS SCREENING 2004 RSV VACCINE (60+ or ) (1 - 1-dose 75+ series) 2014 DIABETES HBA1C Q 6 MONTHS 04/08/2024 10/07/2023 INFLUENZA VACCINE Completed 05/11/2024, , 08/11/2022 PNEUMOCOCCAL VACCINE 50+ YEARS Completed 1 , 11/19/2022, 08/27/2022 Medical Devices Implanted Type Area Customer Care Manager Device Identifier Shelf Expiration Date Model / Serial / Lot Cath Dialysis Glidepath 14.5fr 23cm Std [id number] - [id number] Implanted:Qty: 1 on 04/21/2024 by Tomy Altamirano MD at [facility] Catheter Right: Chest BARD EMMANUELLE VASC [id number] 10/23/2025 [id number] / / [id number] Dev Closure Angioseal 6fr Vip [id number] - [id number] Implanted:Qty: 1 on 08/06/2023 at [facility] Closure Device Right: Groin [employer] 12/02/2023 [id number] / / [id number] Stent Synergy Xd 3.0x24mm Evrlms Elut [id number] - [id number] Implanted:Qty: 1 on 08/06/2023 at [facility] Stent Right: Coronary [employer] 11/08/2024 [id number] / / [id number] Procedures Procedure Name Priority Date/Time Associated Diagnosis Comments CT CHEST ABDOMEN PELVIS W CONT Routine 01/04/2025 10:06 AM CDT Adenocarcinoma of right lung (CMS/HCC) TSH Stat 12/21/2024 8:45 AM CDT Adenocarcinoma of right lung (CMS/HCC) 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 MAGNESIUM LEVEL Stat 12/21/2024 8:45 AM CDT Adenocarcinoma of right lung (CMS/HCC) assisted use of drug COMPREHENSIVE METABOLIC PANEL Stat 12/21/2024 8:45 AM CDT Adenocarcinoma of right lung (CMS/HCC) 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 Exam: CT CHEST ABDOMEN PELVIS W CONT Date/Time of Exam: 01/04/2025 10:06 AM REASON FOR EXAM: see dx. DIAGNOSIS: Adenocarcinoma of right lung (CMS/HCC). Technique: CT of the chest, abdomen, and pelvis was performed following the administration of intravenous contrast. Contrast: 97 mL Isovue-300 Findings: Comparison is made to the PET/CT performed 07/17/2024. CHEST: A large mass in the lateral right upper lobe is again identified measuring approximately 2.3 x 5.5 x 2.9 cm in transverse, AP, and craniocaudal dimensions this appears slightly decreased in size compared to the prior PET CT where it measured 3.7 x 7.2 cm. There appears to be some central necrosis however, residual viable tumor is not entirely excluded. There is adjacent chronic pleural thickening and some right-sided volume loss. There is minimal infiltrate or atelectasis in the right middle lobe. Mild peribronchial thickening is noted in the lung bases and right upper lobe. Left lung is clear allowing for a couple calcified granulomas in motion artifact. There is a small chronic right pleural effusion. There is no pneumothorax. There is a large cyst in the left thyroid gland, similar to the prior examination. Minimal mucosal thickening of the distal esophagus is noted. There is no overt mediastinal adenopathy. Cervicothoracic spondylosis is noted. There are degenerative changes in bilateral shoulder girdles. ABDOMEN: The previously identified FDG avid nodule appearing to arise either from or immediately adjacent to the left adrenal gland is again identified measuring 2.3 x 2.8 x 2.7 cm in transverse, AP, and craniocaudal dimension. Previously this measured approximately 2.4 x 2.5 cm in axial plane. The right adrenal gland is unremarkable. The liver and biliary tree of the lungs are prior cholecystectomy. There is a small low-density lesion in the spleen which was likely present on the prior expiration but difficult to evaluate given lack of contrast on the PET/CT. There is no FDG avid lesion in the spleen at that time. There are some mild peripheral splenic calcification which is unchanged. The pancreas is unremarkable. There is a small hiatal hernia. There is mild mucosal thickening of the gastric antrum which can be a normal finding. The small bowel loops are grossly unremarkable allowing for significant motion artifact. There is sigmoid and descending colon diverticulosis without evidence of diverticulitis with significant motion artifact in the abdomen limiting the examination. Postsurgical changes at the ascending colon are likely territory sales representative of prior partial right hemicolectomy. There is advanced renal cortical atrophy with multiple renal cysts. There is diffuse atherosclerotic disease with suspected moderate celiac ostial atherosclerotic narrowing and mild SMA narrowing. There is at least moderate if not severe bilateral renal artery atherosclerotic narrowing. The DELILAH is patent with some mild ostial atherosclerotic narrowing. There is moderate stenosis of the terminal aorta which is small in caliber with severe stenosis of the common iliac artery origins due to bulky atherosclerotic calcification. Lumbar spondylosis is again identified. Pelvis: There is no free fluid in the pelvis. Bladder unremarkable. The uterus contains some calcified fibroids. Adnexa are somewhat prominent for age and are free of definite cyst and are similar to the prior examination. There is a left inguinal hernia containing a nonobstructed loop of sigmoid colon, similar to the prior excretion. There is no pathologic adenopathy. There are moderate atherosclerotic changes in the external iliac arteries and common femoral arteries with more focal severe stenosis of the distal left external iliac artery on image 739 of series 4. The bony pelvis is intact with degenerative changes. IMPRESSION: 1. The ovoid lateral right upper lobe mass appears slightly decreased in size now measuring 2.3 x 5.5 x 2.9 cm, previously measuring 3.7 x 7.2 cm in the axial plane from the prior examination likely representing some response to treatment. There is some central necrosis within the mass however, residual viable tumor is not entirely excluded. 2. Metastatic lesion in the left upper quadrant either arising from or immediately adjacent to the adrenal gland is similar in size measuring 2.3 x 2.8 x 2.7 cm, previously 2.4 x 2.5 cm. There may be minimal interval progression of this nodule since the prior sedation. 3. A hypodense lesion in the spleen is nonspecific and was not well seen on the prior PET/CT but was likely present although only faintly imaged given lack of contrast on the prior PET/CT. This was not FDG avid and likely represents a benign process such as hemangioma. 4. There is a small residual right pleural effusion. 5. Mucosal inflammatory changes of the distal esophagus likely representing gastroesophageal reflux disease or esophagitis in the setting of a hiatal hernia. 6. 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 7. Left inguinal hernia containing a nonobstructed loop of sigmoid colon, similar to the prior examination. 8. Additional incidental findings as above. Narrative Procedure Note Ovi Marks MD - 01/04/2025 IMPRESSION: Please see below. Exam: CT CHEST ABDOMEN PELVIS W CONT Date/Time of Exam: 01/04/2025 10:06 AM REASON FOR EXAM: see dx. DIAGNOSIS: Adenocarcinoma of right lung (CMS/HCC). Technique: CT of the chest, abdomen, and pelvis was performed following the administration of intravenous contrast. Contrast: 97 mL Isovue-300 Findings: Comparison is made to the PET/CT performed 07/17/2024. CHEST: A large mass in the lateral right upper lobe is again identified measuring approximately 2.3 x 5.5 x 2.9 cm in transverse, AP, and craniocaudal dimensions this appears slightly decreased in size compared to the prior PET CT where it measured 3.7 x 7.2 cm. There appears to be some central necrosis however, residual viable tumor is not entirely excluded. There is adjacent chronic pleural thickening and some right-sided volume loss. There is minimal infiltrate or atelectasis in the right middle lobe. Mild peribronchial thickening is noted in the lung bases and right upper lobe. Left lung is clear allowing for a couple calcified granulomas in motion artifact. There is a small chronic right pleural effusion. There is no pneumothorax. There is a large cyst in the left thyroid gland, similar to the prior examination. Minimal mucosal thickening of the distal esophagus is noted. There is no overt mediastinal adenopathy. Cervicothoracic spondylosis is noted. There are degenerative changes in bilateral shoulder girdles. ABDOMEN: The previously identified FDG avid nodule appearing to arise either from or immediately adjacent to the left adrenal gland is again identified measuring 2.3 x 2.8 x 2.7 cm in transverse, AP, and craniocaudal dimension. Previously this measured approximately 2.4 x 2.5 cm in axial plane. The right adrenal gland is unremarkable. The liver and biliary tree of the lungs are prior cholecystectomy. There is a small low-density lesion in the spleen which was likely present on the prior expiration but difficult to evaluate given lack of contrast on the PET/CT. There is no FDG avid lesion in the spleen at that time. There are some mild peripheral splenic calcification which is unchanged. The pancreas is unremarkable. There is a small hiatal hernia. There is mild mucosal thickening of the gastric antrum which can be a normal finding. The small bowel loops are grossly unremarkable allowing for significant motion artifact. There is sigmoid and descending colon diverticulosis without evidence of diverticulitis with significant motion artifact in the abdomen limiting the examination. Postsurgical changes at the ascending colon are likely territory sales representative of prior partial right hemicolectomy. There is advanced renal cortical atrophy with multiple renal cysts. There is diffuse atherosclerotic disease with suspected moderate celiac ostial atherosclerotic narrowing and mild SMA narrowing. There is at least moderate if not severe bilateral renal artery atherosclerotic narrowing. The DELILAH is patent with some mild ostial atherosclerotic narrowing. There is moderate stenosis of the terminal aorta which is small in caliber with severe stenosis of the common iliac artery origins due to bulky atherosclerotic calcification. Lumbar spondylosis is again identified. Pelvis: There is no free fluid in the pelvis. Bladder unremarkable. The uterus contains some calcified fibroids. Adnexa are somewhat prominent for age and are free of definite cyst and are similar to the prior examination. There is a left inguinal hernia containing a nonobstructed loop of sigmoid colon, similar to the prior excretion. There is no pathologic adenopathy. There are moderate atherosclerotic changes in the external iliac arteries and common femoral arteries with more focal severe stenosis of the distal left external iliac artery on image 739 of series 4. The bony pelvis is intact with degenerative changes. IMPRESSION: 1. The ovoid lateral right upper lobe mass appears slightly decreased in size now measuring 2.3 x 5.5 x 2.9 cm, previously measuring 3.7 x 7.2 cm in the axial plane from the prior examination likely representing some response to treatment. There is some central necrosis within the mass however, residual viable tumor is not entirely excluded. 2. Metastatic lesion in the left upper quadrant either arising from or immediately adjacent to the adrenal gland is similar in size measuring 2.3 x 2.8 x 2.7 cm, previously 2.4 x 2.5 cm. There may be minimal interval progression of this nodule since the prior sedation. 3. A hypodense lesion in the spleen is nonspecific and was not well seen on the prior PET/CT but was likely present although only faintly imaged given lack of contrast on the prior PET/CT. This was not FDG avid and likely represents a benign process such as hemangioma. 4. There is a small residual right pleural effusion. 5. Mucosal inflammatory changes of the distal esophagus likely representing gastroesophageal reflux disease or esophagitis in the setting of a hiatal hernia. 6. 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 7. Left inguinal hernia containing a nonobstructed loop of sigmoid colon, similar to the prior examination. 8. Additional incidental findings as above. Ephraim Bueno MD CT ORDERABLES F inal Result * (ABNORMAL) CBC WITH DIFFERENTIAL (12/21/2024 8:45 AM CDT) WBC 6.8 4.8 - 10.8 K/uL 12/21/2024 9:13 AM [facility] RBC 3.34(L) 4.20 - 5.40 M/uL 12/21/2024 9:13 AM [facility] HEMOGLOBIN 10.7(L) 12.0 - 16.0 g/dL 12/21/2024 9:13 AM [facility] HEMATOCRIT 35.2(L) 36.0 - 46.0 % 12/21/2024 9:13 AM [facility] MCV 105.4(H) 82.0 - 100.0 fL 12/21/2024 9:13 AM [facility] MCH 32.0 27.0 - 34.0 pg 12/21/2024 9:13 AM [facility] MCHC 30.4(L) 31.0 - 37.0 g/dL 12/21/2024 9:13 AM [facility] RDW 13.5 11.0 - 14.5 % 12/21/2024 9:13 AM [facility] RDW-STDEV 52.4 37.0 - 54.0 fL 12/21/2024 9:13 AM [facility] PLATELETS 191 140 - 440 K/uL 12/21/2024 9:13 AM [facility] MPV 9.2 8.9 - 12.8 fL 12/21/2024 9:13 AM [facility] NEUTROPHILS 82(H) 42 - 75 % 12/21/2024 9:13 AM [facility] LYMPHOCYTES 6(L) 24 - 44 % 12/21/2024 9:13 AM [facility] MONOCYTES 9 2 - 10 % 12/21/2024 9:13 AM [facility] EOSINOPHILS 2 0 - 7 % 12/21/2024 9:13 AM [facility] BASOPHILS 0 0 - 1 % 12/21/2024 9:13 AM [facility] IMMATURE GRANULOCYTES 0 0 - 2 % 12/21/2024 9:13 AM CDT [facility] [place] NEUTROPHIL ABSOLUTE 5.60 1.40 - 6.50 K/uL 12/21/2024 9:13 AM CDT [facility] [facility] - [place] LYMPHOCYTE ABSOLUTE 0.43(L) 1.20 - 4.00 K/uL 12/21/2024 9:13 AM CDT [facility] [place] MONOCYTE ABSOLUTE 0.58 0.10 - 0.60 K/uL 12/21/2024 9:13 AM T [facility] [place] EOSINOPHIL ABSOLUTE 0.16 0.00 - 0.70 K/uL 12/21/2024 9:13 AM CDT [facility] [place] BASOPHILS ABSOLUTE 0.03 0.00 - 0.20 K/uL 12/21/2024 9:13 AM T [facility] [place] IMMATURE GRANULOCYTES ABSOLUTE 0.03 0.00 - 0.10 K/uL 12/21/2024 9:13 AM T [facility] [place] Blood Venipuncture / Unknown 12/21/2024 8:45 AM CDT 12/21/2024 9:05 AM CDT us Adeline Corbin MD HEMATOLOGY ORDERABLES Final R esult [facility] [place] CLIA# [id number] [id number] [place] [address] * (ABNORMAL) TSH (12/21/2024 8:45 AM CDT) TSH 5.51(H) 0.27 - 4.20 uIU/mL 12/21/2024 12:29 PM CDT [facility]ATORY [facility] - [place] Blood Venipuncture / Unknown 12/21/2024 8:45 AM CDT 12/21/2024 9:05 AM CDT Adeline Corbin MD CHEMISTRY ORDERABLES Final Re sult [facility] CLIA # [id number] [address] [facility] [place] [address] * MAGNESIUM LEVEL (12/21/2024 8:45 AM CDT) MAGNESIUM 2.3 1.6 - 2.4 mg/dL 12/21/2024 9:35 AM CDT [facility] - [place] Blood Venipuncture / Unknown 12/21/2024 8:45 AM CDT 12/21/2024 9:05 AM CDT us Adeline Corbin MD CHEMISTRY ORDERABLES Final Re sult Performing Organization Address City/State/[facility] Co de Phone Number [facility] LABORATORY SERVICES [facility] CLIA# [id number] [address] [place] [address] * (ABNORMAL) COMPREHENSIVE METABOLIC PANEL (12/21/2024 8:45 AM CDT) SODIUM 136 136 - 145 mmol/L 12/21/2024 9:35 AM CDT [facility] [place] POTASSIUM 5.5(H) 3.5 - 5.1 mmol/L 12/21/2024 9:35 AM CDT [facility] [place] CHLORIDE 100 98 - 107 mmol/L 12/21/2024 9:35 AM CDT [facility] [place] CO2 26 22 - 29 mmol/L 12/21/2024 9:35 AM CDT [facility] [place] CALCIUM 9.1 8.8 - 10.2 mg/dL 12/21/2024 9:35 AM CDT [facility] [place] BUN 52(H) 8 - 23 mg/dL 12/21/2024 9:35 AM CDT [facility] [place] CREATININE 5.13(H) 0.51 - 0.95 mg/dL 12/21/2024 9:35 AM CDT [facility] [place] Comment:The GFR result is no t clinically significant on patients <18 or >70 years of age. GLUCOSE 181(H) 74 - 99 mg/dL 12/21/2024 9:35 AM [facility]ORY [facility] - [place] TOTAL PROTEIN 6.1(L) 6.4 - 8.3 g/dL 12/21/2024 9:35 AM [facility] - [place] ALBUMIN 3.3(L) 3.5 - 5.2 g/dL 12/21/2024 9:35 AM [facility] LABORATORY [facility] [place] BILIRUBIN TOTAL 0.2 0.0 - 1.0 mg/dL 12/21/2024 9:35 AM [facility]ORY [facility] - [place] ALKALINE PHOSPHATASE 63 35 - 104 U/L 12/21/2024 9:35 AM [facility] - [place] AST 16 <=33 U/L 12/21/2024 9:35 AM [facility]ORY [facility] [place] ALT 12 <=33 U/L 12/21/2024 9:35 AM [facility] LAB[facility]ORY [facility] [place] GFR 8 mL/min/1.7 3 sq meter 12/21/2024 9:35 AM [facility] LABORATORY [facility] [place] Comment:eGFR calculated with 2020 CKD-EPI equation. Vegetarian diet, extremely high or low muscle mass, and may affect results. Cystatin C with Glomerular Filtration Rate is a suitable alternative for these patients. ANION GAP 10 9 - 20 mmol/L 12/21/2024 9:35 AM [facility]ORATORY [facility] Blood Venipuncture / Unknown 12/21/2024 8:45 AM CDT 12/21/2024 9:05 AM CDT us Adeline Corbin MD CHEMISTRY ORDERABLES Final Re sult [facility] CLIA# [id number] [id number] [place] [address] * LACTATE DEHYDROGENASE (12/21/2024 8:36 AM CDT) LD (LACTATE DEHYDROGENASE) 140 120 - 250 U/L [facility] Comment: Test Performed at: [facility] [address] [phone] Salome Wray MD Blood 12/21/2024 8:36 AM CDT 12/21/2024 1:26 PM CDT us Adeline Corbin MD CHEMISTRY ORDERABLES Final Re sult [facility] [phone] [facility] [address] [phone] from Last 3 Months Insurance [facility] [id number] Advance Directives For more information, please contact: [phone] Documents on File Type Date Recorded 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
--- OUTSIDE RECORDS SUMMARY | 2025-01-16 17:32 | XMS_ITS | Data Portability ---
Author Organization [facility] Arreola Roosevelt [facility], .[facility], [facility] Address [address] [place] [address] Care Team Providers Care Test Desk Operator Name Role Phone MARCELO ROBERTS Primary Care Provider Unavailabl e Assessment Encounter Date Assessment Date Assessment LastModified by Organization Details LastModified Time 07/27/2024 07/27/2024 A Care Coordination Assessment form was filled out as part of this patient's office visit today. [email or web address] Not available 08/02/2024 17:30:31 10/11/2024 10/11/2024 Document scribed by Mick Hunter Medical Billing Manager. I was present during interview and exam. I have reviewed and agree with above documentation. Dr. Marcelo Roberts. [email or web address] Not available 10/11/2024 16:44:13 11/14/2024 11/14/2024 Document scribed by Mick Hunter Medical Billing Manager. I was present during interview and exam. I have reviewed and agree with above documentation. Dr. Marcelo Roberts. Reassured pt and family that Hospice does provide Des services and bath aids, they do not specifically provide in home care, they can pay out of pocket for in home care if they prefer. [email or web address] Not available 11/14/2024 16:07:06 Plan of Treatment Reminders Order Date Submit Date Provider Last Modified By Organization Details Last Modified Time Details Appointments None recorded. Lab None recorded. Referral oncologist referral 2023 024 [email or web address] Not available 09:26:[address] referral 2023 024 [email or web address] Not available 10:36:05 Procedures None recorded. Surgeries None recorded. Imaging None recorded. Medication Orders prednisone 20 mg tablet 2024 025 [id number], [address], [facility], [place], [address], 5 16:57:41 ciprofloxac in 500 mg tablet 2024 025 [id number], [address], [facility], [place], [address], 5 16:57:41 azithromyci n 250 mg tablet 2024 025 [id number], [address], [facility], [place], [address], 15:28:56 albuterol sulfate 2.5 mg/3 mL (0.083 %) solution for nebulizatio n 20[email or web address] [place], [place] [address]Pharmacy #[id number], [address], [facility], [place], [address], 5 18:41:19 nystatin 100,000 unit/gram topical powder 2024 025 [id number], [address], [facility] [address], [address], 13:26:00 nystatin 100,000 unit/gram topical cream 2024 025 [id number], [address] [facility], [facility] [address], [address], 13:25:59 Patient TargetsNo targets recorded. Patient InstructionsNo instructions recorded. Reason for Referral Referring Physician: Marcelo wheat, Family Medicine, Encounter Date: 05/17/2024 Power Saw Operator Referral for P rimary adenocarcinoma of colon Referring Physician: Marcelo Roberts, Family Medicine, Encounter Date: 05/17/2024 Results Created Date Observation Date Name Description Value Unit Range Abnormal Flag Note LastModifiedBy Organization Detail LastModifiedTime 05/11/2005/10/2024 XR, tibia + fibul a, 2 view No observ ation record ed. [address] [place], [address], 05/17/2024 10:05:41 05/11/2005/10/2024 XR, lumba r spine No observ ation record ed. [address] [place], [address], 05/17/2024 10:05:40 05/19/2005/17/2024 biops y, breas t, w/ ultra sound bárbara nce (PROC ) No observ ation record ed. [address] [place], [address], 05/26/2024 08:42:26 05/26/2005/25/2024 CT, lumba r spine , w/o contr ast No observ ation record ed. [address] [place], [address], 06/29/2024 10:04:40 06/27/20 24 06/27/2024 MRI, hip, w/wo contr ast No observ ation record ed. [address] [facility] Orders [address] [place], [address], 06/28/2024 16:44:44 07/12/20 24 07/12/2024 PFT, compl ete No observ ation record ed. [address] [facility] [address], [place], [address], 07/14/2024 16:48:51 Result Notes None recorded. Problems Name Problem SNOMED Code Status Onset Date Resolution Date Notes Provider Name and Address Organization Details Recorded Time Bradycardia 19134343 Active 2022 Marcelo Roberts DO [address] [place] [address], [address], [facility] 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 3 12:31:25 Chronic kidney disease stage 5 558225331 Active 2022 Marcelo Roberts [address], [address], [facility] 3 12:31:27 Bilateral conjunctivi tis 4453416975166 9103 Active 2022 Marcelo Roberts [address], [address], [facility] 3 12:31:32 Essential hypertensio n 37078333 Active 2022 Marcelo Roberts [address], [address], [facility] 3 12:31:35 Hyperlipide heydi 60508723 Active 2022 Marcelo Roberts [address], [address], [facility] 3 12:32:22 Active or passive immunizatio n Active 2022 Marcelo Roberts [address], [address], [facility] 3 12:36:46 Type 2 diabetes mellitus 59544442 Active 2022 Marcelo Roberts, [address], [address], [facility] 3 12:39:55 Hypothyroid ism 57262824 Active [address], [address], [facility] 3 12:41:06 Angina pectoris 529633434 Active [address], [address], [facility] 3 12:49:09 Hypertensiv e heart AND chronic kidney disease stage 5 1624181982700 5 Active [address], [address], [facility] 3 12:49:10 Abnormal gait due to muscle weakness 263373074 Active 2022 Marcelo Roberts [address], [address], [facility] 3 12:49:12 Chronic obstructive pulmonary disease 84116058 Active 2022 Marcelo Roberts [address], [address], [facility] 3 12:49:28 Moderate persistent asthma 442926247 Active 2022 Marcelo Roberts [address], [address], [facility] 3 12:49:35 Abdominal pain 87488402 Active 2023 Marcelodavon Roberts [address], [address] [place] [address] 5, [facility] 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 4 13:07:29 History of placement of stent for coronary artery disease 442513559 Active 2023 Marcelodavon Roberts [address], [address] [place] [address] 5, [facility] 4 13:10:19 Acute bronchitis 47847941 Active 2023 Rhett Mendoza MD [address] [place] [address], [address] [place] [address] 5, [facility] 4 12:19:44 Acute exacerbatio n of chronic obstructive pulmonary disease 004113845 Active 2023 Marcelodavon Roberts [address], [address] [place] [address] 5, [facility] 4 17:07:35 Pleural effusion 72065218 Active 2023 Marcelodavon Roberts [address], [address] [place] [address] 5, [facility] 4 18:10:10 Lung mass 427162702 Active 2023 Marcelodavon Roberts [address], [address] [place] [address] 5, [facility] 4 17:57:08 Nodule of lung 821960773 Active 2023 Mick Hunter null, [facility] 4 10:30:50 Atrioventri cular block 172710305 Active 2023 Mick Hunter null, [facility] 4 14:17:49 History of myocardial infarction 574455175 Active 2023 Mick Hunter null, [facility] 4 14:17:50 Mass of left breast 6147671519787 9103 Active 2023 Mick Hunter [facility], [facility] 4 08:21:33 Compression fracture of lumbar spine 051977053 Active 2023 Ashly Valdez null, [facility] 4 15:19:22 Primary adenocarcin bryan of colon 5913066965012 Active [address], [address], [facility] 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 4 09:05:42 Mass of left adrenal gland 7059226971393 9101 Active [address], [address], [facility] 4 09:05:43 Congestive heart failure 44011625 Active 2024 Mick walsh, [facility] 5 18:15:43 Abnormal gait 61196312 Active 2024 Mick Hunter [facility] 5 18:19:37 Candidiasis of skin 55095537 Active 2024 Marcelo RobertsDO [address] [place] [address], [address], [facility] 5 16:14:11 Primary adenocarcin bryan of lung 060347185 Active 2024 Mick Elsa walsh [facility] 5 16:16:14 Problem Notes None recorded. Procedures Surgical History Date Name Laterality Status Provider Name and Address Organization Details Recorded Time Cholecystectomy completed Shira Gimenez [facility] 01/07/2024 15:43:18 Imaging Results None recorded. Procedure Notes None recorded. Medical Equipment None Reported. Allergies No known drug allergies Medications Name Sig Start Date Stop Date Status Note LastModified by Organization Details LastModified Time losartan 50 mg tablet TAKE 1 TABLET BY MOUTH AT NIGHT 06/24 completed Not Available Not Available Not Available atorvasta tin 40 mg tablet TAKE 1 TABLET BY MOUTH EVERY DAY 2024 active Not Available Not Available Not Avai lable Unistik 2 Device kit daily 06/24 completed E11.9 DM/sd; Recorded 08/12/19 23 11:42AM by Kalyani Rose, Office Visit; Refill Quantity : 0; Not Available Not Available Not Available hydralazi ne 10 mg tablet Take 1 tablet twice a day by oral route. 06/24 completed Not Available Not Available Not Available carvedilo l 25 mg tablet TAKE 1 TABLET BY MOUTH TWICE A DAY 01/06 completed Not Available Not Available Not Available carvedilo l 6.25 mg tablet TAKE 1 TABLET BY MOUTH TWICE A DAY 12/26 completed Not Available Not Available Not Available albuterol sulfate 2.5 mg/3 mL (0.083 %) solution for nebulizat ion INHALE 3 ML BY NEBULIZA TION 3 TIMES A DAY NEEDED active Not Available Not Available No t Available trazodone 50 mg tablet TAKE 1 TABLET BY MOUTH AT BEDTIME 2024 active Not Available Not Available Not Avai lable azithromy dilia 250 mg tablet TAKE 2 TABLETS BY MOUTH TODAY, THEN TAKE 1 TABLET DAILY FOR 4 DAYS DIRECTED 11/14 completed Not Available Not Available Not Available benzonata te 200 mg capsule TAKE 1 CAPSULE BY MOUTH 3 TIMES DAILY. 10/11 completed Not Available Not Available Not Available metoprolo l succinate ER 50 mg tablet,ex tended release 24 hr TAKE 1 TABLET BY MOUTH EVERY DAY 08/12 completed Not Available Not Available Not Available prednison e 20 mg tablet TAKE 1 TABLET BY MOUTH EVERY DAY FOR 7 DAYS active Not Available Not Available No t Available isosorbid e mononitra te ER 30 mg tablet,ex tended release 24 hr TAKE 1 TABLET BY MOUTH EVERY MORNING active Not Available Not Available No t Available metoprolo l succinate ER 100 mg tablet,ex tended release 24 hr Take 1 tablet every day by oral route. 06/24 completed Not Available Not Available Not Available clopidogr el 75 mg tablet TAKE 1 TABLET BY MOUTH EVERY DAY active Not Available Not Available No t Available ciproflox acin 500 mg tablet TAKE 1 TABLET BY MOUTH EVERY DAY DIRECTED FOR 10 DAYS active Not Available Not Available No t Available tramadol 50 mg tablet TAKE 1 TO 2 TABLETS BY MOUTH EVERY 8 HOURS NEEDED FOR MODERATE TO SEVERE PAIN active Not Available Not Available No t Available TobraDex 0.3 %-0.1 % eye ointment APPLY A SMALL AMOUNT INTO BOTH EYES THREE TIMES A DAY 06/24 completed Not Available Not Available Not Available carvedilo l 3.125 mg tablet TAKE 1 TABLET BY MOUTH TWICE A DAY WITH MEALS active Not Available Not Available No t Available isosorbid e mononitra te ER 120 mg tablet,ex tended release 24 hr Take 1 tablet every day by oral route. 06/24 completed Not Available Not Available Not Available alprazola m 0.25 mg tablet TAKE 1 TABLET BY MOUTH TWICE A DAY NEEDED. active Not Available Not Available No t Available [email or web address] Ultra Test strips USE TO CHECK SUGAR DAILY active Not Available Not Available No t Available amlodipin e 10 mg tablet TAKE 1 TABLET BY MOUTH DAILY. active Not Available Not Available No t Available levothyro xine 50 mcg tablet TAKE 1 TABLET BY MOUTH EVERY DAY IN THE MORNING 2024 active Not Available Not Available Not Avai lable hydralazi ne 100 mg tablet TAKE 1 TABLET BY MOUTH THREE TIMES DAILY. active Not Available Not Available No t Available erythromy dilia 5 mg/gram (0.5 %) eye ointment APPLY 1 CM RIBBON INTO THE LOWER CONJUNCT IVAL SACS IN THE AFFECTED EYE(S) 5 TIMES PER DAY 06/24 completed Not Available Not Available Not Available neomycin- polymyxin -dexameth 3.5 mg/mL-10, 000 unit/mL-0 .1% eye drops INSTILL 1 DROP INTO EACH EYE THREE TIMES DAILY FOR 7 DAYS THEN TAPER TO 1 DROP TWICE DAILY UNTIL PATIENT RETURNS TO CLINIC 06/24 completed Not Available Not Available Not Available nystatin 100,000 unit/gram topical cream APPLY TO THE AFFECTED AREA(S) BY TOPICAL ROUTE 2 TIMES PER DAY 2024 active Not Available Not Available Not Avai lable polymyxin B sulfate 10,000 unit-trim ethoprim 1 mg/mL eye drops PLACE 2 DROPS INTO EYES 4 TIMES A DAY 06/24 completed Not Available Not Available Not Available nitroglyc lefty 0.4 mg sublingua l tablet PLACE 1 TABLET UNDER TONGUE EVERY 5 MINUTES NEEDED FOR CHEST PAIN. active Not Available Not Available No t Available omeprazol e 20 mg capsule,d elayed release TAKE 1 CAPSULE BY MOUTH EVERY DAY active Not Available Not Available No t Available bumetanid e 1 mg tablet Take 1 tablet every day by oral route. active Not Available Not Available No t Available furosemid e 20 mg tablet TAKE 1 TABLET BY MOUTH EVERY DAY 08/12 completed Not Available Not Available Not Available ergocalci ferol (vitamin D2) 1,250 mcg (50,000 unit) capsule TAKE 1 CAPSULE BY MOUTH ONE TIME PER WEEK active Not Available Not Available No t Available cefdinir 300 mg capsule 02/28 completed Not Available Not Available Not Available losartan 100 mg tablet TAKE 1 TABLET BY MOUTH EVERY EVENING. active Not Available Not Available No t Available fluticaso ne propionat e 50 mcg/actua tion nasal spray,radha pension SPRAY 2 SPRAYS INTO EACH NOSTRIL EVERY DAY active Not Available Not Available No t Available doxazosin 2 mg tablet TAKE 1 TABLET BY MOUTH EVERY DAY active Not Available Not Available No t Available amoxicill in 500 mg-potass ium clavulana te 125 mg tablet TAKE 1 TABLET BY MOUTH EVERY 12 HOURS FOR 10 DAYS 01/30 completed Not Available Not Available Not Available neomycin 3.5 mg/g-poly myxin B 10,000 unit/g-de xameth 0.1 % eye oint APPLY A THIN LAYER ON EYELID TWICE A DAY 06/24 completed Not Available Not Available Not Available cyclobenz aprine 5 mg tablet Take 1 tablet 3 times a day by oral route. 06/24 completed Not Available Not Available Not Available lactulose 10 gram/15 mL oral solution TAKE 30MLS TWICE A DAY NEEDED FOR CONSTIPA TION 08/12 completed Not Available Not Available Not Available melatonin active Not Available Not Cande ilable Not Available Calcium 600 active Not Available Not Available Not Available Colace active Not Available Not Availa ble Not Available hydralazi ne 06/24 completed for BP over 180/120; 0; Recorded 08/12/19 23 11:42AM by Kalyani Rose, Office Visit; Not Available Not Available Not Available metoprolo l succinate daily 06/24 completed Recorded 08/12/19 23 11:42AM by Kalyani Rose, Office Visit; Refill Quantity : 30; Tablet; Not Available Not Available Not Available Vitamin D3 05/10 completed Not Available Not Available Not Available Aerochamb er as directed 06/24 completed Recorded 06/04/20 22 11:16AM by Catalina Diaz, Office Visit; Refill Quantity : 0; Not Available Not Available Not Available THSC Levothyro xine Sodium every morning 06/24 completed DM/sd; 33083; Recorded 10/13/19 23 10:34AM by Kalyani Rose (Authori jimena through Marcelo Roberts DO), Refill Request; Refill Quantity : 30; Tablet; Not Available Not Available Not Available One Touch Ultra Test Strips daily 06/24 completed E11.9 DM/sd; Recorded 08/12/19 23 11:42AM by Kalyani Rose, Office Visit; Refill Quantity : 100; Strip; Not Available Not Available Not Available Symbicort 160 mcg-4.5 mcg/actua tion HFA aerosol inhaler INHALE 2 PUFF TWO TIMES DAILY, NEEDED 06/24 completed Not Available Not Available Not Available Symbicort 80 mcg-4.5 mcg/actua tion HFA aerosol inhaler INHALE 2 PUFFS BY MOUTH TWICE DAILY NEEDED 06/24 completed Not Available Not Available Not Available sevelamer carbonate 800 mg tablet TAKE 1 TABLET BY MOUTH THREE TIMES A DAY WITH MEALS active Not Available Not Available No t Available Renvela 06/24 completed Not Available Not Available Not Available Jose Manuel Caps 1 mg capsule TAKE 1 CAPSULE BY MOUTH EVERY DAY 01/06 completed Not Available Not Available Not Available spiromete rs and accessori es three times daily 06/24 completed Recorded 08/12/19 23 11:42AM by Kalyani Rose, Office Visit; Refill Quantity : 0; Not Available Not Available Not Available levothyro xine 50 mcg capsule Take 1 capsule every day by oral route. 06/24 completed Not Available Not Available Not Available amlodipin e besylate (bulk) daily 06/24 completed cs/smf; 73174; Recorded 08/12/19 23 11:42AM by Kalyani Rose (Authori jimena through Sheng Guzman DO), Office Visit; Refill Quantity : 0; Not Available Not Available Not Available ergocalci ferol (vitamin D2) 50 mcg (2,000 unit) tablet 06/24 completed 0; Recorded 08/12/19 23 11:42AM by Kalyani Rose, Office Visit; Not Available Not Available Not Available Aerochamb er Plus Flow-Vu,L arge Mask USE DIRECTED 06/24 completed Not Available Not Available Not Available Trelegy Ellipta 06/24 completed Not Available Not Available Not Available RenaPlex- D 800 mcg-12.5 mg-2,000 unit tablet TAKE 1 TABLET BY MOUTH EVERY DAY active Not Available Not Available No t Available OneTouch Delica Plus Lancet 33 gauge USE TO TEST ONCE DAILY active Not Available Not Available No t Available Trelegy Ellipta 200 mcg-62.5 mcg-25 mcg powder for inhalatio n INHALE 1 PUFF BY MOUTH EVERY DAY active Not Available Not Available No t Available aspirin 81 mg capsule Take 1 capsule every day by oral route. active Not Available Not Available No t Available Klayesta 100,000 unit/gram topical powder APPLY TO AFFECTED AREA TWICE A DAY active Not Available Not Available No t Available Vitals Date Recorded Body height Oxygen saturation Oxygen saturation in Arterial blood by Pulse oximetry Heart rate Respiratory rate Provider Name and Address Organization Details Last Updated DateTime 5 157.48 cm 94 % 94 % 72 /min 18 /min CATALINA REJI [facility] 5 12:59:11 Date Recorded Body height Body mass index (BMI) Body weight Oxygen saturation Oxygen saturation in Arterial blood by Pulse oximetry Heart rate Respiratory rate Body temperature Systolic blood pressure Diastolic blood pressure Provider Name and Address Organization Details Last Updated DateTime 5 157.48 cm 27.4 kg/m2 51283.8 6 g 92 % 92 % 76 /min 20 /min 97.7 [degF] 130 mm[Hg] 74 mm[Hg] Lissette [facility] 5 16:32:05 Date Recorded Body height Oxygen saturation Oxygen saturation in Arterial blood by Pulse oximetry Heart rate Body temperature Respiratory rate Body mass index (BMI) Body weight Provider Name and Address Organization Details Last Updated DateTime 5 157.48 cm 93 % 93 % 75 /min 97.9 [degF] 19 /min 27.4 kg/m2 37933.8 6 g KALYANI ROSE [facility] 5 16:31:10 Date Recorded Body height Body mass index (BMI) Body weight Respiratory rate Oxygen saturation Oxygen saturation in Arterial blood by Pulse oximetry Heart rate Systolic blood pressure Diastolic blood pressure Provider Name and Address Organization Details Last Updated DateTime 5 157.48 cm 27.1 kg/m2 92695.7 7 g 18 /min 94 % 94 % 73 /min 130 mm[Hg] 60 mm[Hg] [facility] 5 15:30:30 Date Recorded Body height Body mass index (BMI) Body weight Oxygen saturation Oxygen saturation in Arterial blood by Pulse oximetry Heart rate Respiratory rate Systolic blood pressure Diastolic blood pressure Provider Name and Address Organization Details Last Updated DateTime 4 157.48 cm 26.2 kg/m2 64092.8 g 94 % 94 % 68 /min 18 /min 140 mm[Hg] 76 mm[Hg] Lissette Watson [facility] 4 09:49:59 Social History Question Answer Notes LastModified by Organizat [employer] Details LastModified Time Tobacco Smoking Status Former Smoker Shira Cabrales nico [facility] 01/07/2024 15:42:13 When Did You Quit Smoking? 16+yearssinc elastcigaret te [email or web address] Information not available 01/07/2024 Sex: Unknown Functional Status Question Answer Note LastModified by Organizat ion Details LastModified Time Do you use any illicit or recreational drugs? No [email or web address] Information not available 10/29/2022 Do you or have you ever used any other forms of tobacco or nicotine? No [email or web address] Information not available 10/29/2022 What is your level of alcohol consumption? None [email or web address] Information not available 10/29/2022 Mental Status None recorded. Family History Nothing Reported Notes:Breast Cancer; materna l aunt, Diabetes Mellitus; Aunt Mother: Cancer; Pancreatic Medical History No medical history recorded. Gynecological HistoryNo gynecological history recorded. Obstetrics History GPAL:G 0 P 0 0 0 0 Immunizations Vaccine Type Date Status Note Provider Nam e and Address Organization Details Recorded Time Influenza, adjuvanted, quadrivalent, PF 3 completed Lissette walsh [facility] 02/07/2024 16:48:50 Pneumococcal conjugate PCV20, polysaccharide ROR240 conjugate, adjuvant, PF 4 completed Marcelo Roberts DO [address] [place] [address], [phone], [facility] 05/18/2024 16:40:08 RSV, bivalent, protein subunit RSVpreF, diluent reconstituted, 0.5 mL, PF 4 completed Marcelo Roberts DO [address] [place] [address] [place], [address], [facility], [place] 05/18/2024 16:40:08 Past Encounters Encounter ID Performer Location Encounter Start Date Encounter Closed Date Diagnosis/Indication Diagnosis SNOMED-CT Code Diagnosis ICD10 Code Diagnosis Note [id number] Marcelo RobertsDO [facility] ([facility]) [address] [place] [address] 10/29/2022 11:51:20 11/06/2022 16:04:11 Essential hypertension 26978581 I10 consider increasing hydralazin e, but will defer to Dr. Hall, nephro, since she is making changes. Bilateral conjunctivitis 0681669282 0351882 H10.9 Chronic ki dney disease stage 5 367063499 N18.5 Dependence on hemodialysis due to end stage renal disease 016850828 Z99.2 Bradycardia 75371625 R00 .1 with hemodalysi s. pt on high dose isosorbide . appearentl y placed on this when in residential. she has no chest pains. will stop this. continue beta tera for now. f/u 3-4 wks. consider increasing hydralazin e [id number] Marcelo Roberts, DO [facility] ([facility]) [address] [place] [address] 04/22/2023 12:09:41 04/22/2023 15:11:21 Essential hypertension 18120489 I10 continue hydralazin e, metoprolol , amlodipine . Bilateral conjunctivitis 7676443167 0402682 H10.9 Severe, refractory prolonged. Status post surgery recently with Dr. Hall. We will restart the erythromyc in eye ointment and she will follow-up with them soon. Chronic ki dney disease stage 5 [id number] N18.5 Currently on hemodialys is, followed by Dr. Hall, nephrology . Considerin g switching to home peritoneal dialysis. Continue care with nephrology . Dependence on hemodialysis due to end stage renal disease 271153217 Z99.[address] Hall, nephrology started on dialysis in early 2022 Bradycardia 54268889 R00 .1 with hemodalysi s. pt on high dose isosorbide . appearentl y placed on this when in residential. she has no chest pains. will stop this. continue beta tera for now. f/u 3-4 wks. consider increasing hydralazin e Hyperlipidemia 97280666 E78.5 Stable. Will repeat labs.next appt Continue Atorvastat in. Counseled on diet and exericse. Type 2 chary betes mellitus 88432373 E11.69 E11.22 Patient has been diet controlled for the last couple years. Her A1c in February 2023 was 5.3.Counse led on yearly eye exams. Followed by nephrology . Active or passive immunization 418949081 Z23 pt wanting to get her fluvax at dialysis clinic instead of hear. counseled Hypothyroidism 47670803 E03.9 Stable. Continue current dosage of Levothyrox ine. We will repeat Thyroid labs at next appt. [id number] Marcelo Roberts DO [facility] ([facility]) [address] [place] [phone] 5 06/24/2023 11:50:29 06/24/2023 18:47:34 Moderate persistent asthma 007303247 J45.40 per pulm. continue trelegy and care with pulm at [facility]. Essential hypertension 43620527 I10 continue hydralazin e, metoprolol , amlodipine . Hyperlipidemia 85423341 E78.5 Stable. Continue Atorvastat in. Counseled on diet and activity Hypothyroidism 06751125 E03.9 Stable. Continue current dosage of Levothyrox ine. We will repeat Thyroid labs Type 2 chary betes mellitus 58500423 E11.69 E11.22 Patient has been diet controlled for the last couple years. Her A1c in February 2023 was 5.3.Adryan led on yearly eye exams. Followed by nephrology .repeat labs today.Gem in off glycemic medication s. continue diet control. Chronic ki dney disease stage 5 553770866 N18.5 Currently on hemodialys is, followed by Dr. Hall, nephrology . Considerin g switching to home peritoneal dialysis. Continue care with nephrology . I recommend continued evaluation of heart before proceeding with any surgical procedures or aggressive interventi ons. Dependence on hemodialysis due to end stage renal disease 433794609 Z99.[address] Hall, nephrology started on dialysis in early 2022 Chronic ob structive pulmonary disease 87833361 J44.9 continue trelegy. continue with pulm. Abnormal g ait due to muscle weakness 180442173 M62.81 R26.89 Z99.3 Z74.1 R53.1 continue with wheelchair . counseled on home chair exercises. Hypertensi ve heart AND chronic kidney disease stage 5 4153123802 9105 I13.11 continue cardiology eval for CHF and Atheroscle rosis. continue care with nephrology . Angina pectoris 86220458 0 I20.9 stable. off long acting nitro. continue ASA [id number] Marcelo Roberts DO [facility] ([facility]) [address] [place] [address] [phone] 5 08/12/2023 11:17:30 08/13/2023 11:05:04 Hyperlipidemia 88732283 E78.5 Stable. Continue Atorvastat in. Counseled on diet and activity Type 2 chary betes mellitus 05810192 E11.69 E11.22 Patient has been diet controlled for the last couple years. Her A1c in February 2023 was 5.3.Adryan led on yearly eye exams. Followed by nephrology .repeat labs today.Gem in off glycemic medication s. continue diet control. Essential hypertension 84405682 I10 continue hydralazin e, metoprolol , amlodipine . [id number] Marcelo Roberts DO [facility] ([facility]) [address] [place] [address] [phone] 5 08/12/2023 12:48:07 08/12/2023 13:59:25 Abnormal gait due to muscle weakness 340798704 M62.81 R26.89 Z99.3 Z74.1 R53.1 continue with wheelchair . counseled on home chair exercises. Angina pectoris 72053856 0 I20.9 stable. off long acting nitro. continue ASA Chronic ki dney disease stage 5 908623410 N18.5 Currently on hemodialys is, followed by Dr. Hall, nephrology . Chinedu martinez switching to home peritoneal dialysis. Continue care with nephrology . I recommend continued evaluation of heart before proceeding with any surgical procedures or aggressive interventi ons. Chronic ob structive pulmonary disease 12607972 J44.9 continue trelegy. continue with pulm. 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 Hall, nephrology started on dialysis in early 2022. has been stable. continue f/u with her. Essential hypertension 27449110 I10 continue hydralazin e, metoprolol , amlodipine . Hyperlipidemia 79938370 E78.5 Stable. Continue Atorvastat in. Counseled on diet and activity Hypertensi ve heart AND chronic kidney disease stage 5 9680507056 9105 I13.11 I13.2 continue cardiology eval for CHF and Atheroscle rosis. continue care with nephrology . Hypothyroidism 48025364 E03.9 Stable. Continue current dosage of Levothyrox ine. We will repeat Thyroid labs next appt Moderate p ersistent asthma 273262645 J45.40 per pulm. continue trelegy and care with pulm at [facility]. Type 2 chary betes mellitus 25438357 E11.69 E11.22 E11.59 Patient has been diet controlled for the last couple years. Her A1c in February 2023 was 5.3.Counse led on yearly eye exams. Followed by nephrology .repeat labs today.Gem in off glycemic medication s. continue diet control. Abdominal pain 87017307 R10.9 I reviewed recent records and added to chart. We discussed with the patient.ap pears to be related to constipati on. counseled on Mirilax and MOM use. increase fiber. stay as active as you can. 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 Hall, nephrology History of placement of stent for coronary artery disease 511746954 Z95.5 1 wk ago, jul, 2022 at [facility] d, single stent after +TILE FITTER. I reviewed [facility] records as per chart. recovering well. updated meds. keep f/u with cardiology . [id number] Marcelo Roberts DO [facility] ([facility]) [address] [place] [address] 08/17/2023 16:08:57 08/18/2023 13:52:41 Abdominal pain 96194154 R10.9 I reviewed recent records and added to chart. We discussed with the patient.ap pears to be related to constipati on. counseled on Mirilax and MOM use. increase fiber. stay as active as you can. [id number] Rhett Mendoza MD [facility] ([facility]) [address] [place] [phone] 5 09/07/2023 11:47:00 09/07/2023 17:42:05 Acute bronchitis 35269677 J20.9 Advised to drink plenty of fluids, run a cool-mist humidifier in room at night, gargle salt water for sore throat, and get plenty of rest. Patient should avoid over-exert ion and reduce exposure to irritants such as smoke, cold, dry air, and dust. Treatment currently involves symptomati c relief. Patient may take acetaminop hen or ibuprofen as directed to reduce fever and body aches. Antihistam ine and decongesta nt usage was discussed and recommenda tions made. Albuterol inhaler, prednisone , and azithromyc in sent to pharmacy. Take as prescribed . Patient understood these instructio ns and will follow up in the office in 7-10 days if symptoms not improving. Encouraged patient to follow up with PCP in 2 weeks for COPD nahid berrios [id number] Marcelo Roberts DO [facility] ([facility]) [address] [place] [phone] 5 12/27/2023 15:53:38 12/27/2023 17:59:27 Acute bronchitis 59031149 J20.9 Chronic ki dney disease stage 5 966711082 N18.5 Currently on hemodialys is, followed by Dr. Hall, nephrology . Chinedu martinez switching to home peritoneal dialysis. Continue care with nephrology . she has been cleared by cardiology for procedure. Acute exac erbation of chronic obstructive pulmonary disease 685017422 J44.1 [id number] Marcelo Roberts DO [facility] ([facility]) [address] [place] [phone] 5 01/07/2024 15:23:12 01/07/2024 16:26:49 Acute bronchitis 23109993 J20.9 Improved but not resolved. Oxygen saturation improved, lungs actually sound better than expected. We will give a different antibiotic , cefdinir. Will do hemodialys is dosing as per prescripti on. Counseled patient and daughter extensivel y on how to take the medication . Expect slow improvemen t. Return if worsening. [id number] Marcelo Roberts DO [facility] ([facility]) [address] [place] [address] 01/31/2024 17:03:00 02/01/2024 14:25:33 Acute bronchitis 91672914 J20.9 some improvemen t in cough, SOB. finished 2nd round of abx, steroids.w ill get xray to ensure no complicati ons.no new meds at this time. Phone f/u. Return to office with no improvemen t or any problems. Go to ER with severe worsening or severe problems. [id number] Marcelo Roberts DO [facility]) [address] [place] [phone] 5 02/07/2024 16:35:41 02/07/2024 17:53:43 Acute bronchitis 68576051 J20.9 some improvemen t in cough, but no improvemen t in SOB. finished 2nd round of abx, steroids.C omplicated by pleural effusion which is worsening over the last month. Will treat pleural effusion as below. Pleural effusion 9492829 8 J90 Right. Worsening over the last month. Moderate.R epeat chest x-ray today shows moderate right pleural effusion with small left effusion. Cannot rule out infection. She remains dyspneic and this has not improved. This is complicate d by end-stage renal disease on hemodialys is and chronic lung disease. She has completed 2 rounds of antibiotic s. We will set her up for outpatient thoracente sis with evaluation of fluid. Counseled patient and daughter who was present today. [id number] Marcelo Roberts DO [facility] ([facility]) [address] [place] [address] 02/16/2024 09:48:32 02/16/2024 10:48:48 Pleural effusion 12180709 J90 02/16/24- 900ml drained with thoracente sis 02/14/24, lab performed: Gram stain negative, culture still pending. Labs indicate an exudate. Histopatho logy indicates a lymphoprol iferative infiltrate with reactive mesothelia l cells. No neoplastic cells identified , but cannot be ruled out.CT Chest has been ordered, pending scheduling . Counseled we will call her with results, we want to get this taken care of before peritoneal cath for home dialysis in Mar.Couns guillermo continue exercising lungs with incentive spirometer .Repeat CXR today. Chronic bronchitis 58757 004 J42 Continue Trelegy, Albuterol, repeat CXR today. Type 2 chary laney mellitus 53486713 E11.69 E11.22 E11.59 Patient has been diet controlled for the last couple years. Her A1c in February 2023 was 5.3.Adryan led on yearly eye exams. Followed by nephrology .repeat labs today.Gem in off glycemic medication s. continue diet control. Hypothyroidism 92935200 E03.9 Stable. Continue current dosage of Levothyrox ine. Hypertensi ve heart AND chronic kidney disease stage 5 6416692455 9105 I13.11 I13.2 continue cardiology eval for CHF and Atheroscle rosis. continue care with nephrology . Hyperlipidemia 43567181 E78.5 Stable. Continue Atorvastat in. 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 Hall, nephrology Chronic ob structive pulmonary disease 26234444 J44.9 continue trelegy. continue with pulm. 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 Hall, nephrology started on dialysis in early 2022. has been stable. continue f/u with her. 02/16/24: Dialysis / / Wed, pending peritoneal dialysis cath placement for home dialysis in Mar, counseled we want to get her lungs figured out before we proceed with this. Lung mass 542267073 R91. 8 02/16/24: Right side, CT chest ordered, counseled. Abnormal g ait due to muscle weakness 338004798 M62.81 R26.89 Z99.3 Z74.1 R53.1 R26.2 continue with wheelchair . counseled on home chair exercises. Atrioventr icular block 627446858 I44.2 Per EKG 06/20/22. History of myocardial infarction 647034138 I25.2 Per EKG 06/20/22. Stent placed Jul 2022, [facility]. Congestive heart failure 68520692 I50.33 Continue Bumetanide . [id number] Marcelo Roberts DO [facility] ([facility]) [address] [place] [phone] 5 03/08/2024 08:01:56 03/08/2024 10:07:29 Lung mass 398706652 R91.8 03/08/24- Reviewed and discussed CT Chest, lung mass, counseled back pain she is experienci ng is in the location of this mass, we need to investigat e this, Pulm referral is being processed, pending appt.: Right side, CT chest ordered, counseled. Mass of left breast 1224 016015 0412990 N63.20 03/08/24- Per CT Chest, reviewed and discussed with pt, will proceed with left breast diagnostic Mammo and US. Chronic ob structive pulmonary disease 82274294 J44.9 continue trelegy. continue with pulm. [id number] Antione Dalal MD [facility] ([facility]) [address] [place] [phone] 5 05/10/2024 12:04:35 05/10/2024 16:38:40 Fall in home 35774337 Y92.009 Pain in sacrum 588706591 1 M54.50 Pain of ri ght lower leg 9501726418 02152 M79.228 [id number] Marcelo Roberts DO [facility] ([facility]) [address] [place] [address] 5 05/17/2024 09:33:58 05/19/2024 17:21:48 Primary adenocarcinoma of colon 0495423559 [address]18[address] chest 02/23/24, confirmed with tissue bx at [facility] 05/09/24. I counseled pt and caregiver on DX and basic expectatio ns. All questions addressed. Pt desires oncology via [facility], we will refer. She also needs f/u with new Pulm as Dr. Perez at [facility] has left. Active or passive immunization 394748791 Z23 pt wanting to get her fluvax at dialysis clinic instead of hear. counseled Pleural effusion 5705613 8 J90 1023/24: currently resolved.- 900ml drained with thoracente sis 02/14/24, lab performed: Gram stain negative, culture still pending. Labs indicate an exudate. Histopatho logy indicates a lymphoprol iferative infiltrate with reactive mesothelia l cells. No neoplastic cells identified , but cannot be ruled out.CT Chest has been ordered, pending scheduling . Counseled we will call her with results, we want to get this taken care of before peritoneal cath for home dialysis in Mar.Couns saumyad continue exercising lungs with incentive spirometer .Repeat CXR today. [id number] Marcelo Roberts DO [facility] ([facility]) [address] [place] [address] 07/27/2024 11:49:01 09/11/2024 08:34:37 Candidiasis of skin 01895162 B37.2 will start topical tx. counseled on skin care, candidiasi s prevention . Chronic ki dney disease stage 5 716600500 N18.5 Currently on hemodialys is, followed by Dr. Hall, nephrology . Chinedu martinez switching to home peritoneal dialysis. Continue care with nephrology . she has been cleared by cardiology for procedure. Chronic ob structive pulmonary disease 54991852 J44.9 continue trelegy. continue with pulm. Essential hypertension 14243630 I10 continue hydralazin e, metoprolol , amlodipine . Hyperlipidemia 29146914 E78.5 Stable. Continue Atorvastat in. Counseled on diet and activity Hypothyroidism 67678260 E03.9 Stable. Continue current dosage of Levothyrox ine. Type 2 chary betes mellitus 25127690 E11.69 E11.22 E11.59 Patient has been diet controlled for the last couple years. Her A1c in February 2023 was 5.3.Counstremaine led on yearly eye exams. Followed by nephrology .repeat labs today.Gem in off glycemic medication s. continue diet control. Primary adenocarcinoma of colon 6946722581 [address]18[address] chest 02/23/24, confirmed with tissue bx at [facility] 05/09/24. I counseled pt and caregiver on DX and basic expectatio ns. All questions addressed. Pt desires oncology via [facility], we will refer. She also needs f/u with new Pulm as Dr. Perez at [facility] has left. 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 Hall, nephrology started on dialysis in early 2022. has been stable. continue f/u with her. 02/16/24: Dialysis / / Wed, pending peritoneal dialysis cath placement for home dialysis in Mar, counseled we want to get her lungs figured out before we proceed with this. History of myocardial infarction 428254331 I25.2 Per EKG 06/20/22. Stent placed Jul 2022, [facility]. Congestive heart failure 65769365 I50.33 I13.2 Continue Bumetanide . Atrioventr icular block 308615258 I44.2 Per EKG 06/20/22. Abnormal gait 87826200 R 26.2 R26.89 R53.1 Z74.1 Z99.3 Continues with w/c, home exercises. [id number] Marcelo Roberts DO [facility]) [address] [place] [phone] 5 10/11/2024 16:05:26 10/16/2024 21:53:19 Chronic obstructive pulmonary disease 23841606 J44.9 continue trelegy. continue with pulm. Acute bronchitis 3217456 2 J20.9 10/11/24: pt is very high risk, will start Abx, Zpack, continue nebs and monitor for worsening. consider CXR.Return to office with no improvemen t or any problems. Go to ER with severe worsening or severe problems. [id number] Marcelo Roberts DO [facility]) [address] [place] [address] [phone] 5 10/16/2024 16:24:50 10/16/2024 17:38:42 Chronic obstructive pulmonary disease 64304187 J44.9 continue trelegy. continue with pulm. pt needs to fu with them if not improving. Acute bronchitis 8455932 2 J20.9 10/16/24: with copd, will give alternativ e abx and steroids. pt promises to get HD tomorrow AM.Return to office with no improvemen t or any problems. Go to ER with severe worsening or severe problems. [id number] Marcelo Roberts DO [facility] ([facility]) [address] [place] [address]4947[address]581 5 11/14/2024 14:45:43 11/14/2024 18:05:17 Chronic kidney disease stage 5 575429204 N18.5 Currently on hemodialys is, followed by Dr. Hall, nephrology . Continue care with nephrology . Congestive heart failure 94035662 I50.33 I13.2 Continue Bumetanide per Nephrology . Primary adenocarcinoma of lung 397577661 C34.90 With mets to left adrenal gland, following with [facility] and Pulm. CT abd scheduled 12/07/24. On Hospice with [facility], sister and pt to speak with Hospice about bath aid and Des coming out. Health Concerns Section Related Observation LastModified by Organization Detai ls LastModified Time None Recorded Concern Status LastModified by Organization Details LastModified Time None Recorded Advance Directives Directive None Recorded Payers Insurance Date Sequence Insurance Name Policy Number Policy Weiss Covered Member ID Weiss Member ID Guarantor Name 12/25/2024 1 [facility] (MEDICARE REPLACEMENT/A DVANTAGE - PPO) [id number] Bianka E [place] [id number] Bianka E Mir[place] 12/25/2024 1 [place]: [place] Bianka E [place] [id number] Bianka E Mirta 12/25/2024 [place] - PART A - [facility] (MEDICARE) Bianka E [place] [id number] Bianka E Mirta Notes Date Note Type Note Provider Name and Address Organization Details Recorded Time 4 text/html pt presents for f/u on lung bx and recheck on fall that occurred on 05/02/24 she reports that she had a fall on 05/02/[address] Dalal on 05/10/24, tx with tramadol for pain, she is taking the tramadol bid and working well for pain controlrecommended CT of back and right lower leg to be done d/t a spinal injury this has already been order but they have not received a call back on scheduling yet. Her sister states that she will wait until this afternoon to see if they call for scheduling and if she does not hear anything by this afternoon she will call them at [facility]. Also she was instructed to call back to office if she is having any trouble with the scheduling of the CT. she was trying to catch her dog outside and fell on front steps d/t lost her footingshe landed on the steps and hit her lower back on step and also has bruising to right ling, at that time she did not feel she needed to be checked out and by 05/10/24 was in pain rated at 8 on scale and came in to be seen. She denies any other injury from the fall and denies losing consciousness. She did have to have assistance to get up, her nephew was the one that was present during fall but he did not witness her fall and he helped her up she has been using ice and heat on both back and ling, there is still a knot noted on her ling ++++++++++PATHOLOGY (05/09/2024 10:27 AM CDT):Authorizing Provider Result Audrey Bishop MD DIAGNOSTIC IMAGING ORDERABLES CASE REPORT Surgical Pathology Report Case: [id number] Provider: Ovi Bishop MD Collected: 05/09/2024 10:27 AMOrdering Location: [facility] Received: 05/09/2024 10:46 AMCT ScanPathologist: Emily Boyer MDSpecimen: Lung, right upper lobe, mass05/11/2024 7:12 AM CDT [facility]. Lung, right upper lobe mass, CT-guided needle core biopsy- Well-differentiated adenocarcinoma with acinar pattern, consistent with lung originREV:JEDCVERNA [id number] 05/11/2024 7:12 AM CDT [facility] GROSS DESCRIPTION A. Received in formalin labeled [place] -lung, RUL mass are 4 partially fragmented white-davies fine tissue cores up to 1.7 cm. The specimen is submitted in toto in A1-A2.Sandra Kamla 05/11/2024 7:12 AM CDT [facility] Review of H&E-stained slides demonstrates replacement of the normal alveolar lung tissue by an infiltrating gland forming neoplasm associated with a fibrotic stroma and mild chronic inflammation. Immunohistochemical stains were performed on block A2 to further characterize this process using antibodies directed against AE1/AE3, CDX2, CK7, CK20, GATA3, Napsin A, PAX8, and TTF-1. The tumor is positive for AE1/AE3, CK7, Napsin A, and TTF-1 but negative for the other markers studied. The staining pattern is consistent with lung origin. 05/11/2024 7:12 AM T [facility] None provided. Chart review shows reported history of breast mass and lung mass. 05/11/2024 7:12 AM T [facility] pt presents for f/u on lung bx and recheck on fall that occurred on 05/02/24 she reports that she had a fall on 05/02/[address] Dalal on 05/10/24, tx with tramadol for pain, she is taking the tramadol bid and working well for pain controlrecommended CT of back and right lower leg to be done d/t a spinal injury this has already been order but they have not received a call back on scheduling yet she was trying to catch her dog outside and fell on front steps d/t lost her footingshe landed on the steps and hit her lower back on step and also has bruising to right ling, at that time she did not feel she needed to be checked out and by 05/10/24 was in pain rated at 8 on scale and came in to be seen. She denies any other injury from the fall and denies losing consciousness. She did have to have assistance to get up, her nephew was the one that was present during fall but he did not witness her fall and he helped her up she has been using ice and heat on both back and ling, there is still a knot noted on her ling She does not have any personal hx of smoking, but smoked 20+years. ++++++++++PATHOLOGY (05/09/2024 10:27 AM CDT):Authorizing Provider Result Audrey Bishop MD DIAGNOSTIC IMAGING ORDERABLES CASE REPORT Surgical Pathology Report Case: [id number] Provider: Ovi Bishop MD Collected: 05/09/2024 10:27 AMOrdering Location: [facility] Received: 05/09/2024 10:46 [facility] [place] ScanPathologist: Emily Boyer MDSpecimen: Lung, right upper lobe, mass05/11/2024 7:12 AM [facility]. Lung, right upper lobe mass, CT-guided needle core biopsy- Well-differentiated adenocarcinoma with acinar pattern, consistent with lung originREV:ALEXISDCdary Jean-Baptiste VERNA [id number] 05/11/2024 7:12 AM [facility] GROSS DESCRIPTION A. Received in formalin labeled [place] -lung, RUL mass are 4 partially fragmented white-davies fine tissue cores up to 1.7 cm. The specimen is submitted in toto in A1-A2.Sandra Spearsohn 05/11/2024 7:12 AM [facility] Review of H&E-stained slides demonstrates replacement of the normal alveolar lung tissue by an infiltrating gland forming neoplasm associated with a fibrotic stroma and mild chronic inflammation. Immunohistochemical stains were performed on block A2 to further characterize this process using antibodies directed against AE1/AE3, CDX2, CK7, CK20, GATA3, Napsin A, PAX8, and TTF-1. The tumor is positive for AE1/AE3, CK7, Napsin A, and TTF-1 but negative for the other markers studied. The staining pattern is consistent with lung origin. 05/11/2024 7:12 AM [facility] None provided. Chart review shows reported history of breast mass and lung mass. 05/11/2024 7:12 AM [facility] Marcelo Roberts DO [address] [place] [address], [id number], [facility], [place] 05/18/2024 16:43:25 5 text/html Rash/Skin LesionReported bypatient.Location:breast Quality:not itchy; not painful;increasing in size Severity:moderate Duration:7 days Associated Symptoms:no fever; no nausea; no vomiting; no diarrhea Pt c/o rash on left breast. noticed it 5-7 days ago. denies any itching or pain. biju Roberts DO [address] [place] [address], [id number], [facility], [facility] 09/10/2024 16:14:46 5 text/html Pt presents for cough/congestion for 1 month She had radiation tx, the last one was 09/21/24 and f/u with Oncology on 09/22/24. She will f/u in November. [facility] pulmonology addressed the cough by giving rx for flonase and reflux med omeprazole along with otc allergy medsThey have been doing this and it has not been effective She c/o some discomfort breathing in and outShe is coughing up white frothy phlegmThe cough is worse at night. She has missed dialysis several times d/t the cough. She has heard others c/o at dialysis about her coughing and wants her to wear a mask Marcelo Roberts DO [address] [place] [address], [id number], [facility], [facility] 10/16/2024 16:43:55 5 text/html Patient was seen last week for bronchitis and given a Z-Pack. She feels like she might need another round of antibiotics. She still has a cough with SOB. cough is not productive, she does not feel like she did when she had the effusion. However, she has refused dialysis all last week. last HD was 9 days ago.no itchy skin or worsening confusion. pt has multiple chronic medical conditions including: COPD, CKD on HD, CHF, hx of Plueral effusion, hx of colon cancer. Marcelo Roberts DO [address] [place] [address], [id number], [facility], [facility] 10/16/2024 16:57:59 5 text/html CoughReported bypatient.Quality:productiv e Severity:improving; moderate Duration:intermittent Associated Symptoms:sputum production Marcelo Roberts, [address] [place], [id number], [facility] Rm, Betty. 10/16/2024 16:57:59 5 text/html Pt presents to discuss home health/hospice options They discussed Hospice with aids social worker at [facility] a few months ago, decided Palliative care then. She has now arranged Hospice, is on dialysis and has her diagnosis of cancer.[facility] has already been out to the house and did an intake with her. She has been missing dialysis, has missed 9 treatments d/t being sick and not feeling like going. Sister requesting more care for pt at home. Sister is still working and finds pt covered in feces.Sister also concerned about pt's spiritual needs, doesn't feel they are being met, pt is unable to get out and go [place]', knows she won't tolerate being there for a long period of time, despite wanting to. She is of the Spiritism advent. During exam today pt says she feels great. She was c/o upset stomach yesterday, nausea. Schedule for CT abd 12/07/24. Marcelo Roberts, [address] [place], [id number], [facility] Rm, Betty. 11/23/2024 12:04:50 OBGyn Episode No OBEpisode recorded.
--- OUTSIDE RECORDS SUMMARY | 2025-01-16 17:33 | XMS_ITS ---
Author Name Guru, Clinic Address [address] [place] [address] Phone [phone] Organization [facility] e, NA DOCUMENT DISCLAIMER Multiple document versions may exist, please be sure you review the latest version. The information in the [facility] Continuity of Care Document represents a summary of certain health and medical information. It may not contain the complete medical history for the patient and should be independently verified. The represented time in the document is Eastern Time. 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 Active March 21, 2024 Hyperglycemia, unspecified R73.9 Active M arch 2023 Diarrhea, unspecified R19.7 Active 2022 Encounter for adequacy testi ng for peritoneal dialysis Z49.32 Active February 09, 2023 Encounter for immunization Z23 Active J anuary 2022 Unspecified protein-calorie malnutrition E46 Active July 08, 2022 Iron deficiency anemia, unspecified D50.9 Activ e July 06, 2022 Encounter for screening for respiratory tuberculosis Z11.1 Active July 06, 2022 Secondary hyperparathyroidism of renal origin N25.81 Active July 06, 2022 Anemia in chronic kidney disease D63.1 Active July 06, 2022 Chest pain, unspecified R07.9 Active Dece mber 2021 Shortness of breath R06.02 Active July 06, 2022 Nausea R11.0 Active July 06 Cramp and spasm R25.2 Active July 06, 2022 Hypotension of hemodialysis I95.3 Active July 06, 2022 Fever, unspecified R50.9 Active July 06, 2022 Pain, unspecified R52 Active June 252021 Allergy, unspecified, subsequent encounter T78.40XD Active July 06, 2022 Coagulation defect, unspecified D68.9 Active July 06, 2022 Encounter for fitting and ad justment of extracorporeal dialysis catheter Z49.01 Active Luz Elena chavez 2021 Renovascular hypertension I15.0 Active Roseber 2021 End stage renal disease N18.6 Active Dece mber 2021 Dependence on renal dialysis Z99.2 Active July 03, 2022 Chronic diastolic (congestive) heart failure I50.32 Active July 03, 2022 Acute kidney failure, unspecified N17.9 Active July 03, 2022 Hypothyroidism, unspecified E03.9 Active July 03, 2022 Hyperlipidemia, unspecified E78.5 Active July 03, 2022 Chronic kidney disease, unspecified N18.9 Activ e July 03, 2022 Hypertensive heart and chron ic kidney disease with heart failure and stage 1 through stage 4 chronic kidney disease, or unspecified chronic kidney disease I13.0 Active July 03, 2022 ALLERGIES AND ADVERSE REACTIONS No Known Allergies SOCIAL HISTORY Tobacco Use Status Tobacco Type Unknown if ever consumed tobacco - Caregiver Characteristics No Information Available Characteristics of Home environment No Information Available Gender and Sex Information Gender Identity Sexual Orientation Female Decline to answer MEDICATIONS Prescribed Medications for Dialysis Treatments Medication Instructions Dosage Route Start Date End Date Stat us Heparin Sodium (Porcine) 1,000 Units/mL Catheter Lock Arterial Post Dialysis, Every Treatment 2000 units Arterial Red Port November 18, 2024 November 17, 2025 Active Heparin Sodium (Porcine) 1,000 Units/mL Catheter Lock Venous Post Dialysis, Every Treatment 2000 units Venous Blue Port November 18, 2024 November 17, 2025 Active Heparin Sodium (Porcine) 1,000 Units/mL Systemic Bolus, Every Treatment, Total treatment minutes 210 4000 units Intravenous - push August 15, 2024 August 14, 2025 Active Iron Sucrose (Venofer) During Dialysis, 3X Week 100 mg Intravenous - push January 04, 2025 January 13, 2025 Active Epoetin Anuel (Epogen) During Dialysis, 3X Week 5000 units Intravenous - push November 14, 2024 November 13, 2025 Discontinued Epoetin Anuel (Epogen) During Dialysis, 3X Week 4600 units Intravenous - push December 28, 2024 December 27, 2025 Discontinued Home Medications Medication Instructions Dosage Route Start Date End Date Stat us albuterol sulfate 90 mcg/actuation Inhale using inhaler once a day as needed 1 puff INHALATION April 01, 2024 Active amlodipine 10 mg Take by mouth every morning 1 tablet ORAL January 19, 2023 Active aspirin 81 mg Take by mouth once a day 1 capsule ORAL April 01, 2024 Active atorvastatin 40 mg Take by mouth at bedtime 1 tablet ORAL July 06, 2022 Active calcium carbonate-vitamin D3 600 mg-20 mcg (800 unit) Take by mouth as directed 1 tablet ORAL October 06, 2022 Active carvedilol 3.125 mg Take by mouth twice a day 1 tablet ORAL December 14, 2023 Active cholecalciferol (vitamin D3) 125 mcg (5,000 unit) Take by mouth once a day 1 capsule ORAL July 31, 2024 Active docusate sodium 100 mg Take by mouth twice a day 1 capsule ORAL November 13, 2023 Active doxazosin 2 mg Take by mouth once a day 1 tablet ORAL December 14, 2023 Active hydralazine 100 mg Take by mouth three times a day 1 tablet ORAL April 29, 2024 Active isosorbide mononitrate 30 mg Take by mouth once a day 1 tablet ORAL July 31, 2024 Active levothyroxine 50 mcg Take by mouth once a day 1 tablet ORAL July 06, 2022 Active losartan 100 mg Take by mouth every evening as directed 1 tablet ORAL October 27, 2022 Active melatonin 10 mg Take by mouth once a day 1 tablet by mouth April 29, 2024 Active nitroglycerin 0.4 mg Take by mouth as needed 1 tablet SUBLINGUAL April 29, 2024 Active omeprazole 20 mg Take by mouth once a day 1 capsule ORAL November 08, 2024 Active Plavix 75 mg Take by mouth once a day 1 tablet ORAL November 13, 2023 Active RenaPlex-D 800 mcg-12.5 mg-2,000 unit Take by mouth once a day 1 tablet ORAL May 15, 2023 Active sevelamer carbonate 800 mg Take by mouth three times a day with meals 1 tablet ORAL February 01, 2024 Active Sevelamer Carbonate Tablet 800 mg Take By Mouth Three times a day With Meals 1 Tablet By Mouth February 01, 2024 July 31, 2025 Active trazadone 50 by mouth every night 1 tablet by mouth November 30, 2024 Active Trelegy Ellipta 200-62.5-25 mcg Inhale as directed once a day 1 puff INHALATION August 04, 2022 Active Vitamin D2 1,250 mcg (50,000 unit) Take by mouth once a week 1 capsule ORAL July 31, 2023 Active VITAL SIGNS Post-Treatment Vital Signs Vital Sign Value Date / Time Blood Pressure-sitting 139/68 mmHg January 13, 2025 06:20 AM Heart Rate 79 beats per minute January 13 06:20 AM Respiratory Rate 18 breaths per minute January 13, 2025 06:20 AM Temperature 97.5 deg. F January 13, 2025 06 :20 AM Weight Vital Sign Value Date / Time Estimated Dry Weight 67.5 kg January 13 11:59 PM Pre-Dialysis 69.20 kg January 13, 2025 06 :20 AM Post-Dialysis 68.20 kg January 13, 2025 06 :20 AM Other Other Value Date / Time Height 157 cm February 11, 2023 12 :00 AM Body Mass Index 27.10 kg/m2 January 11, 2025 11 :59 AM HEALTH CONCERNS LAB RESULTS Hematology Result Type Result Value Relevant Referen ce Range Interpretation Date Neutrophils 80.5 % 40.0 - 75.0 % High July Transferrin Sat. (Calc) 33 % 20 - 55 % - July 27, 2024 TIBC (Calc) 225 mcg/dL 185 - 515 mcg/dL - July 27, 2024 UIBC/TIBC 151 mcg/dL 155 - 355 mcg/dL Low July 27, 2024 WBC (No Diff) 7.67 1000/mcL 4.80 - 10.80 1000/mcL - July 27, 2024 Platelets 293 1000/mcL 130 - 400 1000/mcL - 2024 Transferrin Sat. (Calc) 41 % 20 - 55 % - September 02 UIBC/TIBC 127 mcg/dL 155 - 355 mcg/dL Low September 02, 2024 TIBC (Calc) 214 mcg/dL 185 - 515 mcg/dL - [id number] Platelets 230 1000/mcL 130 - 400 1000/mcL - Febr uary 2024 Neutrophils 82.2 % 40.0 - 75.0 % High August WBC (No Diff) 5.97 1000/mcL 4.80 - 10.80 1000/mcL - September 02, 2024 Platelets 242 1000/mcL 130 - 400 1000/mcL - Jose L h 2024 WBC (No Diff) 6.11 1000/mcL 4.80 - 10.80 1000/mcL - September 28, 2024 Neutrophils 83.0 % 40.0 - 75.0 % High September 28, 2024 Ferritin 1230 ng/mL 10 - 291 ng/mL High September 28, 2024 UIBC/TIBC 117 mcg/dL 155 - 355 mcg/dL Low September TIBC (Calc) 196 mcg/dL 185 - 515 mcg/dL - September Transferrin Sat. (Calc) 40 % 20 - 55 % - September 28, 2024 Hemoglobin x 3 27 % 36.0 - 48.0 % Low September 242024 Iron 63 mcg/dL 30 - 160 mcg/dL - October 26, 2024 UIBC/TIBC 142 mcg/dL 155 - 355 mcg/dL Low October TIBC (Calc) 205 mcg/dL 185 - 515 mcg/dL - October Transferrin Sat. (Calc) 31 % 20 - 55 % - October 26, 2024 RDW 15.8 % 11.5 - 14.5 % High October 26 025 Platelets 238 1000/mcL 130 - 400 1000/mcL - Apri l 2024 Hemoglobin x 3 27.9 % 36.0 - 48.0 % Low October MCH 32.5 pg 27.0 - 31.0 pg High October 26, 2024 MCHC 32.0 g/dL 30.0 - 36.0 g/dL - October Monocytes 5.1 % 3.0 - 10.0 % - October 26 25 Basophils 0.2 % 0.0 - 1.5 % - October 26 5 Eosinophil 7.8 % 0.0 - 7.0 % High October 26 5 WBC (No Diff) 7.95 1000/mcL 4.80 - 10.80 1000/mcL - October 26, 2024 VIJAY 1.2 % 0.0 - 4.0 % - October 26 5 Lymphocytes 4.1 % 19.0 - 48.0 % Low October 26, 2024 Neutrophils 81.6 % 40.0 - 75.0 % High October 26, 2024 Hemoglobin x 3 26.4 % 36.0 - 48.0 % Low October 242024 Hemoglobin x 3 24.9 % 36.0 - 48.0 % Low October 242024 Hemoglobin x 3 27 % 36.0 - 48.0 % Low October 252024 Hemoglobin x 3 27.3 % 36.0 - 48.0 % Low November 23, 2024 Transferrin Sat. (Calc) 23 % 20 - 55 % - November 30, 2024 TIBC (Calc) 197 mcg/dL 185 - 515 mcg/dL - November 30, 2024 UIBC/TIBC 151 mcg/dL 155 - 355 mcg/dL Low November 30, 2024 Iron 46 mcg/dL 30 - 160 mcg/dL - November 30, 025 Hemoglobin x 3 29.1 % 36.0 - 48.0 % Low November 30, 2024 Platelets 222 1000/mcL 130 - 400 1000/mcL - November 30, 2024 RDW 15.0 % 11.5 - 14.5 % High November 30 MCH 32.2 pg 27.0 - 31.0 pg High November 30 MCHC 32.7 g/dL 30.0 - 36.0 g/dL - November 30, 2024 VIJAY 1.3 % 0.0 - 4.0 % - November 30, 2024 WBC (No Diff) 6.02 1000/mcL 4.80 - 10.80 1000/mcL - November 30, 2024 Eosinophil 3.8 % 0.0 - 7.0 % - November 30, 2024 Basophils 1.0 % 0.0 - 1.5 % - November 30, 2024 Lymphocytes 6.5 % 19.0 - 48.0 % Low November 30 Monocytes 6.0 % 3.0 - 10.0 % - November 30, 2024 Neutrophils 81.4 % 40.0 - 75.0 % High November 30 25 Retic HGB (CHr) 33.0 pg 25.4 - 31.8 pg High November 232024 Hemoglobin x 3 30.3 % 36.0 - 48.0 % Low December 07, 2024 Hemoglobin x 3 31.8 % 36.0 - 48.0 % Low December 14, 2024 Hemoglobin x 3 32.4 % 36.0 - 48.0 % Low December 22, 2024 HGB 10.8 g/dL 12.0 - 16.0 g/dL Low December 22, 2024 Eosinophil 5.2 % 0.0 - 7.0 % - December 30, 2024 Basophils 0.8 % 0.0 - 1.5 % - December 30, 2024 VIJAY 1.2 % 0.0 - 4.0 % - December 30, 2024 WBC (No Diff) 5.24 1000/mcL 4.80 - 10.80 1000/mcL - December 30, 2024 RBC 3.64 mill/mcL 4.20 - 5.40 mill/mcL Low December 30, 2024 HCT 37.5 % 37.0 - 47.0 % - December 30 25 MCH 31.4 pg 27.0 - 31.0 pg High December 30 MCHC 30.5 g/dL 30.0 - 36.0 g/dL - December 30, 2024 RDW 13.7 % 11.5 - 14.5 % - December 30 25 UIBC/TIBC 162 mcg/dL 155 - 355 mcg/dL - December 30, 2024 Iron 50 mcg/dL 30 - 160 mcg/dL - December 30, 2024 Transferrin Sat. (Calc) 24 % 20 - 55 % - December 30, 2024 TIBC (Calc) 212 mcg/dL 185 - 515 mcg/dL - December Neutrophils 79.5 % 40.0 - 75.0 % High December 30 Lymphocytes 6.8 % 19.0 - 48.0 % Low December 30 Monocytes 6.4 % 3.0 - 10.0 % - December 30 Ferritin 997 ng/mL 10 - 291 ng/mL High December 30 HGB 11.4 g/dL 12.0 - 16.0 g/dL Low December 30, 2024 Hemoglobin x 3 34.2 % 36.0 - 48.0 % Low December Platelets 243 1000/mcL 130 - 400 1000/mcL - December 30, 2024 HGB 11.6 g/dL 12.0 - 16.0 g/dL Low January 04, 2025 Hemoglobin x 3 34.8 % 36.0 - 48.0 % Low December HGB 11.6 g/dL 12.0 - 16.0 g/dL Low January 11, 2025 Hemoglobin x 3 34.8 % 36.0 - 48.0 % Low December Metabolic/Renal Result Type Result Value Relevant Reference Range Interpre tation Date BUN 79 mg/dL 6 - 19 mg/dL High October 26 25 Creatinine, Serum 6.88 mg/dL 0.60 - 1.30 mg/dL High October 26, 2024 Chloride 103 mEq/L 96 - 108 mEq/L - October 26, 2024 Bicarbonate 24 mEq/L 22 - 29 mEq/L - October 26, 2024 BUN/Creat Ratio 11.5 10.0 - 20.0 - October Sodium 139 mEq/L 136 - 145 mEq/L - October 26, 2024 Potassium 5.1 mEq/L 3.5 - 5.1 mEq/L - October 26, 2024 URR, Calc 85 % 65 - 80 % High October 26, 2024 BUN, Post 12 mg/dL 6 - 19 mg/dL - October 26 URR, Calc 81 % 65 - 80 % High November 30, 2024 BUN, Post 6 mg/dL 6 - 19 mg/dL - November 30, 2024 Bicarbonate 29 mEq/L 22 - 29 mEq/L - November 30 BUN 31 mg/dL 6 - 19 mg/dL High November 30, 2024 Creatinine, Serum 4.69 mg/dL 0.60 - 1.30 mg/dL High November 30, 2024 Potassium 4.5 mEq/L 3.5 - 5.1 mEq/L - November 30, 025 Chloride 102 mEq/L 96 - 108 mEq/L - November 30 BUN/Creat Ratio 6.6 10.0 - 20.0 Low November 30, 2024 Sodium 138 mEq/L 136 - 145 mEq/L - November 30, 025 Potassium 4.8 mEq/L 3.5 - 5.1 mEq/L - December 30, 2024 Sodium 136 mEq/L 136 - 145 mEq/L - December 30, 2024 Bicarbonate 23 mEq/L 22 - 29 mEq/L - December 30, 025 Chloride 99 mEq/L 96 - 108 mEq/L - December 30, Creatinine, Serum 5.17 mg/dL 0.60 - 1.30 mg/dL High December 30, 2024 BUN 34 mg/dL 6 - 19 mg/dL High December 30 BUN/Creat Ratio 6.6 10.0 - 20.0 Low December 30, 2024 URR, Calc 74 % 65 - 80 % - December 30, 2024 BUN, Post 9 mg/dL 6 - 19 mg/dL - December 30 HD Adequacy Result Type Result Value Relevant Referen ce Range Interpretation Date Krt/V 0.00 No Reference Ran ge Provided - July 27, 2024 Krt/V 0.00 No Reference Ran ge Provided - September 02, 2024 Krt/V 0.00 No Reference Ran ge Provided - September 07, 2024 Krt/V 0.00 No Reference Ran ge Provided - September 28, 2024 spKt/V (Daugirdas II) 2.74 No Reference Range Provided - October 26, 2024 eKt/V ([place]) 2.29 No Reference Range Provided - October 26, 2024 spKt/V Gotch 4.34 No Reference Ran ge Provided - October 26, 2024 wstdKt/V 1.9 No Reference Ran ge Provided - October 26, 2024 Krt/V 0.00 No Reference Ran ge Provided - October 26, 2024 wstdKt/V, residual 0.0 No Reference Range Provided - October 26, 2024 wstdKt/V without residual 1.9 No Reference Range Provided - October 26, 2024 eKt/V ([place]) 1.47 No Reference Range Provided - November 30, 2024 wstdKt/V, residual 0.0 No Reference Range Provided - November 30, 2024 wstdKt/V 2.6 No Reference Ran ge Provided - November 30, 2024 spKt/V Gotch 1.78 No Reference Ran ge Provided - November 30, 2024 Krt/V 0.00 No Reference Ran ge Provided - November 30, 2024 wstdKt/V without residual 2.6 No Reference Range Provided - November 30, 2024 spKt/V (Daugirdas II) 1.78 No Reference Range Provided - November 30, 2024 wstdKt/V 2.4 No Reference Ran ge Provided - December 30, 2024 spKt/V (Daugirdas II) 1.48 No Reference Range Provided - December 30, 2024 wstdKt/V, residual 0.0 No Reference Range Provided - December 30, 2024 Krt/V 0.00 No Reference Ran ge Provided - December 30, 2024 wstdKt/V without residual 2.4 No Reference Range Provided - December 30, 2024 eKt/V ([place]) 1.22 No Reference Range Provided - December 30, 2024 spKt/V Gotch 1.50 No Reference Ran ge Provided - December 30, 2024 Bone/Mineral Result Type Result Value Relevant Referen ce Range Interpretation Date Magnesium 2.1 mg/dL 1.6 - 2.6 mg/dL - March 30, 2024 Magnesium 2.3 mg/dL 1.6 - 2.6 mg/dL - June 29, 2024 Vitamin D 25 Hydroxy 92.6 ng/mL 30.0 - 100.0 ng/mL - September 28, 2024 PTH-Intact, Plasma 65 pg/mL 16 - 80 pg/mL - Sep Magnesium 2.4 mg/dL 1.6 - 2.6 mg/dL - September 28, 2024 Corrected Ca x P Product 54 0 - 54 - October 26, 2024 Calcium, Total 9.1 mg/dL 8.4 - 10.2 mg/dL - 2024 Phosphorus 5.6 mg/dL 2.6 - 4.5 mg/dL High October 26, 2024 Ca x P Product 51 0 - 54 - October 26, 2024 Corrected Ca x P Product 43 0 - 54 - November 30, 2024 Calcium, Total 9.1 mg/dL 8.4 - 10.2 mg/dL - November 30, 2024 Phosphorus 4.5 mg/dL 2.6 - 4.5 mg/dL - November 30, 025 Ca x P Product 41 0 - 54 - November 30, 20 25 Phosphorus 4.7 mg/dL 2.6 - 4.5 mg/dL High December 30, 2024 Calcium, Total 9.2 mg/dL 8.4 - 10.2 mg/dL - December 30, 2024 Alkaline Phosphatase 57 U/L 35 - 104 U/L - 2024 Ca x P Product 43 0 - 54 - December 30, 025 Corrected Ca x P Product 46 0 - 54 - December 30, 2024 Magnesium 2.2 mg/dL 1.6 - 2.6 mg/dL - December 30, 2024 PTH-Intact, Plasma 55 pg/mL 16 - 80 pg/mL - Dec Liver/Nutrition Result Type Result Value Relevant Reference Range Interpre tation Date eNPCR 2.21 No Reference Ran ge Provided - October 26, 2024 Glucose 210 mg/dL 70 - 100 mg/dL High October 26, 2024 A/G Ratio 1.5 1.0 - 2.0 - October 26, 2024 Globulin (Calc) 2.1 g/dL 2.0 - 4.0 g/dL - October 26, 2024 Total Protein 5.3 g/dL 6.0 - 8.5 g/dL Low October Albumin (BCG) 3.2 g/dL 3.5 - 5.2 g/dL Low October Glucose 172 mg/dL 70 - 100 mg/dL High November 30 A/G Ratio 1.4 1.0 - 2.0 - November 30, 2024 Globulin (Calc) 2.4 g/dL 2.0 - 4.0 g/dL - November eNPCR 0.59 No Reference Ran ge Provided - November 30, 2024 Albumin (BCG) 3.4 g/dL 3.5 - 5.2 g/dL Low November 30, 2024 Total Protein 5.8 g/dL 6.0 - 8.5 g/dL Low November 30, 2024 Albumin (BCG) 3.3 g/dL 3.5 - 5.2 g/dL Low December Total Protein 5.9 g/dL 6.0 - 8.5 g/dL Low December Glucose 210 mg/dL 70 - 100 mg/dL High December 30 Globulin (Calc) 2.6 g/dL 2.0 - 4.0 g/dL - December 30, 2024 A/G Ratio 1.3 1.0 - 2.0 - December 30, 2024 eNPCR 0.63 No Reference Ran ge Provided - December 30, 2024 Immunochemistry Result Type Result Value Relevant Referen ce Range Interpretation Date HCV s/co ratio 0.06 0.00 - 0.79 - March 30, 2024 HCV s/co ratio 0.03 0.00 - 0.79 - September 28, 2024 Trace Elements Result Type Result Value Relevant Reference Range Interpre tation Date Aluminum < 5 mcg/L 0 - 10 mcg/L - March Aluminum < 5 mcg/L 0 - 10 mcg/L - September 28 Infectious Diseases Result Type Result Value Relevant Referen ce Range Interpretation Date Hep B Surface Ab (anti-HBs) 605 mIU/mL No Reference Range Provided - September 28, 2024 HCV Ab (anti-HCV) Nonreactive No Reference R epi Provided - September 28, 2024 Hep B Surface Ag (HBsAg) Negative No Reference Range Provided - September 28, 2024 DIALYSIS PRESCRIPTION Conventional Hemodialysis Data Element Value Order Date/Time January 13, 2025 Frequency 3X Week Treatment Days TueThuSat Dialyzer [id number] Optiflux Treatment Time (Total Minutes) 165 min Blood Flow Rate (mL/min) 450 mL/min Dialysate Flow Rate Autoflow 1.5 Estimated Dry Weight 67.5 kg Dialysate Concentrate 3.0 K, 2.5 Ca, 1.0 Mg, 100 Dextrose (G3251) Sodium (mEq/L) 138 mEq/L Bicarb Machine Setting (mEq/L) 34 mEq/L Dialysis Access Hemodialysis-CV Cath eter-Tunneled, Chest, Right Jugular Access Placed on June 29, 2022 IMMUNIZATIONS Vaccine Date Dose Route Status Flu Vaccine - Flublok Trivalent May 11, 2024 0.5 mL Intramuscular Completed Flu Vaccine - Flubl[place] Quadrivalent May 04, 2023 0.5 mL Intramuscular Completed PNEUMOVAX November 19, 2022 0.5 mL Intramuscular Compl eted HEPLISAV-B, series 4 of 4 November 05, 2022 20.0 mcg Intram uscular Completed HEPLISAV-B, series 3 of 4 September 10, 2022 20.0 mcg Int ramuscular Completed PREVNAR August 27, 2022 0.5 mL Intramuscular Comp leted HEPLISAV-B, series 2 of 4 August 13, 2022 20.0 mcg Intr amuscular Completed HEPLISAV-B, series 1 of July 11, 2022 20.0 mcg Int ramuscular Completed TRANSPLANT WAITLIST STATUS No Information on Transplant Waitlist Status ADVANCE DIRECTIVES Directive Description Ordered By Effective Date Resuscitation status Do Not Resuscitate (DNR) Radha Hall December 06, 2024 DIALYSIS TREATMENTS Conventional Hemodialysis Date Pre-Treatment Vitals Post-Treatment Tameka ls Duration (hr) BFR (mL/min) Dialysate Dialyzer Dialysis Access Meds Admin January 09, 2025 Weight 70.00 kg Weight 67.70 kg 02:44:00 460 3.0 K, 2.5 Ca, 1.0 Mg, 100 Dextrose (G3251) 160nre Optifl ux Blood Pressure-sitting 190/73 mmHg Blood Pressure-sit ting 103/55 mmHg Heart Rate 75 beats per minute Heart Rate 79 beats per minute Respiratory Rate 16 breaths per minute Respiratory Rate 17 breaths per minute Temperature 98.1 deg. F Temperature 96.8 deg. F January 11, 2025 Weight 68.70 kg Weight 67.80 kg 02:38:00 460 3.0 K, 2.5 Ca, 1.0 Mg, 100 Dextrose (G3251) 160nre Optiflux Hemodialysis-CV Catheter-Tunneled, Chest, Right Jugular Access Placed on June 29, 2022 Heparin Sodium (Porcine) 1,000 Units/mL Catheter Lock Arterial; 2000units,Arterial Red [place] Heparin Sodium (Porcine) 1,000 Units/mL Catheter Lock Venous; 2000units,Venous [place] Heparin Sodium (Porcine) 1,000 Units/mL Systemic; 4000units,Intravenous - push Iron Sucrose (Venofer); 100mg,Intravenous - push Blood Pressure-sitting 124/60 mmHg Blood Pressure-sit ting 149/40 mmHg Heart Rate 75 beats per minute Heart Rate 58 beats per minute Respiratory Rate 16 breaths per minute Respiratory Rate 16 breaths per minute Temperature 98.1 deg. F Temperature 98.4 deg. F January 13, 2025 Weight 69.20 kg Weight 68.20 kg 02:49:00 430 3.0 K, 2.5 Ca, 1.0 Mg, 100 Dextrose (G3251) 160nre Optiflux Hemodialysis-CV Catheter-Tunneled, Chest, Right Jugular Access Placed on June 29, 2022 Heparin Sodium (Porcine) 1,000 Units/mL Catheter Lock Arterial; 2000units,Arterial [place] Heparin Sodium (Porcine) 1,000 Units/mL Catheter Lock Venous; 2000units,Venous [place] Heparin Sodium (Porcine) 1,000 Units/mL Systemic; 4000units,Intravenous - push Iron Sucrose (Venofer); 100mg,Intravenous - push Blood Pressure-sitting 154/57 mmHg Blood Pressure-sit ting 139/68 mmHg Heart Rate 82 beats per minute Heart Rate 79 beats per minute Respiratory Rate 18 breaths per minute Respiratory Rate 18 breaths per minute Temperature 96.6 deg. F Temperature 97.5 deg. F
[2025-01-16 17:53] VITALS: BP 157/71; PULSE 73; O2SAT 94
== END 2025-01-16 17:55 | disposition home or self-care (01) ==
PROVIDERS: Emergency Provider Emergency Medicine; PCP Electrodiagnostic Medicine
DX: S09.90XA Unspecified injury of head, initial encounter (principal); W19.XXXA Unspecified fall, initial encounter; Z79.02 Long term (current) use of antithrombotics/antiplatelets; Z79.82 Long term (current) use of aspirin; Z87.891 Personal history of nicotine dependence; I12.0 Hypertensive chronic kidney disease with stage 5 chronic kidney disease or end stage renal disease; N18.6 End stage renal disease; E78.5 Hyperlipidemia, unspecified; S01.01XA Laceration without foreign body of scalp, initial encounter
CPT/HCPCS: 12002; 70450; 72125; 99284; J9999